=== PATIENT | female | born 1950 | race Caucasian/White ===

== ENCOUNTER → 2017-08-23 09:15 | Outpatient (CLI) | payer MEDICARE, SELFPAY ==
[2017-08-23 12:30] LABS: BUN 20 mg/dL (7-18); Creatinine, Serum 1.11 mg/dL (0.55-1.02); EST Glomerular Filtration Rate 52 mL/min (>60); Est Glom Filt Rate - Afr Amer 63 mL/min (>60)
--- OUTSIDE RECORDS SUMMARY | 2017-10-06 11:36 | XMS RPT_ITS ---
:1950 Author Organization OHIP Support Name Relationship Address Phone R Unavailable Unavailable Unavailable LOUIS, CHRISTIANNE Unavailable [address] + [place] [address] CEDENO, THAI Unavailable [address] + [place] [address] R Unavailable Unavailable Unavailable HERIBERTO CHRISTIANNE Unavailable [address] + [place] [address] CEDENO, THAI Unavailable [address] + [place] [address] R Unavailable Unavailable Unavailable LOUIS, CHRISTIANNE Unavailable [address] + [place] [address] CEDENO, THAI Unavailable [address] + [place] [address] R Unavailable Unavailable Unavailable HERIBERTO CHRISTIANNE Unavailable [address] + [place] [address] CEDENO, THAI Unavailable [address] + [place] [address] R Unavailable Unavailable Unavailable HERIBERTO CHRISTIANNE Unavailable [address] + [place] [address] CEDENO, THAI Unavailable [address] + [place] [address] R Unavailable Unavailable Unavailable HERIBERTO CHRISTIANNE Unavailable [address] + [place] [address] CEDENO, THAI Unavailable [address] + [place] [address] R Unavailable Unavailable Unavailable LOUIS, CHRISTIANNE Unavailable [address] + [place] [address] CEDENO, THAI Unavailable [address] + [place] [address] R Unavailable Unavailable Unavailable LOUIS CHRISTIANNE Unavailable [address] + [place] [address] CEDENO, THAI Unavailable [address] + [place] [address] R Unavailable Unavailable Unavailable CHRISTIANNE LOUIS Unavailable [address] + [place] [address] CEDENO, THAI Unavailable [address] + [place] [address] R Unavailable Unavailable Unavailable CHRISTIANNE LOUIS Unavailable [address] + [place] [address] CEDENO, THAI Unavailable [address] + [place] [address] R Unavailable Unavailable Unavailable CHRISTIANNE LOUIS Unavailable [address] + [place] [address] CEDENO, THAI Unavailable [address] + [place] [address] Care Team Providers Name Role Phone Herbert Simpson Attending Unavailable Tatiana, Herbert Primary Care Unavailable Herbert Simpson Attending Unavailable Tatiana, Herbert Primary Care Unavailable TatianaHerbert paul Attending Unavailable Tatiana, Herbert Primary Care Unavailable Jef Espinal Attending Unavailable Tatiana, Herbert Primary Care Unavailable Roman Keane Attending Unavailable Tatiana, Herbert Primary Care Unavailable Timothy Jo Attending Unavailable Tatiana, Herbert Primary Care Unavailable TatianaHerbert Attending Unavailable Tatiana, Herbert Primary Care Unavailable Tatiana, Herbert Attending Unavailable Tatiana, Herbert Primary Care Unavailable Roman Keane Admitting Unavailable Roman Keane Attending Unavailable Tatiana, Herbert Primary Care Unavailable Timothy Jo Attending Unavailable Tatiana, Herbert Primary Care Unavailable Timothy Jo Attending Unavailable Timothy Jo Referring Unavailable Tatiana, Herbert Primary Care Unavailable Timothy Jo Attending Unavailable Timothy Jo. Admitting Unavailable PROBLEMS PROBLEMS DATE TYPE CONDITION / CODE ATTENDING STATUS SOURCE 09/26/2017 Admitting Unknown / Timothy Jo Active [facility] Medical diagnosis UNK(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, Repository initial encounter / T84.038A(ICD-10) 05/19/2017 Unknown ENCNTR SCREEN Herbert Simpson Active [facility] MAMMOGRAM FOR [facility] MALIGNANT NEOPLASM [facility] OF BREAST / Repository Z12.31(ICD-10) 05/19/2017 Unknown HYPERLIPIDEMIA, Herbert Simpson Active [place] UNSPECIFIED / Community E78.5(ICD-10) Hospital Repository 05/19/2017 Unknown ABDOMINAL AORTIC Timothy Jo Active [place] [facility] ANEURYSM, WITHOUT A Community RUPTURE / Hospital I71.4(ICD-10) Repository 05/19/2017 Unknown OCCLUSION AND Timothy Jo Active [place] STENOSIS OF A [facility] BILATERAL CAROTID Hospital ARTERIES / Repository I65.23(ICD-10) 05/19/2017 Unknown TOBACCO USE / Timothy Jo Active [facility] Z72.0(ICD-10) A [facility] Hospital Repository 05/19/2017 Unknown 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 [facility] JOINT / Hospital Z96.612(ICD-10) Repository 05/19/2017 Unknown INTERVERTEBRAL DISC Teddy, 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, Hospital LUMBAR REGION / Repository M51.16(ICD-10) 05/19/2017 Unknown SPINAL STENOSIS, Teddy, Active [place] LUMBAR REGION / [facility] M48.06(ICD-10) Hospital Repository 05/19/2017 Unknown GASTRO-ESOPHAGEAL Teddy, Active [place] REFLUX DISEASE [facility] WITHOUT ESOPHAGITIS Hospital / K21.9(ICD-10) Repository 05/19/2017 Unknown PURE Teddy, Active [facility] HYPERCHOLESTEROLEMIA [facility] , UNSPECIFIED / Hospital E78.00(ICD-10) Repository 05/19/2017 Unknown GROUP HOME (CURRENT) Teddy, Active [place] USE OF ASPIRIN / [facility] Z79.82(ICD-10) Hospital Repository 05/19/2017 Unknown OTHER GROUP HOME Teddy, Active [facility] (CURRENT) DRUG [facility] THERAPY / Hospital Z79.899(ICD-10) Repository 05/19/2017 Unknown ESSENTIAL (PRIMARY) Teddy, Active [place] HYPERTENSION / [facility] I10(ICD-10) Hospital Repository 05/19/2017 Unknown NICOTINE DEPENDENCE, Teddy, Active [place] UNSPECIFIED, [facility] UNCOMPLICATED / Hospital F17.200(ICD-10) Repository 05/19/2017 Unknown PNEUMONIA, Herbert Simpson Active [place] UNSPECIFIED ORGANISM Community / J18.9(ICD-10) Hospital Repository 05/19/2017 Unknown COUGH / R05(ICD-10) Herbert Simpson Active [facility] Hospital Repository 05/19/2017 Unknown CHRONIC OBSTRUCTIVE Herbert Simpson Active [facility] PULMONARY DISEASE, Community UNSPECIFIED / Hospital J44.9(ICD-10) Repository PROCEDURES PROCEDURES No Procedure Records FoundRESULTS RESULTS HH Collected: 09/27/2017 Status: F Source: [facility] 5:35 AM [facility] REPOSITORY Order Comment: [place]: M: In PACU/ICU. Call MD with abnormal results. TYPE CODE TESTS RESULT OUT OF RANGE REFERENCE UNITS LAB L200.88491 Low 11.5-15.5 G/DL HGB 10.8 LAB L200.21788 Low 35.0-47.0 % HCT 33.7 Performed By: #### L200.64901 ####[facility] [id number] [place], [place] [address]Eq# [phone] BMP Collected: 09/27/2017 Status: F Source: [facility] 5:35 AM [facility] REPOSITORY Order Comment: [place]: M: In PACU/ICU. Call MD with abnormal results. TYPE CODE TESTS RESULT OUT OF RANGE REFERENCE UNITS LAB L500.40356 Normal 136-145 MMOL/L NA 142 LAB L500.64655 Normal 3.5-5.1 MMOL/L K 4.4 LAB L500.21368 High 98-107 MMOL/L CL 112 LAB L500.30202 Normal 21-32 MMOL/L CO2 22 LAB L500.82067 Normal 5-16 MMOL/L AGAP 9 LAB L500.15953 High 70-100 MG/DL GLU 113 Result Comment: 70-100- Normal Fasting; 100-125 Impaired Fasting; greaterthan 126 on more than one result- Diabetes. ADA guidelines.Results may be falsely elevated after the administration ofSulfapyridine.Results may be falsely depressed after the administration ofSulfasalazine. LAB L500.71288 Normal 7-26 MG/DL BUN 13 LAB L500.42580 High 0.510-0.950 MG/DL CREAT 1.040 Result Comment: Patients receiving either N-Acetylcysteine (NAC) orMetamizole prior to venipuncture, may have falsely depressedresults. LAB L500.87740 Low 15-24 BUN/CREA 12 LAB L500.85501 Normal 8.5-10.1 MG/DL CALCIUM TOTAL 8.9 Performed By: #### L500.64757, L500.15647 ####[facility] [id number] [place], [place] [address]Rk# [phone] GFR EST Collected: 09/27/2017 Status: F Source: [facility] 5:35 AM [facility] REPOSITORY Order Comment: [place]: M: In PACU/ICU. Call MD with abnormal results. TYPE CODE TESTS RESULT OUT OF RANGE REFERENCE UNITS LAB L500.72374 Normal ML/MIN IF 53 non-AFR AMER LAB L500.59639 Normal ML/MIN IF Greater AMER than 60 Performed By: #### L500.29777, L500.72366 ####[facility] [id number] [place], [place] [address]Pe# [phone] CBC Collected: 09/26/2017 Status: F Source: [facility] 9:40 AM [facility] REPOSITORY Order Comment: [place]: M: In PACU/ICU. Call MD with abnormal results. TYPE CODE TESTS RESULT OUT OF RANGE REFERENCE UNITS LAB L200.70403 High 4.5-11.0 K/CU MM WBC 12.6 LAB L200.57847 Low 3.90-5.30 M/CU MM RBC 3.62 LAB L200.05985 Low 11.5-15.5 G/DL HGB 11.1 LAB L200.84247 Normal 35.0-47.0 % HCT 35.1 LAB L200.07885 Normal 80.0-99.0 fl MCV 97.0 LAB L200.13268 Low 32.0-36.0 GM/DL MCHC 31.6 LAB L200.26829 Normal 11-14.5 RDW 12.6 LAB L200.46995 Normal 9.4-12.4 MPV 9.4 LAB L200.72241 Normal 150-450 K/CU MM PLT 269 LAB L200.90591 Normal Less than 1 % NRBC 0.0 Performed By: #### L200.77970 ####[facility] [id number] [place], [place] [address]Wl# [phone] PT Collected: 09/26/2017 Status: F Source: [facility] 9:40 AM [facility] REPOSITORY Order Comment: [place]: M: In PACU/ICU. Call MD with abnormal results. TYPE CODE TESTS RESULT OUT OF RANGE REFERENCE UNITS LAB L300.77371 Normal 0.9-1.1 INR 1.0 Result Comment: Recommended PT INR therapeutic range for senior living andprophylactic therapy is 2.0 - 3.0. For heart valve andshunt patients the range is 2.5 - 3.5. LAB L300.39300 Normal 9.4-12.0 SECONDS PTS 10.7 Performed By: #### L300.90598, L300.36890 ####[facility] [id number] [place], [place] [address]Ff# [phone] PTT Collected: 09/26/2017 Status: F Source: [facility] 9:40 AM [facility] REPOSITORY Order Comment: [place]: M: In PACU/ICU. Call MD with abnormal results. TYPE CODE TESTS RESULT OUT OF RANGE REFERENCE UNITS LAB L300.34582 Normal 22.5-31.4 SECONDS PTT 25.4 Result Comment: Therapeutic Heparin Reference Range: High Dose: 56 - 86 seconds (DVT/PE) Low Dose: 50 - 70 seconds (Acute Coronary Syndrome)For low molecular weight heparin or danaparoid, monitoringis often NOT necessary, but the heparin assay, Xa inhibitionassay (send-out) may be used in certain circumstances, asthe PTT is generally insensitive to the effect of theseagents. Direct thrombin inhibitors are becoming more widelyutilized and these drugs are often monitored using the PTT. Performed By: #### L300.49644, L300.68659 ####[facility] [id number] [place], [place] [address]Km# [phone] PATIENT RETYPE Collected: 09/26/2017 Status: F Source: [facility] 6:11 AM [facility] TYPE CODE TESTS RESULT OUT OF RANGE REFERENCE UNITS LAB B100.14849 Normal B RETYPE POSITIVE INTERP EKG Observed: 09/26/2017 Status: UNK Source: [facility] 6:00 AM [facility] Procedure Date and Time: 09/26/17 0714Test Reason : URGENTBlood Pressure : / mmHGVent. Rate : 077 BPM Atrial Rate : 077 BPMP-R Int : 172 ms QRS Dur : 076 msQT Int : 382 ms P-R-T Axes : 045 039 061 degreesQTc Int : 432 msNormal sinus rhythmNormal ECGNo previous ECGs availableConfirmed by SHANELL FRANCIS MD ([id number]) on 09/26/2017 7:24:29 PMReferred By: Ca Correa Confirmed By:SHANELL FRANCIS MD M.D.DDandT: 09/26/17 0714TDandT:[facility] PATIENT NAME: ANDREW LOUIS [facility] Dr[address] MEDICAL REC #: [id number], [place] [address] DATE: 09/26/17DISCHARGE DATE:ATTENDING PHY: Timothy Jo MDELECTROCARDIOGRAM REPORTCLBcc:[facility] PATIENT NAME: ANDREW LOUIS [facility] Dr. Mendez MEDICAL REC #: [id number], [place] [address] DATE: 09/26/17DISCHARGE DATE:ATTENDING PHY: Timothy Jo MDELECTROCARDIOGRAM REPORT CBC W/DIFF Collected: 09/26/2017 Status: F Source: [facility] 5:56 AM [facility] REPOSITORY Order Comment: [place]: TYPE CODE TESTS RESULT OUT OF RANGE REFERENCE UNITS LAB L200.04065 Normal 4.5-11.0 K/CU MM WBC 9.2 LAB L200.80254 Normal 3.90-5.30 M/CU MM RBC 4.15 LAB L200.74803 Normal 11.5-15.5 G/DL HGB 12.8 LAB L200.15176 Normal 35.0-47.0 % HCT 39.8 LAB L200.40525 Normal 80.0-99.0 fl MCV 95.9 LAB L200.58433 Normal 32.0-36.0 GM/DL MCHC 32.2 LAB L200.52988 Normal 11-14.5 RDW 12.8 LAB L200.74494 Low 9.4-12.4 MPV 9.3 LAB L200.44573 Normal 150-450 K/CU MM PLT 316 LAB L200.72836 Normal 45-75 % NEUTROPHILS % 61.6 LAB L200.23144 Normal Less than 2 % IMMATURE GRAN % 0.2 LAB L200.03479 Normal 20-40 % LYMPH % 25.7 LAB L200.24370 Normal 2-10 % MONOCYTE % 7.0 LAB L200.41860 Normal 0-5 % EOSINOPHIL % 4.7 LAB L200.19092 Normal 0-2 % BASOPHIL % 0.8 LAB L200.51882 Normal 2.0-8.3 K/CU MM NEUTROPHIL ABS 5.70 LAB L200.02029 Normal Less than 2 K/CU MM IMMATR GRAN ABS 0.00 LAB L200.49661 Normal 0.9-4.4 K/CU MM LYMPH ABS 2.40 LAB L200.93749 Normal 0.1-1.1 K/CU MM MONO ABS 0.60 LAB L200.17133 Normal 0-0.5 K/CU MM EOS ABS 0.40 LAB L200.17433 Normal 0-0.2 K/CU MM BASO ABS 0.10 LAB L200.73784 Normal Less than 1 % NRBC 0.0 Performed By: #### L200.54263 ####[facility] [id number] [place], [place] [address]Bg# [phone] BMP Collected: 09/26/2017 Status: F Source: [facility] 5:55 AM [facility] REPOSITORY Order Comment: [place]: M TYPE CODE TESTS RESULT OUT OF RANGE REFERENCE UNITS LAB L500.53601 Normal 136-145 MMOL/L NA 142 LAB L500.32770 Normal 3.5-5.1 MMOL/L K 4.6 LAB L500.68194 High 98-107 MMOL/L CL 109 LAB L500.35591 Normal 21-32 MMOL/L CO2 23 LAB L500.15443 Normal 5-16 MMOL/L AGAP 10 LAB L500.59227 Normal 70-100 MG/DL GLU 100 Result Comment: 70-100- Normal Fasting; 100-125 Impaired Fasting; greaterthan 126 on more than one result- Diabetes. ADA guidelines.Results may be falsely elevated after the administration ofSulfapyridine.Results may be falsely depressed after the administration ofSulfasalazine. LAB L500.91997 Normal 7-26 MG/DL BUN 13 LAB L500.08876 High 0.510-0.950 MG/DL CREAT 1.070 Result Comment: Patients receiving either N-Acetylcysteine (NAC) orMetamizole prior to venipuncture, may have falsely depressedresults. LAB L500.96169 Low 15-24 BUN/CREA 12 LAB L500.29608 Normal 8.5-10.1 MG/DL CALCIUM TOTAL 10.0 Performed By: #### L500.40480, L500.98948 ####[facility] [id number] [place], [place] [address]Ov# [phone] GFR EST Collected: 09/26/2017 Status: F Source: [facility] 5:55 AM [facility] REPOSITORY Order Comment: [place]: M TYPE CODE TESTS RESULT OUT OF RANGE REFERENCE UNITS LAB L500.24541 Normal ML/MIN IF 51 non-AFR AMER LAB L500.00005 Normal ML/MIN IF Greater AMER than 60 Performed By: #### L500.06755, L500.20438 ####[facility] [id number] [place], [place] [address]Cc# [phone] PBNP TEST Collected: 09/26/2017 Status: F Source: [facility] 5:55 AM [facility] REPOSITORY Order Comment: [place]: M TYPE CODE TESTS RESULT OUT OF RANGE REFERENCE UNITS LAB L500.91591 Normal 0-900 PG/ML PBNP 172 TEST Result Comment: NT-proBNP results of less than 300 pg/ml effectively rulesout acute congestive heart failure with 99% negativepredictive value. Performed By: #### L500.27856 ####[facility] [id number] [place], [place] [address]Rl# [phone] TS Collected: 09/26/2017 Status: F Source: [facility] 5:55 AM [facility] REPOSITORY Order Comment: [place]: MPatient transfused or in the past 3 months: NOIs This Patient Going To Surgery? YSurgery Date: 09/26/17 TYPE CODE TESTS RESULT OUT OF RANGE REFERENCE UNITS LAB B100.0400 Normal BLOOD B TYPE POSITIVE LAB B100.0680 Normal ANTIBODY NEGATIVE SCREEN OR Observed: 09/26/2017 Status: UNK [facility] OF [facility]: 09/26/2017PREOPERATIVE DIAGNOSIS: Aortic aneurysm.POSTOPERATIVE DIAGNOSIS: Aortic aneurysm.OPERATION:1. Bilateral ultrasound-guided access common femoral artery.2. Aortogram with bilateral iliofemoral imaging.3. Endovascular aneurysm repair with a Jerome 26 main body and 12-mm bilateral limbs.SURGEON: Timothy Jo MDINDICATIONS: Patient with an enlarging aneurysm that is now over 5 cm who asked thatwe repair it. Risks, benefits, and alternatives were discussed. She agreed toproceed.OPERATION: The patient was brought to the operating room. Underwent generalanesthesia. Given the appropriate antibiotics. Was prepped and draped in a sterilefashion. We then did ultrasound-guided access bilateral common femoral arteries, putin 2 ProGlides to both sides. Put in an 8-Botswanan sheath. Gave 8000 units ofheparin. Brought in a pigtail catheter. We marked out the length from the lowerleft renal to the right hypogastric and appeared to be 18 cm. We were going to do an18-cm main body with 26-mm proximal. We then replaced a Lunderquist through both,brought in a 12-Botswanan sheath on the left, 16-Botswanan sheath on the right. We broughtthese up. We then brought in the main body, did an aortogram then, showing the leftrenal artery; deployed the main body in good position right below this, and we openeddown to the gate. We then pulled the pigtail back. We had access into the gate,measured off the left one and replaced the Lunderquist wire here, brought the sheathback in to the main body, deployed the limb on that side in good position, which wasa 12 cm x 12 mm above the hypogastric. We then, after that, did a little retrogradelooking at the ipsilateral hypogastric, finished deploying the rest of the main bodythere in good position. We then brought in a balloon and ballooned the proximal, thejunctions, and down both limbs. Did a completion aortogram showing no type 1, type2, or appreciable type 3 endoleak with good flow through here into the hypogastrics.We then removed out both sheaths, deployed the ProGlides with good hemostasis. Thepatient was then brought to recovery in stable condition. She has good signals notedin both feet. Prior to this, entry to the groins were closed with interrupted 3- 0Vicryl, 4-0 Monocryl, and Dermabond was placed. Timothy Jo MD [facility] PAT[facility]: [facility] REC #: [id number], [place] [address] DATE:DISCHARGE DATE:OPERATIVE REPORT ATTENDING PHY: Timothy Jo MDBB/[id number]: 09/26/2017 09:15DT: 2017 10:24[place] File#: [id number] #: [id number]/Reviewed by09/26/17 1139 BUTBR [facility] PATIENT [facility]: [facility] MED[facility] REC #: [id number] [address] DATE:DISCHARGE DATE:OPERATIVE REPORT ATTENDING PHY: Timothy Jo MD CTA ABD W/JAROCHO W/LUANA Observed: 08/30/2017 Status: F Source: [place] [facility] 7:51 AM [facility] REPOSITORY [facility] [address] [place], [place] [address]SIR Abd w/Runoff W/WO ContrastMR#: [id number] Acct: [id number]: ANDREW LOUIS Rep #: [id number]: [birth year] F 67 From: [facility] DOTHANCP: Herbert Simpson DO Status: REG CLIStudy: CTA Abd w/Runoff W/WO Contrast Date of Exam: 08/30/17Exam# [id number] Ordering Dr: Timothy Jo MDSTUDY: CTA OF THE ABDOMINAL AORTA AND BILATERAL LOWER EXTREMITIESREASON FOR EXAM: Female, 67 years old. History of carotid stenosis andpopliteal stents.RADIATION DOSAGE (If Supplied By Facility): CTDIvol = ( 8.9 ) mGy, DLP = (1721.07 ) mGycmTECHNIQUE: Axial CT angiography multi-detector data acquisition wasobtained from the dome of the liver to the ankles following intravenousadministration of 100 ml of Isovue 370 contrast. Axial images and MIPimages were reconstructed from the axial data set. Post-processing of theangiographic images was performed, with multiplanar reformation and 3Dreconstruction.Individualized dose optimization techniques were used for this CT.TECHNICAL QUALITY: GoodCOMPARISON: Comparison is made with prior examination dated October.Descriptors of Narrowing:None (0%)Mild (< 50%)Moderate (50-70%)Severe (70-90%)Subtotal/Total Occlusion (90-100%)Non-Evaluable ( technically non-diagnostic FINDINGS:Abdominal aorta: There is a fusiform infrarenal abdominal aortic aneurysmwith a transverse dimension of 5.2 cm. There is evidence of muralthrombus.Celiac and superior mesenteric arteries: Atherosclerotic narrowing of theorigins of the celiac artery and superior mesenteric arteries.Inferior mesenteric artery: Not visualized.Right renal artery( arteries): Atherosclerotic stenotic plaque at theorigin of the right renal artery.Left renal artery(arteries): Atherosclerotic plaque at the origin of leftrenal artery causing mild stenosis.Right common iliac artery: Diffuse atherosclerotic calcifications. Mildnarrowing.Right external iliac artery: Atherosclerotic calcifications.Right internal iliac artery: No demonstrated narrowing.Left common iliac artery: Atherosclerotic plaques with mild narrowing.Left external iliac artery: Atherosclerotic plaques with mild narrowing.Left internal iliac artery: No demonstrated narrowing. Increased markings at the lung bases with areas of groundglass appearancesuggests over chronic scarring. Coronary artery calcification.Normal liver. I suspect tiny gallstones along the dependent portion of thegallbladder lumen. Normal spleen. Normal pancreas.Once again, there is evidence of a 4.3 cm x 3 cm complex cystic mass withcalcifications in the left adrenal gland. This is unchanged.Normal right kidney. Normal left kidney.Normal visualized stomach. Normal small intestine. There are scatteredcolonic diverticula consistent with diverticulosis. The appendix isvisualized and appears normal.RIGHT LOWER EXTREMITYRight common femoral artery: Atherosclerotic plaques with mild narrowing.Right profundus femoris: No demonstrated narrowing.Right superficial femoral: Multiple stenotic lesions seen throughout thesuperficial femoral artery. A stent is seen in the distal portion of thesuperficial femoral artery and proximal popliteal artery.Right popliteal artery: Stent is seen in the proximal portion of thepopliteal artery. There is occlusion of the popliteal artery at the levelof the stent. There is reconstruction of the distal portion of thepopliteal artery.Right tibioperoneal trunk: No demonstrated narrowing.Right anterior tibial artery: Patent with focal areas of narrowing.Right posterior tibial artery: Patent with focal areas of narrowing.Right peroneal artery: Patent with focal areas of narrowing.LEFT LOWER EXTREMITYLeft common femoral artery: Atherosclerotic plaque.Left profundus femoris: No demonstrated narrowing. Atheroscleroticplaques.Left superficial femoral: A stent is seen in the distal portion of thesuperficial femoral artery. There is occlusion in the proximal portion ofthe stent with reconstruction of the distal popliteal artery andtibioperoneal trunk.Left popliteal artery: Occlusion at the level of the proximal portion ofthe stent with reconstruction of the distal popliteal artery.Left tibioperoneal trunk: No demonstrated narrowing.Left anterior tibial artery: Atherosclerotic plaques.Left posterior tibial artery: Atherosclerotic plaques.Left peroneal artery: Atherosclerotic plaques. ORDER #: [id number] CT/CTA Abd w/Runoff W/WO ContrastIMPRESSION:Occlusion in both arterial stents at the level of the popliteal arteries asdescribed.Electronically Signed:Dario Barrientos MD at 10:42 ESTTel [phone], Service support , EB: Timothy Jo MD; Herbert Simpson DO [employer] Boards Inspector:Signed BUN Collected: 08/23/2017 Status: F Source: [place] 9:18 AM [facility] REPOSITORY TYPE CODE TESTS RESULT OUT OF RANGE REFERENCE UNITS LAB L501.1000 High 7-18 mg/dL BUN 20 Performed By: #### L501.1000, L501.1105 ####[facility] [address] [place], [place], [address] SERUM CREATININE AND Collected: 08/23/2017 Status: F Source: [facility] [facility] 9:18 AM [facility] REPOSITORY TYPE CODE TESTS RESULT OUT OF RANGE REFERENCE UNITS LAB L501.1100 High 0.55-1.02 mg/dL 1.11 CREAT,SERUM Result Comment: The validity of the calculated GFR AND GFRAA in patients over70 years has not been determined. Clinical correlation isessential. LAB L501.1110 Low >60 mL/min EST GFR 52 Result Comment: Non- GFR Calc LAB L501.1115 Normal >60 mL/min EST GFR - 63 AA Result Comment: GFR Calc Performed By: #### L501.1000, L501.1105 ####[facility] [address] [place], [place], [address] DISCHARGE INSTRUCTION Observed: 08/16/2017 Status: F Source: ISIS 7:03 AM [facility] RE[facility] [address] [place], [place] [address]Ripfqpjsoqlw for Home/Discharge Rozpvhsqbxpc49/17/18 07[facility] #: [id number] Acct: [id number]: ANDREW LOUIS Rep #: [id number]: 1950 67 From: Ramon FRANCOISP: Herbert Simpson DO Status: ADM INDischarge Diet: No RestrictionsDischarge Activity: May Not DriveMay shower in (days): 1 - Dressing must be intact the skin, turned dressing away from waterIce area for (Minutes): 20 - Ice area for 20 minutes each hour while awakeWeight Bearing Status: No weight bearing - Left upper extremityCall your doctor if your incision/area has: Continuous Slow Oozing, Sudden Increased Bleeding,Increased Pain/ Swelling, Increased Redness, Foul Smelling DischargeCall your doctor if you observe: Fever of 101 or Higher, Coldness, Increased Pain, Numbness orTingling, Change in ColorRemove Dressing in (days): : 4 - Okay to remove dressing on August 20, 2017Additional Instructions:Follow [facility] postop instructionsAllergies/Adverse Reactions:Allergiesnaproxen [ From Naprosyn] Allergy (Verified 08/02/17 11:06)Shortness of breathMedications to take at DischargeAtorvastatin Calcium [Lipitor] 40 mg PO QHS 07/10/15Lisinopril [ Zestril] 20 mg PO DAILY 07/10/15Omeprazole [Prilosec] 40 mg PO DAILY 07/10/15BuPROPion (XL) [Wellbutrin Xl] 300 mg PO DAILY 12/29/16Cilostazol 100 mg PO BID 08/02/luticasone/Salmeterol [Advair 100-50 Diskus] 1 each IH BID 08/02/17Acetaminophen [Tylenol] 1,000 mg PO Q8 #90 tab 08/16/17Aspirin 325 mg PO DAILY@0800 #14 tab 08/16/17Doxycycline 100 mg PO BID #14 cap 08/16/17Oxycodone [Oxyir] 5 - 10 mg PO Q4H PRN PRN #80 tablet 08/16/17enna/Docusate Sodium [ Senokot-S] 2 tab PO BID PRN PRN #20 tab 08/16/17The following prescriptions were given: Oxycodone [Oxyir] 5 - 10 mg PO Q4H PRN PRN #80 tabletPRN Reason: PainAcetaminophen [ Tylenol] 1,000 mg PO Q8 #90 tabAspirin 325 mg PO DAILY@0800 #14 tabSenna/Docusate Sodium [Senokot-S] 2 tab PO BID PRN PRN #20 tabPRN Reason: ConstipationDoxycycline 100 mg PO BID #14 capPrimary Care Physician:Herbert Simpson DO [Primary Care Provider] - Please Follow Up With: Ramon Godinez PA-CWhen: 08/28/17 @ 8:15 amPlease Follow Up With: [facility] physical therapyWhen: 08/29/17 @ 7:00 am08/16/17 0703 <Electronically signed by Ramon Godinez PA-C>Date Ramon GARGCCC: Herbert Simpson DO OPERATIVE REPORT Observed: 08/15/2017 Status: F Source: MARTIN 11:21 AM [facility] [address] [place], [place] [address]Jkwaejisc Quoxwc41/16/18 1108MR#: [id number] Acct: [id number]: ANDREW LOUIS Rep #: [id number]: 1950 67 From: Roman Keane MDPCP: Herbert Simpson DO Status: ADM IN YLocation: ACINP [id number] of OperationDate of Procedure: 08/15/17Pre-Operative Diagnosis: Left failed reverse total shoulder replacement, aseptic looseningPost-Operative Diagnosis: Left failed reverse total shoulder replacement, aseptic looseningSurgery/Procedure Performed:: Revision left total shoulder replacementDescription of Surgical Findings::Stable shoulder with good fixation, DBX used to fill bone voidOR Railroad Operating Engineer: Susannah Godinez Railroad Operating Engineer: Jerome SkeltonType of Anesthesia:: GeneralAnesthesiologist: MichaelEricSpecial Medications: 2 g Ancef, 1 g TXA at incision, 1 g TXA closure, 10 mg Decadron, jointcocktail (5 mg Duramorph, 30 mL of 0.5% Ropivicaine, 1000 units of epinephrine), 1 g vancomycinthroughout caseSpecimen's removed: 3 separate specimens were sent to microbiologyEstimated Blood Loss (mL): 75Fluids Replaced: 1500 ml crystalloidDescription of Procedure:Components used1. Equinox glenoid baseplate from [employer] for reverse TSA, 8 posterior augment2. Equinox 38 mm Glenosphere3. Equinox 38 mm, +0 mm humeral liner4. Equinox reverse TSA humeral adapter tray 0 mmBrief history/Operative indications:67 yo f with history of previous left reverse total shoulder replacement. Patient hadprogressive increase in pain and x-rays consistent with radiolucency around the glenoidbaseplate and glenoid baseplate screws. Patient failed conservative measures as mentioned inthe H AND P. After discussion of risk and benefits of revision reverse total shoulder replacementincluding but not limited to blood loss, DVTs, PEs, nerve vessel damage, infection, generalrisk of anesthesia including loss of life, instability and stiffness patient demonstratingunderstanding wish to proceed was able to sign informed consent. Medical clearance wasobtained.Procedure:On the date of the procedure, patient's L upper extremity was marked in the preoperative area.Patient was taken back to the operating room where they were placed on the table in the supineposition. Anesthesia assumed control of the C-spine and airway, then administered anesthetic.All bony prominences were identified well-padded, the head was secured and the patient wasplaced in the beachchair position at about 35 inclination. Anesthesia remained in control ofthe C-spine airway throughout the remainder of the procedure. Patient was then appropriatelyfastened to the table and the L upper extremity was prepped in a sterile fashion. The surgeonsthen scrubbed.Upon reentering the room, the L upper extremity was draped in a sterile fashion and theincision was marked out. Timeout was called, everyone agreed upon the side, the site, theprocedure to be performed, patient identity and antibiotics given. Incision was taken downthrough skin and subcutaneous tissue, fat down to fascia using the old incision and extendingit 1 cm proximally and distally. The stripe of fatty and scar tissue of the deltopectoralinterval and cephalic vein were identified and blunt dissection was used to retract thedeltoid. We are very careful to remain in the subdeltoid space for retraction the cephalicvein was retracted laterally. Clavipectoral fascia was then incised and a kobel retractor wasplaced in the wound. Proximally we followed the bicipital groove re-creating the rotatorinterval. The rotator interval was split and the arm was externally rotated. Thesubscapularis split was 1 cm medial to the bicipital groove. Subscapularis tendon wasreleased. We released down the anterior portion of the humerus and a paulson elevator was used torelease the inferior portion of the humeral head. The arm was externally rotated and theshoulder was dislocated.Our attention was then directed towards the humeral implant. Polyethylene was removed andcentral screw was removed from the adapter tray. Adapter tray was then from thehumeral implant. Humeral implant was examined and found to be well fixed. At this time weretracted the humerus out of the way and began a synovectomy of the joint. Anterior superiorsynovectomy was performed with the going to see her in situ and once we could appropriatelyexposed the gland is for her the central screw was removed and the banister was removed fromthe base plate. Once the canister was removed and the baseplate all 4 screws were removed andit is clear that the baseplate was grossly loose. Base plate was then removed using pliersfrom the wound. At this time we used the standard glenoid reamers with the previous centralhole to once again ream the glenoid down to good subchondral bone. Membrane from the humeralimplant, membrane from between the glenoid and glenoid baseplate and membrane from behind theglenoid baseplate were sent for culture. Once all the screw holes and central pedicle weredebrided of all membrane and appropriately reamed we then trialed an 8 posterior augmentimplant and it sat flush. At this time the wound was copiously irrigated out normal salinewhile the 8 posterior augment baseplate was opened. After 6 L of normal saline were copiouslyirrigated throughout the wound with low-pressure lavage the glenoid was again exposed. Were-drilled the central peg and graft from the drilling as well as DBX was placed into thecentral bone cage. Glenoid was then impacted into place and 4 screws were placed. Theremaining screw holes could not get good purchase. We did place DBX through the screw holes inorder to fill bone voids. Once the screws were appropriately tightened into place theglenoid baseplate was compressed against the exposed subchondral bone. Locking caps wereplaced and a 38mm glenosphere was impacted into place engaging the Nixon taper. The centralscrew was then tightened into place.Attention was then turned towards the humerus. The humerus was again externally rotatedexposing the proximal portion of the humerus. Central canal finder was then used to open upthe canal. We trialed the 0mm liner, with the 0mm humeral baseplate. We obtained an adequatereduction at this time with a nice stable shoulder. Good internal rotation to the gluteus,forward elevation to 140 , external rotation to 20 . Final components were then assembled onthe back table, trials were removed and the wound was copiously irrigated with normal salineafter dislocating the shoulder. Once the final components were assembled they were impactedinto place. Shoulder was then reduced and found to be stable with good range of motion.Subscapularis tendon could not be repaired. Wound was then copiously irrigated out with 1 L ofnormal saline lavage. The deltopectoral fascia was then closed using #1 Vicryl skin was closedusing 2-0 Vicryl interrupted sutures and final skin closure was done with 3-0 Monocryl.Steri-Strips are placed for final skin closure. Sterile dressing was placed patient was thenplaced in a sling and awakened by anesthesia. Patient was then transferred to the PACU forrecovery.Postoperative plan:Patient will be admitted to the hospital overnight. They will get physical therapy starting in2 weeks with normal postoperative regimen. Patient will be placed on 325 milligrams of aspirindaily for DVT prophylaxis. The first postoperative appointment will be in 2 weeks for woundcheck and initiation of phase 1 physical therapy.During the course of the procedure the physician mechanic assistant played a vital role. His intimateknowledge of my steps in the procedure aided in safe and expedient completion of the procedure.The PA played a vital rolls in positioning particularly in obtaining the appropriate beachchair position and securing the patient's body and head to the table. The PA was also vital inthe retraction of soft tissues during the exposure and especially the glenoid work as this is neida part of the procedure to prevent neurovascular damage. the PA was also vital andprotecting soft tissues during times of bony cuts and reaming. He also played a vital role inclosure with my direct supervision. The PA was also important during reduction and dislocationof the joint and trials intraoperatively.During the course the procedure Dr. Skelton was present and was a second mechanic assistant forevaluative and educational purposes. He is being evaluated for reentry into practice.- Complicationsnone- Admit VTE DocumentationVTE Present on Admission: NoVTE Mechan Device Prophylaxis: SCD's, Thigh High DEBBIE HoseVTE Pharm Prophylaxis ordered?: Yes08/15/17 1121 < Electronically signed by Roman Keane MD>Date Roman Keane MDCC: Herbert Simpson DO; Roman Keane MD Signed SHOULDER ONE VIEW Observed: 08/15/2017 Status: F Source: MARTIN 7:05 AM [facility] REPOSITORY [facility] [address] [place], [place] [address]Azmskrpr One ViewMR#: [id number] Acct: [id number]: ANDREW LOUIS Rep #: [id number]: 1950 F 67 From: Dario Barrientos MDPCP: Herbert Simpson DO Status: ADM INStudy: Shoulder One View Date of Exam: 08/15/17Exam# [id number] Ordering Dr: Roman Keane MDSTUDY: X-RAY - LEFT SHOULDERREASON FOR EXAM: Female, 67 years old. Total shoulder arthroplasty.TECHNIQUE: Single frontal view(s) of the shoulder.COMPARISON: None. FINDINGS:The patient is status post left reverse shoulder replacement. There isgood alignment.Postoperative soft tissue changes. ORDER #: [id number] RAD/Shoulder One ViewIMPRESSION:Status post left reverse shoulder replacement. There is good alignment.Postoperative soft tissue changes.Electronically Signed:Dario Barrientos MD2018/08/15 at 12:25 ESTTel [phone], Service support , FD: Herbert Simpson DO; Roman Keane MD Printed Circuit Boards Inspector:Signed Observed: 08/15/2017 Status: F Source: ISIS CULTURE, DEEP WOUND 12:00 [facility] REPOSITORY Order Date: 03/01/17 Comments: LEFT HUMERAL MEMBRANEGram StainGram Stain 1+ White Blood Cells No organisms seen Wound CultureNo growth aerobically. Cult, AnaerobicNo growth in 5 days. Performed By: #### M100.1500, M600.1900 ####[facility] [address] [place], [address] Observed: 08/15/2017 Status: F Source: ISIS LARSON, FUNGUS W/ 12:00 [facility] [id number] REPOSITORY Comments: LEFT HUMERAL MEMBRANE Is this test to exclude patient from TB Isolation? N Cu,[id number] TESTING PERFORMED AT [facility]. ORIGINAL REPORT ON FILE IN LAB CONTAINS ADDITIONAL TEST SITE INFORMATION. CUF No yeast or mold isolated after [address] TESTING PERFORMED AT [facility]. ORIGINAL REPORT ON FILE IN LAB CONTAINS ADDITIONAL TEST SITE INFORMATION. Fungus Stain No yeast or mold observed. Performed By: #### M100.1500, M600.1900 ####[facility] [address] [place], [address] Observed: 08/15/2017 Status: F Source: ISIS CULTURE, DEEP WOUND 12:00 AM [facility] REPOSIT[facility] Order Date: 03/01/17 Comments: LEFT GLENOID MEMBRANEGram StainGram Stain 2+ White Blood Cells No organisms seen Wound CultureNo growth aerobically. Cult, AnaerobicNo growth in 5 days. Performed By: #### M100.1500 ####[facility] [address] [place], [address] Observed: 08/15/2017 Status: F Source: ISIS CULTURE, DEEP WOUND 12:00 [facility] REPOSITORY Order Date: 03/01/17 Comments: LEFT GLENOID MEMBRANE # 2Gram StainGram Stain 2+ White Blood Cells No organisms seen Wound CultureNo growth aerobically. Cult, AnaerobicNo growth in 5 days. Performed By: #### M100.1500, M100.3880, M600.1900 ####[facility] [address] [place], [address] AFB Observed: 08/15/2017 Status: F Source: ISIS CULT/SMEAR [id number] 12:00 [facility] REPOSITORY Comments: LEFT GLENOID MEMBRANE #2 Is this test to exclude patient from TB Isolation? N AFB Smear/Fluor TESTING PERFORMED AT [facility]. ORIGINAL REPORT ON FILE IN LAB CONTAINS ADDITIONAL TEST SITE INFORMATION. Smear, Acid Fast Tissue Grinding Smear: Negative AF[employer] Cult TESTING PERFORMED AT [facility]. ORIGINAL REPORT ON FILE IN LAB CONTAINS ADDITIONAL TEST SITE INFORMATION. Culture, Acid Fast NO ACID-FAST BACILLI ISOLATED AFTER 6 WEEKS. Performed By: #### M100.1500, M100.3880, M600.1900 ####[facility] [address] [place], [id number] Observed: 08/15/2017 Status: F Source: JOSE BEARDEN W/ 12:00 [facility] [id number] REPOSITORY Comments: LEFT GLENOID MEMBRANE #2 Is this test to exclude patient from TB Isolation? Fozia Rice,Mkezws6539 TESTING PERFORMED AT [facility]. ORIGINAL REPORT ON FILE IN LAB CONTAINS ADDITIONAL TEST SITE INFORMATION. CUF No yeast or mold isolated after [address] TESTING PERFORMED AT [facility]. ORIGINAL REPORT ON FILE IN LAB CONTAINS ADDITIONAL TEST SITE INFORMATION. Fungus Stain No yeast or mold observed. Performed By: #### M100.1500, M100.3880, M600.1900 ####[facility] [facility] [address] [place], [address] [employer]B Observed: 08/15/2017 Status: F Source: ISIS CULT/SMEAR [id number] 12:00 [facility] REPOSITORY Comments: LEFT HUMERAL MEMBRANE AF[employer] Smear/Fluor [facility]. ORIGINAL REPORT ON FILE IN LAB CONTAINS ADDITIONAL TEST SITE INFORMATION. Smear, Acid Fast Tissue Grinding Smear: Negative AF[employer] Cult TESTING PERFORMED AT [facility]. ORIGINAL REPORT ON FILE IN LAB CONTAINS ADDITIONAL TEST SITE INFORMATION. Culture, Acid Fast NO ACID-FAST BACILLI ISOLATED AFTER 6 WEEKS. Performed By: #### M100.3880 ####[facility] [address] [place], [address] AFB Observed: 08/15/2017 Status: F Source: ISIS CULT/SMEAR [id number] 12:00 [facility] REPOSITORY Comments: LEFT GLENOID MEMBRANE Is this test to exclude patient from TB Isolation? N AFB Smear/Fluor TESTING PERFORMED AT [facility]. ORIGINAL REPORT ON FILE IN LAB CONTAINS ADDITIONAL TEST SITE INFORMATION. Smear, Acid Fast Tissue Grinding Smear: Negative AFB Cult TESTING PERFORMED AT [facility]. ORIGINAL REPORT ON FILE IN LAB CONTAINS ADDITIONAL TEST SITE INFORMATION. Culture, Acid Fast NO ACID-FAST BACILLI ISOLATED AFTER 6 WEEKS. Performed By: #### M100.3880, M600.1900 ####[facility] [address] [place], [address] Observed: 08/15/2017 Status: F Source: ISIS LARSON FUNGUS W/ 12:00 [facility] [id number] REPOSITORY Comments: LEFT GLENOID MEMBRANE Is this test to exclude patient from TB Isolation? N Cu,[id number] TEST[facility]. ORIGINAL REPORT ON FILE IN LAB CONTAINS ADDITIONAL TEST SITE INFORMATION. CUF No yeast or mold isolated after [address] [facility]. ORIGINAL REPORT ON FILE IN LAB CONTAINS ADDITIONAL TEST SITE INFORMATION. Fungus Stain No yeast or mold observed. Performed By: #### M100.3880, M600.1900 ####[facility] [address] [place], [address] HISTORY AND PHYSICAL Observed: 08/03/2017 Status: F Source: MARTIN EXAM 10:15 AM [facility] RE[facility]ITORY [facility] [address] [facility] [place], [place] [address]Caeqkue and Qzqmsnaf60/04/18 0952#: [id number] Acct: [id number]: ANDREW LOUIS Rep #: [id number]: 1950 67 From: Ramon JACKSON: Herbert Simpson DO Status: PRE IN YLocation: SDCHistory and PhysicalDATE OF SERVICE: 08/15/2017SCHEDULED PROCEDURE: Revision left total shoulder arthroplastyHISTORY OF PRESENT ILLNESS:This is a 67-year-old female who previously underwent a left reverse total shoulderarthroplasty on July 21, 2015. Patient continues to have pain and stiffness in the leftshoulder. This is not become any better with conservative measures. Patient has pain at rest.Pain can reach as high as a 7 out of 10. She denies any new trauma or injury. X-rays of theleft shoulder do show an increased lucency with sclerosis of the underlying bone. There isalso increased lucencies around the bone screws consistent with loosening. She has been usingoral medications consisting of meloxicam with no significant relief in symptoms. Patient hasbeen through formal physical therapy with no relief. After discussion with Dr. Keane, thepatient would like to proceed with a revision left total shoulder arthroplasty. Patient hasobtained surgical clearance from her primary care physician Dr. Simpson. Patient has amedical history pertinent for hypertension, chronic obstructive pulmonary disease, and stableaortic aneurysm. Aortic aneurysm has been present for over 10 years and patient sees . Patient states this has been stable. Patient has had a previous stress test in 2014with ejection fraction of 78%. Patient currently denies any chest pain, shortness of breath,fevers chills, or recent infections.REVIEW OF SYSTEMS:ROS:Const: Denies anorexia, change in appetite, fever, hard of hearing, vision problems and weightchange.CV: Denies chest pain, heart murmur, irregular heartbeat and peripheral vascular disease.Resp: Denies asthma , cough, pneumonia, sleep apnea, SOB, tuberculosis and wheezing.GI: Denies constipation, diarrhea, difficulty swallowing, heartburn, nausea, bloody stools andvomiting.: . (F Genital Sx) Urinary: denies incontinence.Musculo: Denies leg swelling, limp, trouble walking and weakness.Skin: Denies Raynaud's, history of shingles and tattoo.Neuro: Denies ambulatory dysfunction, dizziness, numbness/tingling and tremor.Psych: Denies anxiety, depression, insomnia, mental illness and stress.Tam/Lymph: Denies anemia, bleeding/bruising tendency and past transfusion.Reviewed, no changes.PAST MEDICAL HISTORY:Advance Care Plan:Other Directive, LIVING WILL Effective Date: 06/15/2017Other Directive, POA Effective Date: 06/15/2017PMH:Medical Problems:Arthritis, High Blood Pressure, Aortic Aneurysm, Vascular Disease/ Peripheral, ChornicObstructive Pulmonary Disease (COPD), HypercholesterolemiaAccidents:Fracture - Collar BoneAuto AccidentSurgical Hx: Tubal Ligation - 1973 [place]sworthBunion - LT [id number] [facility] Dr. DominiqueCarpal Tunnel - [address] [facility] [address] Kidd- BILATLaminectomy - [facility] Dr Nguyen THR - (01/2010) OLIVIER TKR - (06/08/2011) [email or web address] Great Toe Amputation - (08/08/2011) [facility] Shoulder Arthroscopy - (05/31/2013) [email or web address] Replacement LT - (07/21/2015 ) [email or web address] Complications:NoneAssistive Devices: Glasses, DenturesReviewed and updated.SOCIAL HISTORY:SH:Marital: .Occupation: Retired.Work Status: Retired.Hand Dominance: Right-handed.Personal Habits: Smoking: Patient is a current smoker, smokes every day.Cigarette Use:Currently smokes - 1 pack/day 38yrs.Alcohol: Occasionally.Drug Use: Denies Use.EnjoyExercising: Exercises 1-3 x/ month.Reviewed, no changes.VITALS:Ht: 64 Wt: 205lb Wt k.988 BMI: 35.2 BP: 110/86 Pulse: 80 Resp: 16 T: 96.2 T: 35.7CALLERGIES:Naprosyn - could not breathMEDICATIONS:Lisinopril 20 mg 1 po qd, Aspirin 81mg 1 tab PO daily, Bupropion HCL daily, Omeprazole 40 mg 1by mouth every day, Cilostazol 100 mg 1po bid, Atorvastatin Calcium 40 mg 1 by mouth every day,Advair Diskus 100-50 mcg/Dose 1 by mouth every dayPRE-OP EXAM:General appearance:NORMAL Other:Eyes: Conjunctivae and lids: NORMAL Pupils: ERREars, Nose, Mouth, and Throat: NORMAL Other:Inspection of lips, teeth and gums: NORMAL Other:Neck: Examination of neck: no masses noted.Respiratory: Assessment of respiratory effort: NORMAL Other:Ausculation of lungs: clear to ausculation no wheeses, ronchi or rales.Cardiovascular: Ausculation of heart: regular rate and rhythem, systolic murmur appreciated,no gallops or rubs.Exam of carotid arteries: NORMAL Other:Gastrointestinal: Exam of abdomen: soft, nontender, nondistended bowel sounds present.Lymphatic: Palpation of nodes in neck: NORMAL Other:Palpation of nodes in Axillae: NORMAL Other:Neurological: see belowPsychiatric: Orientation to time, place and person: NORMAL Other: Mood and affect: NORMAL Other:PHYSICAL EXAMINATION:Left shoulder is cool to touch without erythema. Incision is well-healed. Range of motion isforward elevation 110 , 20 of external rotation, and internal rotation to gluteus. Sensationsintact to light touch, neurovascularly intact.IMAGING STUDIES:X-rays were obtained at [facility] [place] on June 15, 2017which shows well aligned left total shoulder replacement. The medial aspect of the glenoidbaseplate shows increased lucency with sclerosis of the underlying bone. There is alsoincreased lucencies around the bone screws consistent with loosening.IMPRESSION:1. Painful left total shoulder arthroplasty with loosening of components2. Hypertension3. Chronic obstructive pulmonary disease4. Hypercholesterolemia5. History of stable aortic aneurysm over 10 years ago6. Peripheral vascular diseasePLAN:Dr. Keane did discuss and review with the patient all treatment options including surgicalversus nonsurgical. Patient wishes to proceed with above-stated procedure. Potential risks,benefits, and complications of this procedure were discussed in detail including but notlimited to , infection, nerve and blood vessel damage, persistent pain, numbness,tingling, paresthesias, blood clot, pulmonary embolism, and requirement for further surgery.The patient expressed full understanding has no further questions for the doctor. Patient doesagree to proceed with the above- stated procedure and has signed the surgery consent form.___ I have re-examined the patient. There are no clinical changes since date of exam.___ See progress notes for changes.___ Dictated on admissionDate: Time: Signature: 08/03/17 1015 <Electronically signed by Ramon Godinez PA-C>Date Ramon VILLAGRAN-CCosigner Signature: Date (if applicable)CC: Herbert Simpson DO; Ramon VILLAGRAN Signed CBC W/DIFF, AUTOMATED Collected: 08/02/2017 Status: F Source: ISIS 11:50 AM [facility] REPOSITORY TYPE CODE TESTS RESULT OUT OF RANGE REFERENCE UNITS LAB L100.1000 Normal 4.4-11.0 K/mm3 WBC 8.0 LAB L100.1200 Normal 4.2-5.4 M/mm3 RBC 4.38 LAB L100.1300 Normal 12.0-15.0 g/dl HGB 13.6 LAB L100.1400 Normal 37-47 % HCT 42.5 LAB L100.1500 Normal 81-99 fL MCV 97.0 LAB L100.1600 Normal 27.0-32.0 pg MCH 31.1 LAB L100.1700 Normal 32-36 g/gl MCHC 32.0 LAB L100.1810 Normal 11.6-14.6 % RDW 13.0 CV LAB L100.1820 High 35.1-43.9 fl RDW 46.1 SD LAB L100.1900 Normal 150-450 K/mm3 PLT 360 LAB L100.2000 Normal 6.2-12.0 fl MPV 9.2 LAB L100.2100 Normal 47-70 % NEUT% 56.8 LAB L100.2200 Normal 19-41 % LY% 34.5 LAB L100.2300 Normal 0-10 % MONO% 5.5 LAB L100.2400 Normal 0-5 % EO% 2.6 LAB L100.2500 Normal 0-1 % BASO% 0.5 LAB L100.2550 Normal 0.0-0.9 % IM 0.100 GRAN % Result Comment: IG% - Immature Granulocytes (promyelocytes, myelocytes andmetamyelocytes) > 1% indicates that a LEFT SHIFT is Present. LAB L100.2620 Normal 2.0-7.7 X10 3/uL Absolute Neut 4.5 LAB L100.2720 Normal 0.83-4.51 X10 3/ul Absolute Lymph 2.75 Performed By: #### L100.0100 ####[facility] [address] [place], [place], [address] BASIC METABOLIC Collected: 08/02/2017 Status: F Source: MARTIN PROFILE (BMP) 11:50 AM [facility] REPOSITORY TYPE CODE TESTS RESULT OUT OF RANGE REFERENCE UNITS LAB L501.0100 Normal 70-110 mg/dL GLU 84 LAB L501.1000 Normal 7-18 mg/dL BUN 13 LAB L501.1100 High 0.55-1.02 mg/dL 1.03 CREAT,SERUM Result Comment: The validity of the calculated GFR AND GFRAA in patients over70 years has not been determined. Clinical correlation isessential. LAB L501.1110 Low >60 mL/min EST GFR 56 Result Comment: Non- GFR Calc LAB L501.1115 Normal >60 mL/min EST GFR - 68 AA Result Comment: GFR Calc LAB L501.1255 Normal ml/min Estimated 44.51 CRCL LAB L501.1300 Normal 10-20 RATIO BUN/CRE 12.6 LAB L501.2200 Normal 8.5-10 mg/dL CA 9.5 .1 LAB L501.5300 Normal 136-14 mmol/L NA 140 5 LAB L501.5600 Normal 3.5-5. mmol/L K 4.5 1 LAB L501.5900 High 98-107 mmol/L CL 108 LAB L501.6100 Normal 21.0-3 mmol/L CO2 25.0 2.0 LAB L501.6200 Normal 5-15 GAP 7 Performed By: #### L500.2500 ####[facility] [address] [place], [place], [address] Observed: 08/02/2017 Status: F Source: MARTIN MRSA/SAID SCREEN 11:50 AM [facility] REPOSITORY Copy of report sent to Infection Control Printer [id number] 08/03/17 1347 BLUCAS. Copy of report sent to Printer [id number] Results called on 08/03/17-5826 by GULSHAN to [phone].MRSA/SAID SCRNS. AUREUS S. aureus PositiveMRSA MRSA Negative Performed By: #### M100.651 ####[facility] [address] [place], [address] SCREENING MAMM (CAD), Observed: 05/10/2017 Status: F Source: MARTIN BIL 7:50 AM [facility] REPOSITORY [facility] [address] [place], [place] [address]EZRKYXBVV MAMM (CAD), BILATMR#: [id number] Acct: [id number]: ANDREW LOUIS Rep #: [id number]: [birth year] F 67 From: Dario Barrientos MDPCP: Herbert Simpson DO Status: REG CLIStudy: SCREENING MAMM (CAD), BILAT Date of Exam: 05/10/17Exam# [id number] Ordering Dr: Herbert Simpson DOMAMMOGRAPHY - BILATERAL SCREENINGREASON FOR EXAM: Female, 67 years old. Routine annual screeningexamination.PERTINENT HISTORY: Non- contributory.TECHNIQUE: Digital bilateral breast per (3D mammographic acquisition) inthe CC and MLO projections. 2-D mediolateral oblique (MLO) and craniocaudad(CC) views of both breasts were obtained. CAD: Full Field DigitalMammography with Computer Added Detection was performed.COMPARISON: Comparison is made with prior study dated April 28, 2016and June 20, 2014. FINDINGS:Breast Composition: There are scattered areas of fibroglandular density.There are no dominant masses or suspicious calcifications.No other significant abnormalities are identified. There has been nosignificant change since the prior study. HPBI/SCREENING MAMM (CAD), BILATIMPRESSION:Stable bilateral screening mammogram. Yearly follow-up mammogramrecommended. (A) ASSESSMENT CATEGORY:BIRADS Category 1: Negative. A letter regarding these results will besent to the patient by the facility within 30 days.Approximately 10% of breast cancers are not detected by mammography. Anormal mammogram should not delay biopsy of a clinically suspiciousabnormality.[id number] Signed:Dario Barrientos MD at 9:25 EDTT [phone], Service support , QU: Herbert Simpson DO Printed [employer] Boards Inspector:Signed CBC W/DIFF, AUTOMATED Collected: 04/18/2017 Status: F Source: ISSI 9:18 AM [facility] REPOSITORY TYPE CODE TESTS RESULT OUT OF RANGE REFERENCE UNITS LAB L100.1000 Normal 4.4-11.0 K/mm3 WBC 8.4 LAB L100.1200 Low 4.2-5.4 M/mm3 RBC 4.07 LAB L100.1300 Normal 12.0-15.0 g/dl HGB 12.7 LAB L100.1400 Normal 37-47 % HCT 40.6 LAB L100.1500 High 81-99 fL MCV 99.8 LAB L100.1600 Normal 27.0-32.0 pg MCH 31.2 LAB L100.1700 Low 32-36 g/gl MCHC 31.3 LAB L100.1810 Normal 11.6-14.6 % RDW 13.2 CV LAB L100.1820 High 35.1-43.9 fl RDW 48.0 SD LAB L100.1900 Normal 150-450 K/mm3 PLT 361 LAB L100.2000 Normal 6.2-12.0 fl MPV 9.5 LAB L100.2100 Normal 47-70 % NEUT% 62.8 LAB L100.2200 Normal 19-41 % LY% 28.0 LAB L100.2300 Normal 0-10 % MONO% 5.4 LAB L100.2400 Normal 0-5 % EO% 3.1 LAB L100.2500 Normal 0-1 % BASO% 0.5 LAB L100.2550 Normal 0.0-0.9 % IM 0.200 GRAN % Result Comment: IG% - Immature Granulocytes (promyelocytes, myelocytes andmetamyelocytes) > 1% indicates that a LEFT SHIFT is Present. LAB L100.2620 Normal 2.0-7.7 X10 3/uL Absolute Neut 5.3 LAB L100.2720 Normal 0.83-4.51 X10 3/ul Absolute Lymph 2.34 Performed By: #### L100.0100 ####[facility] [address] [place], [address] COMPREHENSIVE METABOLIC Collected: 04/18/2017 Status: F Source: [facility] 9:18 AM [facility] REPOSITORY TYPE CODE TESTS RESULT OUT OF RANGE REFERENCE UNITS LAB L501.0100 Normal 70-110 mg/dL GLU 96 LAB L501.1000 Normal 7-18 mg/dL BUN 15 LAB L501.1100 High 0.55-1.02 mg/dL 1.13 CREAT,SERUM Result Comment: The validity of the calculated GFR AND GFRAA in patients over70 years has not been determined. Clinical correlation isessential. LAB L501.1110 Low >60 mL/min EST GFR 51 Result Comment: Non- GFR Calc LAB L501.1115 Normal >60 mL/min EST GFR - 61 AA Result Comment: GFR Calc LAB L501.1300 Normal 10-20 RATIO BUN/CRE 13.3 LAB L501.1500 Normal 6.4-8.2 g/dL T PROT 7.0 LAB L501.1800 Low 3.4-5.0 g/dL ALB 3.1 LAB L501.1950 High 2.3-3.5 g/dL GLOB 3.9 LAB L501.2000 Low 0.9-2.4 RATIO A/G 0.8 LAB L501.2200 Normal 8.5-10.1 mg/dL CA 9.5 LAB L501.4100 Low 15-37 U/L AST 11 LAB L501.4305 High 45-117 U/L ALK P 125 LAB L501.4405 Normal 12-78 U/L ALT 24 LAB L501.4600 Normal 0.20-1.00 mg/dL T BILI 0.30 LAB L501.5300 Normal 136-145 mmol/L NA 142 LAB L501.5600 Normal 3.5-5.1 mmol/L K 4.2 LAB L501.5900 High 98-107 mmol/L CL 110 LAB L501.6100 Normal 21.0-32.0 mmol/L CO2 24.0 LAB L501.6200 Normal 5-15 GAP 8 Performed By: #### L500.4050, L500.4100 ####[facility] [address] [place], [address] LIPID PROFILE Collected: 04/18/2017 Status: F Source: MARTIN 9:18 AM [facility] REPOSITORY TYPE CODE TESTS RESULT OUT OF RANGE REFERENCE UNITS LAB L501.4900 Normal 200 mg/dL CHOL 149 Result Comment: <200 mg/dL Desirable 200-240 mg/dL Borderline >240 mg/dL High Risk LAB L501.5000 Normal mg/dL TRIG 87 Result Comment: The drugs N-Acetylcysteine and Metamizole may falselydepress this assay.Serum Triglycerides Reference Interval Normal <150 mg/dL Borderline high 150 - 199 mg/ dL High 200 - 499 mg/dL Very High > or = 500 mg/dL LAB L501.6400 Normal mg/dL HDL 64 Result Comment: The drugs N-Acetylcysteine and Metamizole may falselydepress this assay. Reference Range HDL <40 mg/dL Low HDL Cholesterol HDL >or= 60 mg/dL High HDL Cholesterol LAB L501.6500 Normal 0-130 mg/dL LDL 68 LAB L501.6600 Normal 5-40 mg/dL VLDL 17 Performed By: #### L500.4050, L500.4100 ####[facility] [address] [place], [address] ABD AORTIC/IVC DUPLEX Observed: 02/15/2017 Status: F Source: MARTIN SCAN 8:10 AM [facility] REPOSITORY [facility] [address] [place], [place] [address]Zgo Aortic/IVC Duplex scan02/08/17 0841MR#: [id number] Acct: [id number]: ANDREW LOUIS Rep #: [id number]: 1950 67 From: Timothy Jo MDAttending Dr: Timothy Jo MD Status: REG CLIOrdering Dr: Timothy Jo MD Date: Location: CVS Sex: F CAdmitted:Reason For Study: AAAAorta Measurements Aorta Doppler MeasurementsProximal aorta measures2.11 x 2.10cm. in cross- Peak systolic flow velocities within theproximalsectional axis. aorta measure 73.9 cm/sec.Proximal aorta measures2.13cm. in longitudinal Peak systolic flow velocities within the midaxis. aorta measure 42.2 cm/sec.Mid aorta measures3.23 x 3.17cm. in cross- Peak systolic flow velocities within thedistalsectional axis. aorta measure 38.5 cm/sec.Mid aorta measures3.24cm. in longitudinal axis.Distal aorta measures4.73 x 4.73cm. in cross-sectional axis.Distal aorta measures4.53cm. in longitudinalaxis.Left Iliac ArteryLeft iliac artery measures 1.59 cm. in the longitudinal axis. Left iliac artery measures 1.60x1.59 cm. in the cross-sectional axis. Peak systolic velocity in the left iliac artery ezamhvtl709.0 cm/sec.Right Iliac ArteryRight iliac artery measures 1.61 cm. in the longitudinal axis. Right iliac artery measures1.68 x1.69 cm. in the cross-sectional axis. Peak systolic velocity in the right iliac mzsipqcazpdmnv848.0 cm/sec.ProcedureAorta IVC Iliac vasculature or bypass grafts 09719. The exam was diagnostic. Exam performed indepartment.Interpretation Summary1. Aortic aneurysm at 4.73cm. Ordering Physician: Timothy JoReferring Physician: VIVIENNE TRAOREPerformed By: Ness Spann, RDCS, RVT 02/15/17 0809Date Timothy Jo MDCC: Timothy Jo MD; Herbert Simpson DO Date Dictated: 02/08/17 0841Date Transcribed: 02/15/17 0809Transcriptionist:Signed CAROTID DUPLEX Observed: 02/15/2017 Status: F Source: MARTIN ULTRASOUND 8:08 AM [facility] REPOS[facility]ORY [facility] [address] [place] [place] [address]Nfvaeey Duplex Nmynwpjbyq07/12/17 0902MR#: [id number] Acct: [id number]: HERIBERTORAMANAJamari Ambriz Rep #: [id number]: 1950 67 From : Timothy Jo MDAttending Dr: Timothy Jo MD Status: REG CLIOrdering Dr: Timothy Jo MD Date: 02/08/17Location: CVS Sex: F CAdmitted:Reason For Study: carotid stenosisRt. Velocities/BP Lt. Velocities/ BPProx CCA 81.5/13.5 cm/sec. Prox CCA 102.0/21.7 cm/sec.Mid CCA 106.0/19.3 cm/sec. Mid CCA 94.4/24.6 cm/sec.Dist CCA 92.6/20.5 cm/ sec. Dist CCA 45.2/15.7 cm/sec.Prox ICA 70.4/18.8 cm/sec. Prox ICA 60.1/18.5 cm/sec.Mid ICA 65.7/20.5 cm/sec. Mid ICA 125.0/26.4 cm/sec.Dist ICA 89.1/28.7 cm/sec. Dist ICA 106.3/32.4 cm/sec.Rt. ICA/CCA = 89.1/106.0=0.84. Lt. ICA/ CCA = 125.0/94.4=1.3.Prox ECA 98.5/17.6 cm/sec. Prox ECA 44.8/12.6 cm/sec.Rt. Vert. 45.7/13.5 cm/sec. Lt. Vert. 49.9/13.0 cm/sec.Right ExtracranialThere is homogeneous, smooth atherosclerotic plaque noted in the right common carotid artery.Thereis homogeneous, smooth atherosclerotic plaque noted in the right internal carotid artery.There ishomogeneous, smooth atherosclerotic plaque noted in the right external carotid artery.Antegradeflow is noted in the right vertebral artery.Left ExtracranialThere is homogeneous, smooth atherosclerotic plaque noted in the left common carotid artery.Thereis heterogeneous, irregular atherosclerotic plaque noted in the left internal carotid artery.Thereis homogeneous, smooth atherosclerotic plaque noted in the left external carotid artery. Theleftexternal carotid artery is not well visualized. Antegrade flow is noted in the left vertebralartery.ProcedureCarotid Duplex 16217. The study was technically difficult. The exam was diagnostic. Examperformedin department.Interpretation SummaryMild (<50%) stenosis right extracranial internal carotid. Moderate (50-69%) stenosis leftextracranial internal carotid. Flow within the vertebral arteries is antegrade bilaterally. Ordering Physician: Timothy JoReferring Physician: MISAEL TRAOREEPPerformed By: Ness Spann, KRYS, RVTElectronically signed by: MD Timothy Jo on 08:07 AM02/15/17 0807Date Timothy Jo MDCC: Timothy Jo MD; Herbert Simpson DO Date Dictated: 02/08/17 0902Date Transcribed: 02/15/17 0807Transcriptionist:Signed OPERATIVE REPORT Observed: 01/30/2017 Status: F Source: MARTIN 7:53 AM [facility] REPOSITORY [facility] [address] [place] [address]Flynuynme ReportMR#: [id number] Acct: [id number]: ANDREW LOUIS Rep #: [id number]: 1950 66 From: IVETH BallardCP: Herbert Simpson DO Status: DEP SDCDATE OF SERVICE: 01/02/2017DATE OF PROCEDURE:January 02, 2017ATTENDING PHYSICIAN:Jef Espinal MD.PROCEDURE:Diagnostic/therapeutic caudal epidural steroid injection.PREOPERATIVE DIAGNOSES:Lumbar radiculopathy, lumbar degenerative disk disease, lumbar spinal stenosis.POSTOPERATIVE DIAGNOSES:Lumbar radiculopathy, lumbar degenerative disk disease, lumbar spinal stenosis.ANESTHESIA:MAC.COMPLICATIONS:None.BLOOD LOSS:Minimal.PROCEDURE IN DETAIL:History and physical today was reviewed. Risks and benefits of procedure explained. Thepatient understood, agreed to our procedure and informed consent was obtained. IVinserted per routine protocol. The patient was taken to the operating room, placed in theprone position with pillow positioned underneath the abdomen. The lower back and tailbonearea was prepped and draped in a sterile fashion using iodine x3. Under fluoroscopyguidance, on lateral view, caudal space was identified. The skin and subcutaneous tissueanesthetized with approximately 3 mL of 1% lidocaine using a 25-gauge regular needle.Under direct visualization with fluoroscopy, using a 22-gauge 3-1/2-inch spinal needle,the needle was advanced via the skin through the sacral hiatus. Tip of the needle passedthrough the sacrococcygeal ligament and advanced to approximately S4 area. After negativeaspiration for blood with CSF and confirmation on AP as well as oblique view, a total of 3mL of contrast were injected to confirm correct placement of the needle as well ascephalad spread. The spread was felt to approximately L5 area. After confirmation of APas well as lateral view and repeated negative aspiration, a total of 15 mL ofpreservative-free 0.125% Marcaine with 80 mg of Depo-Medrol was injected easily. Theneedle was then removed intact. The patient experienced no signs or symptoms ofintrathecal, intravascular injection. The patient experienced no paraesthesia. Procedurewas completed without any apparent difficulty, any complication. The patient appeared totolerate well.ASSESSMENT AND PLAN:This is a 66-year-old female with lumbosacral radiculopathy, lumbosacral degenerative diskdisease, lumbosacral spinal stenosis, status post diagnostic/therapeutic caudal epiduralsteroid injection. The patient will continue her current medications. The patient willfollow up in approximately 2 weeks for possible repeat of the procedure if indicated.Jef Espinal MDT: NTSJOB: [id number]/10/14 0753 <Electronically signed by Jef Espinal MD>Date [facility] Signature (If Indicated): Date CC: Jef Espinal; Herbert Simpson DO Date Dictated: 01/02/171529Date Transcribed: 01/02/171529Transcriptionist:Signed CRP Collected: 01/20/2017 Status: F Source: MARTIN 7:27 AM [facility] REPOSITORY TYPE CODE TESTS RESULT OUT OF RANGE REFERENCE UNITS LAB L501.6710 Normal 0.0-3.0 mg/L < C-REACTIVE 2.90 PROT Result Comment: C-Reactive Protein (CRP) provides useful information for thediagnosis, therapy and monitoring of inflammatory processesand associated diseases. For the evaluation of Relative Riskfor Cardiovascular Disease, a High Sensitivity CRP (HSCRP)should be ordered. Performed By: #### L501.6710 ####[facility] [address] [place], [address] CBC W/DIFF, AUTOMATED Collected: 01/20/2017 Status: F Source: MARTIN 7:27 AM [facility] REPOSITORY TYPE CODE TESTS RESULT OUT OF RANGE REFERENCE UNITS LAB L100.1000 Normal 4.4-11.0 K/mm3 WBC 8.6 LAB L100.1200 Low 4.2-5.4 M/mm3 RBC 4.06 LAB L100.1300 Normal 12.0-15.0 g/dl HGB 13.2 LAB L100.1400 Normal 37-47 % HCT 39.8 LAB L100.1500 Normal 81-99 fL MCV 98.0 LAB L100.1600 High 27.0-32.0 pg MCH 32.5 LAB L100.1700 Normal 32-36 g/gl MCHC 33.2 LAB L100.1810 Normal 11.6-14.6 % RDW 13.3 CV LAB L100.1820 High 35.1-43.9 fl RDW 46.9 SD LAB L100.1900 Normal 150-450 K/mm3 PLT 298 LAB L100.2000 Normal 6.2-12.0 fl MPV 9.4 LAB L100.2100 Normal 47-70 % NEUT% 61.7 LAB L100.2200 Normal 19-41 % LY% 27.9 LAB L100.2300 Normal 0-10 % MONO% 5.6 LAB L100.2400 Normal 0-5 % EO% 4.2 LAB L100.2500 Normal 0-1 % BASO% 0.5 LAB L100.2550 Normal 0.0-0.9 % IM 0.100 GRAN % Result Comment: IG% - Immature Granulocytes (promyelocytes, myelocytes andmetamyelocytes) > 1% indicates that a LEFT SHIFT is Present. LAB L100.2620 Normal 2.0-7.7 X10 3/uL Absolute Neut 5.3 LAB L100.2720 Normal 0.83-4.51 X10 3/ul Absolute Lymph 2.39 Performed By: #### L100.0100, L101.9900 ####[facility] [address] [place], [place], [id number] ERYTHROCYTE SED RATE Collected: 01/20/2017 Status: F Source: MARTIN 7:27 AM [facility] REPOSITORY TYPE CODE TESTS RESULT OUT OF RANGE REFERENCE UNITS LAB L102.0000 Normal 0-30 mm/hr SED 12 RATE Performed By: #### L100.0100, L101.9900 ####[facility] [address] [place], [address] FLUOR GUIDANCE FOR Observed: 01/02/2017 Status: F Source: ISIS SPINE INJ 6:45 AM [facility] REPOSITORY [facility]ITALIm[facility] [address]RAND[address] [place]NA[place] [address]Fkneicn 4dFluor Guidance for Spine InjMR#: [id number] Acct: [id number]: LOUISRAMANAJamari Ambriz Rep #: [id number]: 1950 F 66 From: Jojo Pérez MDPCP: Herbert Simpson DO Status: DEP SDCStudy: Fluor Guidance for Spine Inj Date of Exam: 01/02/17Exam# [id number] Ordering Dr: CHOCO BallardTUDY: X-RAY - SACRUM/COCCYXREASON FOR EXAM: Female, 66 years old. Back painTECHNIQUE: Limited view(s) of the sacrum and coccyx were obtained.COMPARISON: Lumbar spine images dated April 28, 2016 FINDINGS:Images were obtained during fluoroscopy guidance for sacral caudal block.Fluoroscopy time 5.9 seconds, dose 3.78 mGy. ORDER #: [id number] RAD/Fluor Guidance for Spine InjIMPRESSION:Limited views of the sacrum and coccyx were obtained during a fluoroscopyprocedure.Electronically Signed:Jojo Pérez MD at 0:48 EDTTel [phone], Service support , KI: Jef Espinal; Herbert Simpson DO [employer] Boards Inspector:Signed CHEST WITH CONTRAST Observed: 11/30/2016 Status: F Source: ISIS 8:39 AM [facility] REPOSITORY [facility] [address] [place] [address]Mdnhazn 4dChest WITH ContrastMR#: [id number] Acct: [id number]: ANDREW LOUIS Rep #: [id number]: 1950 F 66 From: Dario Barrientos MDPCP: Tatiana OKEEFEHerbert Status: REG CLIStudy: Chest WITH Contrast Date of Exam: 11/30/16Exam# [id number] Ordering Dr: Herbert Simpson DOSTUDY: CT CHEST WITH CONTRASTREASON FOR EXAM: Female, 66 years old. Cough. History of pneumonia.Anterior chest pain.RADIATION DOSAGE ( If Supplied By Facility): CTDIvol = ( 12.95 ) mGy, DLP =( 677.03 ) mGycmTECHNIQUE : Transaxial imaging was performed following intravenousadministration of 100mL ml of Isovue 300 contrast material. Multiplanarcoronal and sagittal images were reformatted.Individualized dose optimization techniques were used for this CT.COMPARISON: Comparison is made with prior chest radiograph dated 2016. FINDINGS:Focal area of atelectasis and/ or scarring in the posterior medial segmentof the right lower lobe. There are several small scattered bilateralnodules suggestive of a tiny granulomas. There is no demonstrated pleuralabnormality.There are calcifications of the coronary arteries.There are multiple small lymph nodes within the mediastinum, which arenormal in size and morphology most compatible with reactive lymphhyperplasia. Normal hilar regions. Normal enhanced pulmonary arteries.There is atherosclerotic calcification of the aortic arch and descendingthoracic aorta.There are degenerative changes of the thoracic spine. The patient isstatus post left shoulder replacement.There is a 4.9 cm x 3.8 cm complex cystic mass in the left upper quadrantmost likely arising from the adrenal gland. Calcifications are seen withinthe septations. ORDER #: [id number] CT/Chest WITH ContrastIMPRESSION:Mild degree of increased markings at the right lung base. This mayrepresent either atelectasis and/or scarring.Electronically Signed:Dario Barrientos MD at 12:53 Pretty [phone], Service support [phone], FW: Herbert Tatiana [employer] Boards Inspector:Signed CBC W/DIFF, AUTOMATED Collected: 11/29/2016 Status: F Source: MARTIN 11:41 AM [facility] REPOSITORY TYPE CODE TESTS RESULT OUT OF RANGE REFERENCE UNITS LAB L100.1000 Normal 4.4-11.0 K/mm3 WBC 8.5 LAB L100.1200 Normal 4.2-5.4 M/mm3 RBC 4.31 LAB L100.1300 Normal 12.0-15.0 g/dl HGB 13.7 LAB L100.1400 Normal 37-47 % HCT 42.2 LAB L100.1500 Normal 81-99 fL MCV 97.9 LAB L100.1600 Normal 27.0-32.0 pg MCH 31.8 LAB L100.1700 Normal 32-36 g/gl MCHC 32.5 LAB L100.1810 Normal 11.6-14.6 % RDW 13.1 CV LAB L100.1820 High 35.1-43.9 fl RDW 45.9 SD LAB L100.1900 Normal 150-450 K/mm3 PLT 390 LAB L100.2000 Normal 6.2-12.0 fl MPV 9.8 LAB L100.2100 Normal 47-70 % NEUT% 53.9 LAB L100.2200 Normal 19-41 % LY% 32.9 LAB L100.2300 Normal 0-10 % MONO% 6.7 LAB L100.2400 High 0-5 % EO% 5.8 LAB L100.2500 Normal 0-1 % BASO% 0.5 LAB L100.2550 Normal 0.0-0.9 % IM 0.200 GRAN % Result Comment: IG% - Immature Granulocytes (promyelocytes, myelocytes andmetamyelocytes) > 1% indicates that a LEFT SHIFT is Present. LAB L100.2620 Normal 2.0-7.7 X10 3/uL Absolute Neut 4.6 LAB L100.2720 Normal 0.83-4.51 X10 3/ul Absolute Lymph 2.80 Performed By: #### L100.0100 ####[facility] [address] [place], [place], [address] BASIC METABOLIC Collected: 11/29/2016 Status: F Source: ISIS PROFILE (BMP) 11:41 AM [facility] REPOSITORY TYPE CODE TESTS RESULT OUT OF RANGE REFERENCE UNITS LAB L501.0100 Normal 70-110 mg/dL GLU 77 LAB L501.1000 High 7-18 mg/dL BUN 23 LAB L501.1100 High 0.55-1.02 mg/dL 1.14 CREAT,SERUM Result Comment: The validity of the calculated GFR AND GFRAA in patients over70 years has not been determined. Clinical correlation isessential. LAB L501.1110 Low >60 mL/min EST GFR 50 Result Comment: Non- GFR Calc LAB L501.1115 Normal >60 mL/min EST GFR - 61 AA Result Comment: GFR Calc LAB L501.1300 High 10-20 RATIO BUN/CRE 20.2 LAB L501.2200 Normal 8.5-10.1 mg/dL CA 9.8 LAB L501.5300 Normal 136-145 mmol/L NA 139 LAB L501.5600 Normal 3.5-5.1 mmol/L K 4.0 LAB L501.5900 Normal 98-107 mmol/L CL 104 LAB L501.6100 Normal 21.0-32.0 mmol/L CO2 26.0 LAB L501.6200 Normal 5-15 GAP 9 Performed By: #### L500.2500 ####[facility] [address] [facility] [place], [place], [id number] Observed: 11/29/2016 Status: F Source: ISIS CULTURE, SPUTUM 11:41 AM [facility] REPOSITORY Gram StainAcceptable Specimen? Yes (<25 Epithelial cells per/lpf) Gram Stain 2+ White Blood Cells 2+ Epithelial cells 4+ Gram positive cocci 3+ Red Cell Stroma Resp. CultureMixed normal respiratory maninder. No Haemophilus, Streptococcus pneumoniae, beta-hemolytic Streptococcus or Staphylococcus aureus isolated. Performed By: #### [id number] ####[facility] [id number] [facility], [address] CHEST PA AND LATERAL Observed: 11/18/2016 Status: F Source: ISIS 9:50 AM [facility] [id number] [place] [address]Erwcryq 4dChest PA and LateralMR#: [id number] Acct: [id number]: ANDREW LOUIS Rep #: [id number]: 1950 F 66 From: Jhonathan Lerma MDPCP: Herbert Simpson DO Status: REG CLIStudy: Chest PA and Lateral Date of Exam: 11/18/16Exam# [id number] Ordering Dr: Herbert Simpson DOSTUDY: X-RAY CHESTREASON FOR EXAM: Female , 66 years old. Pain lower right chest.TECHNIQUE: PA and lateral views at 10:02 AM.COMPARISON: None. FINDINGS:The lungs are emphysematous, no pneumothorax. There are fine bilateralinterstitial densities , likely fibrosis, more pronounced in the lowerlungs. There is minimal linear atelectasis/airspace density in the rightmiddle lobe, and there is a minimal right pleural effusion (both bestoutlined on the lateral view).Normal size heart. Normal mediastinum and kati. Normal visualizedpulmonary arteries. Normal visualized aortic arch and descending thoracicaorta.Osteopenia. Mild degenerative changes in the thoracic spine and rightshoulder. Left shoulder arthroplasty. The visualized clavicles and ribsare intact.Unremarkable upper abdomen. ORDER #: [id number] RAD/Chest PA and LateralIMPRESSION:COPD. Apparent mild pneumonia/atelectasis in right middle lobe withminimal right pleural effusion. Clinical correlation.Electronically Signed :Jhonathan Lerma MD at 10:14 EDTTel , Service support [phone], NR: Herbert Simpson DO [employer]ards Inspector:Signed ALLERGIES ALLERGIES DATE TYPE / CODE NAME / CODE REACTION SEVERITY SOURCE 08/02/2017 Drug naproxen/F00 Shortness of Unknown [place] [facility] Allergy/4160 [id number]([facility] [address](SNOMED ) Repository CT) 12/29/2016 Drug naproxen/F00 Shortness of [place] Community Allergy/4160 [id number]([facility] [address]([facility]) Repository CT) ENCOUNTERS ENCOUNTERS ADMIT/DISCHARGE ACCOUNT ADMITTING ENCOUNTER LOCATION SOURCE NUMBER CLASS 09/26/2017/ [id number] Timothy Jo Inpatient [facility] 8 6 A. Encounter [facility] [place], [facility] g:[id number]: Repository [id number]: 08/30/2017 [id number] Ambulatory [place] 0 [facility] ing:CT Repository 08/23/2017 [id number] Ambulatory [place] 6 [facility] ing:BFHLAB Repository 08/15/2017/ [id number] Diya, Inpatient [place] 8 7 Roman Encounter [facility] ing:RZ6Zjys: Repository ST940Hzp: 1 05/10/2017 [id number] Ambulatory [place] 6 [facility] ing:BI Repository 04/18/2017 [id number] Ambulatory [place] 9 [facility] ing:BFHLAB Repository 02/08/2017 [id number] Ambulatory [place] 1 [facility] ing:CVS Repository 01/20/2017 [id number] Ambulatory [place] 4 [facility] ing:LAB Repository 01/02/2017/ [id number] Ambulatory [place] 7 8 [facility] ing:SDCRoom: Repository AC20 11/30/2016 [id number] Ambulatory [place] 3 [facility] ing:CT Repository 11/29/2016 [id number] Ambulatory [place] 8 [facility] ing:BFHLAB Repository 11/18/2016 [id number] Ambulatory [place] 3 [facility] ing:HPRAD Repository PAYERS PAYERS ENCOUNTER GUARANTOR PAYER SUBSCRIBER SOURCE 09/26/2017 [facility] [id number] Insurance:[facility] ADVANTAGE Repository [facility] Number: [id number]: [phone] [id number] [phone] (HP) Date:0638-30-32CR [address] [place] [address]GC: 09/26/2017 Secondary NOT GIVENUNK [facility] Insurance:[facility] [place] [facility] Repository Number: [id number] Date:[address]JU CODE [id number], [place] [address]QA: 08/30/2017 CHRISTIANNE O Primary Insurance:MMO FAY E [place] [id number] [place] MEDICAREPolicy SWEENEYDOB: [facility], [facility]: [id number] [address]Poy: [id number] Repository Date:7628-05-46VZ [address] () [address] [place] [address]EK: 08/30/2017 Secondary NOT GIVENUNK [place] Insurance:SELF PAY [facility] Number: Effective Repository Date:2017-08-21 08/23/2017 CHRISTIANNE O Primary Insurance:MMO FAY E [place] [id number] [place] MEDICAREPolicy SWEENEYDOB: [facility], Number: [id number] Hospital [address]Wyl: [id number] Repository Date:0109-40-94QF BOX (HP) [address] [place] [address]YZ: 08/23/2017 Secondary NOT GIVENUNK [place] Insurance:SELF PAY [facility] Number: Effective Repository Date:2017-08-23 08/15/2017 CHRISTIANNE O Primary Insurance:MMO FAY E [place] [id number] [place] MEDICAREPolicy SWEENEYDOB: [facility], Number: [id number] Hospital [address]Txs: [id number] Repository Date:3264-96-78KQ [address]OX (HP) [address], [place] [address]QR: 08/15/2017 Secondary NOT GIVENUNK [place] Insurance:SELF PAY [facility] Number: Effective Repository Date:2017-06-27 05/10/2017 CHRISTIANNE Jonas Primary FAY E [place] [id number] [place] Insurance[facility] SWEENEYDOB: [place], MEDICAREPolicy [id number] [address]Zba: Number: Repository [id number] (HP) Date:6094-01-81NI [address] [place] [address]NF: 04/18/2017 CHRISTIANNE Jonas Primary FAY E [place] [id number] [place] Insurance:[facility] CARE SWEENEYDOB: [facility] [place], MEDICAREPolicy [id number] [address]Mhg: Number: Repository [id number] (HP) Date:9855-19-51YF [address] [place] [address]UW: 02/08/2017 CHRISTIANNE Jonas Primary FAY E [place] [id number] [place] Insurance:[employer] CARE SWEENEYDOB: [facility] [place], MEDICAREPolicy [id number] [address]Tdc: Number: Repository [id number] (HP) Date:2023-63-94VW [address] [place] [address]PF: 01/20/2017 CHRISTIANNE Jonas Primary FAY E [place] [id number] [place] Insurance:[employer] CARE SWEENEYDOB: [facility] [place], MEDICAREPolicy [id number] [address]Tel: Number: Repository [id number] (HP) Date:5116-44-89GJ [address] [place] [address]XR: 01/02/2017 CHRISTIANNE Jonas Primary FAY E [place] [id number] [place] Insurance:[employer] CARE SWEENEYDOB: [facility] [place], MEDICAREPolicy [id number] [place] [address]Atc: Number: Repository [id number] (HP) Date:1487-98-69KG [address] [address]QZ: 11/30/2016 CHRISTIANNE O Primary RAMANAY E [place] [id number] [place] Insurance:[employer] CARE SWEENEYDOB: [place], MEDICAREPolicy [id number] [place] [address]Chg: Number: Repository [id number] (HP) Date:2569-29-57SV [address] [address]WR: 11/29/2016 CHRISTIANNE Jonas Primary FAY E [place] [id number] MARIA TERESA Insurance:[employer] CARE SWEENEYDOB: [place], MEDICAREPolicy [id number] [place] [address]Rdf: Number: Repository [id number] (HP) Date:4689-05-69MD [address] [address]JW: 11/18/2016 CHRISTIANNE Jonas Primary ANDREW Nguyenoster [id number] MARIA TERESA Insurance:[facility] CARE SWEENEYDOB: [facility] [place], MEDICAREPolicy [id number] [place] [address]Djm: Number: Repository [id number] (HP) Date:3706-92-50ZV [address] [address]EI:
== END ==
PROVIDERS: Family Provider Family Medicine; PCP Family Medicine; Visit Provider Surgery Vascular Surgery
DX: I65.23 Occlusion and stenosis of bilateral carotid arteries (principal); I71.4 Abdominal aortic aneurysm, without rupture; I70.213 Atherosclerosis of native arteries of extremities with intermittent claudication, bilateral legs; Z72.0 Tobacco use; E78.00 Pure hypercholesterolemia, unspecified; I10 Essential (primary) hypertension; K21.9 Gastro-esophageal reflux disease without esophagitis
CPT/HCPCS: 36415; 82565; 84520

== ENCOUNTER → 2017-08-30 07:46 | Outpatient (CLI) | payer MEDICARE, SELFPAY ==
--- NOTE | 2017-08-30 07:51 | CT_ITS ---
STUDY: CTA OF THE ABDOMINAL AORTA AND BILATERAL LOWER EXTREMITIES REASON FOR EXAM: Female, 67 years old. History of carotid stenosis and popliteal stents. RADIATION DOSAGE (If Supplied By Facility): CTDIvol = ( 8.9 ) mGy, DLP = ( 1721.07 ) mGycm TECHNIQUE: Axial CT angiography multi-detector data acquisition was obtained from the dome of the liver to the ankles following intravenous administration of 100 ml of Isovue 370 contrast. Axial images and MIP images were reconstructed from the axial data set. Post-processing of the angiographic images was performed, with multiplanar reformation and 3D reconstruction. Individualized dose optimization techniques were used for this CT. TECHNICAL QUALITY: Good COMPARISON: Comparison is made with prior examination dated November 04, 2014. Descriptors of Narrowing: None (0%) Mild (< 50%) Moderate (50-70%) Severe (70-90%) Subtotal/Total Occlusion (90-100%) Non-Evaluable (technically non-diagnostic FINDINGS: Abdominal aorta: There is a fusiform infrarenal abdominal aortic aneurysm with a transverse dimension of 5.2 cm. There is evidence of mural thrombus. Celiac and superior mesenteric arteries: Atherosclerotic narrowing of the origins of the celiac artery and superior mesenteric arteries. Inferior mesenteric artery: Not visualized. Right renal artery(arteries): Atherosclerotic stenotic plaque at the origin of the right renal artery. Left renal artery(arteries): Atherosclerotic plaque at the origin of left renal artery causing mild stenosis. Right common iliac artery: Diffuse atherosclerotic calcifications. Mild narrowing. Right external iliac artery: Atherosclerotic calcifications. Right internal iliac artery: No demonstrated narrowing. Left common iliac artery: Atherosclerotic plaques with mild narrowing. Left external iliac artery: Atherosclerotic plaques with mild narrowing. Left internal iliac artery: No demonstrated narrowing. Increased markings at the lung bases with areas of groundglass appearance suggests over chronic scarring. Coronary artery calcification. Normal liver. I suspect tiny gallstones along the dependent portion of the gallbladder lumen. Normal spleen. Normal pancreas. Once again, there is evidence of a 4.3 cm x 3 cm complex cystic mass with calcifications in the left adrenal gland. This is unchanged. Normal right kidney. Normal left kidney. Normal visualized stomach. Normal small intestine. There are scattered colonic diverticula consistent with diverticulosis. The appendix is visualized and appears normal. RIGHT LOWER EXTREMITY Right common femoral artery: Atherosclerotic plaques with mild narrowing. Right profundus femoris: No demonstrated narrowing. Right superficial femoral: Multiple stenotic lesions seen throughout the superficial femoral artery. A stent is seen in the distal portion of the superficial femoral artery and proximal popliteal artery. Right popliteal artery: Stent is seen in the proximal portion of the popliteal artery. There is occlusion of the popliteal artery at the level of the stent. There is reconstruction of the distal portion of the popliteal artery. Right tibioperoneal trunk: No demonstrated narrowing. Right anterior tibial artery: Patent with focal areas of narrowing. Right posterior tibial artery: Patent with focal areas of narrowing. Right peroneal artery: Patent with focal areas of narrowing. LEFT LOWER EXTREMITY Left common femoral artery: Atherosclerotic plaque. Left profundus femoris: No demonstrated narrowing. Atherosclerotic plaques. Left superficial femoral: A stent is seen in the distal portion of the superficial femoral artery. There is occlusion in the proximal portion of the stent with reconstruction of the distal popliteal artery and tibioperoneal trunk. Left popliteal artery: Occlusion at the level of the proximal portion of the stent with reconstruction of the distal popliteal artery. Left tibioperoneal trunk: No demonstrated narrowing. Left anterior tibial artery: Atherosclerotic plaques. Left posterior tibial artery: Atherosclerotic plaques. Left peroneal artery: Atherosclerotic plaques. CT/CTA Abd w/Runoff W/WO Contrast IMPRESSION: Occlusion in both arterial stents at the level of the popliteal arteries as described. Electronically Signed: Dario Barrientos MD at 10:42 EST Tel [phone], Service support ,
== END ==
PROVIDERS: Family Provider Family Medicine; PCP Family Medicine; Visit Provider Surgery Vascular Surgery
DX: I65.23 Occlusion and stenosis of bilateral carotid arteries (principal); I71.4 Abdominal aortic aneurysm, without rupture; I70.213 Atherosclerosis of native arteries of extremities with intermittent claudication, bilateral legs; Z72.0 Tobacco use; E78.00 Pure hypercholesterolemia, unspecified; I10 Essential (primary) hypertension; K21.9 Gastro-esophageal reflux disease without esophagitis
CPT/HCPCS: 75635; Q9967

== ENCOUNTER → 2018-03-29 07:49 | Outpatient (CLI) | payer MEDICARE, SELFPAY ==
[2018-03-29 12:15] LABS: BUN 23 mg/dL (7-18); Creatinine, Serum 1.14 mg/dL (0.55-1.02); EST Glomerular Filtration Rate 50 mL/min (>60); Est Glom Filt Rate - Afr Amer 61 mL/min (>60)
== END ==
PROVIDERS: Family Provider Family Medicine; PCP Family Medicine; Visit Provider Surgery Vascular Surgery
DX: I65.23 Occlusion and stenosis of bilateral carotid arteries (principal); I71.4 Abdominal aortic aneurysm, without rupture; I70.213 Atherosclerosis of native arteries of extremities with intermittent claudication, bilateral legs; F17.200 Nicotine dependence, unspecified, uncomplicated; I10 Essential (primary) hypertension; K21.9 Gastro-esophageal reflux disease without esophagitis
CPT/HCPCS: 36415; 82565; 84520

== ENCOUNTER → 2018-04-11 07:41 | Outpatient (CLI) | payer MEDICARE, SELFPAY ==
--- NOTE | 2018-04-11 07:43 | CT_ITS ---
STUDY: CTA OF THE ABDOMINAL AORTA AND BILATERAL LOWER EXTREMITIES REASON FOR EXAM: Female, 68 years old. Follow-up for known abdominal aortic aneurysm repair. RADIATION DOSAGE (If Supplied By Facility): CTDIvol = ( 26.04 ) mGy, DLP = ( 1127.92 ) mGycm TECHNIQUE: Axial CT angiography multi-detector data acquisition was obtained from the dome of the liver to the symphysis pubis following intravenous administration of 100 ml of Isovue 300 contrast. Axial images and MIP images were reconstructed from the axial data set. Post-processing of the angiographic images was performed, with multiplanar reformation and 3D reconstruction. Individualized dose optimization techniques were used for this CT. TECHNICAL QUALITY: Good COMPARISON: Comparison is made with prior examination dated August 30, 2017. Descriptors of Narrowing: None (0%) Mild (< 50%) Moderate (50-70%) Severe (70-90%) Subtotal/Total Occlusion (90-100%) Non-Evaluable (technically non-diagnostic FINDINGS: Stable mild degree of increased markings at the right lung base suggestive of scarring. I suspect tiny gallstones or sludge within the dependent portion of the gallbladder. Once again, there is evidence of a 4.3 cm x 3 cm complex cystic mass with calcifications in the left adrenal gland. This is unchanged. Abdominal aorta: Since prior study, the patient is status post covered stent placement of the distal abdominal aorta and bilateral iliac arteries. The limbs are patent. There is no evidence of a periprostatic bleed. The [place] aorta is unchanged. Fibroid uterus. CT/CT ANGIO ABD&PEL W/O&W/DYE IMPRESSION: Status post covered stent repair of the abdominal aorta. Electronically Signed: Dario Barrientos MD at 13:27 EDT Tel [phone], Service support ,
== END ==
PROVIDERS: Family Provider Family Medicine; PCP Family Medicine; Visit Provider Surgery Vascular Surgery
DX: I65.23 Occlusion and stenosis of bilateral carotid arteries (principal); I71.4 Abdominal aortic aneurysm, without rupture; I70.213 Atherosclerosis of native arteries of extremities with intermittent claudication, bilateral legs; F17.200 Nicotine dependence, unspecified, uncomplicated; E78.00 Pure hypercholesterolemia, unspecified; I10 Essential (primary) hypertension; K21.9 Gastro-esophageal reflux disease without esophagitis
CPT/HCPCS: 74174; Q9967

== ENCOUNTER → 2018-05-11 07:55 | Outpatient (CLI) | payer MEDICARE, SELFPAY ==
[2018-05-11 12:39] LABS: Absolute Lymphocyte Count 2.36 X10^3/ul (0.83-4.51); Absolute Neutrophil Count 6.4 X10^3/uL (2.0-7.7); Basophil# 0.04 X10^3/uL; Basophil% 0.4 % (0-1); Eosinophil# 0.22 X10^3/uL; Eosinophils% 2.3 % (0-5); Hematocrit 43.3 % (37-47); Hemoglobin 14.1 g/dl (12.0-15.0); Lymphocyte # 2.36 X10^3/ul (4.0); Lymphocyte % 24.7 % (19-41); Mean Corp Hgb Conc 32.6 g/gl (32-36); Mean Corpuscular Hgb 31.6 pg (27.0-32.0); Mean Corpuscular Volume 97.1 fL (81-99); Mean Platelet Vol. 9.8 fl (6.2-12.0); Monocyte# 0.55 X10^3/uL; Monocyte% 5.8 % (0-10); Neutrophil # 6.35 X10^3/uL (2.7-7.7); Neutrophil % 66.6 % (47-70); Platelet Count 331 K/mm3 (150-450); RBC Distribution Width CV 13.5 % (11.6-14.6); RBC Distribution Width SD 47.2 fl (35.1-43.9); Red Blood Count 4.46 M/mm3 (4.2-5.4); White Blood Count 9.5 K/mm3 (4.4-11.0)
[2018-05-11 12:40] LABS: POSITIVE COUNT NO; POSITIVE DIFFERENTIAL NO; POSITIVE MORPHOLOGY NO
[2018-05-11 12:53] LABS: Microalbumin,Random Urine 9.1 mg/L (NO RANGE EST.); Microalbumin:Creatinine Ratio 8.1 mg/g CRE (<30 mg/g CRE)
[2018-05-11 13:10] LABS: ALB/GLOB Ratio 0.8 RATIO (0.9-2.4); AST(SGOT) 12 U/L (15-37); Alanine Aminotransfer ALT/SGPT 22 U/L (13-56); Albumin, Serum 3.3 g/dL (3.2-5.0); Alkaline Phosphatase 145 U/L (45-117); Anion Gap 8 (5-15); BUN 16 mg/dL (7-18); BUN/Creat Ratio 13.9 RATIO (10-20); Calcium,Total 9.8 mg/dL (8.5-10.1); Chloride 108 mmol/L (98-107); Cholesterol 150 mg/dL (200); Creatinine, Serum 1.15 mg/dL (0.55-1.02); EST Glomerular Filtration Rate 50 mL/min (>60); Est Glom Filt Rate - Afr Amer 60 mL/min (>60); Globulin 4.2 g/dL (2.2-4.2); Glucose 90 mg/dL (74-106); High Density Lipoprotein 53 mg/dL; Protein, Total 7.5 g/dL (6.4-8.2); Sodium Level 141 mmol/L (136-145); Triglycerides 76 mg/dL; Very Low Density Lipoprotein 15 mg/dL (5-40)
== END ==
PROVIDERS: Family Provider Family Medicine; PCP Family Medicine; Visit Provider Family Medicine
DX: I10 Essential (primary) hypertension (principal); E78.5 Hyperlipidemia, unspecified
CPT/HCPCS: 36415; 80053; 80061; 82043; 82570; 85025

== ENCOUNTER → 2018-05-31 08:22 | Outpatient (CLI) | payer MEDICARE, SELFPAY ==
--- NOTE | 2018-05-31 08:24 | RAD_ITS ---
STUDY: AIR-CONTRAST UPPER GI SERIES. REASON FOR EXAM: Female, 68 years old. Epigastric pain for 6 weeks. FLUOROSCOPY TIME (if supplied): (0:52) minutes/seconds. 16 images were obtained. TECHNIQUE: The patient ingested barium. Imaging of the esophagus, stomach and duodenum were obtained. COMPARISON: None. FINDINGS: The esophagus is unremarkable. There is no evidence of obstruction. No mass lesion is seen. There is no evidence of gastric esophageal reflux. The stomach and duodenum are unremarkable. There is no evidence of ulceration. No mass lesion is seen. RAD/Upper GI Series Only IMPRESSION: Unremarkable examination. Electronically Signed: Dario Barrientos MD at 14:49 EDT Tel [phone], Service support ,
== END ==
PROVIDERS: Family Provider Family Medicine; PCP Family Medicine; Referring Provider Family Medicine; Visit Provider Family Medicine
DX: K21.9 Gastro-esophageal reflux disease without esophagitis (principal); R10.13 Epigastric pain
CPT/HCPCS: 74246

== ENCOUNTER → 2018-06-12 08:21 | Outpatient (CLI) | payer MEDICARE, SELFPAY ==
--- NOTE | 2018-06-12 08:24 | BI_ITS ---
MAMMOGRAPHY - BILATERAL SCREENING REASON FOR EXAM: Female, 68 years old. Routine annual screening examination. PERTINENT HISTORY: Non-contributory. TECHNIQUE: Digital bilateral breast per (3D mammographic acquisition) in the CC and MLO projections. 2-D mediolateral oblique (MLO) and craniocaudad (CC) views of both breasts were obtained. CAD: Full Field Digital Mammography with Computer Added Detection was performed. COMPARISON: Comparison is made with prior study dated May 10, 2017 and April 28, 2016. FINDINGS: Breast Composition: There are scattered areas of fibroglandular density. There are no dominant masses or suspicious calcifications. Stable benign appearing bilateral axillary lymph nodes. No other significant abnormalities are identified. There has been no significant change since the prior study. BI/SCREENING MAMM (CAD), BILAT IMPRESSION: Stable bilateral screening mammogram. Yearly follow-up mammogram recommended. (A) ASSESSMENT CATEGORY: BIRADS Category 2: Benign. A letter regarding these results will be sent to the patient by the facility within 30 days. Approximately 10% of breast cancers are not detected by mammography. A normal mammogram should not delay biopsy of a clinically suspicious abnormality. [id number] Electronically Signed: Dario Barrientos MD at 10:57 EST Tel [phone], Service support ,
== END ==
PROVIDERS: Family Provider Family Medicine; PCP Family Medicine; Referring Provider Family Medicine; Visit Provider Family Medicine
DX: Z12.31 Encounter for screening mammogram for malignant neoplasm of breast (principal)
CPT/HCPCS: 77063; 77067

== ENCOUNTER → 2018-07-09 09:09 | Outpatient (CLI) | payer MEDICARE, SELFPAY ==
--- NOTE | 2018-07-09 09:17 | US_ITS ---
STUDY: ABDOMINAL ULTRASOUND REASON FOR EXAM: Female, 68 years old. Abdominal pain TECHNIQUE: Transabdominal ultrasound was performed with real-time and static wilcox scale imaging. TECHNICAL QUALITY: Limited. COMPARISON: April 11, 2018 CT angiogram abdomen and pelvis FINDINGS: Liver: The liver measures 15.9 cm. There is increased echogenicity consistent with fatty infiltration. The bile ducts are within normal limits. There is hepatic color flow. The direction of portal flow is hepatopetal. There is no demonstrated mass lesion. Portal vein measurement: Gallbladder: Normal distended gallbladder. The gallbladder wall measures 2 mm. There is a negative sonographic Gonzalez's sign. There is no pericholecystic fluid. Is a subtle echogenic structure within the gallbladder suggesting probable small stone or potentially sludge. Common Bile Duct (C.B.D.): The common bile duct measures 5 mm. Pancreas: Normal size of the head, body and tail of the pancreas. There is normal echogenicity of the pancreas. There is no demonstrated pancreatic mass or cyst. Spleen: Normal size of the spleen. The spleen measures 9.1 x 4.6 cm. Right Kidney: Normal size of the right kidney. The right kidney measures 12.0 x 4.3 x 3.9 cm. Normal renal cortex. The right cortex measures 1.3 cm. There is no demonstrated renal mass or cyst. There is no right hydronephrosis. Left Kidney: Normal size of the left kidney. The left kidney measures 11.2 x 5.4 x 5.0 cm. Normal renal cortex. The left cortex measures 1.6 cm. There is no demonstrated renal mass or cyst. There is no left hydronephrosis. Aorta: Proximal aorta measures 2.6 x 3.1 cm, the mid aorta measures 1.8 x 1.8 cm. The distal aorta 2.8 x 2.7 cm. There is an abdominal aortic stent. I.V.C.: The IVC is patent. There is no ascites. US/Abdomen Complete IMPRESSION: There is a possible trace focus of cholelithiasis without evidence of cholecystitis. Should be noted that the area of adrenal level calcifications is not seen on this study. There is partial visualization of the aortic stent and repair. The distal [place] aorta that was measured as 4.9 x 5.2 cm on the recent CT is not well appreciated on this study. Mildly enlarged fatty infiltrated liver. Could consider follow-up CT scan of the abdomen and pelvis for further evaluation. Electronically Signed: Michelle Caro MD at 18:48 EST Tel , Service support ,
== END ==
PROVIDERS: Family Provider Family Medicine; PCP Family Medicine; Referring Provider Family Medicine; Visit Provider Family Medicine
DX: R10.13 Epigastric pain (principal); R74.8 Abnormal levels of other serum enzymes
CPT/HCPCS: 76700

== ENCOUNTER → 2018-07-30 07:37 | Outpatient (CLI) | payer MEDICARE, SELFPAY ==
--- NOTE | 2018-07-30 07:39 | CT_ITS ---
STUDY: CT ABDOMEN AND PELVIS WITH CONTRAST REASON FOR EXAM: Female, 68 years old. Abdominal bloating x 3 months. Abdominal pain. History of AAA repair. RADIATION DOSAGE (If Supplied By Facility): CTDIvol = ( 20.02 ) mGy, DLP = ( 1387.20 ) mGycm TECHNIQUE: Transaxial images were obtained from the dome of the diaphragm to the symphysis pubis with oral contrast. 100 ml of Isovue 250 contrast was administered. Sagittal and coronal images were reconstructed. Individualized dose optimization techniques were used for this CT. COMPARISON: Abdominal ultrasound April 09, 2018; upper GI series May 31, 2018. CTA abdomen and pelvis April 11, 2018. FINDINGS: Irregular stranding density in the posterolateral right lung base may be atelectasis, scarring, or inflammatory change. The visualized portions of the heart are within normal limits. There is irregular, possibly ulcerated atherosclerotic plaquing of the distal most thoracic aorta. Normal liver. Patent portal vein diameter is 11 mm. Normal gallbladder and extrahepatic biliary system. Normal spleen. Normal pancreas. Normal right adrenal gland. There is a multilobulated, moderately rimmed calcified 4.5 x 3.95 x 3.9 cm low-density left adrenal gland/mass. Normal right kidney. Subcentimeter cortical cysts noted at the posterior midpole and lower pole of the left kidney. No hydronephrosis. Normal visualized stomach. Normal small intestine. There are multiple colonic diverticula consistent with diverticulosis. The appendix is visualized and appears normal. Again seen is prior exclusion of an infrarenal abdominal aortic aneurysm with a bifurcated endograft. The aneurysm sac reaches 4.75 x 4.65 cm. No demonstrated endoleak. There is 50-69% stenosis of the right renal artery. There is at least 50% diameter narrowing by eccentric calcific plaque in the proximal left external iliac artery and 50-69% focal atherosclerotic stenosis at the ostium of the right external iliac artery. Normal inferior vena cava. Normal retroperitoneum. Normal urinary bladder. Normal-size anteverted uterus tilted to the right of midline and there is there is suggestion of 3.75 cm endometrial thickening, although blood clot in the endometrial cavity or endometrial/submucosal mass/fibroid might also have this appearance. There is a stable small umbilical hernia containing fat. There is a stable left-sided inguinal hernia containing adipose tissue. There are stable degenerative changes of the visualized spine. Chronic bilateral L5 pars defects and grade 1 L5-S1 spondylolisthesis unchanged. The patient has undergone prior laminectomies and posterior lumbosacral fusion with metal hardware. Bilateral transpedicular screws at L5 and S1 are connected either side longitudinal metal rods CT/Abdomen/Pelvis WITH Contrast IMPRESSION: 1. Prior exclusion of an infrarenal abdominal aortic aneurysm with a bifurcated endograft again noted. The aneurysm size is unchanged. No demonstrated endoleak. 2. Moderate atherosclerotic stenoses of the right renal artery ostium as well as proximal bilateral external iliac arteries. 3. Colonic diverticulosis without acute diverticulitis. No sign of bowel obstruction. The appendix is normal. 4. Subcentimeter cortical cysts in the left kidney. No hydronephrosis. 5. Stable 4.5 cm lobulated, rim calcified left adrenal gland/mass. 6. Stable small, fat-containing umbilical left inguinal hernias. 7. Prior L5 laminectomies and posterior lumbosacral fusion with metal hardware again noted. There are chronic bilateral L5 pars defects and grade 1 L5-S1 spondylolisthesis. 8. Subsegmental atelectasis or inflammatory change in the posterolateral right lung base is mildly worsened since March 2018. Electronically Signed: Ming Love MD at 17:36 EST , Service support ,
[2018-07-30 07:56] LABS: CREATININE FINGERSTICK 1.5 mg/dL (0.55-1.02)
== END ==
PROVIDERS: Family Provider Family Medicine; PCP Family Medicine; Referring Provider Family Medicine; Visit Provider Family Medicine
DX: R10.13 Epigastric pain (principal); R74.8 Abnormal levels of other serum enzymes
CPT/HCPCS: 74177; Q9965

== ENCOUNTER → 2018-08-06 10:06 | Outpatient (CLI) | payer MEDICARE, SELFPAY ==
--- NOTE | 2018-08-06 10:10 | US_ITS ---
STUDY: ULTRASOUND TRANSVAGINAL CLINICAL: Female, 68 years old. Thickened endometrium on CT TECHNIQUE: Transabdominal and Transvaginal COMPARISON: CT abdomen and pelvis dated 07/30/2018 FINDINGS: Normal uterine size measuring 7.1 x 5.3 x 4.4 cm in maximal craniocaudal dimension. Endometrium is not clearly evaluated. There is a mass versus fibroid measuring 4 x 4 0.3 x 3.5 cm. Normal uterine cervix. Normal right ovary, measuring 1.7 x 2.5 x 1.3 cm. There are multiple follicles without a dominant cyst. Normal left ovary, measuring 3.3 x 2.2 x 2.1 cm. There are multiple follicles without a dominant cyst. There is no free fluid in the pelvis. Polycystic ovary disease: No. US/Pelvic (Non ) IMPRESSION: Heterogeneous uterus with possible fibroid versus uterine/endometrial mass as detailed above. Endometrium is not clearly identified. Recommend female pelvic MRI to further evaluate Electronically Signed: Alexei Griggs DO at 12:45 EST Tel , Service support ,
--- NOTE | 2018-08-06 10:37 | US_ITS ---
STUDY: ULTRASOUND TRANSVAGINAL CLINICAL: Female, 68 years old. Thickened endometrium on CT TECHNIQUE: Transabdominal and Transvaginal COMPARISON: CT abdomen and pelvis dated 07/30/2018 FINDINGS: Normal uterine size measuring 7.1 x 5.3 x 4.4 cm in maximal craniocaudal dimension. Endometrium is not clearly evaluated. There is a mass versus fibroid measuring 4 x 4 0.3 x 3.5 cm. Normal uterine cervix. Normal right ovary, measuring 1.7 x 2.5 x 1.3 cm. There are multiple follicles without a dominant cyst. Normal left ovary, measuring 3.3 x 2.2 x 2.1 cm. There are multiple follicles without a dominant cyst. There is no free fluid in the pelvis. Polycystic ovary disease: No. US/Transvaginal Non- IMPRESSION: Heterogeneous uterus with possible fibroid versus uterine/endometrial mass as detailed above. Endometrium is not clearly identified. Recommend female pelvic MRI to further evaluate Electronically Signed: Alexei Griggs DO at 12:45 EST Tel , Service support ,
== END ==
PROVIDERS: Family Provider Family Medicine; PCP Family Medicine; Referring Provider Family Medicine; Visit Provider Family Medicine
DX: N85.00 Endometrial hyperplasia, unspecified (principal)
CPT/HCPCS: 76830; 76856

== ENCOUNTER → 2018-08-15 06:18 | Outpatient (CLI) | payer MEDICARE, SELFPAY ==
--- NOTE | 2018-08-15 06:31 | MRI_ITS ---
STUDY: MR PELVIS WITH T WITHOUT CONTRAST REASON FOR EXAM: Female, 68 years old. Uterine mass. TECHNIQUE: Standardized fat and water weighted pulse sequences were obtained in all 3 orthogonal planes, pre-and post contrast administration. 10 ml of Gadavist contrast material was administered intravenously for the contrast portion of the examination. COMPARISON: CT of the abdomen and pelvis dated July 20, 2018 and pelvic ultrasound dated August 06, 2018.. FINDINGS: Normal urinary bladder. There is no evidence for dilated bowel or ascites. There are multiple diverticula within the imaged sigmoid colon. There is no pelvic fluid. There is a large mass located within the uterus that appears to occupy most of the uterine body. There is well-circumscribed and has decreased T1 and T2 signal. The mass measures approximately 4.5 x 3.8 x 4 cm in size. The uterus measures approximately 7.5 x 4.5 x 5.3 cm in size. The cervix has a normal appearance. There does not appear to be any invasion beyond the uterine margins. The endometrium was not visualized because of the large mass. Neither ovary is well seen. Both adnexal areas are within normal limits. Normal visualized pelvic arteries. Normal osseous structures. Normal abdominal wall. MRI/Pelvis W/WO Contrast IMPRESSION: Large uterine mass as described. Electronically Signed: Lorin Diamond MD at 0:26 EST , Service support ,
[2018-08-15 07:56] LABS: CREATININE FINGERSTICK 1.5 mg/dL (0.55-1.02)
--- OUTSIDE RECORDS SUMMARY | 2018-10-19 22:02 | XMS RPT_ITS ---
:1950 Author Organization OHIP Support Name Relationship Address Phone R Unavailable Unavailable Unavailable LOUISCHRISTIANNE OSULLIVAN Unavailable [address] + [place] [address] CEDENO, THAI Unavailable [address] + [place] [address] R Unavailable Unavailable Unavailable CHRISTIANNE LOUIS Unavailable [address] + [place] [address] CEDENO, THAI Unavailable [address] + [place] [address] R Unavailable Unavailable Unavailable LOUISCHRISTIANNE Unavailable [address] + [place] [address] CEDENO, THAI Unavailable [address] + [place] [address] R Unavailable Unavailable Unavailable CHRISTIANNE LOUIS Unavailable [address] + [place] [address] CEDENO, THAI Unavailable [address] + [place] [address] R Unavailable Unavailable Unavailable CHRISTIANNE LOUIS Unavailable [address] + [place] [address] CEDENO, THAI Unavailable [address] + [place] [address] R Unavailable Unavailable Unavailable HERIBERTO CHRISTIANNE Unavailable [address] + [place] [address] CEDENO, THAI Unavailable [address] + [place] [address] R Unavailable Unavailable Unavailable LOUIS, CHRISTIANNE Unavailable [address] + [place] [address] CEDENO, THAI Unavailable [address] + [place] [address] R Unavailable Unavailable Unavailable HERIBERTO CHRISTIANNE Unavailable [address] + [place] [address] CEDENO, THAI Unavailable [address] + [place] [address] R Unavailable Unavailable Unavailable HERIBERTO CHRISTIANNE Unavailable [address] + [place] [address] CEDENO, THAI Unavailable [address] + [place] [address] R Unavailable Unavailable Unavailable LOUIS CHRISTIANNE Unavailable [address] + [place] [address] CEDENO, THAI Unavailable [address] + [place] [address] R Unavailable Unavailable Unavailable LOUIS, CHRISTIANNE Unavailable [address] + [place] [address] CEDENO, THAI Unavailable [address] + [place] [address] R Unavailable Unavailable Unavailable HERIBERTO CHRISTIANNE Unavailable [address] + [place] [address] CEDENO, THAI Unavailable [address] + [place] [address] Care Team Providers Name Role Phone Tatiana Herbert Attending Unavailable Tatiana, Herbert Referring Unavailable Tatiana, Herbert Primary Care Unavailable Tatiana, Herbert Attending Unavailable Tatiana, Herbert Referring Unavailable Tatiana, Herbert Primary Care Unavailable Timothy Jo Attending Unavailable Timothy Jo Referring Unavailable Tatiana, Herbert Primary Care Unavailable Tatiana, Herbert Attending Unavailable Tatiana, Herbert Primary Care Unavailable Tatiana, Herbert Primary Care Unavailable Timothy Jo Attending Unavailable Timothy Jo Attending Unavailable Timothy Jo Referring Unavailable Tatiana, Herbert Primary Care Unavailable Tatiana, Herbert Attending Unavailable Tatiana, Herbert Referring Unavailable Tatiana, Herbert Primary Care Unavailable Tatiana, Herbert Attending Unavailable Tatiana, Herbert Referring Unavailable Tatiana, Herbert Primary Care Unavailable Tatiana, Herbert Attending Unavailable Tatiana, Herbert Referring Unavailable Tatiana, Herbert Primary Care Unavailable Tatiana, Herbert Attending Unavailable Tatiana, Herbert Referring Unavailable Tatiana, Herbert Primary Care Unavailable Tatiana, Herbert Attending Unavailable Tatiana, Herbert Primary Care Unavailable Malorie William Attending Unavailable Timothy Jo Attending Unavailable Timothy Jo Admitting Unavailable PROBLEMS PROBLEMS DATE TYPE CONDITION / CODE ATTENDING STATUS SOURCE 08/17/2018 Unknown N18.3 - Chronic Herbert Simpson Active [place] kidney disease, Community stage 3 (moderate) / Hospital N18.3(ICD-10) Repository 08/13/2018 Unknown R10.13 - Epigastric Herbert Simpson Active [place] pain / Community R10.13(ICD-10) Hospital Repository 07/04/2018 Unknown K21.9 - Herbert Simpson Active [facility] reflux disease [facility] without esophagitis Repository / K21.9(ICD-10) 05/11/2018 Unknown I10 - Essential Herbert Simpson Active [facility] (primary) Community hypertension / Hospital I10(ICD-10) Repository 05/11/2018 Unknown E78.5 - Herbert Simpson Active [place] Hyperlipidemia, Community unspecified / Hospital E78.5(ICD-10) Repository 03/29/2018 Unknown I71.4 - Abdominal Timothy Jo Active [place] aortic aneurysm, A [facility] without rupture / Hospital I71.4(ICD-10) Repository 03/29/2018 Unknown I70.213 - Timothy Jo Active [place] Atherosclerosis of A [facility] cachil dehe arteries of Hospital extremities with Repository intermittent claudication, bilateral legs / I70.213(ICD-10) 03/29/2018 Unknown F17.200 - Nicotine JoTimothy yost Active [place] dependence, A [facility] unspecified, Hospital uncomplicated / Repository F17.200(ICD-10) 09/26/2017 Admitting Unknown / Timothy Jo [facility] Medical diagnosis UNK(Unknown) A. [place] Repository PROCEDURES PROCEDURES No Procedure Records FoundRESULTS RESULTS BASIC METABOLIC Collected: 08/17/2018 Status: F Source: [place] [facility]BMP) [facility] TYPE CODE TESTS RESULT OUT OF RANGE REFERENCE UNITS LAB L501.0100 74-106 mg/dL Normal GLU 86 Result Comment: Please note revised GLUCOSE reference range effective 2017. LAB L501.1000 7-18 mg/dL Normal BUN 15 LAB L501.1100 0.55-1.02 mg/dL High CREAT,SERUM 1.12 Result Comment: The validity of the calculated GFR AND GFRAA in patients over 70 years has not been determined. Clinical correlation is essential. LAB L501.1110 >60 mL/min Low EST GFR 51 Result Comment: Non- GFR Calc LAB L501.1115 >60 mL/min Normal EST GFR - AA 62 Result Comment: GFR Calc LAB L501.1300 10-20 RATIO Normal BUN/CRE 13.4 LAB L501.2200 8.5-10.1 mg/dL CA Normal 9.9 LAB L501.5300 136-145 mmol/L NA Normal 140 LAB L501.5600 3.5-5.1 mmol/L K Normal 4.2 LAB L501.5900 98-107 mmol/L High CL 109 LAB L501.6100 21.0-32.0 mmol/L Normal CO2 25.0 LAB L501.6200 5-15 Normal GAP 6 Performed By: #### L500.2500 #### [facility] [address] [place], [address] CREATININE FINGERSTICK Collected: 08/15/2018 Status: F Source: [place] 6:43 AM [facility] REPOSITORY TYPE CODE TESTS RESULT OUT OF REFERENCE UNITS RANGE LAB L9100.0210 0.55-1.02 mg/dL High CREATININE WB 1.5 LAB L9100.0220 >60 mL/min Low EGFR WB 36.0000 Performed By: #### L9100.0200 #### [facility] Laboratory Point of Care [address] [place] [address] PELVIS W/WO CONTRAST Observed: 08/15/2018 Status: F Source: [place] 6:31 AM [facility] REPOSITORY [facility] Imaging Services [address] [place] [address] Pelvis W/WO Contrast MR#: [id number] Acct: [id number] Name: ANDREW LOUIS Rep #: [id number] : 1950 F 68 From: Lorin Diamond MD PCP: Herbert Simpson DO Status: REG CLI Study: Pelvis W/WO Contrast Date of Exam: 08/15/18 Exam# [id number] Ordering Dr: Herbert Simpson DO STUDY: MR PELVIS WITH T WITHOUT CONTRAST REASON FOR EXAM: Female, 68 years old. Uterine mass. TECHNIQUE: Standardized fat and water weighted pulse sequences were obtained in all 3 orthogonal planes, pre-and post contrast administration. 10 ml of Gadavist contrast material was administered intravenously for the contrast portion of the examination. COMPARISON: CT of the abdomen and pelvis dated July 20, 2018 and pelvic ultrasound dated August 06, 2018.. FINDINGS: Normal urinary bladder. There is no evidence for dilated bowel or ascites. There are multiple diverticula within the imaged sigmoid colon. There is no pelvic fluid. There is a large mass located within the uterus that appears to occupy most of the uterine body. There is well-circumscribed and has decreased T1 and T2 signal. The mass measures approximately 4.5 x 3.8 x 4 cm in size. The uterus measures approximately 7.5 x 4.5 x 5.3 cm in size. The cervix has a normal appearance. There does not appear to be any invasion beyond the uterine margins. The endometrium was not visualized because of the large mass. Neither ovary is well seen. Both adnexal areas are within normal limits. Normal visualized pelvic arteries. Normal osseous structures. Normal abdominal wall. MRI/Pelvis W/WO Contrast IMPRESSION: Large uterine mass as described. Electronically Signed: Lorin Diamond MD at 0:26 EST , Service support , CC: Herbert Simpson DO [employer]: Signed TRANSVAGINAL Observed: 08/06/2018 Status: F Source: [place] NON- 10:38 AM [facility] REPOSITORY [facility] Imaging Services [address] [place] [address] Transvaginal Non- MR#: [id number] Acct: [id number] Name: ANDREW LOUIS Rep #: [id number] : 1950 F 68 From: Alexei Griggs DO PCP: Herbert Simpson DO Status: REG CLI Study: Transvaginal Non- Date of Exam: 08/06/18 Exam# [id number] Ordering Dr: Herbert Simpson DO STUDY: ULTRASOUND TRANSVAGINAL CLINICAL: Female, 68 years old. Thickened endometrium on CT TECHNIQUE: Transabdominal and Transvaginal COMPARISON: CT abdomen and pelvis dated 07/30/2018 FINDINGS: Normal uterine size measuring 7.1 x 5.3 x 4.4 cm in maximal craniocaudal dimension. Endometrium is not clearly evaluated. There is a mass versus fibroid measuring 4 x 4 0.3 x 3.5 cm. Normal uterine cervix. Normal right ovary, measuring 1.7 x 2.5 x 1.3 cm. There are multiple follicles without a dominant cyst. Normal left ovary, measuring 3.3 x 2.2 x 2.1 cm. There are multiple follicles without a dominant cyst. There is no free fluid in the pelvis. Polycystic ovary disease: No. US/Transvaginal Non- IMPRESSION: Heterogeneous uterus with possible fibroid versus uterine/endometrial mass as detailed above. Endometrium is not clearly identified. Recommend female pelvic MRI to further evaluate Electronically Signed: Alexei Griggs DO at 12:45 EST Tel , Service support , CC: Herbert Simpson DO [employer] [address] [employer] [address]: Signed PELVIC (NON ) Observed: 08/06/2018 Status: F Source: [place] 10:11 AM [facility] REPOSITORY [facility] Imaging Services [address] [place] [address] Pelvic (Non ) MR#: [id number] Acct: [id number] Name: ANDREW LOUIS Rep #: [id number] : 1950 F 68 From: Alexei Griggs DO PCP: Herbert Simpson DO Status: REG CLI Study: Pelvic (Non ) Date of Exam: 08/06/18 Exam# [id number] Ordering Dr: Herbert Simpson DO STUDY: ULTRASOUND TRANSVAGINAL CLINICAL: Female, 68 years old. Thickened endometrium on CT TECHNIQUE: Transabdominal and Transvaginal COMPARISON: CT abdomen and pelvis dated 07/30/2018 FINDINGS: Normal uterine size measuring 7.1 x 5.3 x 4.4 cm in maximal craniocaudal dimension. Endometrium is not clearly evaluated. There is a mass versus fibroid measuring 4 x 4 0.3 x 3.5 cm. Normal uterine cervix. Normal right ovary, measuring 1.7 x 2.5 x 1.3 cm. There are multiple follicles without a dominant cyst. Normal left ovary, measuring 3.3 x 2.2 x 2.1 cm. There are multiple follicles without a dominant cyst. There is no free fluid in the pelvis. Polycystic ovary disease: No. US/Pelvic (Non ) IMPRESSION: Heterogeneous uterus with possible fibroid versus uterine/endometrial mass as detailed above. Endometrium is not clearly identified. Recommend female pelvic MRI to further evaluate Electronically Signed: Alexei Griggs DO at 12:45 EST Tel , Service support , CC: Herbert Simpson DO [employer] [address] [employer] [address]: Signed CREATININE FINGERSTICK Collected: 07/30/2018 Status: F Source: [place] 7:51 AM [facility] REPOSITORY TYPE CODE TESTS RESULT OUT OF REFERENCE UNITS RANGE LAB L9100.0210 0.55-1.02 mg/dL High CREATININE WB 1.5 LAB L9100.0220 >60 mL/min Low EGFR WB 36.0000 Performed By: #### L9100.0200 #### [facility] Laboratory Point of Care [facility] [address] [place], [place] [id number] ABDOMEN/PELVIS WITH Observed: 07/30/2018 Status: F Source: [place] CONTRAST 7:40 AM [facility] REPOSITORY [facility] Imaging Services [address] [place] [address] Abdomen/Pelvis WITH Contrast MR#: [id number] Acct: [id number] Name: ANDREW LOUIS Rep #: [id number] : 1950 F 68 From: Alden Love MD PCP: Herbert Simpson DO Status: REG CLI Study: Abdomen/Pelvis WITH Contrast Date of Exam: 07/30/18 Exam# [id number] Ordering Dr: Herbert Simpson DO STUDY: CT ABDOMEN AND PELVIS WITH CONTRAST REASON FOR EXAM: Female, 68 years old. Abdominal bloating x 3 months. Abdominal pain. History of AAA repair. RADIATION DOSAGE (If Supplied By Facility): CTDIvol = ( 20.02 ) mGy, DLP = ( 1387.20 ) mGycm TECHNIQUE: Transaxial images were obtained from the dome of the diaphragm to the symphysis pubis with oral contrast. 100 ml of Isovue 250 contrast was administered. Sagittal and coronal images were reconstructed. Individualized dose optimization techniques were used for this CT. COMPARISON: Abdominal ultrasound April 09, 2018; upper GI series May 31, 2018. CTA abdomen and pelvis April 11, 2018. FINDINGS: Irregular stranding density in the posterolateral right lung base may be atelectasis, scarring, or inflammatory change. The visualized portions of the heart are within normal limits. There is irregular, possibly ulcerated atherosclerotic plaquing of the distal most thoracic aorta. Normal liver. Patent portal vein diameter is 11 mm. Normal gallbladder and extrahepatic biliary system. Normal spleen. Normal pancreas. Normal right adrenal gland. There is a multilobulated, moderately rimmed calcified 4.5 x 3.95 x 3.9 cm low-density left adrenal gland/mass. Normal right kidney. Subcentimeter cortical cysts noted at the posterior midpole and lower pole of the left kidney. No hydronephrosis. Normal visualized stomach. Normal small intestine. There are multiple colonic diverticula consistent with diverticulosis. The appendix is visualized and appears normal. Again seen is prior exclusion of an infrarenal abdominal aortic aneurysm with a bifurcated endograft. The aneurysm sac reaches 4.75 x 4.65 cm. No demonstrated endoleak. There is 50-69% stenosis of the right renal artery. There is at least 50% diameter narrowing by eccentric calcific plaque in the proximal left external iliac artery and 50-69% focal atherosclerotic stenosis at the ostium of the right external iliac artery. Normal inferior vena cava. Normal retroperitoneum. Normal urinary bladder. Normal-size anteverted uterus tilted to the right of midline and there is there is suggestion of 3.75 cm endometrial thickening, although blood clot in the endometrial cavity or endometrial/submucosal mass/fibroid might also have this appearance. There is a stable small umbilical hernia containing fat. There is a stable left-sided inguinal hernia containing adipose tissue. There are stable degenerative changes of the visualized spine. Chronic bilateral L5 pars defects and grade 1 L5-S1 spondylolisthesis unchanged. The patient has undergone prior laminectomies and posterior lumbosacral fusion with metal hardware. Bilateral transpedicular screws at L5 and S1 are connected either side longitudinal metal rods CT/Abdomen/Pelvis WITH Contrast IMPRESSION: 1. Prior exclusion of an infrarenal abdominal aortic aneurysm with a bifurcated endograft again noted. The aneurysm size is unchanged. No demonstrated endoleak. 2. Moderate atherosclerotic stenoses of the right renal artery ostium as well as proximal bilateral external iliac arteries. 3. Colonic diverticulosis without acute diverticulitis. No sign of bowel obstruction. The appendix is normal. 4. Subcentimeter cortical cysts in the left kidney. No hydronephrosis. 5. Stable 4.5 cm lobulated, rim calcified left adrenal gland/mass. 6. Stable small, fat-containing umbilical left inguinal hernias. 7. Prior L5 laminectomies and posterior lumbosacral fusion with metal hardware again noted. There are chronic bilateral L5 pars defects and grade 1 L5-S1 spondylolisthesis. 8. Subsegmental atelectasis or inflammatory change in the posterolateral right lung base is mildly worsened since March 2018. Electronically Signed: Ming Love MD at 17:36 EST , Service support , CC: Herbert Simpson DO [employer] [address]: Signed ABDOMEN COMPLETE Observed: 07/09/2018 Status: F Source: [place] 9:17 AM [facility] REPOSITORY [facility] Imaging Services [address] [place] [address] Abdomen Complete MR#: [id number] Acct: [id number] Name: ANDREW LOUIS Rep #: [id number] : 1950 F 68 From: Michelle Caro MD PCP: Herbert Simpson DO Status: REG CLI Study: Abdomen Complete Date of Exam: 07/09/18 Exam# [id number] Ordering Dr: Herbert Simpson DO STUDY: ABDOMINAL ULTRASOUND REASON FOR EXAM: Female, 68 years old. Abdominal pain TECHNIQUE: Transabdominal ultrasound was performed with real-time and static wilcox scale imaging. TECHNICAL QUALITY: Limited. COMPARISON: April 11, 2018 CT angiogram abdomen and pelvis FINDINGS: Liver: The liver measures 15.9 cm. There is increased echogenicity consistent with fatty infiltration. The bile ducts are within normal limits. There is hepatic color flow. The direction of portal flow is hepatopetal. There is no demonstrated mass lesion. Portal vein measurement: Gallbladder: Normal distended gallbladder. The gallbladder wall measures 2 mm. There is a negative sonographic Gonzalez's sign. There is no pericholecystic fluid. Is a subtle echogenic structure within the gallbladder suggesting probable small stone or potentially sludge. Common Bile Duct (C.B.D.): The common bile duct measures 5 mm. Pancreas: Normal size of the head, body and tail of the pancreas. There is normal echogenicity of the pancreas. There is no demonstrated pancreatic mass or cyst. Spleen: Normal size of the spleen. The spleen measures 9.1 x 4.6 cm. Right Kidney: Normal size of the right kidney. The right kidney measures 12.0 x 4.3 x 3.9 cm. Normal renal cortex. The right cortex measures 1.3 cm. There is no demonstrated renal mass or cyst. There is no right hydronephrosis. Left Kidney: Normal size of the left kidney. The left kidney measures 11.2 x 5.4 x 5.0 cm. Normal renal cortex. The left cortex measures 1.6 cm. There is no demonstrated renal mass or cyst. There is no left hydronephrosis. Aorta: Proximal aorta measures 2.6 x 3.1 cm, the mid aorta measures 1.8 x 1.8 cm. The distal aorta 2.8 x 2.7 cm. There is an abdominal aortic stent. I.V.C.: The IVC is patent. There is no ascites. US/Abdomen Complete IMPRESSION: There is a possible trace focus of cholelithiasis without evidence of cholecystitis. Should be noted that the area of adrenal level calcifications is not seen on this study. There is partial visualization of the aortic stent and repair. The distal cachil dehe aorta that was measured as 4.9 x 5.2 cm on the recent CT is not well appreciated on this study. Mildly enlarged fatty infiltrated liver. Could consider follow-up CT scan of the abdomen and pelvis for further evaluation. Electronically Signed: Michelle Caro MD at 18:48 EST Tel , Service support , CC: Herbert Simpson DO [employer] [address] [employer] [address]: Signed SCREENING MAMM (CAD), Observed: 06/12/2018 Status: F Source: [facility] 8:25 AM [facility] REPOSITORY [facility] Imaging Services [address] [place] [address] SCREENING MAMM (CAD), BILAT MR#: [id number] Acct: [id number] Name: ANDREW LOUIS Rep #: [id number] : 1950 F 68 From: Dario Barrientos MD PCP: Herbert Simpson DO Status: REG CLI Study: SCREENING MAMM (CAD), BILAT Date of Exam: 06/12/18 Exam# [id number] Ordering Dr: Herbert Simpson DO MAMMOGRAPHY - BILATERAL SCREENING REASON FOR EXAM: Female, 68 years old. Routine annual screening examination. PERTINENT HISTORY: Non-contributory. TECHNIQUE: Digital bilateral breast per (3D mammographic acquisition) in the CC and MLO projections. 2-D mediolateral oblique (MLO) and craniocaudad (CC) views of both breasts were obtained. CAD: Full Field Digital Mammography with Computer Added Detection was performed. COMPARISON: Comparison is made with prior study dated May 10, 2017 and April 28, 2016. FINDINGS: Breast Composition: There are scattered areas of fibroglandular density. There are no dominant masses or suspicious calcifications. Stable benign appearing bilateral axillary lymph nodes. No other significant abnormalities are identified. There has been no significant change since the prior study. BI/SCREENING MAMM (CAD), BILAT IMPRESSION: Stable bilateral screening mammogram. Yearly follow-up mammogram recommended. (A) ASSESSMENT CATEGORY: BIRADS Category 2: Benign. A letter regarding these results will be sent to the patient by the facility within 30 days. Approximately 10% of breast cancers are not detected by mammography. A normal mammogram should not delay biopsy of a clinically suspicious abnormality. [id number] Electronically Signed: Dario Barrientos MD at 10:57 EST Tel [phone], Service support , CC: Herbert Simpson DO [employer] [address] [employer] [address]: Signed UPPER GI SERIES Observed: 05/31/2018 Status: F Source: [place] ONLY 8:24 AM [facility] REPOSITORY [facility] Imaging [facility] [place] [address] Upper GI Series Only MR#: [id number] Acct: [id number] Name: ANDREW LOUIS Rep #: [id number] : 1950 F 68 From: Dario Barrientos MD PCP: Herbert Simpson DO Status: REG CLI Study: Upper GI Series Only Date of Exam: 05/31/18 Exam# [id number] Ordering Dr: Herbert Simpson DO STUDY: AIR-CONTRAST UPPER GI SERIES. REASON FOR EXAM: Female, 68 years old. Epigastric pain for 6 weeks. FLUOROSCOPY TIME (if supplied): (0:52) minutes/seconds. 16 images were obtained. TECHNIQUE: The patient ingested barium. Imaging of the esophagus, stomach and duodenum were obtained. COMPARISON: None. FINDINGS: The esophagus is unremarkable. There is no evidence of obstruction. No mass lesion is seen. There is no evidence of gastric esophageal reflux. The stomach and duodenum are unremarkable. There is no evidence of ulceration. No mass lesion is seen. RAD/Upper GI Series Only IMPRESSION: Unremarkable examination. Electronically Signed: Dario Barrientos MD at 14:49 EDT Tel [phone], Service support , CC: Herbert Simpson DO [employer] [address] [employer] [address]: Signed CBC W/DIFF, AUTOMATED Collected: 05/11/2018 Status: F Source: [place] 7:57 AM [facility] REPOSITORY TYPE CODE TESTS RESULT OUT OF RANGE REFERENCE UNITS LAB L100.1000 4.4-11.0 K/mm3 Normal WBC 9.5 LAB L100.1200 4.2-5.4 M/mm3 Normal RBC 4.46 LAB L100.1300 12.0-15.0 g/dl Normal HGB 14.1 LAB L100.1400 37-47 % Normal HCT 43.3 LAB L100.1500 81-99 fL Normal MCV 97.1 LAB L100.1600 27.0-32.0 pg Normal MCH 31.6 LAB L100.1700 32-36 g/gl Normal MCHC 32.6 LAB L100.1810 11.6-14.6 % Normal RDW CV 13.5 LAB L100.1820 35.1-43.9 fl High RDW SD 47.2 LAB L100.1900 150-450 K/mm3 Normal PLT 331 LAB L100.2000 6.2-12.0 fl Normal MPV 9.8 LAB L100.2100 47-70 % Normal NEUT% 66.6 LAB L100.2200 19-41 % Normal LY% 24.7 LAB L100.2300 0-10 % Normal MONO% 5.8 LAB L100.2400 0-5 % Normal EO% 2.3 LAB L100.2500 0-1 % Normal BASO% 0.4 LAB L100.2550 0.0-0.9 % Normal IM GRAN % 0.200 Result Comment: IG% - Immature Granulocytes (promyelocytes, myelocytes and metamyelocytes) > 1% indicates that a LEFT SHIFT is Present. LAB L100.2620 2.0-7.7 X10 3/uL Normal Absolute Neut 6.4 LAB L100.2720 0.83-4.51 X10 3/ul Normal Absolute Lymph 2.36 Performed By: #### L100.0100 #### [facility] [address] [facility] [place], [place], [address] MICROALB:CREAT Collected: 05/11/2018 Status: F Source: [facility] 7:57 AM [facility] REPOSITORY TYPE CODE TESTS RESULT OUT OF RANGE REFERENCE UNITS LAB L501.1200 NO RANGE EST. mg/dL Normal UR CREAT 113.00 LAB L502.0500 NO RANGE EST. mg/L Normal 9.1 MICROALBUMIN ,UR LAB L502.0600 <30 mg/g CRE mg/g CRE Normal 8.1 MALB:CREAT Performed By: #### L502.0250 #### [facility] [address] [place], [place], [address] COMPREHENSIVE METABOLIC Collected: 05/11/2018 Status: F Source: [facility] 7:57 AM [facility] REPOSITORY TYPE CODE TESTS RESULT OUT OF RANGE REFERENCE UNITS LAB L501.0100 74-106 mg/dL Normal GLU 90 Result Comment: Please note revised GLUCOSE reference range effective 2017. LAB L501.1000 7-18 mg/dL Normal BUN 16 LAB L501.1100 0.55-1.02 mg/dL High CREAT,SERUM 1.15 Result Comment: The validity of the calculated GFR AND GFRAA in patients over 70 years has not been determined. Clinical correlation is essential. LAB L501.1110 >60 mL/min Low EST GFR 50 Result Comment: Non- GFR Calc LAB L501.1115 >60 mL/min Normal EST GFR - AA 60 Result Comment: GFR Calc LAB L501.1300 10-20 RATIO Normal BUN/CRE 13.9 LAB L501.1500 6.4-8.2 g/dL T Normal PROT 7.5 LAB L501.1800 3.2-5.0 g/dL Normal ALB 3.3 LAB L501.1950 2.2-4.2 g/dL Normal GLOB 4.2 LAB L501.2000 0.9-2.4 RATIO Low A/G 0.8 LAB L501.2200 8.5-10.1 mg/dL CA Normal 9.8 LAB L501.4100 15-37 U/L Low AST 12 LAB L501.4305 45-117 U/L High ALK P 145 LAB L501.4405 13-56 U/L Normal ALT 22 LAB L501.4600 0.20-1.00 mg/dL T Normal BILI 0.20 LAB L501.5300 136-145 mmol/L NA Normal 141 LAB L501.5600 3.5-5.1 mmol/L K Normal 4.0 LAB L501.5900 98-107 mmol/L High CL 108 LAB L501.6100 21.0-32.0 mmol/L Normal CO2 25.0 LAB L501.6200 5-15 Normal GAP 8 Performed By: #### L500.4050, L500.4100 #### [facility] [address] [place], [address] LIPID PROFILE Collected: 05/11/2018 Status: F Source: [place] 7:57 AM [facility] REPOSITORY TYPE CODE TESTS RESULT OUT OF RANGE REFERENCE UNITS LAB L501.4900 200 mg/dL Normal CHOL 150 Result Comment: <200 mg/dL Desirable 200-240 mg/dL Borderline >240 mg/dL High Risk LAB L501.5000 mg/dL Normal TRIG 76 Result Comment: The drugs N-Acetylcysteine and Metamizole may falsely depress this assay. Serum Triglycerides Reference Interval Normal <150 mg/dL Borderline high 150 - 199 mg/dL High 200 - 499 mg/dL Very High > or = 500 mg/dL LAB L501.6400 mg/dL Normal HDL 53 Result Comment: The drugs N-Acetylcysteine and Metamizole may falsely depress this assay. Reference Range HDL <40 mg/dL Low HDL Cholesterol HDL >or= 60 mg/dL High HDL Cholesterol LAB L501.6500 0-130 mg/dL Normal LDL 82 LAB L501.6600 5-40 mg/dL Normal VLDL 15 Performed By: #### L500.4050, L500.4100 #### [facility] [address] [facility] [place], [address] CT ANGIO ABD AND Observed: 04/11/2018 Status: F Source: [place] PEL W/O AND W/DYE 7:43 AM [facility] REPOSITORY [facility] Imaging Services [address] [place] [address] CT ANGIO ABD AND PEL W/O AND W/DYE MR#: [id number] Acct: [id number] Name: ANDREW LOUIS Rep #: [id number] : 1950 F 68 From: Dario Barrientos MD PCP: Herbert Simpson DO Status: REG CLI Study: CT ANGIO ABD AND PEL W/O AND W/DYE Date of Exam: 04/11/18 Exam# [id number] Ordering Dr: Timothy Jo MD STUDY: CTA OF THE ABDOMINAL AORTA AND BILATERAL LOWER EXTREMITIES REASON FOR EXAM: Female, 68 years old. Follow-up for known abdominal aortic aneurysm repair. RADIATION DOSAGE (If Supplied By Facility): CTDIvol = ( 26.04 ) mGy, DLP = ( 1127.92 ) mGycm TECHNIQUE: Axial CT angiography multi-detector data acquisition was obtained from the dome of the liver to the symphysis pubis following intravenous administration of 100 ml of Isovue 300 contrast. Axial images and MIP images were reconstructed from the axial data set. Post-processing of the angiographic images was performed, with multiplanar reformation and 3D reconstruction. Individualized dose optimization techniques were used for this CT. TECHNICAL QUALITY: Good COMPARISON: Comparison is made with prior examination dated August 30, 2017. Descriptors of Narrowing: None (0%) Mild (< 50%) Moderate (50-70%) Severe (70-90%) Subtotal/Total Occlusion (90-100%) Non-Evaluable (technically non-diagnostic FINDINGS: Stable mild degree of increased markings at the right lung base suggestive of scarring. I suspect tiny gallstones or sludge within the dependent portion of the gallbladder. Once again, there is evidence of a 4.3 cm x 3 cm complex cystic mass with calcifications in the left adrenal gland. This is unchanged. Abdominal aorta: Since prior study, the patient is status post covered stent placement of the distal abdominal aorta and bilateral iliac arteries. The limbs are patent. There is no evidence of a periprostatic bleed. The cachil dehe aorta is unchanged. Fibroid uterus. CT/CT ANGIO ABD AND PEL W/O AND W/DYE IMPRESSION: Status post covered stent repair of the abdominal aorta. Electronically Signed: Dario Barrientos MD at 13:27 EDT Tel [phone], Service support , CC: Timothy Jo MD; Herbert Simpson DO [employer]: Signed BUN Collected: 03/29/2018 Status: F Source: [place] 7:52 AM [facility] REPOSITORY TYPE CODE TESTS RESULT OUT OF RANGE REFERENCE UNITS LAB L501.1000 7-18 mg/dL High BUN 23 Performed By: #### L501.1000, L501.1105 #### [facility] [address] [place], [place], [id number] SERUM CREATININE AND Collected: 03/29/2018 Status: F Source: [place] GFR 7:52 AM [facility] REPOSITORY TYPE CODE TESTS RESULT OUT OF RANGE REFERENCE UNITS LAB L501.1100 0.55-1.02 mg/dL High 1.14 CREAT,SERUM Result Comment: The validity of the calculated GFR AND GFRAA in patients over 70 years has not been determined. Clinical correlation is essential. LAB L501.1110 >60 mL/min Low EST GFR 50 Result Comment: Non- GFR Calc LAB L501.1115 >60 mL/min Normal EST GFR - AA 61 Result Comment: GFR Calc Performed By: #### L501.1000, L501.1105 #### [facility] [address] [place], [address] Collected: 09/27/2017 Status: F Source: [facility] 5:35 AM [facility] REPOSITORY Order Comment: [place]: M : In PACU/ICU. Call MD with abnormal results. TYPE CODE TESTS RESULT OUT OF RANGE REFERENCE UNITS LAB L200.86518 11.5-15.5 G/DL Low HGB 10.8 LAB L200.17466 35.0-47.0 % Low HCT 33.7 Performed By: #### L200.62308 #### [facility] [address]# [phone] [facility] Collected: 09/27/2017 Status: F Source: [facility] 5:35 AM [facility] REPOSITORY Order Comment: [place]: M : In PACU/ICU. Call MD with abnormal results. TYPE CODE TESTS RESULT OUT OF RANGE REFERENCE UNITS LAB L500.55259 136-145 MMOL/L Normal NA 142 LAB L500.27593 3.5-5.1 MMOL/L Normal K 4.4 LAB L500.47411 98-107 MMOL/L High CL 112 LAB L500.66491 21-32 MMOL/L Normal CO2 22 LAB L500.05567 5-16 MMOL/L Normal AGAP 9 LAB L500.26920 70-100 MG/DL High GLU 113 Result Comment: 70-100- Normal Fasting; 100-125 Impaired Fasting; greater than 126 on more than one result- Diabetes. ADA guidelines. Results may be falsely elevated after the administration of Sulfapyridine. Results may be falsely depressed after the administration of Sulfasalazine. LAB L500.93384 7-26 MG/DL Normal BUN 13 LAB L500.08428 0.510-0.950 MG/DL High CREAT 1.040 Result Comment: Patients receiving either N-Acetylcysteine (NAC) or Metamizole prior to venipuncture, may have falsely depressed results. LAB L500.65340 15-24 Low BUN/CREA 12 LAB L500.74879 8.5-10.1 MG/DL Normal CALCIUM TOTAL 8.9 Performed By: #### L500.42108, L500.30459 #### [facility] [place] [address] GFR EST Collected: 09/27/2017 Status: F Source: [facility] 5:35 AM [facility] REPOSITORY Order Comment: [place]: M : In PACU/ICU. Call MD with abnormal results. TYPE CODE TESTS RESULT OUT OF RANGE REFERENCE UNITS LAB L500.49037 ML/MIN Normal IF non-AFR 53 AMER LAB L500.94745 ML/MIN Normal IF Greater than AMER 60 Performed By: #### L500.81075, L500.36205 #### [facility] [address] [place] [address] CBC Collected: 09/26/2017 Status: F Source: [facility] 9:40 AM [facility] REPOSITORY Order Comment: [place]: M : In PACU/ICU. Call MD with abnormal results. TYPE CODE TESTS RESULT OUT OF RANGE REFERENCE UNITS LAB L200.01652 4.5-11.0 K/CU MM High WBC 12.6 LAB L200.19012 3.90-5.30 M/CU MM Low RBC 3.62 LAB L200.62263 11.5-15.5 G/DL Low HGB 11.1 LAB L200.00351 35.0-47.0 % Normal HCT 35.1 LAB L200.55392 80.0-99.0 fl Normal MCV 97.0 LAB L200.96476 32.0-36.0 GM/DL Low MCHC 31.6 LAB L200.57763 11-14.5 Normal RDW 12.6 LAB L200.12288 9.4-12.4 Normal MPV 9.4 LAB L200.92515 150-450 K/CU MM Normal PLT 269 LAB L200.80720 Less than 1 % Normal NRBC 0.0 Performed By: #### L200.64440 #### [facility] [address] [place] [address] PT Collected: 09/26/2017 Status: F Source: [facility] 9:40 AM [facility] REPOSITORY Order Comment: [place]: M : In PACU/ICU. Call MD with abnormal results. TYPE CODE TESTS RESULT OUT OF RANGE REFERENCE UNITS LAB L300.20301 0.9-1.1 Normal INR 1.0 Result Comment: Recommended PT INR therapeutic range for long term care pharmacist and prophylactic therapy is 2.0 - 3.0. For heart valve and shunt patients the range is 2.5 - 3.5. LAB L300.23413 9.4-12.0 SECONDS Normal PTS 10.7 Performed By: #### L300.73068, L300.08426 #### [facility] [address] [place] [address] PTT Collected: 09/26/2017 Status: F Source: [facility] 9:40 AM [facility] REPOSITORY Order Comment: [place]: M : In PACU/ICU. Call MD with abnormal results. TYPE CODE TESTS RESULT OUT OF RANGE REFERENCE UNITS LAB L300.31637 22.5-31.4 SECONDS Normal PTT 25.4 Result Comment: Therapeutic Heparin Reference Range: High Dose: 56 - 86 seconds (DVT/PE) Low Dose: 50 - 70 seconds (Acute Coronary Syndrome) For low molecular weight heparin or danaparoid, monitoring is often NOT necessary, but the heparin assay, Xa inhibition assay (send-out) may be used in certain circumstances, as the PTT is generally insensitive to the effect of these agents. Direct thrombin inhibitors are becoming more widely utilized and these drugs are often monitored using the PTT. Performed By: #### L300.52870, L300.30195 #### [facility] [address] [place] [address] PATIENT RETYPE Collected: 09/26/2017 Status: F [facility] REPOSITORY TYPE CODE TESTS RESULT OUT OF RANGE REFERENCE UNITS LAB B100.69650 B Normal RETYPE POSITIVE INTERP EKG Observed: 09/26/2017 Status: UNK Source: [facility] 6:00 AM [facility] REPOSITORY Procedure Date and Time: 09/26/17713 Test Reason : URGENT Blood Pressure : / mmHG Vent. Rate : 077 BPM Atrial Rate : 077 BPM P-R Int : 172 ms QRS Dur : 076 ms QT Int : 382 ms P-R-T Axes : 045 039 061 degrees QTc Int : 432 ms Normal sinus rhythm Normal ECG No previous ECGs available Confirmed by SHANELL FRANCIS MD ([id number]) on 09/26/2017 7:24:29 PM Referred By: Ca Correa Confirmed By:SHANELL FRANCIS MD M.D. DDandT: 09/26/17713 TDandT: [facility] PATIENT NAME: ANDREW LOUIS [facility] [address] MEDICAL REC #: [id number] [place] [address] ADMIT DATE: 09/26/17 DISCHARGE DATE: ATTENDING PHY: Timothy Jo MD ELECTROCARDIOGRAM REPORT CLB cc: [facility] PATIENT NAME: ANDREW LOUIS [facility] [address] Mendez MEDICAL REC #: [id number] [place] [address] ADMIT DATE: 09/26/17 DISCHARGE DATE: ATTENDING PHY: Timothy Jo MD ELECTROCARDIOGRAM REPORT CBC W/DIFF Collected: 09/26/2017 Status: F Source: [facility] 5:56 AM [facility] REPOSITORY Order Comment: [place]: TYPE CODE TESTS RESULT OUT OF RANGE REFERENCE UNITS LAB L200.43152 4.5-11.0 K/CU MM WBC Normal 9.2 LAB L200.65540 3.90-5.30 M/CU MM RBC Normal 4.15 LAB L200.31464 11.5-15.5 G/DL HGB Normal 12.8 LAB L200.66298 35.0-47.0 % HCT Normal 39.8 LAB L200.82913 80.0-99.0 fl MCV Normal 95.9 LAB L200.24066 32.0-36.0 GM/DL MCHC Normal 32.2 LAB L200.29553 11-14.5 RDW Normal 12.8 LAB L200.49330 9.4-12.4 Low MPV 9.3 LAB L200.89561 150-450 K/CU MM PLT Normal 316 LAB L200.34089 45-75 % NEUTROPHILS Normal % 61.6 LAB L200.94397 Less than 2 % IMMATURE Normal GRAN % 0.2 LAB L200.54956 20-40 % LYMPH % Normal 25.7 LAB L200.78306 2-10 % MONOCYTE % Normal 7.0 LAB L200.50383 0-5 % EOSINOPHIL Normal % 4.7 LAB L200.69982 0-2 % BASOPHIL % Normal 0.8 LAB L200.68537 2.0-8.3 K/CU MM NEUTROPHIL Normal ABS 5.70 LAB L200.68994 Less than 2 K/CU MM IMMATR GRAN Normal ABS 0.00 LAB L200.58886 0.9-4.4 K/CU MM LYMPH ABS Normal 2.40 LAB L200.08339 0.1-1.1 K/CU MM MONO ABS Normal 0.60 LAB L200.27006 0-0.5 K/CU MM EOS ABS Normal 0.40 LAB L200.91357 0-0.2 K/CU MM BASO ABS Normal 0.10 LAB L200.94270 Less than 1 % NRBC Normal 0.0 Performed By: #### L200.77690 #### [facility] [place] [address] BMP Collected: 09/26/2017 Status: F Source: [facility] 5:55 AM [facility] REPOSITORY Order Comment: [place]: M TYPE CODE TESTS RESULT OUT OF RANGE REFERENCE UNITS LAB L500.54258 136-145 MMOL/L Normal NA 142 LAB L500.43095 3.5-5.1 MMOL/L Normal K 4.6 LAB L500.07416 98-107 MMOL/L High CL 109 LAB L500.92768 21-32 MMOL/L Normal CO2 23 LAB L500.68465 5-16 MMOL/L Normal AGAP 10 LAB L500.57465 70-100 MG/DL Normal GLU 100 Result Comment: 70-100- Normal Fasting; 100-125 Impaired Fasting; greater than 126 on more than one result- Diabetes. ADA guidelines. Results may be falsely elevated after the administration of Sulfapyridine. Results may be falsely depressed after the administration of Sulfasalazine. LAB L500.18107 7-26 MG/DL Normal BUN 13 LAB L500.93676 0.510-0.950 MG/DL High CREAT 1.070 Result Comment: Patients receiving either N-Acetylcysteine (NAC) or Metamizole prior to venipuncture, may have falsely depressed results. LAB L500.48035 15-24 Low BUN/CREA 12 LAB L500.15152 8.5-10.1 MG/DL Normal CALCIUM TOTAL 10.0 Performed By: #### L500.19001, L500.18232 #### [facility] [address] [place] [address] GFR EST Collected: 09/26/2017 Status: F Source: [facility] 5:55 AM [facility] REPOSITORY Order Comment: [place]: M TYPE CODE TESTS RESULT OUT OF RANGE REFERENCE UNITS LAB L500.28054 ML/MIN Normal IF non-AFR 51 AMER LAB L500.23690 ML/MIN Normal IF Greater than AMER 60 Performed By: #### L500.65648, L500.56328 #### [facility] [address] [place] [address] PBNP TEST Collected: 09/26/2017 Status: F Source: [facility] 5:55 AM [facility] REPOSITORY Order Comment: [place]: M TYPE CODE TESTS RESULT OUT OF RANGE REFERENCE UNITS LAB L500.43480 0-900 PG/ML Normal PBNP TEST 172 Result Comment: NT-proBNP results of less than 300 pg/ml effectively rules out acute congestive heart failure with 99% negative predictive value. Performed By: #### L500.40483 #### [facility] [address] [place] [address] TS Collected: 09/26/2017 Status: F Source: [facility] 5:55 AM [facility] REPOSITORY Order Comment: [place]: M Patient transfused or in the past 3 months: NO Is This Patient Going To Surgery? Y Surgery Date: 09/26/17 TYPE CODE TESTS RESULT OUT OF RANGE REFERENCE UNITS LAB B100.0400 B Normal BLOOD TYPE POSITIVE LAB B100.0680 Normal ANTIBODY NEGATIVE SCREEN OR Observed: 09/26/2017 Status: UNK Source: [facility] 5:19 AM [facility] REPOSITORY DATE OF SERVICE: 09/26/2017 PREOPERATIVE DIAGNOSIS: Aortic aneurysm. POSTOPERATIVE DIAGNOSIS: Aortic aneurysm. OPERATION: 1. Bilateral ultrasound-guided access common femoral artery. 2. Aortogram with bilateral iliofemoral imaging. 3. Endovascular aneurysm repair with a [place] 26 main body and 12-mm bilateral limbs. SURGEON: Timothy Jo MD INDICATIONS: Patient with an enlarging aneurysm that is now over 5 cm who asked that we repair it. Risks, benefits, and alternatives were discussed. She agreed to proceed. OPERATION: The patient was brought to the operating room. Underwent general anesthesia. Given the appropriate antibiotics. Was prepped and draped in a sterile fashion. We then did ultrasound-guided access bilateral common femoral arteries, put in 2 ProGlides to both sides. Put in an 8-Beninese sheath. Gave 8000 units of heparin. Brought in a pigtail catheter. We marked out the length from the lower left renal to the right hypogastric and appeared to be 18 cm. We were going to do an 18-cm main body with 26-mm proximal. We then replaced a Lunderquist through both, brought in a 12-Beninese sheath on the left, 16-Beninese sheath on the right. We brought these up. We then brought in the main body, did an aortogram then, showing the left renal artery; deployed the main body in good position right below this, and we opened down to the gate. We then pulled the pigtail back. We had access into the gate, measured off the left one and replaced the Lunderquist wire here, brought the sheath back in to the main body, deployed the limb on that side in good position, which was a 12 cm x 12 mm above the hypogastric. We then, after that, did a little retrograde looking at the ipsilateral hypogastric, finished deploying the rest of the main body there in good position. We then brought in a balloon and ballooned the proximal, the junctions, and down both limbs. Did a completion aortogram showing no type 1, type 2, or appreciable type 3 endoleak with good flow through here into the hypogastrics. We then removed out both sheaths, deployed the ProGlides with good hemostasis. The patient was then brought to recovery in stable condition. She has good signals noted in both feet. Prior to this, entry to the groins were closed with interrupted 3-0 Vicryl, 4-0 Monocryl, and Dermabond was placed. Timothy Jo MD [facility] PAT[facility]: [facility] MED[facility] REC #: [id number] [place] [address] ADMIT DATE: DISCHARGE DATE: OPERATIVE REPORT ATTENDING PHY: Timothy Jo MD [id number] SSI File#: [id number] Verified/Reviewed by 09/26/17 Sandra RUSSELL [facility] PATIENT NAME: [facility]OU[facility] MEDICAL REC #: [id number] [place] [address] ADMIT DATE: DISCHARGE DATE: OPERATIVE REPORT ATTENDING PHY: Timothy Jo MD CTA ABD W/RUNOFF W/WO Observed: 08/30/2017 Status: F Source: [facility] 7:51 AM [facility] REPOSITORY [facility] Imaging Services [address] [place] [address] CTA Abd w/Runoff W/WO Contrast MR#: [id number] Acct: [id number] Name: ANDREW LOUIS Rep #: [id number] : 1950 F 67 From: Dario Barrientos MD PCP: Herbert Simpson DO Status: REG CLI Study: CTA Abd w/Runoff W/WO Contrast Date of Exam: 08/30/17 Exam# [id number] Ordering Dr: Timothy Jo MD STUDY: CTA OF THE ABDOMINAL AORTA AND BILATERAL LOWER EXTREMITIES REASON FOR EXAM: Female, 67 years old. History of carotid stenosis and popliteal stents. RADIATION DOSAGE (If Supplied By Facility): CTDIvol = ( 8.9 ) mGy, DLP = ( 1721.07 ) mGycm TECHNIQUE: Axial CT angiography multi-detector data acquisition was obtained from the dome of the liver to the ankles following intravenous administration of 100 ml of Isovue 370 contrast. Axial images and MIP images were reconstructed from the axial data set. Post-processing of the angiographic images was performed, with multiplanar reformation and 3D reconstruction. Individualized dose optimization techniques were used for this CT. TECHNICAL QUALITY: Good COMPARISON: Comparison is made with prior examination dated November 04, 2014. Descriptors of Narrowing: None (0%) Mild (< 50%) Moderate (50-70%) Severe (70-90%) Subtotal/Total Occlusion (90-100%) Non-Evaluable (technically non-diagnostic FINDINGS: Abdominal aorta: There is a fusiform infrarenal abdominal aortic aneurysm with a transverse dimension of 5.2 cm. There is evidence of mural thrombus. Celiac and superior mesenteric arteries: Atherosclerotic narrowing of the origins of the celiac artery and superior mesenteric arteries. Inferior mesenteric artery: Not visualized. Right renal artery(arteries): Atherosclerotic stenotic plaque at the origin of the right renal artery. Left renal artery(arteries): Atherosclerotic plaque at the origin of left renal artery causing mild stenosis. Right common iliac artery: Diffuse atherosclerotic calcifications. Mild narrowing. Right external iliac artery: Atherosclerotic calcifications. Right internal iliac artery: No demonstrated narrowing. Left common iliac artery: Atherosclerotic plaques with mild narrowing. Left external iliac artery: Atherosclerotic plaques with mild narrowing. Left internal iliac artery: No demonstrated narrowing. Increased markings at the lung bases with areas of groundglass appearance suggests over chronic scarring. Coronary artery calcification. Normal liver. I suspect tiny gallstones along the dependent portion of the gallbladder lumen. Normal spleen. Normal pancreas. Once again, there is evidence of a 4.3 cm x 3 cm complex cystic mass with calcifications in the left adrenal gland. This is unchanged. Normal right kidney. Normal left kidney. Normal visualized stomach. Normal small intestine. There are scattered colonic diverticula consistent with diverticulosis. The appendix is visualized and appears normal. RIGHT LOWER EXTREMITY Right common femoral artery: Atherosclerotic plaques with mild narrowing. Right profundus femoris: No demonstrated narrowing. Right superficial femoral: Multiple stenotic lesions seen throughout the superficial femoral artery. A stent is seen in the distal portion of the superficial femoral artery and proximal popliteal artery. Right popliteal artery: Stent is seen in the proximal portion of the popliteal artery. There is occlusion of the popliteal artery at the level of the stent. There is reconstruction of the distal portion of the popliteal artery. Right tibioperoneal trunk: No demonstrated narrowing. Right anterior tibial artery: Patent with focal areas of narrowing. Right posterior tibial artery: Patent with focal areas of narrowing. Right peroneal artery: Patent with focal areas of narrowing. LEFT LOWER EXTREMITY Left common femoral artery: Atherosclerotic plaque. Left profundus femoris: No demonstrated narrowing. Atherosclerotic plaques. Left superficial femoral: A stent is seen in the distal portion of the superficial femoral artery. There is occlusion in the proximal portion of the stent with reconstruction of the distal popliteal artery and tibioperoneal trunk. Left popliteal artery: Occlusion at the level of the proximal portion of the stent with reconstruction of the distal popliteal artery. Left tibioperoneal trunk: No demonstrated narrowing. Left anterior tibial artery: Atherosclerotic plaques. Left posterior tibial artery: Atherosclerotic plaques. Left peroneal artery: Atherosclerotic plaques. CT/CTA Abd w/Runoff W/WO Contrast IMPRESSION: Occlusion in both arterial stents at the level of the popliteal arteries as described. Electronically Signed: Dario Barrientos MD at 10:42 EST Tel [phone], Service support , CC: Timothy Jo MD; Herbert Simpson DO [employer]: Signed ALLERGIES ALLERGIES DATE TYPE / CODE NAME / CODE REACTION SEVERITY SOURCE 08/02/2017 Drug naproxen/F00 Shortness of Unknown [place] [facility] Allergy/4160 [id number]([facility] [address](SNOMED RM) Repository CT) ENCOUNTERS ENCOUNTERS ADMIT/DISCHARGE ACCOUNT ADMITTING ENCOUNTER LOCATION SOURCE NUMBER CLASS 08/24/2018 [id number] Ambulatory BMSBuilding:B [place] 1 [facility] Repository 08/17/2018 [id number] Ambulatory [facility] [place] [facility] ing:LAB.FUTUR Repository E 08/15/2018 [id number] Ambulatory [facility] [place] [facility] ing:MRI Repository 08/06/2018 [id number] Ambulatory [facility] Hospital ing:US Repository 07/30/2018 [id number] Ambulatory [place] [facility] ing:CT Repository 07/09/2018 [id number] Ambulatory [facility] Hospital ing:US Repository 06/12/2018 [id number] Amb[place] [facility] ing:OPBI Repository 05/31/2018 [id number] [facility] [place] [facility] ing:RAD Repository 05/11/2018 [id number] [facility] [place] [place] 6 [facility] ing:LAB.FUTUR Repository E 04/11/2018 [id number] Amb[facility] [place] 6 [facility] ing:CT Repository 03/29/2018 [id number] Amb[facility] [place] 9 [facility] ing:BFHLAB Repository 09/26/2017/02/28/ [id number] [facility] 8 6 A. Encounter [facility] g:H.2MRoom: Repository 6W116Xys: 08/30/2017 [id number] Ambulatory [place] 0 [facility] ing:CT Repository PAYERS PAYERS ENCOUNTER GUARANTOR PAYER SUBSCRIBER SOURCE 08/24/2018 ANRDEW E Primary Insurance:MMO FAY E [place] [id number] [place] MED[place] SWEENEYDOB: [facility], Number: [id number] City Regional [facility] [address]Ibx: [id number] Repository Date:5600-94-68[address] () [address] [phone]: 08/24/2018 Secondary NOT GIVENUNK [place] Insurance:SELF PAY [facility] Number: Effective Repository Date:2018-08-24 08/17/2018 FAJamari E Primary Insurance:MMO FAY E [place] [id number] [place] MED[place] SWEENEYDOB: [facility], Number: [id number] City Regional Health Care Corporation [id number]: [id number] Repository Date:1574-05-41[address] () [address] [phone]: 08/17/2018 Secondary NOT GIVENUNK [place] Insurance:SELF PAY [facility] Number: Effective Repository Date:2018-08-15 08/15/2018 FAJamari E Primary Insurance:MMO FAY E [place] [id number] [place] MED[place] SWEENEYDOB: [facility], Number: [id number] City Regional Health Care Corporation [id number]: [id number] Repository Date:4269-58-86CY [address] () [address] [address]VA: 08/15/2018 Secondary NOT GIVENUNK [place] Insurance:SELF PAY [facility] Number: Effective Repository Date:2018-08-10 08/06/2018 FAY E Primary Insurance:MMO FAY E [place] [id number] [place] MED[place] SWEENEYDOB: [facility], Number: [id number] City Regional Health Care Corporation [address]Qia: [id number] Repository Date:7172-27-32FV [address] (HP) [address] [address]HD: 08/06/2018 Secondary NOT GIVENUNK [place] Insurance:SELF PAY [facility] Number: Effective Repository Date:2018-08-01 07/30/2018 FAY E Primary Insurance:MMO FAY E [place] [id number] [place] MED[place] SWEENEYDOB: [facility], Number: [id number] City Regional Health Care Corporation [address]Edz: [id number] Repository Date:6715-67-20YA BOX (HP) [address] [place] [phone]: 07/30/2018 Secondary NOT GIVENUNK [place] Insurance:SELF PAY [facility] Number: Effective Repository Date:2018-07-20 07/09/2018 FAY E Primary Insurance:MMO FAY E [place] [id number] [place] SWEENEYDOB: [facility], Number: [id number] City Regional Health Care Corporation [id number]: [id number] Repository Date:2940-60-52RX BOX () [address] [place] [address]KJ: 07/09/2018 Secondary NOT GIVENUNK [place] Insurance:SELF PAY [facility] Number: Effective Repository Date:2018-06-29 06/12/2018 FAY E Primary Insurance:MMO FAY E [place] [id number] [place] SWEENEYDOB: [facility], Number: [id number] City Regional Health Care Corporation [id number]: [id number] Repository Date:5374-36-10PJ BOX () [address] [place] [address]ZV: 06/12/2018 Secondary NOT GIVENUNK [place] Insurance:SELF PAY [facility] Number: Effective Repository Date:2018-05-09 05/31/2018 FAY E Primary Insurance:MMO FAY E [place] [id number] [place] MEDICAREPolicy [place]DOB[place] [facility], Number: [id number] City Regional Health Care Corporation [address]Aoo: [id number] Repository Date:0367-16-44HY [address] (HP) [address] [address]EX: 05/31/2018 Secondary NOT GIVENUNK [place] Insurance:SELF PAY [facility] Number: Effective Repository Date:2018-05-24 05/11/2018 FAY E Primary Insurance:MMO FAY E [place] [id number] [place] MEDICAREPolicy SWEENEYDOB: [facility], Number: [id number] City Regional Health Care Corporation [address]Ngo: [id number] Repository Date:8012-75-77JB BOX (HP) [address] [place] [phone]: 05/11/2018 Secondary NOT GIVENUNK [place] Insurance:SELF PAY [facility] Number: Effective Repository Date:2017-11-28 04/11/2018 FAY E Primary Insurance:MMO FAY E [place] [id number] [place] SWEENEYDOB: [facility], Number: [id number] City Regional Health Care Corporation [address]Nui: [id number] Repository Date:6170-89-11YZ BOX (HP) [address] [place] [phone]: 04/11/2018 Secondary NOT GIVENUNK [place] Insurance:SELF PAY [facility] Number: Effective Repository Date:2018-04-04 03/29/2018 FAY E Primary Insurance:MMO FAY E [place] [id number] [place] SWEENEYDOB: [facility], Number: [id number] City Regional Health Care Corporation [address]Cgz: [id number] Repository Date:5944-01-29ZU BOX (HP) [address] [place] [address]PX: 03/29/2018 Secondary NOT GIVENUNK [place] Insurance:SELF PAY [facility] Number: Effective Repository Date:2018-03-29 09/26/2017 FAY E Primary FAY Katina SWEBLAZEYUNK [facility] Medical [id number] Insurance:[facility] Repository [facility] Number: [id number]: [phone] [id number] [phone] () Date:2322-32-90MD [address] [place] [phone]: 09/26/[address] [facility] Medical Insurance:[facility] [place] [facility] Repository Number: [id number] Date:[address]RJPT CODE [id number], [place] [address]PQ: 08/30/2017 CHRISTIANNE O Primary Insurance:MMO FAY E [place] [id number] [place] SWEENEYDOB[facility] Number: [id number] City Regional Health Care Corporation [id number]: [id number] Repository Date:8680-03-29MX BOX (ZR) [address] [place] [address]TJ: 08/30/2017 Secondary NOT GIVENUNK [place] Insurance:SELF PAY [facility] Number: Effective Repository Date:2017-08-21
== END ==
PROVIDERS: Family Provider Family Medicine; PCP Family Medicine; Referring Provider Family Medicine; Visit Provider Family Medicine
DX: N85.9 Noninflammatory disorder of uterus, unspecified (principal); N85.00 Endometrial hyperplasia, unspecified
CPT/HCPCS: 72197; A9585

== ENCOUNTER → 2018-08-17 09:51 | Outpatient (CLI) | payer MEDICARE, SELFPAY ==
[2018-08-17 12:26] LABS: BUN 15 mg/dL (7-18); Creatinine, Serum 1.12 mg/dL (0.55-1.02); Glucose 86 mg/dL (74-106)
[2018-08-17 12:27] LABS: Anion Gap 6 (5-15); BUN/Creat Ratio 13.4 RATIO (10-20); Calcium,Total 9.9 mg/dL (8.5-10.1); Chloride 109 mmol/L (98-107); EST Glomerular Filtration Rate 51 mL/min (>60); Est Glom Filt Rate - Afr Amer 62 mL/min (>60); Potassium 4.2 mmol/L (3.5-5.1); Sodium Level 140 mmol/L (136-145)
--- OUTSIDE RECORDS SUMMARY | 2018-10-21 17:31 | XMS RPT_ITS ---
:1950 Author Organization OHIP Support Name Relationship Address Phone R Unavailable Unavailable Unavailable LOUISCHRISTIANNE OSULLIVAN Unavailable [address] + [place] [address] CEDENO, THAI Unavailable [address] + [place] [address] R Unavailable Unavailable Unavailable CHRISTIANNE LOUIS Unavailable [address] + [place] [address] CEDENO, THAI Unavailable [address] + [place] [address] R Unavailable Unavailable Unavailable LOUISCHRISTIANNE Unavailable [address] + [place] [address] CEDENO, THAI Unavailable [address] + [place] [address] R Unavailable Unavailable Unavailable CHRISTIANNE LOUIS Unavailable [address] + [place] [address] CEDENO, THAI Unavailable [address] + [place] [address] R Unavailable Unavailable Unavailable CHRISTIANNE LOUIS Unavailable [address] + [place] [address] CEDENO, THAI Unavailable [address] + [place] [address] R Unavailable Unavailable Unavailable HERIBERTO CHRISTIANNE Unavailable [address] + [place] [address] CEDENO, THAI Unavailable [address] + [place] [address] R Unavailable Unavailable Unavailable LOUIS, CHRISTIANNE Unavailable [address] + [place] [address] CEDENO, THAI Unavailable [address] + [place] [address] R Unavailable Unavailable Unavailable HERIBERTO CHRISTIANNE Unavailable [address] + [place] [address] CEDENO, THAI Unavailable [address] + [place] [address] R Unavailable Unavailable Unavailable HERIBERTO CHRISTIANNE Unavailable [address] + [place] [address] CEDENO, THAI Unavailable [address] + [place] [address] R Unavailable Unavailable Unavailable LOUIS CHRISTIANNE Unavailable [address] + [place] [address] CEDENO, THAI Unavailable [address] + [place] [address] R Unavailable Unavailable Unavailable LOUIS, CHRISTIANNE Unavailable [address] + [place] [address] CEDENO, THAI Unavailable [address] + [place] [address] R Unavailable Unavailable Unavailable HERIBERTO CHRISTIANNE Unavailable [address] + [place] [address] CEDENO, THAI Unavailable [address] + [place] [address] Care Team Providers Name Role Phone Tatiana [...] Care Unavailable Tatiana, Herbert Primary Care Unavailable JoTimothy Attending Unavailable JoTimothy yost Attending Unavailable Jo, Timothy A Referring Unavailable Tatiana, Herbert Primary Care Unavailable Tatiana, Herbert Attending Unavailable Tatiana, Herbert Referring Unavailable Tatiana, Herbert Primary Care Unavailable Tatiana, Herbert Attending Unavailable Tatiana, Herbert Referring Unavailable Tatiana, Herbert Primary Care Unavailable Tatiana, Herbert Attending Unavailable Tatiana, Herbert Referring Unavailable Tatiana, Herbert Primary Care Unavailable Timothy Jo. Attending Unavailable Timothy Jo. Admitting Unavailable PROBLEMS PROBLEMS DATE TYPE CONDITION / CODE ATTENDING STATUS SOURCE 08/17/2018 Unknown N18.3 - Chronic Herbert Simpson Active [place] kidney disease, Community stage 3 (moderate) / Hospital N18.3(ICD-10) Repository 08/13/2018 Unknown R10.13 - Epigastric Herbert Simpson Active [place] pain / Community R10.13(ICD-10) Hospital Repository 07/04/2018 Unknown K21.9 - Herbert Simpson Active [facility] reflux disease Hospital without esophagitis Repository / K21.9(ICD-10) 05/11/2018 Unknown I10 - Essential Herbert Simpson Active [place] (primary) Community hypertension / Hospital I10(ICD-10) Repository 05/11/2018 Unknown E78.5 - Herbert Simpson Active [place] Hyperlipidemia, Community unspecified / Hospital E78.5(ICD-10) Repository 03/29/2018 Unknown I71.4 - Abdominal Timothy Jo Active [place] aortic aneurysm, A [facility] without rupture / Hospital I71.4(ICD-10) Repository 03/29/2018 Unknown I70.213 - Timothy Jo Active [place] Atherosclerosis of A [facility]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 [facility] [place] Repository PROCEDURES PROCEDURES No Procedure Records FoundRESULTS [...] GAP 6 Performed By: #### L500.2500 #### [facility] [address] [place], [address] CREATININE FINGERSTICK Collected: 08/15/2018 Status: F Source: [place] 6:43 AM [facility] REPOSITORY TYPE CODE TESTS RESULT OUT OF REFERENCE UNITS RANGE LAB L9100.0210 0.55-1.02 mg/dL High CREATININE WB 1.5 LAB L9100.0220 >60 mL/min Low EGFR WB 36.0000 Performed By: #### L9100.0200 #### [facility] Point of Care [address] [place] [address] PELVIS W/WO CONTRAST Observed: 08/15/2018 Status: F Source: [place] 6:31 AM [facility] REPOSITORY [facility] Imaging Services [address] [place] [address] Pelvis W/WO Contrast MR#: [id number] Acct: [id number] Name: ANDREW LOUIS Rep #: [id number] : 1950 F 68 From: Lorin Diamond MD PCP: Herbert Simpson DO Status: REG CLI Study: Pelvis W/WO Contrast Date of Exam: 08/15/18 Exam# [id number] Ordering Dr: Herbert Simpson DO STUDY: MR [...] Service support , CC: Herbert Simpson DO Electrical Experimental Mechanic: Signed TRANSVAGINAL Observed: 08/06/2018 Status: F Source: [place] NON- 10:38 AM [facility] REPOSITORY [facility] Imaging Services [address] [place] [address] Transvaginal Non- MR#: [id number] Acct: [id number] Name: ANDREW LOUIS Rep #: [id number] : 1950 F 68 From: Alexei Griggs DO PCP: Herbert Simpson DO Status: REG CLI Study: Transvaginal Non- Date of Exam: 08/06/18 Exam# [id number] Ordering Dr: Herbert Simpson DO STUDY: ULTRASOUND [...] Service support , CC: Herbert Simpson DO Electrical Experimental Mechanic: Signed PELVIC (NON ) Observed: 08/06/2018 Status: F Source: [place] 10:11 AM [facility] REPOSITORY [facility] Imaging Services [address] [place] [address] Pelvic (Non ) MR#: [id number] Acct: [id number] Name: ANDREW LOUIS Rep #: [id number] : 1950 F 68 From: Alexei Griggs DO PCP: Herbert Simpson DO Status: REG CLI Study: Pelvic (Non ) Date of Exam: 08/06/18 Exam# [id number] Ordering Dr: Herbert Simpson DO STUDY: ULTRASOUND [...] Service support , CC: Herbert Simpson DO Electrical Experimental Mechanic: Signed CREATININE FINGERSTICK Collected: 07/30/2018 Status: F Source: [place] 7:51 AM [facility] REPOSITORY TYPE CODE TESTS RESULT OUT OF REFERENCE UNITS RANGE LAB L9100.0210 0.55-1.02 mg/dL High CREATININE WB 1.5 LAB L9100.0220 >60 mL/min Low EGFR WB 36.0000 Performed By: #### L9100.0200 #### [facility] Point of Care [facility] [address] [place], [place] [address] ABDOMEN/PELVIS WITH Observed: 07/30/2018 Status: F Source: [place] CONTRAST 7:40 AM [facility] REPOSITORY [facility] Imaging Services [address] [place] [address] Abdomen/Pelvis WITH Contrast MR#: [id number] Acct: [id number] Name: ANDREW LOUIS Rep #: [id number] : 1950 F 68 From: Alden Love MD PCP: Herbert Simpson DO Status: REG CLI Study: Abdomen/Pelvis WITH Contrast Date of Exam: 07/30/18 Exam# [id number] Ordering Dr: Herbert Simpson DO STUDY: CT [...] Service support , CC: Herbert Simpson DO Electrical Experimental Mechanic: Signed ABDOMEN COMPLETE Observed: 07/09/2018 Status: F Source: [place] 9:17 AM [facility] REPOSITORY [facility] Imaging Services [address] [place] [address] Abdomen Complete MR#: [id number] Acct: [id number] Name: ANDREW LOUIS Rep #: [id number] : 1950 F 68 From: Michelle Caro MD PCP: Herbert Simpson DO Status: REG CLI Study: Abdomen Complete Date of Exam: 07/09/18 Exam# [id number] Ordering Dr: Herbert Simpson DO STUDY: ABDOMINAL [...] the aortic stent and repair. The distal [place] aorta that was measured as 4.9 x 5.2 cm on the recent CT is not well appreciated on this study. Mildly enlarged fatty infiltrated liver. Could consider follow-up CT scan of the abdomen and pelvis for further evaluation. Electronically Signed: Michelle Caro MD at 18:48 EST Tel , Service support , CC: Herbert Simpson DO Electrical Experimental Mechanic: Signed SCREENING MAMM (CAD), Observed: 06/12/2018 Status: F Source: [facility] 8:25 AM [facility] REPOSITORY [facility] Imaging Services [address] [place] [address] SCREENING MAMM (CAD), BILAT MR#: [id number] Acct: [id number] Name: ANDREW LOUIS Rep #: [id number] : 1950 F 68 From: Dario Barrientos MD PCP: Herbert Simpson DO Status: REG CLI Study: SCREENING MAMM (CAD), BILAT Date of Exam: 06/12/18 Exam# [id number] Ordering Dr: Herbert Simpson DO MAMMOGRAPHY - [...] delay biopsy of a clinically suspicious abnormality. [id number] Electronically Signed: Dario Barrientos MD at 10:57 EST Tel [phone], Service support , CC: Herbert Simpson DO Electrical Experimental Mechanic: Signed UPPER GI SERIES Observed: 05/31/2018 Status: F Source: [place] ONLY 8:24 AM [facility] REPOSITORY [facility] Imaging Services [facility] [place] [address] Upper GI Series Only MR#: [id number] Acct: [id number] Name: ANDREW LOUIS Rep #: [id number] : 1950 F 68 From: Dario Barrientos MD PCP: Herbert Simpson DO Status: REG CLI Study: Upper GI Series Only Date of Exam: 05/31/18 Exam# [id number] Ordering Dr: Herbert Simpson DO STUDY: AIR-CONTRAST [...] Dario Barrientos MD at 14:49 EDT Tel [phone], Service support , CC: Herbert Simpson DO Electrical Experimental Mechanic: Signed CBC W/DIFF, AUTOMATED Collected: 05/11/2018 Status: F Source: [place] 7:57 AM [facility] REPOSITORY TYPE CODE TESTS RESULT [...] Lymph 2.36 Performed By: #### L100.0100 #### [facility] [address] [facility] [place], [place], [address] MICROALB:CREAT Collected: 05/11/2018 Status: F Source: [facility] UR 7:57 AM [facility] REPOSITORY TYPE CODE TESTS RESULT OUT OF RANGE REFERENCE UNITS LAB L501.1200 NO RANGE EST. mg/dL Normal UR CREAT 113.00 LAB L502.0500 NO RANGE EST. mg/L Normal 9.1 MICROALBUMIN ,UR LAB L502.0600 <30 mg/g CRE mg/g CRE Normal 8.1 MALB:CREAT Performed By: #### L502.0250 #### [facility] [address] [place], [place], [address] COMPREHENSIVE METABOLIC Collected: 05/11/2018 Status: F Source: [facility] 7:57 AM [facility] REPOSITORY TYPE CODE TESTS RESULT [...] 8 Performed By: #### L500.4050, L500.4100 #### [facility] [address] [place], [address] LIPID PROFILE Collected: 05/11/2018 Status: F Source: [place] 7:57 AM [facility] REPOSITORY TYPE CODE TESTS RESULT [...] 15 Performed By: #### L500.4050, L500.4100 #### [facility] [address] [facility] [place], [address] CT ANGIO ABD AND Observed: 04/11/2018 Status: F Source: [place] PEL W/O AND W/DYE 7:43 AM [facility] REPOSITORY [facility] Imaging Services [address] [place] [address] CT ANGIO ABD AND PEL W/O AND W/DYE MR#: [id number] Acct: [id number] Name: ANDREW LOUIS Rep #: [id number] : 1950 F 68 From: Dario Barrientos MD PCP: Herbert Simpson DO Status: REG CLI Study: CT ANGIO ABD AND PEL W/O AND W/DYE Date of Exam: 04/11/18 Exam# [id number] Ordering Dr: Timothy Jo MD STUDY: CTA [...] no evidence of a periprostatic bleed. The [place] aorta is unchanged. Fibroid uterus. CT/CT ANGIO ABD AND PEL W/O AND W/DYE IMPRESSION: Status post covered stent repair of the abdominal aorta. Electronically Signed: Dario Barrientos MD at 13:27 EDT Tel [phone], Service support , CC: Timothy Jo MD; Herbert Simpson DO Electrical Experimental Mechanic: Signed BUN Collected: 03/29/2018 Status: F Source: [place] 7:52 AM [facility] REPOSITORY TYPE CODE TESTS RESULT OUT OF RANGE REFERENCE UNITS LAB L501.1000 7-18 mg/dL High BUN 23 Performed By: #### L501.1000, L501.1105 #### [facility] [address] [place], [place], [address] SERUM CREATININE AND Collected: 03/29/2018 Status: F Source: [place] GFR 7:52 AM [facility] REPOSITORY TYPE CODE TESTS RESULT [...] Calc Performed By: #### L501.1000, L501.1105 #### [facility] [address] [place], [address] Collected: 09/27/2017 Status: F Source: [facility] 5:35 AM [facility] REPOSITORY Order Comment: Etta: M : In PACU/ICU. Call MD with abnormal results. TYPE CODE TESTS RESULT OUT OF RANGE REFERENCE UNITS LAB L200.73445 11.5-15.5 G/DL Low HGB 10.8 LAB L200.17985 35.0-47.0 % Low HCT 33.7 Performed By: #### L200.43429 #### [facility] [address]# [phone] [facility] Collected: 09/27/2017 Status: F Source: [facility] 5:35 AM [facility] REPOSITORY Order Comment: Etta: M : In PACU/ICU. Call MD with abnormal results. TYPE CODE TESTS RESULT OUT OF RANGE REFERENCE UNITS LAB L500.62521 136-145 MMOL/L Normal NA 142 LAB L500.05789 3.5-5.1 MMOL/L Normal K 4.4 LAB L500.37390 98-107 MMOL/L High CL 112 LAB L500.07685 21-32 MMOL/L Normal CO2 22 LAB L500.20681 5-16 MMOL/L Normal AGAP 9 LAB L500.71486 70-100 MG/DL High GLU 113 Result Comment: 70-100- Normal Fasting; 100-125 Impaired Fasting; greater than 126 on more than one result- Diabetes. ADA guidelines. Results may be falsely elevated after the administration of Sulfapyridine. Results may be falsely depressed after the administration of Sulfasalazine. LAB L500.60356 7-26 MG/DL Normal BUN 13 LAB L500.33364 0.510-0.950 MG/DL High CREAT 1.040 Result Comment: Patients receiving either N-Acetylcysteine (NAC) or Metamizole prior to venipuncture, may have falsely depressed results. LAB L500.04398 15-24 Low BUN/CREA 12 LAB L500.39065 8.5-10.1 MG/DL Normal CALCIUM TOTAL 8.9 Performed By: #### L500.04390, L500.90334 #### [facility] [place] [address] GFR EST Collected: 09/27/2017 Status: F Source: [facility] 5:35 AM [facility] REPOSITORY Order Comment: Etta: M : In PACU/ICU. Call MD with abnormal results. TYPE CODE TESTS RESULT OUT OF RANGE REFERENCE UNITS LAB L500.54793 ML/MIN Normal IF non-AFR 53 AMER LAB L500.31697 ML/MIN Normal IF Greater than AMER 60 Performed By: #### L500.29936, L500.15710 #### [facility] [address] [place] [address] CBC Collected: 09/26/2017 Status: F Source: [facility] 9:40 AM [facility] REPOSITORY Order Comment: Etta: M : In PACU/ICU. Call MD with abnormal results. TYPE CODE TESTS RESULT OUT OF RANGE REFERENCE UNITS LAB L200.02888 4.5-11.0 K/CU MM High WBC 12.6 LAB L200.77193 3.90-5.30 M/CU MM Low RBC 3.62 LAB L200.89047 11.5-15.5 G/DL Low HGB 11.1 LAB L200.48198 35.0-47.0 % Normal HCT 35.1 LAB L200.29706 80.0-99.0 fl Normal MCV 97.0 LAB L200.41843 32.0-36.0 GM/DL Low MCHC 31.6 LAB L200.43641 11-14.5 Normal RDW 12.6 LAB L200.00774 9.4-12.4 Normal MPV 9.4 LAB L200.16510 150-450 K/CU MM Normal PLT 269 LAB L200.88126 Less than 1 % Normal NRBC 0.0 Performed By: #### L200.95593 #### [facility] [address] [place] [address] PT Collected: 09/26/2017 Status: F Source: [facility] 9:40 AM [facility] REPOSITORY Order Comment: Etta: M : In PACU/ICU. Call MD with abnormal results. TYPE CODE TESTS RESULT OUT OF RANGE REFERENCE UNITS LAB L300.36529 0.9-1.1 Normal INR 1.0 Result Comment: Recommended PT INR therapeutic range for rn long term care and prophylactic therapy is 2.0 - 3.0. For heart valve and shunt patients the range is 2.5 - 3.5. LAB L300.71565 9.4-12.0 SECONDS Normal PTS 10.7 Performed By: #### L300.31234, L300.91272 #### [facility] [address] [place] [address] PTT Collected: 09/26/2017 Status: F Source: [facility] 9:40 AM [facility] REPOSITORY Order Comment: Etta: M : In PACU/ICU. Call MD with abnormal results. TYPE CODE TESTS RESULT OUT OF RANGE REFERENCE UNITS LAB L300.94498 22.5-31.4 SECONDS Normal PTT 25.4 Result Comment: [...] monitored using the PTT. Performed By: #### L300.24974, L300.00329 #### [facility] [address] [place] [address] PATIENT RETYPE Collected: 09/26/2017 Status: F [facility] REPOSITORY TYPE CODE TESTS RESULT OUT OF RANGE REFERENCE UNITS LAB B100.55134 B Normal RETYPE POSITIVE INTERP EKG Observed: 09/26/2017 Status: UNK Source: [facility] 6:00 AM [facility] REPOSITORY Procedure Date and Time: 09/26/17713 [...] By:SHANELL FRANCIS MD M.D. DDandT: 09/26/17713 TDandT: [facility] PATIENT NAME: ANDREW LOUIS [facility] [address] MEDICAL REC #: [id number] [place] [address] ADMIT DATE: 09/26/17 DISCHARGE DATE: ATTENDING PHY: Timothy Jo MD ELECTROCARDIOGRAM REPORT CLB cc: [facility] PATIENT NAME: ANDREW LOUIS [facility] [address] MEDICAL REC #: [id number] [place] [address] ADMIT DATE: 09/26/17 DISCHARGE DATE: ATTENDING PHY: Timothy Jo MD ELECTROCARDIOGRAM REPORT CBC W/DIFF Collected: 09/26/2017 Status: F Source: [facility] 5:56 AM [facility] REPOSITORY Order Comment: Etta: TYPE CODE TESTS RESULT OUT OF RANGE REFERENCE UNITS LAB L200.20534 4.5-11.0 K/CU MM WBC Normal 9.2 LAB L200.62338 3.90-5.30 M/CU MM RBC Normal 4.15 LAB L200.40202 11.5-15.5 G/DL HGB Normal 12.8 LAB L200.93860 35.0-47.0 % HCT Normal 39.8 LAB L200.28347 80.0-99.0 fl MCV Normal 95.9 LAB L200.49274 32.0-36.0 GM/DL MCHC Normal 32.2 LAB L200.68178 11-14.5 RDW Normal 12.8 LAB L200.03198 9.4-12.4 Low MPV 9.3 LAB L200.61765 150-450 K/CU MM PLT Normal 316 LAB L200.98660 45-75 % NEUTROPHILS Normal % 61.6 LAB L200.05484 Less than 2 % IMMATURE Normal GRAN % 0.2 LAB L200.57301 20-40 % LYMPH % Normal 25.7 LAB L200.49265 2-10 % MONOCYTE % Normal 7.0 LAB L200.78241 0-5 % EOSINOPHIL Normal % 4.7 LAB L200.00768 0-2 % BASOPHIL % Normal 0.8 LAB L200.13428 2.0-8.3 K/CU MM NEUTROPHIL Normal ABS 5.70 LAB L200.67133 Less than 2 K/CU MM IMMATR GRAN Normal ABS 0.00 LAB L200.15302 0.9-4.4 K/CU MM LYMPH ABS Normal 2.40 LAB L200.38376 0.1-1.1 K/CU MM MONO ABS Normal 0.60 LAB L200.98761 0-0.5 K/CU MM EOS ABS Normal 0.40 LAB L200.26068 0-0.2 K/CU MM BASO ABS Normal 0.10 LAB L200.50162 Less than 1 % NRBC Normal 0.0 Performed By: #### L200.24032 #### [facility] [place] [address] BMP Collected: 09/26/2017 Status: F Source: [facility] 5:55 AM [facility] REPOSITORY Order Comment: Etta: M TYPE CODE TESTS RESULT OUT OF RANGE REFERENCE UNITS LAB L500.73478 136-145 MMOL/L Normal NA 142 LAB L500.79596 3.5-5.1 MMOL/L Normal K 4.6 LAB L500.68491 98-107 MMOL/L High CL 109 LAB L500.84255 21-32 MMOL/L Normal CO2 23 LAB L500.33377 5-16 MMOL/L Normal AGAP 10 LAB L500.12488 70-100 MG/DL Normal GLU 100 Result Comment: 70-100- Normal Fasting; 100-125 Impaired Fasting; greater than 126 on more than one result- Diabetes. ADA guidelines. Results may be falsely elevated after the administration of Sulfapyridine. Results may be falsely depressed after the administration of Sulfasalazine. LAB L500.08684 7-26 MG/DL Normal BUN 13 LAB L500.72115 0.510-0.950 MG/DL High CREAT 1.070 Result Comment: Patients receiving either N-Acetylcysteine (NAC) or Metamizole prior to venipuncture, may have falsely depressed results. LAB L500.33940 15-24 Low BUN/CREA 12 LAB L500.30849 8.5-10.1 MG/DL Normal CALCIUM TOTAL 10.0 Performed By: #### L500.30621, L500.42155 #### [facility] [address] [place] [address] GFR EST Collected: 09/26/2017 Status: F Source: [facility] 5:55 AM [facility] REPOSITORY Order Comment: Etta: M TYPE CODE TESTS RESULT OUT OF RANGE REFERENCE UNITS LAB L500.34575 ML/MIN Normal IF non-AFR 51 AMER LAB L500.56298 ML/MIN Normal IF Greater than AMER 60 Performed By: #### L500.08732, L500.44479 #### [facility] [address] [place] [address] PBNP TEST Collected: 09/26/2017 Status: F Source: [facility] 5:55 AM [facility] REPOSITORY Order Comment: Etta: M TYPE CODE TESTS RESULT OUT OF RANGE REFERENCE UNITS LAB L500.32436 0-900 PG/ML Normal PBNP TEST 172 Result Comment: NT-proBNP results of less than 300 pg/ml effectively rules out acute congestive heart failure with 99% negative predictive value. Performed By: #### L500.40088 #### [facility] [address] [place] [address] TS Collected: 09/26/2017 Status: F Source: [facility] 5:55 AM [facility] REPOSITORY Order Comment: Etta: M Patient transfused or in the past 3 months: NO Is This Patient Going To Surgery? Y Surgery Date: 09/26/17 TYPE CODE TESTS RESULT OUT OF RANGE REFERENCE UNITS LAB B100.0400 B Normal BLOOD TYPE POSITIVE LAB B100.0680 Normal ANTIBODY NEGATIVE SCREEN OR Observed: 09/26/2017 Status: UNK Source: [facility] 5:19 AM [facility] REPOSITORY DATE OF SERVICE: 09/26/2017 PREOPERATIVE DIAGNOSIS: Aortic aneurysm. POSTOPERATIVE DIAGNOSIS: Aortic aneurysm. OPERATION: 1. Bilateral ultrasound-guided access common femoral artery. 2. Aortogram with bilateral iliofemoral imaging. 3. Endovascular aneurysm repair with a [place] 26 main body and 12-mm bilateral limbs. [...] ProGlides to both sides. Put in an 8-[place] sheath. Gave 8000 units of heparin. Brought in a pigtail catheter. We marked out the length from the lower left renal to the right hypogastric and appeared to be 18 cm. We were going to do an 18-cm main body with 26-mm proximal. We then replaced a Lunderquist through both, brought in a 12-[place] sheath on the left, 16-[place] sheath on the right. We brought these [...] and Dermabond was placed. Timothy Jo MD [facility] PATIENT NAME: ANDREW LOUIS [facility] MEDICAL REC #: [id number] [place] [address] ADMIT DATE: DISCHARGE DATE: OPERATIVE REPORT ATTENDING PHY: Timothy Jo MD [id number] SSI File#: [id number] Verified/Reviewed by 09/26/17 Sandra RUSSELL [facility] PATIENT NAME: ANDREW LOUIS [facility] MEDICAL REC #: [id number] [place] [address] ADMIT DATE: DISCHARGE DATE: OPERATIVE REPORT ATTENDING PHY: Timothy Jo MD CTA ABD W/RUNOFF W/WO Observed: 08/30/2017 Status: F Source: [place] CONTRAST 7:51 AM [facility] REPOSITORY [facility] Imaging Services [address] [place] [address] CTA Abd w/Runoff W/WO Contrast MR#: [id number] Acct: [id number] Name: ANDREW LOUIS Rep #: [id number] : 1950 F 67 From: Dario Barrientos MD PCP: Herbert Simpson DO Status: REG CLI Study: CTA Abd w/Runoff W/WO Contrast Date of Exam: 08/30/17 Exam# [id number] Ordering Dr: Timothy Jo MD STUDY: CTA [...] Dario Barrientos MD at 10:42 EST Tel [phone], Service support , CC: Timothy Jo MD; Herbert Simpson DO Electrical Experimental Mechanic: Signed ALLERGIES ALLERGIES DATE TYPE / CODE NAME / CODE REACTION SEVERITY SOURCE 08/02/2017 Drug naproxen/F00 Shortness of Unknown [place] [facility] Allergy/4160 [id number]([facility] [address](SNOMED RM) Repository CT) ENCOUNTERS ENCOUNTERS ADMIT/DISCHARGE ACCOUNT ADMITTING ENCOUNTER LOCATION SOURCE NUMBER CLASS 08/24/2018 [id number] Ambulatory BMSBuilding:B [place] 1 [facility] Repository 08/17/2018 [id number] Ambulatory [place] 9 [facility] ing:LAB.FUTUR Repository E 08/15/2018 [id number] Ambulatory [place] 0 [facility] ing:MRI Repository 08/06/2018 [id number] Ambulatory [place] 0 [facility] Hospital ing:US Repository 07/30/2018 [id number] Ambulatory [place] 9 [facility] ing:CT Repository 07/09/2018 [id number] Ambulatory [place] 5 [facility] Hospital ing:US Repository 06/12/2018 [id number] Ambulatory [place] 7 [facility] ing:OPBI Repository 05/31/2018 [id number] Ambulatory [place] 5 [facility] ing:RAD Repository 05/11/2018 [id number] Ambulatory [place] 6 [facility] ing:LAB.FUTUR Repository E 04/11/2018 [id number] Ambulatory [place] 6 [facility] Hospital ing:CT Repository 03/29/2018 [id number] Ambulatory [place] 9 [facility] ing:BFHLAB Repository 09/26/2017/02/28/ [id number] Timothy Jo [facility] 8 6 A. Encounter [facility] g:H.2MRoom: Repository [id number]: 08/30/2017 [id number] Ambulatory [place] 0 [facility] ing:CT Repository PAYERS PAYERS ENCOUNTER GUARANTOR PAYER SUBSCRIBER SOURCE 08/24/2018 ANDREW E Primary Insurance:MMO FAY E [place] [id number] [place] MEDICARE[place] SWEENEYDOB: [facility], Number: [id number] [facility] [address]60[address]Fdu: [id number] Repository Date:5647-60-96[address] () [address] [place] [phone]: 08/24/2018 Secondary NOT GIVENUNK [place] Insurance:SELF PAY [facility] Number: Effective Repository Date:2018-08-24 08/17/2018 FAJamari E Primary Insurance:MMO FAY E [place] [id number] [place] MED[place]ARE[place] SWEENEYDOB: [facility], Number: [id number] Indian Dental Clinic [address]Wsc: [id number] Repository Date:9163-97-63IZ [address] () [address] [phone]: 08/17/2018 Secondary NOT GIVENUNK [place] Insurance:SELF PAY [facility] Number: Effective Repository Date:2018-08-15 08/15/2018 FAJamari E Primary Insurance:MMO FAY E [place] [id number] [place] MED[place] SWEENEYDOB: [facility], Number: [id number] Indian Dental Clinic [address]Ruj: [id number] Repository Date:6717-07-34XV [address] () [address] [address]AH: 08/15/2018 Secondary NOT GIVENUNK [place] Insurance:SELF PAY [facility] Number: Effective Repository Date:2018-08-10 08/06/2018 FAY E Primary Insurance:MMO FAY E [place] [id number] [place] MED[place] SWEENEYDOB: [facility], Number: [id number] Indian Dental Clinic [address]Qze: [id number] Repository Date:6771-23-97MU [address]OX (HP) [address], [place] [address]CP: 08/06/2018 Secondary NOT GIVENUNK [place] Insurance:SELF PAY [facility] Number: Effective Repository Date:2018-08-01 07/30/2018 FAY E Primary Insurance:MMO FAY E [place] [id number] [place] MED[place] SWEENEYDOB: [facility], Number: [id number] Indian Dental Clinic [address]Evv: [id number] Repository Date:4299-67-67NM BOX (HP) [address] [place] [phone]: 07/30/2018 Secondary NOT GIVENUNK [place] Insurance:SELF PAY [facility] Number: Effective Repository Date:2018-07-20 07/09/2018 FAY E Primary Insurance:MMO FAY E [place] [id number] [place] MED[place] SWEENEYDOB: [facility], Number: [id number] Indian Dental Clinic [address]Aam: [id number] Repository Date:4304-62-83VU BOX () [address] [place] [address]NA: 07/09/2018 Secondary NOT GIVENUNK [place] Insurance:SELF PAY [facility] Number: Effective Repository Date:2018-06-29 06/12/2018 FAY E Primary Insurance:MMO FAY E [place] [id number] [place] MED[place] SWEENEYDOB: [facility], Number: [id number] Indian Dental Clinic [address]Wbr: [id number] Repository Date:5514-42-62JS BOX () [address] [place] [phone]: 06/12/2018 Secondary NOT GIVENUNK [place] Insurance:SELF PAY [facility] Number: Effective Repository Date:2018-05-09 05/31/2018 FAY E Primary Insurance:MMO FAY E [place] [id number] [place] MEDICAREPolicy [facility] Number: [id number] Indian Dental Clinic [address]Rlm: [id number] Repository Date:4382-71-08QV BOX (HP) [address], [place] [address]JU: 05/31/2018 Secondary NOT GIVENUNK [place] Insurance:SELF PAY [facility] Number: Effective Repository Date:2018-05-24 05/11/2018 FAY E Primary Insurance:MMO FAY E [place] [id number] MARIA TERES[place] MEDICAREPolicy SWEENEYDOB: [facility], Number: [id number] Indian Dental Clinic [address]Nad: [id number] Repository Date:8773-46-40MF BOX (HP) [address] [place] [phone]: 05/11/2018 Secondary NOT GIVENUNK [place] Insurance:SELF PAY [facility] Number: Effective Repository Date:2017-11-28 04/11/2018 FAY E Primary Insurance:MMO FAY E [place] [id number] [place] SWEENEYDOB: [facility], Number: [id number] Indian Dental Clinic [address]Tdn: [id number] Repository Date:7517-21-39MM BOX (HP) [address] [place] [address]JH: 04/11/2018 Secondary NOT GIVENUNK [place] Insurance:SELF PAY [facility] Number: Effective Repository Date:2018-04-04 03/29/2018 FAY E Primary Insurance:MMO FAY E [place] [id number] [place] MED[place] SWEENEYDOB: [facility], Number: [id number] Indian Dental Clinic [address]Rdn: [id number] Repository Date:0228-93-52OB BOX (HP) [address] [place] [phone]: 03/29/2018 Secondary NOT GIVENUNK [place] Insurance:SELF PAY [facility] Number: Effective Repository Date:2018-03-29 09/26/2017 FAY E Primary FAY Katina SWEBLAZEYUNK [facility] [id number] Insurance:[facility] Repository [facility] Number: [id number]: [id number] [phone] () Date:4946-37-84VU [address] [place] [phone]: 09/26/2017 Secondary NOT GIVENUNK [facility] Medical Insurance:MEDICARE [place] INDIRECT [facility]Poldavis [facility] Repository Number: [id number] Date:[address]BR[address] CODE [id number][place] [address]AL: 08/30/2017 CHRISTIANNE O Primary Insurance:MMO FAY E [place] [id number] [place] MED[place] [facility], Number: [id number] Indian Dental Clinic [address]Kck: [id number] Repository Date:4153-44-42EA BOX (UG) [address] [place] [phone]: 08/30/2017 Secondary NOT GIVENUNK [place] Insurance:SELF PAY [facility] Number: Effective Repository Date:2017-08-21
== END ==
PROVIDERS: Family Provider Family Medicine; PCP Family Medicine; Visit Provider Family Medicine
DX: N18.3 Chronic kidney disease, stage 3 (moderate) (principal)
CPT/HCPCS: 36415; 80048

== ENCOUNTER → 2018-10-08 06:47 | Outpatient (CLI) | payer MEDICARE, SELFPAY ==
[2018-09-24 10:41] VITALS: BMI 33.7
--- NOTE | 2018-10-08 07:00 | ECHOD_ITS ---
Reason For Study: CHEST PAIN Procedure This was a 2D Doppler, Color Flow transthoracic echocardiogram. Technically difficult parasternal images. Exam performed in department. Left Ventricle Normal LV size. Left ventricular systolic function is normal. The estimated ejection fraction is 65 %. Stage 1 diastolic dysfunction. No regional wall motion abnormalities noted. Right Ventricle Normal RV size. Normal systolic function. Atria Normal left atrium. Normal right atrium. Mitral Valve Normal mitral valve. Tricuspid Valve Normal tricuspid valve. Mild tricuspid valve insufficiency. Pulmonary artery systolic pressure is 26 mmHg. Aortic Valve Normal aortic valve. Pulmonic Valve Normal pulmonic valve. Great Vessels Normal aortic root. Pericardium/Pleural No pericardial effusion. MMode/2D Measurements & Calculations LVIDd: 4.0 cm IVSd: 0.76 cm Ao root diam: 3.2 cm LVIDs: 2.9 cm LVPWd: 0.79 cm FS: 28.7 % LAV(MOD-bp): 31.6 ml EDV(MOD-sp4): 56.9 ml EDV(MOD-sp2): 59.7 ml LAV(MOD-bp) Indexed: 16.2 ml/m2 ESV(MOD-sp4): 24.2 ml EF(MOD-sp2): 66.9 % LAV(MOD-sp2): 21.7 ml EF(MOD-sp4): 57.4 % LAV(MOD-sp4): 39.7 ml SV(MOD-sp4): 32.7 ml SV(MOD-sp2): 40.0 ml LA A4 area: 16.3 cm2 LA dimension(2D): 3.4 cm RA A4 area: 10.0 cm2 Time Measurements MV dec time: 0.28 sec Doppler Measurements & Calculations MV E max carson: 74.1 cm/sec Lat Peak E' Carson: 5.1 cm/sec Med Peak E' Carson: 5.9 cm/sec MV A max carson: 99.0 cm/sec E/E' lat: 14.5 E/E' med: 12.5 MV E/A: 0.75 Ao V2 max: 127.2 cm/sec LV V1 max: 109.6 cm/sec PA V2 max: 94.2 cm/sec Ao max P.5 mmHg LV V1 max P.8 mmHg TR max carson: 237.1 cm/sec TR max P.5 mmHg Interpretation Summary Normal LV size. Left ventricular systolic function is normal. The estimated ejection fraction is 65 %. Stage 1 diastolic dysfunction. The GLS is borderline The global longitudinal strain = -16.5 % (normal). Ordering Physician: VIVIENNE TRAORE Referring Physician: SHILPI DELGADO Performed By: Jessica Zee, KRYS, RVT
--- NOTE | 2018-10-08 19:30 | STRESSREP ---
Stress Test Report Pharmacologic myocardial perfusion stress test. 68-year-old lady with a history of chest pain. Medications: Lisinopril, aspirin, atorvastatin, Advair. Stress protocol: Resting EKG demonstrates normal sinus rhythm with a rate of 69 beats minute normal intervals are noted resting blood pressure is 134/70 mmHg. 0.4 mg of regadenoson was infused per usual protocol followed by rapid intravenous saline flush injection continuous EKG monitoring was performed. The patient maintained sinus rhythm throughout the recording. The maximum heart rate was 93 bpm which was 62% of maximum predicted heart rate the maximum workload was 1 metabolic equivalent. The resting blood pressure is 134/70 with a final blood pressure 126/70. Myocardial perfusion protocol. 12.0 mCi of technetium 99m sestamibi was injected at rest. 0.4 mg of regadenoson was infused per usual protocol peak infusion 34.4 mCi of technetium 99m sestamibi was injected stress images were obtained stress and rest images were reconstructed and compared in the short axis vertical long horizontal long axis. Gated images were also obtained for next Perfusion SPECT analysis: Review of the stress images demonstrate normal uptake of tracer noted in all areas of the myocardium. The resting images similarly demonstrate normal uptake of tracer noted in all areas of myocardium. No areas of reversibility are noted suggest ischemia no previous infarct is noted. Gated SPECT analysis: The gated ejection fraction is hyperdynamic at 91%. Conclusion: Normal pharmacologic myocardial perfusion stress test. Preserved ejection fraction.
== END ==
PROVIDERS: Family Provider Family Medicine; PCP Family Medicine
DX: R07.9 Chest pain, unspecified (principal)
CPT/HCPCS: 78452; 93017; 93306; A9500; A4216; J2785

== ENCOUNTER → 2018-10-16 07:55 | Outpatient (CLI) | payer MEDICARE, SELFPAY ==
[2018-09-24 10:41] VITALS: BMI 33.7
[2018-10-16 12:30] LABS: Absolute Lymphocyte Count 2.32 X10^3/ul (0.83-4.51); Absolute Neutrophil Count 5.4 X10^3/uL (2.0-7.7); Basophil# 0.04 X10^3/uL; Basophil% 0.5 % (0-1); Eosinophil# 0.21 X10^3/uL; Eosinophils% 2.5 % (0-5); Hematocrit 42.4 % (37-47); Hemoglobin 13.6 g/dl (12.0-15.0); Lymphocyte # 2.32 X10^3/ul (4.0); Lymphocyte % 27.4 % (19-41); Mean Corp Hgb Conc 32.1 g/gl (32-36); Mean Corpuscular Hgb 32.2 pg (27.0-32.0); Mean Corpuscular Volume 100.2 fL (81-99); Mean Platelet Vol. 9.7 fl (6.2-12.0); Monocyte# 0.47 X10^3/uL; Monocyte% 5.6 % (0-10); Neutrophil # 5.41 X10^3/uL (2.7-7.7); Neutrophil % 63.9 % (47-70); Platelet Count 318 K/mm3 (150-450); RBC Distribution Width CV 13.2 % (11.6-14.6); RBC Distribution Width SD 47.4 fl (35.1-43.9); Red Blood Count 4.23 M/mm3 (4.2-5.4); White Blood Count 8.5 K/mm3 (4.4-11.0)
[2018-10-16 12:35] LABS: POSITIVE COUNT NO; POSITIVE DIFFERENTIAL NO; POSITIVE MORPHOLOGY NO
[2018-10-16 13:10] LABS: ALB/GLOB Ratio 0.8 RATIO (0.9-2.4); AST(SGOT) 14 U/L (15-37); Alanine Aminotransfer ALT/SGPT 24 U/L (13-56); Albumin, Serum 3.2 g/dL (3.2-5.0); Alkaline Phosphatase 134 U/L (45-117); Anion Gap 7 (5-15); BUN 14 mg/dL (7-18); BUN/Creat Ratio 12.8 RATIO (10-20); Calcium,Total 9.1 mg/dL (8.5-10.1); Chloride 110 mmol/L (98-107); Creatinine, Serum 1.09 mg/dL (0.55-1.02); EST Glomerular Filtration Rate 53 mL/min (>60); Est Glom Filt Rate - Afr Amer 64 mL/min (>60); Globulin 3.9 g/dL (2.2-4.2); Glucose 89 mg/dL (74-106); Potassium 3.9 mmol/L (3.5-5.1); Protein, Total 7.1 g/dL (6.4-8.2); Sodium Level 143 mmol/L (136-145)
== END ==
PROVIDERS: Family Provider Family Medicine; PCP Family Medicine; Visit Provider Obstetrics & Gynecology
DX: D25.9 Leiomyoma of uterus, unspecified (principal)
CPT/HCPCS: 36415; 80053; 85025

== ENCOUNTER 2018-11-01 10:52 | Day surgery (SDC) | payer MEDICARE, SELFPAY ==
[2018-09-24 10:41] VITALS: BMI 33.7
[2018-10-22 11:23] VITALS: BMI 33.7
--- NOTE | 2018-10-26 08:17 | EKG12_ITS ---
Test Reason : PREOP Blood Pressure : / mmHG Vent. Rate : 067 BPM Atrial Rate : 067 BPM P-R Int : 182 ms QRS Dur : 078 ms QT Int : 394 ms P-R-T Axes : 054 061 076 degrees QTc Int : 416 ms Normal sinus rhythm Normal ECG Confirmed by RK HILARIO, OZË ([id number]), industrial editor FARHAD BARAHONA ([id number]) on 11/02/2018 11:26:05 AM Referred By: Ca Chowdhury Confirmed By:ZOË BECKMAN MD
--- NOTE | 2018-11-01 | IMM_PTH ---
PATIENT: ANDREW LOUIS LOC: [facility] [place] U#:[id number] AGE/SX: 68/F ROOM: RE11/01/[address]: Dr. Ca Chowdhury MD : 1950 BED: DIS: 11/01/2018 SPEC #: [id number] RECD: 11/05/18 11:53 STATUS: TIFFANY REQ #: [id number] PREET: 11/01/18 00:[address]: Ca Chowdhury DEPT: IMMUNOHISTOCHEMISTRY RECD BY: Marie Posadas ENTERED: 11/05/18 11:55 SP TYPE: IMMUNO OTHR DR: Dr. Herbert Simpson, DO Tissues: Endometrium, NOS Procedures: p16 (initial) KI-67 (add) PHYSICIAN & INSTITUTION [place] [address] SPECIMEN INFORMATION: Tissue Source: Endometrial curettings Clinical Info: Intramural leiomyoma; endometrial thickening Specimen Number: [id number] CPT code: 58362, 06790 METHODOLOGY: Deparaffinized sections of prefer/formalin-fixed tissue or PAP/DQ stained slides are incubated with monoclonal/polyclonal antibodies/oligonucleotide probes. Localization is made via biotin free immunoperoxidase method. Appropriate controls are performed and reacted as expected. Results on target cell population are indicated in the following table: RESULTS: ANTIBODY / CLONE RESULT P16 (E6H4) negative Ki-67 (30-9) negative These tests were developed and their performance characteristics determined by [facility]. They may not have been cleared or approved by the U.S. Food and Drug Administration. The FDA has determined that such clearance or approval is not necessary. INTERPRETATION: Endometrial curettings: No evidence of squamous dysplasia. AM:jose 11/06/18 Case has been reviewed in consultation with Dr. Wilhelm who concurs with the above diagnosis. IDC:OSIEL
--- NOTE | 2018-11-01 08:06 | HP.PCM_ITS ---
- Problem List (1) Endometrial thickening on ultrasound Status: Acute Comment: plan d and c hysterosocpy symphion (2) Uterine fibroid Status: Acute Qualifiers: History and Physical Date of Admission: 11/01/18 Intake Vital Signs 10/22/18 Body Mass Index (BMI) 33.7 10/22/18 Height 5 ft 4 in 10/22/18 Weight: 201 lb 10/22/18 Body Mass Index (BMI) 34.4 10/22/18 Blood Pressure 144/68 H Intake Visit Reasons: pre op D&C Chief Complaint: pre op D&C Clinical Mental Health Counselor Required: No Is patient in pain?: No Allergies naproxen [From Naprosyn] Allergy (Verified 10/22/18 11:22) Shortness of breath Medications Atorvastatin Calcium [Lipitor] 40 mg PO QHS 07/10/15 [History Confirmed 10/22/18] Lisinopril [Zestril] 20 mg PO DAILY 07/10/15 [History Confirmed 10/22/18] Omeprazole [Prilosec] 40 mg PO DAILY 07/10/15 [History Confirmed 10/22/18] Aspirin 325 mg PO DAILY@0800 #14 tab 08/16/17 [Rx Confirmed 10/22/18] Is last menstrual period known: No Post menopausal: No Patient : No : No [facility] Medical History Fatty liver disease, nonalcoholic (Acute) GERD (gastroesophageal reflux disease) (Acute) Hyperlipidemia (Acute) Osteoarthritis (Acute) Chronic kidney disease (CKD) (Chronic) Hypertension (Chronic) Surgical History H/O arthroplasty (Acute) H/O shoulder replacement (Acute) Family History Brother Cancer lung Social History number of children: 5 Smoking Status: Heavy Smoker (>10/day) alcohol intake: current alcohol intake frequency: holidays/special occasions only details: social substance use type: does not use caffeine: Yes what type of physical activity do you participate in: none seatbelt use: always do you feel safe at home: Yes additional social history: Matt- Both are retired HPI pre op D&C: Details: ANDREW LOUIS is a 68 year old who presents for preop visit. she has endometrial fibroid that will be removed. she denies nay bleeding. Female Reproductive History Menopausal Symptoms: No night sweats Pregancy History 2 Elective abortions Hx Para 2 Spontaneous abortions Hx # Term Pregnancies Ectopic pregnancies Hx # Pregnancies Multiple births # of living children 2 Past Pregnancies Del. Date Name GA/Weeks Outcome Route Bth Weight Infant Gen Labor Lgth An esthesia Del Locatn Provider FOB Unknown 1967 [place] Unknown 1970 Angella [place] Const Constitutional: Denies fatigue, night sweats, weight gain or weight loss ENT ENT: Reports system reviewed and no additional complaints, except as docu Cardio Card: Denies chest pain Resp Resp: Denies cough or dyspnea GI GI: Reports as per HPI; denies abdominal pain, constipation, nausea or vomiting : Denies nipple discharge, urinary frequency, urinary incontinence, urinary hesitancy, urinary urgency, vaginal discharge, vaginal dryness, vaginal odor or vaginal itching Musc Musc: Denies joint pain, back pain or muscle weakness Skin Skin/Breast: Denies hair loss, change in hair, dry skin, breast lump, breast pain, breast skin changes or nipple discharge Neuro Neuro: Reports system reviewed and no additional complaints, except as docu Psych Psych: Reports system reviewed and no additional complaints, except as docu Endo Endo: Denies cold intolerance, excessive sweating, heat intolerance or increased thirst Tam/Lymph Hematologic/Lymphatic: Denies easy bleeding, Denies easy bruising, Denies enlarged lymph nodes Exam Const General: cooperative, healthy appearing, comfortable, no acute distress, well developed Orientation: alert [facility] Head: normal to inspection, normocephalic Ears: hearing grossly normal bilaterally, external ears normal Nose: external nose normal, nares normal Face and sinus: normal facial exam Neck Neck: normal visual inspection, no lymphadenopathy Thyroid: thyroid normal Chest Chest palpation & inspection: normal inspection of the chest Resp Effort & Inspection: normal respiratory effort Cardio Rate: regular rate GI Inspection: normal to inspection, non-distended Palpation: soft, no hepatosplenomegaly Musc Other: gross motor intact no deficits, full bilateral strength Skin General: no rashes or lesions noted Neuro General: alert, awake, moves all extremities, no focal motor deficits Motor: muscle tone normal throughout Extrem General: normal to inspection, no pedal edema Psych Appearance: grossly normal Mental Status: mental status grossly normal Affect: normal affect Speech and Movement: speech and movement normal Assessment & Plan Problems 1. Intramural leiomyoma of uterus D25.1 2. Endometrial thickening on ultrasound R93.89 plan d and c hysterosocpy symphion Plan plan d and c hysterosocpy symphion, discussed surgical risks including risks of anesthesia, infection, bleeding, injury to bowel, bladder or blood vessels, and patient wishes to proceed with surgery. Coding Level of Care Code No Charge Diagnoses Intramural leiomyoma of uterus D25.1 ??Uterine leiomyoma location: intramural Endometrial thickening on ultrasound R93.89 UPDATE- I have seen the patient and performed any clinically relevant updates to the history and physical exam. Ca Chowdhury MD
[2018-11-01 11:00] VITALS: BP 96/35; PULSE 84; RESP 16; TEMP 36.5; O2SAT 97; BMI 33.6
--- NOTE | 2018-11-01 12:35 | EMB_PTH ---
PATIENT: ANDREW LOUIS LOC: [facility] [place] U#:[id number] AGE/SX: 68/F ROOM: RE11/01/[address]: Dr. Ca Chowdhury MD : 1950 BED: DIS: 11/01/2018 SPEC #: [id number] RECD: 11/02/18 07:54 STATUS: TIFFANY DAVIAN #: [id number] PREET: 11/01/18 12:[address]: Ca Chowdhury DEPT: SURGICAL PATHOLOGY RECD BY: Chadd Chaudhari ENTERED: 11/02/18 09:54 SP TYPE: ENDOM BX/C OTHR DR: Dr. Herbert Simpson, DO Tissues: Endometrium, NOS Procedures: Surgery Specimen Level IV HEADER OPERATION: Hysteroscopy, D & C PRE-OP DIAGNOSIS: Intramural leiomyoma of uterus, endometrial thickening on ultrasound TISSUE SUBMITTED: Endometrial curettings MICROSCOPIC DIAGNOSIS Endometrium, curettings: Strips of benign squamous mucosa. Fragments of superficial endocervix with cystic change. Rare benign endometrial lining tissue. AM:jose 11/05/18 COMMENT Results from immunohistochemistry ([id number]) for surrogate HPV marker (p16) will be reported separately. Clinical correlation is suggested. Case has been reviewed in consultation with Dr. Wilhelm who concurs with the above diagnosis. MARIA M:OSIEL MICROSCOPIC DESCRIPTION Slides are reviewed. GROSS DESCRIPTION Received in fixative is one container labeled with the patient's name and designated endometrial curettings. The specimen consists of multiple fragments of jauregui hemorrhagic and mucoid tissue that in aggregate measure 2.5 x 1 x 0.1 cm. The specimen is totally submitted in one cassette. / OSIEL:jose 11/02/18 TC:5 CPT: 73649
[2018-11-01] MEDS: Lubricating Jelly 60 GM Tube 30 GM TOPICAL (13:01)
--- NOTE | 2018-11-01 13:06 | PCM.OPRPT ---
Problem List (1) Endometrial thickening on ultrasound Status: Acute Comment: plan d and c hysterosocpy symphion (2) Uterine fibroid Status: Acute Qualifiers: Report of Operation Date of Procedure: 11/01/18 Pre-Operative Diagnosis: thickened lining Post-Operative Diagnosis: atrophic lining Surgery/Procedure Performed:: d and c hysteroscopy Description of Surgical Findings:: thin atrophic lining cervical stenosis Type of Anesthesia:: Local MAC Special Medications: none Specimen's removed: Endometrial curettings Drains: none Estimated Blood Loss (mL): none Fluids Replaced: Styloid Description of Procedure: Patient was prepped and draped in a normal sterile fashion under MAC anesthesia. A weighted speculum was placed in the vagina and the anterior lip of the cervix was grasped with a single-tooth tenaculum. A paracervical block was placed with 1% lidocaine. Cervix was progressively dilated to allow passage of a 5 mm hysteroscope. The lining was fully visualized and noted to have thin atrophic lining without any gross abnormalities. Uterine sounded to 9 cm. Curettage was performed and scant amount of tissue was obtained due to significant atrophy, sent to pathology. All instruments were removed from the vagina and excellent hemostasis was noted. Patient was awoken and taken to recovery in stable condition. - Complications none - Admit VTE Documentation VTE Present on Admission: No VTE Mechan Device Prophylaxis: SCD's
--- NOTE | 2018-11-01 13:09 | DCINST_ITS ---
Discharge Diet: No Restrictions Discharge Activity: Return to Normal Activity, May Shower, May Take a Tub Bath Allergies/Adverse Reactions: Allergies naproxen [From Naprosyn] Allergy (Verified 10/25/18 08:41) Shortness of breath Medications to take at Discharge Atorvastatin Calcium [Lipitor] 40 mg PO QHS 07/10/15 Lisinopril [Zestril] 20 mg PO DAILY 07/10/15 Omeprazole [Prilosec] 40 mg PO DAILY 07/10/15 Aspirin [Aspir-Low] 81 mg PO DAILY 10/25/18 Bupropion HCl [Wellbutrin Xl] 300 mg PO DAILY 10/25/18 Cilostazol 100 mg PO BID 10/25/18 Fluticasone/Salmeterol [Advair 100-50 Diskus] 1 each IH BID 10/25/18 Orders to be completed after discharge: Type & Screen Time Frame: 10/25/18, Facility: [facility], Location: Laboratory 12 Lead EKG [[facility]] Time Frame: 10/25/18, Facility: [facility], Location: Cardiovascular Services Primary Care Physician: Herbert Simpson DO [Primary Care Provider] - Test Results: Test results from this visit will be discussed in further detail at your follow- up appointment, if applicable. Please Follow Up With: Ca Chowdhury MD - [phone]
[2018-11-01 13:16] VITALS: BP 148/84; BP 96/35; PULSE 76; RESP 16; TEMP 36.6; O2SAT 98
[2018-11-01 13:21] VITALS: BP 161/75; BP 96/35; PULSE 74; RESP 16; O2SAT 92
[2018-11-01 13:26] VITALS: BP 165/86; BP 96/35; PULSE 75; RESP 16; O2SAT 91
[2018-11-01 13:31] VITALS: BP 162/88; BP 96/35; PULSE 74; RESP 16; TEMP 36.4; O2SAT 92
[2018-11-01 14:20] VITALS: BP 96/35
== END 2018-11-01 14:45 | disposition home or self-care (01) ==
LOC: SDC 10:53 → AC 10:54
PROVIDERS: Family Provider Family Medicine; PCP Family Medicine; Referring Provider Obstetrics & Gynecology; Visit Provider Obstetrics & Gynecology
PROC: 0UB98ZZ Excision of Uterus, Via Natural or Artificial Opening Endoscopic (ICD-10-PCS; CPT 58558; principal; 2018-11-01 12:20)
DX: D25.1 Intramural leiomyoma of uterus (principal); R93.89 Abnormal findings on diagnostic imaging of other specified body structures; K21.9 Gastro-esophageal reflux disease without esophagitis; M19.90 Unspecified osteoarthritis, unspecified site; I12.9 Hypertensive chronic kidney disease with stage 1 through stage 4 chronic kidney disease, or unspecified chronic kidney disease; N18.9 Chronic kidney disease, unspecified; E78.5 Hyperlipidemia, unspecified; Z79.899 Other long term (current) drug therapy; Z79.82 Long term (current) use of aspirin; J44.9 Chronic obstructive pulmonary disease, unspecified; F17.200 Nicotine dependence, unspecified, uncomplicated
CPT/HCPCS: 58558; 86850; 86900; 88305; 88341; 88342; 93005; J7120

== ENCOUNTER → 2019-05-17 08:07 | Outpatient (CLI) | payer MEDICARE, SELFPAY ==
[2019-04-23 10:52] VITALS: BMI 33.3
[2019-05-17 13:00] LABS: ALB/GLOB Ratio 0.8 RATIO (0.9-2.4); AST(SGOT) 20 U/L (15-37); Alanine Aminotransfer ALT/SGPT 35 U/L (13-56); Albumin, Serum 3.3 g/dL (3.2-5.0); Alkaline Phosphatase 135 U/L (45-117); Anion Gap 6 (5-15); BUN 13 mg/dL (7-18); BUN/Creat Ratio 12.1 RATIO (10-20); Calcium,Total 9.3 mg/dL (8.5-10.1); Chloride 109 mmol/L (98-107); Cholesterol 147 mg/dL (200); Creatinine, Serum 1.07 mg/dL (0.55-1.02); EST Glomerular Filtration Rate 54 mL/min (>60); Est Glom Filt Rate - Afr Amer 65 mL/min (>60); Globulin 4.1 g/dL (2.2-4.2); Glucose 85 mg/dL (74-106); High Density Lipoprotein 57 mg/dL; Potassium 3.6 mmol/L (3.5-5.1); Protein, Total 7.4 g/dL (6.4-8.2); Sodium Level 141 mmol/L (136-145); Triglycerides 91 mg/dL; Very Low Density Lipoprotein 18 mg/dL (5-40)
[2019-05-17 13:04] LABS: Absolute Lymphocyte Count 2.43 X10^3/uL (0.83-4.51); Absolute Neutrophil Count 5.9 X10^3/uL (2.0-7.7); Basophil# 0.06 X10^3/uL; Basophil% 0.6 % (0-1); Eosinophil# 0.21 X10^3/uL; Eosinophils% 2.3 % (0-5); Hematocrit 42.8 % (37-47); Hemoglobin 13.6 g/dL (12.0-15.0); Lymphocyte # 2.43 X10^3/ul (4.0); Lymphocyte % 26.2 % (19-41); Mean Corp Hgb Conc 31.8 g/dL (32-36); Mean Corpuscular Hgb 31.9 pg (27.0-32.0); Mean Corpuscular Volume 100.2 fL (81-99); Mean Platelet Vol. 9.5 fl (6.2-12.0); Monocyte# 0.61 X10^3/uL; Monocyte% 6.6 % (0-10); NRBC Flagged by Analyzer 0 % (0-5); Neutrophil # 5.93 X10^3/uL (2.7-7.7); Neutrophil % 64.1 % (47-70); Platelet Count 335 K/mm3 (150-450); RBC Distribution Width CV 13.1 % (11.6-14.6); RBC Distribution Width SD 47.6 fl (35.1-43.9); Red Blood Count 4.27 M/mm3 (4.2-5.4); White Blood Count 9.3 K/mm3 (4.4-11.0)
== END ==
PROVIDERS: Family Provider Family Medicine; PCP Family Medicine; Visit Provider Family Medicine
DX: I12.9 Hypertensive chronic kidney disease with stage 1 through stage 4 chronic kidney disease, or unspecified chronic kidney disease (principal); N18.3 Chronic kidney disease, stage 3 (moderate); I73.9 Peripheral vascular disease, unspecified
CPT/HCPCS: 36415; 80053; 80061; 85025

== ENCOUNTER → 2019-06-05 09:46 | Outpatient (CLI) | payer MEDICARE, SELFPAY ==
[2019-04-23 10:52] VITALS: BMI 33.3
--- NOTE | 2019-06-05 09:51 | RAD_ITS ---
STUDY: X-RAY CHEST REASON FOR EXAM: Female, 69 years old. Right lower rib pain, no injury TECHNIQUE: PA and lateral views of the chest. COMPARISON: Prior study of 11/18/2016 FINDINGS: There are fibrotic changes of the lung bases. There is no demonstrated pleural abnormality. Normal size heart. Normal mediastinum and kati. Normal visualized pulmonary arteries. There are calcified plaques of the aortic arch. There is demineralization of the osseous structures. Status post total left shoulder replacement changes are noted. There is no demonstrated abnormality of the visualized soft tissue structures of the upper abdomen. RAD/Chest PA and Lateral IMPRESSION: 1. Fibrotic changes of the lung bases. 2. Calcified plaques of the aortic arch. 3. Status post total left shoulder replacement changes noted. 4. Generalized osteopenia. 5. No acute cardiopulmonary disease process is noted. Electronically Signed: Germain Elliott MD at 16:58 EST , Service support ,
== END ==
PROVIDERS: Family Provider Family Medicine; PCP Family Medicine; Referring Provider Family Medicine; Visit Provider Family Medicine
DX: R07.81 Pleurodynia (principal)
CPT/HCPCS: 71046

== ENCOUNTER → 2019-06-13 10:07 | Outpatient (CLI) | payer MEDICARE, SELFPAY ==
[2019-04-23 10:52] VITALS: BMI 33.3
--- NOTE | 2019-06-13 10:10 | BI_ITS ---
MAMMOGRAPHY - BILATERAL SCREENING REASON FOR EXAM: Female, 69 years old. Routine annual screening examination. PERTINENT HISTORY: Non-contributory. TECHNIQUE: Digital bilateral breast tha (3D mammographic acquisition) in the CC and MLO projections. 2-D mediolateral oblique (MLO) and craniocaudad (CC) views of both breasts were obtained. CAD: Full Field Digital Mammography with Computer Added Detection was performed. COMPARISON: Comparison is made with prior study dated June 12, 2018 and May 10, 2017. FINDINGS: Breast Composition: There are scattered areas of fibroglandular density. There are no dominant masses or suspicious calcifications. Stable benign-appearing bilateral axillary lymph nodes. No other significant abnormalities are identified. There has been no significant change since the prior study. BI/SCREEN MAMM (CAD) W/THA BILAT IMPRESSION: Stable bilateral screening mammogram. Yearly follow-up mammogram recommended. (A) ASSESSMENT CATEGORY: BIRADS Category 2: Benign. A letter regarding these results will be sent to the patient by the facility within 30 days. Approximately 10% of breast cancers are not detected by mammography. A normal mammogram should not delay biopsy of a clinically suspicious abnormality. [id number] Electronically Signed: Dario Barrientos, at 12:46 EST , Service support ,
== END ==
PROVIDERS: Family Provider Family Medicine; PCP Family Medicine; Referring Provider Family Medicine; Visit Provider Family Medicine
DX: Z12.31 Encounter for screening mammogram for malignant neoplasm of breast (principal)
CPT/HCPCS: 77063; 77067

== ENCOUNTER → 2019-06-21 07:31 | Outpatient (CLI) | payer MEDICARE, SELFPAY ==
[2019-04-23 10:52] VITALS: BMI 33.3
--- NOTE | 2019-06-21 07:33 | AAVD_ITS ---
Reason For Study: AAA Aorta Measurements Aorta Doppler Measurements Proximal aorta measures1.80 x 1.78cm. in cross- Peak systolic flow velocities within the proximal sectional axis. aorta measure 44 cm/sec. Proximal aorta measures1.83cm. in longitudinal Peak systolic flow velocities within the mid aorta axis. measure 46.9 cm/sec. Mid aorta measures2.39 x 2.35cm. in cross- Distal limbs 40.2 cm/sec and 46.9 cm/sec. sectional axis. Mid aorta measures2.33cm. in longitudinal axis. Distal residual sac measures 3.91 x 4.13 x 4.09 cm. Distal limbs measure 1.13 x 1.15 x 1.11 cm and 1.03 x 1.15 x 1.02 cm. Left Iliac Artery Left iliac artery measures 0.89 x 0.91 cm. in the cross-sectional axis. Left iliac artery measures 0.83 cm. in the longitudinal axis. Peak systolic velocity in the left iliac artery measures 90.6 cm/sec. Right Iliac Artery Right iliac artery measures 1.13 x 1.09 cm. in the cross-sectional axis. Right iliac artery measures 1.02 cm. in the longitudinal axis. Peak systolic velocity in the right iliac artery measures 118 cm/sec. Interpretation Summary 1. No obvious endoleak and residual sac 4cm. Ordering Physician: Timothy Jo Referring Physician: Herbert Simpson Performed By: Lashawn Rolon RVT
--- NOTE | 2019-06-21 07:33 | CDU_ITS ---
Reason For Study: Carotid artery stenosis Rt. Velocities/BP Lt. Velocities/BP Prox CCA 91.7/13.4 cm/sec. Prox CCA 104.7/24.9 cm/sec. Mid CCA 89.1/17.3 cm/sec. Mid CCA 67.9/20 cm/sec. Dist CCA 74.7/16 cm/sec. Dist CCA 53.2/13.9 cm/sec. Prox ICA 76/18.6 cm/sec. Prox ICA 58.9/21.1 cm/sec. Mid ICA 61.7/23.9 cm/sec. Mid ICA 88.2/23.4 cm/sec. Dist ICA 86.5/26.5 cm/sec. Dist ICA 100.3/28.9 cm/sec. Rt. ICA/CCA = 1.0. Lt. ICA/CCA = 1.5. Prox ECA 90.3/13.4 cm/sec. Prox ECA 32.4/9.7 cm/sec. Rt. Vert. 39/14.5 cm/sec. Lt. Vert. 44.312.4 cm/sec. Right Extracranial There is homogeneous, smooth atherosclerotic plaque noted in the right common carotid artery. There is intimal thickening but no significant atherosclerotic plaque noted in the right internal carotid artery. There is intimal thickening but no significant atherosclerotic plaque noted in the right external carotid artery. Flow could not be demonstrated in the right vertebral artery. Left Extracranial There is homogeneous, smooth atherosclerotic plaque noted in the left common carotid artery. There is heterogeneous, irregular atherosclerotic plaque noted in the left internal carotid artery. There is no significant atherosclerotic plaque noted in the left external carotid artery. Antegrade flow is noted in the left vertebral artery. Procedure Carotid Duplex 24005. Exam performed in department. Interpretation Summary Mild (<50%) stenosis right extracranial internal carotid. Mild (<50%) stenosis left extracranial internal carotid. Flow within the left verterbral artery is antegrade. Right vertebral occluded. Ordering Physician: Timothy Jo Referring Physician: Herbert Simpson Performed By: Lashawn Rolon RVT
--- NOTE | 2019-06-21 07:33 | ART_ITS ---
Reason For Study: Atherosclerosis Procedure A bilateral lower extremity continuous wave Doppler with analog waveform analysis and ankle brachial indexes. Left Segmental Pressures Left brachial= 124mmHg. Left posterior tibial artery = 103mmHg. Left dorsalis pedis artery = 96mmHg. The left dorsalis pedis waveforms are biphasic. The left posterior tibial artery waveforms are biphasic. Right Segmental Pressures Right brachial= 128mmHg. Right posterior tibial artery = 89mmHg. Right dorsalis pedis artery = 74mmHg. The right dorsalis pedis waveforms are biphasic. The right posterior tibial artery waveforms are biphasic. Indices The right ankle brachial index by the dorsalis pedis is 0.58. The right ankle brachial index by the posterior tibial artery is 0.70. The left ankle brachial index by the dorsalis pedis is 0.75. The left ankle brachial index by the posterior tibial artery is 0.80. Interpretation Summary 1. Bilateral occlussive disease at rest with akira 0.7/0.8. Ordering Physician: Timothy Jo Referring Physician: Herbert Simpson Performed By: Lashawn Rolon RVT
== END ==
PROVIDERS: Family Provider Family Medicine; PCP Family Medicine; Referring Provider Surgery Vascular Surgery; Visit Provider Surgery Vascular Surgery
DX: I65.23 Occlusion and stenosis of bilateral carotid arteries (principal); I71.4 Abdominal aortic aneurysm, without rupture; I70.213 Atherosclerosis of native arteries of extremities with intermittent claudication, bilateral legs; F17.200 Nicotine dependence, unspecified, uncomplicated; E78.00 Pure hypercholesterolemia, unspecified; I10 Essential (primary) hypertension; K21.9 Gastro-esophageal reflux disease without esophagitis
CPT/HCPCS: 93880; 93922; 93978

== ENCOUNTER → 2019-07-11 09:55 | Outpatient (CLI) | payer MEDICARE, SELFPAY ==
[2019-04-23 10:52] VITALS: BMI 33.3
--- NOTE | 2019-07-11 10:16 | RAD_ITS ---
STUDY: X-RAY - THORACIC SPINE REASON FOR EXAM: Female, 69 years old. Chronic pain. TECHNIQUE: 3 view(s) of the thoracic spine were obtained. COMPARISON: None. FINDINGS: Normal kyphosis of the thoracic spine. There is no substantial scoliosis. Normal thoracic vertebrae and endplates. Advanced disc narrowing and mild spondylitic endplate changes at mid thoracic levels particularly T6-7, T5-6 and T4-5. Moderate disc space narrowing at lower thoracic levels. Status post shoulder arthroplasty. RAD/Thoracic Spine 3 Views IMPRESSION: Normal alignment of the thoracic spine without fracture, osteolytic or blastic bone lesion. Severe midthoracic degenerative disc changes. Moderate degenerative disc changes and spondylitic endplate changes at lower thoracic levels. Electronically Signed: Desiree Cisneros MD at 18:52 EST , Service support ,
== END ==
PROVIDERS: Family Provider Family Medicine; PCP Family Medicine; Referring Provider Anesthesiology Pain Medicine; Visit Provider Anesthesiology Pain Medicine
DX: M54.6 Pain in thoracic spine (principal)
CPT/HCPCS: 72072

== ENCOUNTER → 2019-08-30 13:30 | Outpatient (CLI) | payer MEDICARE, SELFPAY ==
[2019-04-23 10:52] VITALS: BMI 33.3
--- NOTE | 2019-08-30 13:32 | RAD_ITS ---
STUDY: X-RAY - UNILATERAL RIBS ( RIGHT ) WITH CHEST REASON FOR EXAM: Female, 69 years old. RIGHT LATERAL TO ANTERIOR RIB PAIN X1 YR, NKI, SOB TECHNIQUE - RIBS: 4 view(s) of the ribs. TECHNIQUE - CHEST: 1 view COMPARISON: None. FINDINGS - RIBS/chest: No rib fractures, pneumothoraces or any significant lung contusion. The accompanying chest radiograph shows no pneumonia or failure and no pleural effusions. There is a reverse left shoulder arthroplasty RAD/Ribs Uni Min 3V w/PA Chest IMPRESSION: No rib fractures. The accompanying chest radiograph is within normal limits Electronically Signed: Lasha Gonzalez MD at 5:23 EST Tel , Service support ,
== END ==
PROVIDERS: PCP Family Medicine; Referring Provider Family Medicine; Visit Provider Family Medicine
DX: R07.81 Pleurodynia (principal)
CPT/HCPCS: 71101

== ENCOUNTER → 2019-10-05 06:59 | Outpatient (CLI) | payer MEDICARE, SELFPAY ==
[2019-04-23 10:52] VITALS: BMI 33.3
--- NOTE | 2019-10-05 07:45 | MRI_ITS ---
STUDY: MRI THORACIC SPINE WITHOUT CONTRAST REASON FOR EXAM: Female, 69 years old. Upper back pain that radiates to right rib area and anterior pt has cough TECHNIQUE: Standardized fat and water weighted pulse sequences were obtained in the sagittal and axial planes. COMPARISON: CT chest dated November 30, 2016 FINDINGS: Normal kyphosis of the thoracic spine. There is no substantial scoliosis. T1-2, T2-3, T3-4, T4-5, T5-6, T6-7, T7-8, T8-9, T9-10, T10-11, T11-12: There is multilevel mild/moderate disc space narrowing and endplate spondylosis with small disc herniations without significant central canal or foraminal stenosis. Normal visualized thoracic cord. MRI/Spine Thoracic (Routine) IMPRESSION: Moderate degenerative changes. Electronically Signed: Melissa Morfin MD at 8:26 EDT Tel , Service support ,
== END ==
PROVIDERS: PCP Family Medicine; Referring Provider Anesthesiology Pain Medicine; Visit Provider Anesthesiology Pain Medicine
DX: M51.34 Other intervertebral disc degeneration, thoracic region (principal); M47.814 Spondylosis without myelopathy or radiculopathy, thoracic region
CPT/HCPCS: 72146

== ENCOUNTER → 2019-10-09 09:32 | Outpatient (CLI) | payer MEDICARE, SELFPAY ==
[2019-04-23 10:52] VITALS: BMI 33.3
--- NOTE | 2019-10-09 09:40 | RAD_ITS ---
STUDY: X-RAY - LUMBAR SPINE REASON FOR EXAM: Female, 69 years old. FALL TECHNIQUE: 5 view(s) of the lumbar spine were obtained. COMPARISON: Previous study of 04/28/2016 FINDINGS: Normal lumbar lordosis. There is no substantial scoliosis. Her posture spinal fusion changes with rods and interpeduncular screws at the L5-S1 level. One of the fusion screws appears to be projecting outside of the confines of the superior endplate of L5 into the L4-5 disc space. There is a grade 1 anterolisthesis of L5 relative to S1. There appear to be status post laminectomy changes of L4 and L5. Normal disc space heights. An aortoiliac endograft is noted. There are several soft tissue eggshell calcifications of the left upper quadrant of the abdomen appearing unchanged from the previous study. RAD/L/S Spine Min 4 Views IMPRESSION: Postsurgical and degenerative changes as detailed above appearing similar to the previous study. Grade 1 anterolisthesis of L5 relative to S1, stable in the interval. There is no evidence of acute fracture. Electronically Signed: Germain Elliott MD at 17:11 EDT , Service support ,
--- NOTE | 2019-10-09 09:41 | RAD_ITS ---
STUDY: X-RAY - PELVIS AND RIGHT HIP REASON FOR EXAM: Female, 69 years old. FALL TECHNIQUE: 3 views of the pelvis and hip. COMPARISON: None. FINDINGS: There is a non-specific bowel gas pattern. There is an aortoiliac endograft. Orthopedic hardware is seen in the lumbosacral region. Normal bilateral superior and inferior pubic rami. Normal pubic symphysis. Normal bilateral ischial tuberosities. Status post total right hip replacement changes are noted. There is no evidence of implant loosening or new associated fracture or dislocation. RAD/HIP, UNI W/ Pelvis 2-3 Views IMPRESSION: Status post total right hip replacement changes noted. There is no evidence of implant loosening or new associated fracture or dislocation. There is no evidence of pelvic fracture. Orthopedic hardware is seen in the lumbosacral region. There is an aortoiliac endograft. Electronically Signed: Germain Elliott MD at 17:04 EDT , Service support ,
== END ==
PROVIDERS: PCP Family Medicine; Referring Provider Family Medicine; Visit Provider Family Medicine
DX: M54.17 Radiculopathy, lumbosacral region (principal); M25.551 Pain in right hip
CPT/HCPCS: 72110; 73502

== ENCOUNTER → 2020-03-02 09:31 | Outpatient (CLI) | payer MEDICARE, SELFPAY ==
[2019-04-23 10:52] VITALS: BMI 33.3
--- NOTE | 2020-03-02 09:45 | RAD_ITS ---
STUDY: X-RAY - PELVIS AND RIGHT HIP REASON FOR EXAM: Female, 70 years old. Right hip pain fell a week ago TECHNIQUE: 3 views of the pelvis and hip. COMPARISON: 10/09/2019 pelvis x-ray FINDINGS: There is a non-specific bowel gas pattern. There is a spinal fusion at L5-S1. The visualized vascular stents in the bifurcation. Normal bilateral iliac wings, sacroiliac joints and visualized sacrum. Normal bilateral superior and inferior pubic rami. Normal pubic symphysis. Normal bilateral ischial tuberosities. There is a right hip arthroplasty which appears to be in anatomic position and alignment without visualized fracture. RAD/HIP, UNI W/ Pelvis 2-3 Views IMPRESSION: Right hip arthroplasty in anatomic position and alignment. Electronically Signed: Michelle Caro MD at 5:23 EDT Tel , Service support ,
== END ==
PROVIDERS: PCP Family Medicine; Referring Provider Family Medicine; Visit Provider Family Medicine
DX: M79.604 Pain in right leg (principal); R10.31 Right lower quadrant pain
CPT/HCPCS: 73502

== ENCOUNTER → 2020-03-11 09:42 | Outpatient (CLI) | payer MEDICARE, SELFPAY ==
[2019-04-23 10:52] VITALS: BMI 33.3
--- NOTE | 2020-03-11 09:48 | RAD_ITS ---
STUDY: X-RAY CHEST REASON FOR EXAM: Female, 70 years old. FALL X 1 WEEK. PAIN RIGHT ANTERIOR LOWER RIB AREA TECHNIQUE: PA and lateral views of the chest. COMPARISON: Comparison is made with prior examination dated 06/05/2019. FINDINGS: Hyperinflation. Stable mild increased linear markings at the lung bases slightly more prominent on the left side suggestive of a scarring. There is no demonstrated pleural abnormality. Normal size heart. Normal mediastinum and kati. Normal visualized pulmonary arteries. Normal visualized aortic arch and descending thoracic aorta. There are degenerative changes of the visualized thoracic spine. Prior left reverse shoulder replacement. There is no demonstrated abnormality of the visualized soft tissue structures of the upper abdomen. RAD/Chest PA and Lateral IMPRESSION: Stable examination. Electronically Signed: Dario Barrientos, at 15:36 EDT , Service support ,
== END ==
PROVIDERS: PCP Family Medicine; Referring Provider Family Medicine; Visit Provider Family Medicine
DX: R07.81 Pleurodynia (principal)
CPT/HCPCS: 71046

== ENCOUNTER → 2020-04-16 09:47 | Outpatient (CLI) | payer MEDICARE, SELFPAY ==
[2019-04-23 10:52] VITALS: BMI 33.3
--- NOTE | 2020-04-16 09:53 | RAD_ITS ---
STUDY: X-RAY - RIGHT KNEE REASON FOR EXAM: Female, 70 years old. Right knee pain TECHNIQUE: 4 view(s) of the knee. COMPARISON: None. FINDINGS: Normal visualized distal femur. Normal visualized proximal tibia and fibula. Normal proximal tibiofibular articulation. There is severe degenerative arthrosis of the medial femorotibial compartment with severe joint space narrowing. There is mild degenerative arthrosis of the lateral femorotibial compartment. There is mild degenerative arthrosis of the patellofemoral articulation. Vascular stent in the distal right superficial femoral artery. RAD/Knee 4 or More Views IMPRESSION: Degenerative arthrosis. Electronically Signed: Dario Barrientos, at 15:39 EDT , Service support ,
== END ==
PROVIDERS: PCP Family Medicine; Referring Provider Nurse Practitioner Family; Visit Provider Nurse Practitioner Family
DX: M25.561 Pain in right knee (principal)
CPT/HCPCS: 73564

== ENCOUNTER → 2020-05-14 08:45 | Outpatient (CLI) | payer MEDICARE, SELFPAY ==
[2019-04-23 10:52] VITALS: BMI 33.3
[2020-05-14 12:26] LABS: Absolute Lymphocyte Count 2.08 X10^3/uL (0.83-4.51); Basophil# 0.06 X10^3/uL; Basophil% 0.7 % (0-1); Eosinophil# 0.16 X10^3/uL; Eosinophils% 1.8 % (0-5); Hematocrit 43.2 % (37-47); Hemoglobin 13.3 g/dL (12.0-15.0); Lymphocyte # 2.08 X10^3/ul (4.0); Lymphocyte % 23.3 % (19-41); Mean Corp Hgb Conc 30.8 g/dL (32-36); Mean Corpuscular Hgb 31.1 pg (27.0-32.0); Mean Corpuscular Volume 100.9 fL (81-99); Mean Platelet Vol. 9.4 fl (6.2-12.0); Monocyte# 0.63 X10^3/uL; Monocyte% 7.1 % (0-10); NRBC Flagged by Analyzer 0 % (0-5); Neutrophil # 5.97 X10^3/uL (2.7-7.7); Neutrophil % 66.8 % (47-70); Platelet Count 373 K/mm3 (150-450); RBC Distribution Width CV 12.6 % (11.6-14.6); Red Blood Count 4.28 M/mm3 (4.2-5.4); White Blood Count 8.9 K/mm3 (4.4-11.0)
[2020-05-14 12:38] LABS: Vitamin D,25 Hydroxy 26.3 ng/mL
[2020-05-14 12:48] LABS: ALB/GLOB Ratio 0.8 RATIO (0.9-2.4); AST(SGOT) 33 U/L (15-37); Alanine Aminotransfer ALT/SGPT 50 U/L (13-56); Albumin, Serum 3.2 g/dL (3.2-5.0); Alkaline Phosphatase 134 U/L (45-117); Anion Gap 5 (5-15); BUN 14 mg/dL (7-18); BUN/Creat Ratio 14.1 RATIO (10-20); Calcium,Total 9.9 mg/dL (8.5-10.1); Chloride 107 mmol/L (98-107); Cholesterol 148 mg/dL (200); EST Glomerular Filtration Rate 58 mL/min (>60); Est Glom Filt Rate - Afr Amer 70 mL/min (>60); Glucose 90 mg/dL (74-106); High Density Lipoprotein 64 mg/dL; Potassium 4.2 mmol/L (3.5-5.1); Protein, Total 7.2 g/dL (6.4-8.2); Sodium Level 138 mmol/L (136-145); Triglycerides 95 mg/dL; Very Low Density Lipoprotein 19 mg/dL (5-40)
== END ==
PROVIDERS: PCP Family Medicine; Visit Provider Family Medicine
CPT/HCPCS: 36415; 80053; 80061; 82306; 85025

== ENCOUNTER → 2020-06-05 08:10 | Outpatient (CLI) | payer MEDICARE, SELFPAY ==
[2019-04-23 10:52] VITALS: BMI 33.3
--- NOTE | 2020-06-05 08:15 | CT_ITS ---
STUDY: CT ABDOMEN AND PELVIS WITH CONTRAST REASON FOR EXAM: Female, 70 years old. ABD PAIN RADIATION DOSAGE (If Supplied By Facility): CTDIvol = ( 20.42 ) mGy, DLP = ( 1412.62 ) mGycm TECHNIQUE: Transaxial images were obtained from the dome of the diaphragm to the symphysis pubis with oral contrast. Oral and amp; IV Readi-CAT and amp; 100mL Isovue-300 was administered. Sagittal and coronal images were reconstructed. Individualized dose optimization techniques were used for this CT. COMPARISON: Comparison is made with prior study dated 07/30/2018. FINDINGS: Stable increased linear markings at the right lung base suggestive of scarring. The visualized portions of the heart are within normal limits. Normal liver. Normal gallbladder and extrahepatic biliary system. Normal spleen. Normal pancreas. Normal bilateral adrenal glands. Normal right kidney. Without significant, there is a multiloculated complex cystic nodule arising from the left adrenal gland with rim calcifications. This may represent sequela of prior left adrenal gland hemorrhage. There is a small hiatal hernia. Normal small intestine. Normal colon. The appendix is visualized and appears normal. There is diffuse atherosclerotic calcification of the abdominal aorta with mild aneurysmal dilatation. An endoluminal stent graft is seen with the mural thrombus. The endoluminal stent grafting is patent. The [place] aorta as a transverse dimension of 4.7 cm.Normal inferior vena cava. Normal retroperitoneum. Normal urinary bladder. Normal abdominal wall. There are diffuse degenerative changes of the visualized lumbar spine. The patient is status post laminectomy and fusion at the L5-S1 level. CT/Abdomen/Pelvis WITH Contrast IMPRESSION: Stable examination. Electronically Signed: Dario Barrientos, at 11:16 EST , Service support ,
== END ==
PROVIDERS: PCP Family Medicine; Referring Provider Family Medicine; Visit Provider Family Medicine
DX: R10.9 Unspecified abdominal pain (principal)
CPT/HCPCS: 74177; Q9967

== ENCOUNTER → 2020-06-16 11:08 | Outpatient (CLI) | payer MEDICARE, SELFPAY ==
[2019-04-23 10:52] VITALS: BMI 33.3
--- NOTE | 2020-06-16 11:09 | BI_ITS ---
MAMMOGRAPHY - BILATERAL SCREENING REASON FOR EXAM: Female, 70 years old. Routine annual screening examination. PERTINENT HISTORY: Non-contributory. TECHNIQUE: Digital bilateral breast tha (3D mammographic acquisition) in the CC and MLO projections. 2-D mediolateral oblique (MLO) and craniocaudad (CC) views of both breasts were obtained. CAD: Full Field Digital Mammography with Computer Added Detection was performed. COMPARISON: Comparison is made with prior study dated 06/13/2019 and 06/12/2018. FINDINGS: Breast Composition: There are scattered areas of fibroglandular density. There are no dominant masses or suspicious calcifications. Stable benign-appearing bilateral axillary lymph nodes. No other significant abnormalities are identified. There has been no significant change since the prior study. BI/SCREEN MAMM (CAD) W/THA BILAT IMPRESSION: Stable bilateral screening mammogram. Yearly follow-up mammogram recommended. (A) ASSESSMENT CATEGORY: BIRADS Category 2: Benign. A letter regarding these results will be sent to the patient by the facility within 30 days. Approximately 10% of breast cancers are not detected by mammography. A normal mammogram should not delay biopsy of a clinically suspicious abnormality. [id number] Electronically Signed: Dario Barrientos, at 13:00 EST , Service support ,
== END ==
PROVIDERS: PCP Family Medicine; Referring Provider Family Medicine; Visit Provider Family Medicine
DX: Z12.31 Encounter for screening mammogram for malignant neoplasm of breast (principal)
CPT/HCPCS: 77063; 77067

== ENCOUNTER → 2020-08-13 07:41 | Outpatient (CLI) | payer MEDICARE, SELFPAY ==
[2019-04-23 10:52] VITALS: BMI 33.3
--- NOTE | 2020-08-13 07:44 | AAVD_ITS ---
Reason For Study: AAA w/ repair Aorta Measurements Aorta Doppler Measurements Proximal aorta measures1.90 x 1.90cm. in cross- Peak systolic flow velocities within the proximal sectional axis. aorta measure 76.9 cm/sec. Proximal aorta measures1.90cm. in longitudinal Peak systolic flow velocities within the mid aorta axis. measure 60.9 cm/sec. Mid aorta measures3.03 x 3.03cm. in cross- Distal, Limb 1, 68.3 cm/sec. sectional axis. Distal, Limb 2, 54.8 cm/sec. Mid aorta measures2.93cm. in longitudinal axis. Distal residual sac measures 3.96 x 4.14 x 4.07 cm. Distal, Limb 1, 1.15 x 1.17 x 1.15 cm. Distal, Limb 2, 1.17 x 1.17 x 1.15 cm. Left Iliac Artery Left iliac artery measures 0.86 x 0.82 cm. in the cross-sectional axis. Left iliac artery measures 0.82 cm. in the longitudinal axis. Peak systolic velocity in the left iliac artery measures 105.4 cm/sec. Right Iliac Artery Right iliac artery measures 0.94 x 0.94 cm. in the cross-sectional axis. Right iliac artery measures 0.94 cm. in the longitudinal axis. Peak systolic velocity in the right iliac artery measures 150.7 cm/sec. Procedure Aorta IVC Iliac vasculature or bypass grafts [id number]. Exam performed in department. Interpretation Summary Patent endograft and no obvious endoleak. Residual sac 4.1cm. Ordering Physician: Timothy Jo Referring Physician: Herbert Simpson Performed By: Lashawn Rolon RVT
--- NOTE | 2020-08-13 07:45 | CDU_ITS ---
Reason For Study: Carotid stenosis Rt. Velocities/BP Lt. Velocities/BP Prox CCA 79.9/10.8 cm/sec. Prox CCA 72.9/15.7 cm/sec. Mid CCA 76/13.4 cm/sec. Mid CCA 70.7/19 cm/sec. Dist CCA 73.4/14.7 cm/sec. Dist CCA 42.1/10.2 cm/sec. Prox ICA 73.4/12.1 cm/sec. Prox ICA 41/13.5 cm/sec. Mid ICA 54.2/14.6 cm/sec. Mid ICA 95.9/16.8 cm/sec. Dist ICA 102.3/26.2 cm/sec. Dist ICA 91.5/20.1 cm/sec. Rt. ICA/CCA = 1.3. Lt. ICA/CCA = 1.4. Prox ECA 102.1/9.5 cm/sec. Prox ECA 41/13.5 cm/sec. Rt. Vert. 46.6/15.4 cm/sec. Lt. Vert. 55.3/12.4 cm/sec. Right Extracranial There is homogeneous, smooth atherosclerotic plaque noted in the right common carotid artery. There is intimal thickening but no significant atherosclerotic plaque noted in the right internal carotid artery. There is intimal thickening but no significant atherosclerotic plaque noted in the right external carotid artery. Antegrade flow is noted in the right vertebral artery. Left Extracranial There is homogeneous, smooth atherosclerotic plaque noted in the left common carotid artery. There is heterogeneous, irregular atherosclerotic plaque noted in the left internal carotid artery. The left external carotid artery is not well visualized. Antegrade flow is noted in the left vertebral artery. Procedure Carotid Duplex 42862. This is a Carotid Duplex examination using B-mode, color flow and specral Doppler. Exam performed in department. Interpretation Summary Mild (<50%) stenosis right extracranial internal carotid. Mild (<50%) stenosis left extracranial internal carotid. Flow within the vertebral arteries is antegrade bilaterally. Ordering Physician: Timothy Jo Referring Physician: Herbert Simpson Performed By: Lashawn Rolon RVT
--- NOTE | 2020-08-13 07:45 | ART_ITS ---
Reason For Study: Atherosclerosis Procedure A bilateral lower extremity continuous wave Doppler with analog waveform analysis and ankle brachial indexes. Left Segmental Pressures Left brachial= 139mmHg. Left posterior tibial artery = 108mmHg. Left dorsalis pedis artery = 95mmHg. The left dorsalis pedis waveforms are biphasic. The left posterior tibial artery waveforms are biphasic. Right Segmental Pressures Right brachial= 135mmHg. Right posterior tibial artery = 82mmHg. Right dorsalis pedis artery = 79mmHg. The right dorsalis pedis waveforms are monophasic. The right posterior tibial artery waveforms are biphasic. Indices The right ankle brachial index by the dorsalis pedis is 0.57. The right ankle brachial index by the posterior tibial artery is 0.59. The left ankle brachial index by the dorsalis pedis is 0.78. The left ankle brachial index by the posterior tibial artery is 0.68. Interpretation Summary Bilateral moderate occlussive disease at rest [facility] ROLANDA 0.59 and 0.78. Ordering Physician: Timothy Jo Referring Physician: Herbert Simpson Performed By: Lashawn Rolon RVT
== END ==
PROVIDERS: PCP Family Medicine; Referring Provider Surgery Vascular Surgery; Visit Provider Surgery Vascular Surgery
DX: I65.23 Occlusion and stenosis of bilateral carotid arteries (principal); I70.213 Atherosclerosis of native arteries of extremities with intermittent claudication, bilateral legs; Z48.812 Encounter for surgical aftercare following surgery on the circulatory system; I71.4 Abdominal aortic aneurysm, without rupture; F17.200 Nicotine dependence, unspecified, uncomplicated
CPT/HCPCS: 93880; 93922; 93978

== ENCOUNTER → 2020-09-16 09:59 | Outpatient (CLI) | payer MEDICARE, SELFPAY ==
[2019-04-23 10:52] VITALS: BMI 33.3
[2020-09-17 20:10] LABS: Endomysial Antibody IgA Negative (Negative)
[2020-09-18 11:37] LABS: Immunoglobulin A 253 mg/dL (64-422); t-Transglutaminase IgA <2 U/mL (0-3)
== END ==
PROVIDERS: PCP Family Medicine; Referring Provider Internal Medicine Gastroenterology; Visit Provider Internal Medicine Gastroenterology
DX: R19.7 Diarrhea, unspecified (principal)
CPT/HCPCS: 36415; 82784; 83516; 86140; 86255

== ENCOUNTER → 2020-09-29 09:44 | Outpatient (CLI) | payer MEDICARE, SELFPAY ==
[2019-04-23 10:52] VITALS: BMI 33.3
--- NOTE | 2020-09-29 09:45 | ADU_ITS ---
Reason For Study: atherosclerosis Right Velocities Left Velocities Ext. Iliac Artery, dist = 149.1 cm./sec. Ext Iliac Artery, dist = 144 cm./sec. Common Femoral Artery, mid = 128.4 cm./sec. Common Femoral Artery, mid = 111.1 cm./sec. Supf Femoral Artery, prox = 198.5 cm./sec. Supf. Femoral Artery, prox = 117.6 cm./sec. Supf Femoral Artery, mid = 86.8 cm./sec. Supf. Femoral Artery, mid = 64.9 cm./sec. Supf Femoral Artery, dist. = 224.3 cm./sec. Branch at mid/dist SFA 97.7 cm/s. Profunda Femoral Artery = 154.3 cm./sec. Supf. Femoral Artery, dist = 60.5 cm./sec. Popliteal Artery, prox. = 79.2 cm./sec. Profunda Femoral Artery = 67.2 cm./sec. Popliteal Artery, mid = 29.2 cm./sec. Popliteal Artery, proximal, = 54.1 cm./sec. Popliteal Artery, dist = 32.5 cm./sec. Popliteal Artery, mid = 37.6 cm./sec. Post. Tibial Artery, prox = 21.5 cm./sec. Popliteal Artery, distal = 24.8 cm./sec. Post. Tibial Artery, mid = 19.3 cm./sec. Ant.Tibial Artery, prox = 33.6 cm./sec. Post. Tibial Artery, dist = 13.8 cm./sec. Ant Tibial Artery, mid = 39.1 cm./sec. Peroneal Artery, prox = 27.0 cm./sec. Ant. Tibial Artery, distal = 44.6 cm./sec. Peroneal Artery, mid = 36.9 cm./sec. Post. Tibial Artery, prox = 34.0 cm./sec. Peroneal Artery,dist = 27.0 cm./sec. Post Tibial Artery, mid = 37.6 cm./sec. Ant. Tibial Artery, prox = 23.7 cm./sec. Post Tibial Artery, dist. = 41.2 cm./sec. Ant. Tibial Artery, mid = 29.2 cm./sec. Peroneal Artery, prox = 23.7 cm./sec. Ant. Tibial Artery, dist = 23.7 cm./sec. Peroneal Artery, mid = 28.1 cm./sec. Incidental finding of DVT in the CFV, FV, POP V, Peroneal Artery,dist. = 30.3 cm./sec. T/P Trunk, Gastroc V, Soleus V, PTV, and Peroneal V. DVT in the CFV appears to be loosley attached. Prelim to Dr. Jo. Pt to go to ED. Interpretation Summary Bilateral lower extremities with no stenosis and good flow. Incidental extensive left leg DVT. Ordering Physician: Timothy Jo Performed By: Clay Castro, RVT
== END ==
PROVIDERS: PCP Family Medicine; Referring Provider Surgery Vascular Surgery; Visit Provider Surgery Vascular Surgery
DX: I77.1 Stricture of artery (principal); I70.213 Atherosclerosis of native arteries of extremities with intermittent claudication, bilateral legs; I65.23 Occlusion and stenosis of bilateral carotid arteries; I71.4 Abdominal aortic aneurysm, without rupture; F17.200 Nicotine dependence, unspecified, uncomplicated; I10 Essential (primary) hypertension; K21.9 Gastro-esophageal reflux disease without esophagitis; E78.00 Pure hypercholesterolemia, unspecified
CPT/HCPCS: 93925

== ENCOUNTER 2020-09-29 10:50 | Inpatient (IN) | payer MEDICARE, SELFPAY ==
[2019-04-23 10:52] VITALS: BMI 33.3
[2020-09-29] VITALS (7 sets, daily range): BP systolic 102–136; BP diastolic 59–66; PULSE 85–104; RESP 16–22; TEMP 36.3–36.8; O2SAT 93–98; BMI 34.3; BMI 34.1
--- NOTE | 2020-09-29 11:26 | ED.DCSUM_ITS ---
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 Context: Gradual Onset Timing: Continuous Quality: Discomfort Location: Right lower extremity and symptoms of claudication Current Severity: Mild Maximum Severity: Moderate Worsened by: Nothing specific Relieved by: Nothing Associated Symptoms: Symptoms of claudication Narrative: Patient is a 70-year-old woman who had an outpatient arterial duplex ultrasound. This reveals peripheral arterial disease. Incidental finding was significant DVT involving the common femoral vein down past the trifurcation and involving the peroneal vein, gastrocnemius, soleus and posterior tibial vein. The clot in the common femoral is very loosely attached and concern for embolization. Patient denies shortness of breath, pleuritic chest pain or dyspnea on exertion. She is a smoker. She denies fever, chills night sweats. Denies headache, visual, ocular auditory symptoms. She denies upper respiratory infectious symptoms. She denies GI symptoms. She denies urologic symptoms. Prior similar symptoms: No Recent Illness/Hospitalization: Yes - Patient work-up for peripheral arterial disease - Past Medical History (1) Uterine fibroid Status: Acute (2) Atherosclerosis of [place] arteries of extremities with intermittent claudication, bilateral legs Status: Chronic (3) Carotid artery stenosis Status: Chronic Comment: sees Dr. Jo (4) Essential hypertension Status: Chronic (5) Hyperlipidemia Status: Chronic (6) Peripheral vascular disease Status: Chronic Past Medical History - Allergies and Home Meds Allergies/Adverse Reactions: Allergies naproxen [From Naprosyn] Allergy (Verified 09/29/20 10:53) Shortness of breath Primary Care Physician: Herbert Simpson DO [Primary Care Provider] - Prior records reviewed: Yes Surgical History: - - Prior records reviewed and noncontributory Lives: Spouse/ Significant Other Smoking Status: Light Smoker (<10/day) Alcohol: None Drugs: None Review of Systems General: Denies: Chills, Fever, Malaise, Subjective, Sweats Eyes: Denies: Visual changes - bilaterally ENT: Denies: Rhinorrhea, Sore throat Cardiovascular: Denies: Chest pain, Palpitations, Heart racing Respiratory: Denies: Dyspnea, Cough, Dyspnea on exertion Gastrointestinal: Denies: Abdominal pain, Nausea, Vomiting, Diarrhea, Melena, Hematochezia Genitourinary: Denies: Dysuria, Hematuria, Frequency Musculoskeletal: Reports: Swelling, Extremity Pain. Denies: Myalgias, Arthralgias, Neck pain, Back pain, -, - Skin: Denies: Rash, Wounds Neurological: Denies: Headache, Weakness, Numbness Hematologic: Denies: Easy bruising, Easy bleeding Allergy: Denies: Uticaria Physical Exam Vital Signs/Narrative: Vital Signs Temp Pulse Resp BP Pulse Ox 09/29/20 10:51 97.3 F L 104 H 16 136/65 H 98 Inital Vital Signs reviewed: Yes General: Well nourished, Well developed, No Acute Distress Head: Normocephalic, Atraumatic Eyes: Perrl, EOMI ENT: Moist mucous membranes, No rhinorrhea Neck: Supple, Nontender Cardiovascular: Regular rate, Regular rhythm, No murmurs Respiratory: No distress, CTA bilaterally, Chest nontender Abdomen: Soft, Nontender, Nondistended, Normal bowel sounds Back: Nontender, Normal Inspection Extremities: - - Refill is normal. There is flow. Pulses not palpable. There is significant swelling the right lower extremity from the proximal thigh to the ankle. Findings are consistent with significant DVT.. Negative for: Nontender, No edema Skin: Normal color, No rash Neurological: Alert, Oriented x3, Cranial nerves II-XII grossly intact, Normal Strength, Normal Sensation Psychological: Normal affect, Normal Mood Diagnostic/Tx/Re-eval Laboratory Results 09/29/20 09/29/20 09/29/20 11:25 11:25 11:25 WBC 12.0 H RBC 4.59 Hgb 14.7 Hct 45.5 MCV 99.1 H MCH 32.0 MCHC 32.3 RDW Std Deviation 50.1 H RDW Coeff of Sean 13.9 Plt Count 324 MPV 9.1 Immature Gran % (Auto) 0.200 Neut % (Auto) 73.3 H Lymph % (Auto) 18.9 L [place] % (Auto) 6.2 Eos % (Auto) 0.9 Baso % (Auto) 0.5 Absolute Neuts (auto) 8.8 H Absolute Lymphs (auto) 2.27 Nucleated RBC % 0 PT 12.3 INR 1.0 APTT 24.9 Sodium 139 Potassium 4.2 Chloride 108 H Carbon Dioxide 24.0 Anion Gap 7 BUN 16 Creatinine 1.09 H Estim Creat Clear Calc 40.29 Est GFR (MDRD) Af Amer 63 Est GFR (MDRD) Non-Af 52 L BUN/Creatinine Ratio 14.7 Glucose 85 Calcium 9.7 Blood work reveals a creatinine of 1.09 with an estimated GFR of 52. - Rhythm Strip Rhythm Strip: Sinus Rhythm Rate: 96 Ectopy: None - Medical Decision Making Case was discussed with Dr. Jo regarding possible filter placement. He recommended IV heparin to be converted to oral meds in 3 days. It was his medical opinion the patient does not need a filter at this time. Baseline blood work was obtained as well as PT/INR and PTT. Once laboratory results are available for review we will contact hospitalist for admission. ED Disposition - Plan for ED Patient: Disposition: Acute Care Hospital [facility] Diagnosis: Deep vein thrombosis (DVT) of proximal vein of right lower extremity, Acute deep vein thrombosis (DVT) of popliteal vein of right lower extremity, Acute deep vein thrombosis (DVT) of distal end of right lower extremity Referrals: Herbert Simpson DO [Primary Care Provider] -
[2020-09-29 11:33] LABS: Absolute Lymphocyte Count 2.27 X10^3/uL (0.83-4.51); Absolute Neutrophil Count 8.8 X10^3/uL (2.0-7.7); Basophil# 0.06 X10^3/uL; Basophil% 0.5 % (0-1); Eosinophil# 0.11 X10^3/uL; Eosinophils% 0.9 % (0-5); Hematocrit 45.5 % (37-47); Hemoglobin 14.7 g/dL (12.0-15.0); Lymphocyte # 2.27 X10^3/ul (4.0); Lymphocyte % 18.9 % (19-41); Mean Corp Hgb Conc 32.3 g/dL (32-36); Mean Corpuscular Volume 99.1 fL (81-99); Mean Platelet Vol. 9.1 fl (6.2-12.0); Monocyte# 0.74 X10^3/uL; Monocyte% 6.2 % (0-10); NRBC Flagged by Analyzer 0 % (0-5); Neutrophil # 8.79 X10^3/uL (2.7-7.7); Neutrophil % 73.3 % (47-70); Platelet Count 324 K/mm3 (150-450); RBC Distribution Width CV 13.9 % (11.6-14.6); RBC Distribution Width SD 50.1 fl (35.1-43.9); Red Blood Count 4.59 M/mm3 (4.2-5.4)
[2020-09-29 11:40] LABS: Partial Thromboplast Time 24.9 Seconds (24.1-36.2)
[2020-09-29] MEDS: HEPARIN/D5w 25,000 UNITS 25,000 UNITS/250 ML IV.SOLN. 12 UNITS IV (11:40)
[2020-09-29] MEDS: Heparin Injection (Vial) 5,000 UNIT/ML VIAL 6000 UNIT IV (11:41)
[2020-09-29 11:48] LABS: Anion Gap 7 (5-15); BUN 16 mg/dL (7-18); BUN/Creat Ratio 14.7 RATIO (10-20); Calcium,Total 9.7 mg/dL (8.5-10.1); Chloride 108 mmol/L (98-107); Creatinine, Serum 1.09 mg/dL (0.55-1.02); EST Glomerular Filtration Rate 52 mL/min (>60); Est Glom Filt Rate - Afr Amer 63 mL/min (>60); Estimated Creatinine Clearance 40.29 ml/min; Glucose 85 mg/dL (74-106); Potassium 4.2 mmol/L (3.5-5.1); Prothrombin Time (Protime)PT. 12.3 SECONDS (11.7-14.9); Sodium Level 139 mmol/L (136-145)
--- NOTE | 2020-09-29 12:29 | NURSING ---
DR SOTO FOR DR RIVERA
--- NOTE | 2020-09-29 12:38 | NURSING ---
PCU [place] UNSTABLE PROXIMAL DVT, LOWER EXTREMITY RIGHT
--- NOTE | 2020-09-29 14:20 | PCM.HP.STD ---
History of Present Illness Date of Admission: 09/29/20 Chief Complaint: Abnormal imaging The patient is a 70 year old F with a PMH as below who presented to the hospital because of abnormal imaging. She has a history of AAA repair and for completeness sake her vascular surgeon recommended having Doppler studies to make sure there is no further occlusions in her lower extremities. She was found to have extensive DVT in her right lower extremity which was incidental. The DVT extends from the common femoral vein down into the peroneal vein and gastrocnemius as well as soleus and posterior tibial vein. She states that she has noticed she had some increased swelling on the right with some calf pain on the right compared to the left. In the femoral vein it is felt that the clot is very loosely attached and there was concern for possible embolization. She was sent to the ER by the vascular surgeon who recommended a heparin drip for a few days with transitioning to Eliquis. In the ER she had no other complaints vital signs are unremarkable she does have a little bit of a leukocytosis, however this could be explained with her extensive DVT. Past Medical History Past Medical History (Chronic Problems): Chronic Problems (Last Reviewed 04/22/20 @ 11:[address] Ramón Engle MD) Carotid artery stenosis (Chronic) sees Dr. Jo Peripheral vascular disease (Chronic) Atherosclerosis of [place] arteries of extremities with intermittent claudication, bilateral legs (Chronic) Essential hypertension (Chronic) Hyperlipidemia (Chronic) Medical History: Medical History (Last Reviewed 04/22/20 @ 11:[address] Ramón Engle MD) Carotid artery stenosis (Chronic) I65.[address] Jo Peripheral vascular disease (Chronic) I73.9 Atherosclerosis of [place] arteries of extremities with intermittent claudication, bilateral legs (Chronic) I70.213 Essential hypertension (Chronic) I10 Hyperlipidemia (Chronic) E78.5 Adrenal mass E27.8 Fatty liver disease, nonalcoholic K76.0 GERD (gastroesophageal reflux disease) K21.9 Osteoarthritis M19.90 AAA (abdominal aortic aneurysm) I71.4 Peripheral vascular angioplasty status Z98.62 stent to left distal SFA 2010 Allergies naproxen [From Naprosyn] Allergy (Verified 09/29/20 13:25) Shortness of breath Home Medications: Ambulatory Orders Medication Instructions Recorded Lisinopril [Zestril] 20 mg PO QHS 07/10/15 Omeprazole [Prilosec] 40 mg PO DAILY 07/10/15 Aspirin [Aspir-Low] 81 mg PO QHS 10/25/18 Cilostazol 100 mg PO BID 10/25/18 atorvastatin 40 mg tablet 40 mg PO QHS 04/23/19 Surgical History: Surgical History (Last Reviewed 04/22/20 @ 11:[address] Ramón Engle MD) History of amputation of left great toe Z89.412 after stent H/O shoulder replacement Z96.619 History of AAA (abdominal aortic aneurysm) repair Onset Date: 09/26/17 Z98.890 History of bunionectomy of left great toe Z98.890 History of carpal tunnel release of both wrists Z98.890 History of left knee replacement Onset Date: ~06/08/11 Z96.652 History of right hip replacement Z96.641 History of rotator cuff surgery Z98.890 History of spinal surgery Onset Date: ~1999 Z98.890 Surgical History: - - Prior records reviewed and noncontributory Lives: Spouse/ Significant Other Smoking Status: Current every day smoker Tobacco Use: Cigarettes Alcohol: None Drugs: None - *Family History Maternal Family History: Family History (Last Reviewed 04/22/20 @ 11:[address] Ramón Engle MD) Brother Cancer Mother CAD (coronary artery disease) Hypertension Father CAD (coronary artery disease) Review of Systems Constitutional: Denies: Chills, Fever, Weight Change HEENT: Denies: Head Aches, Sinus Congestion, Sinus Drainage Cardiovascular: Reports: Edema - Right. Denies: Chest Pain, Palpitations Respiratory: Denies: Cough, Shortness of breath at rest, Sputum production Gastrointestinal: Denies: Abdominal Pain, Nausea, Vomiting Genitourinary: Denies: Dysuria Musculoskeletal: Reports: Leg Pain - Right. Denies: Joint Pain, Joint Tenderness Skin: Denies: Rash, Wounds Neurological: Denies: Numbness, Tingling, Focal weakness Psychiatric: Denies: Anxiety, Depression Hematologic/ Lymphatic: Denies: Easy Bruising, Easy Bleeding VTE Information - Inpt Only VTE Present on Admission: No Patient Problems: Active and Suspected Problems (Last Reviewed 04/22/20 @ 11:[address] Ramón Engle MD) Deep vein thrombosis (DVT) of proximal vein of right lower extremity (Acute) Acute deep vein thrombosis (DVT) of popliteal vein of right lower extremity (Acute) Acute deep vein thrombosis (DVT) of distal end of right lower extremity (Acute) Uterine fibroid (Acute) - Physical Exam Vitals/I&O's: Vital Signs Temp Pulse Resp BP Pulse Ox 98.2 F 93 18 127/64 H 98 09/29/20 13:11 09/29/20 13:11 09/29/20 13:11 09/29/20 13:11 09/29/20 13:11 Oxygen Delivery Method Room Air Weight: 198 lb 11.2 oz Body Mass Index (BMI) 34.1 General: Alert, Oriented x3, Cooperative, No apparent distress HEENT: Atraumatic, PERRLA, EOMI, Normocephalic Oral: Moist Mucosa Neck: Supple, No JVD Lungs: Clear to auscultation, Normal air movement, No rhonchi, No wheeze, No rales Cardiovascular: Regular rate, Regular Rhythm, Normal S1, Normal S2, No murmurs Abdomen: Soft, Non Tender, Non-Distended, No Hepato-splenomegaly Extremities: Capillary Refill Less than 3 Seconds, Diminished Peripheral Pulses, Edema - Trace edema on the right compared to the left Skin: No rashes, No breakdown Musculoskeletal: No Tenderness to Palpation of Joints or Extremities Neurological: Neuro grossly intact, Sensory exam intact to light touch and pain Psych/Mental Status: Normal Affect, Appropriate Laboratory Results 09/29/20 11:25: WBC 12.0 H, RBC 4.59, Hgb 14.7, Hct 45.5, MCV 99.1 H, MCH 32.0, MCHC 32.3, RDW Std Deviation 50.1 H, RDW Coeff of Sean 13.9, Plt Count 324, MPV 9.1, Immature Gran % (Auto) 0.200, Neut % (Auto) 73.3 H, Lymph % (Auto) 18.9 L, [place] % (Auto) 6.2, Eos % (Auto) 0.9, Baso % (Auto) 0.5, Absolute Neuts (auto) 8.8 H, Absolute Lymphs (auto) 2.27, Nucleated RBC % 0 09/29/20 11:25: Sodium 139, Potassium 4.2, Chloride 108 H, Carbon Dioxide 24.0, Anion Gap 7, BUN 16, Creatinine 1.09 H, Estim Creat Clear Calc 40.29, Est GFR (MDRD) Af Amer 63, Est GFR (MDRD) Non-Af 52 L, BUN/Creatinine Ratio 14.7, Glucose 85, Calcium 9.7 09/29/20 11:25: PT 12.3, INR 1.0, APTT 24.9 Current Medications Acetaminophen (Acetaminophen 325 Mg Tablet) 650 mg PO Q6H PRN PRN PRN Reason: Pain Score 1-10/Temp > 100.7 F Heparin Sodium (Porcine) (Heparin Injection (Vial) 5,000 Unit/Ml Vial) 0 unit IV UD PRN; Protocol PRN Reason: dose adjustment Sodium Chloride () 250 mls @ 15 mls/hr IV .[id number] PRN PRN Reason: Saline Flush Sodium Chloride () 250 mls @ 15 mls/hr IV .[id number] PRN PRN Reason: Additional IVPB Infusion Heparin Sodium/Dextrose () 25,000 units in 250 mls @ 10 mls/hr IV .Q25H [facility]; Protocol Last Admin: 09/29/20 13:30 Dose: Not Given Documented by: Melatonin (Melatonin 3 Mg Tablet) 3 mg PO QHS PRN PRN PRN Reason: INSOMNIA Nicotine (Nicotine 21 Mg Patch) 21 mg TD DAILY [facility] Ondansetron HCl (Ondansetron 4 Mg/2 Ml Vial) 4 mg IV Q8H PRN PRN PRN Reason: NAUSEA/VOMITING Sodium Chloride (0.9% Saline Lock 10 Ml Syringe) 10 - 40 ml IV UD PRN PRN Reason: SALINE FLUSH Assessment/Plan All Active Problems (Last Reviewed 04/22/20 @ 11:[address] Ramón Engle MD) Deep vein thrombosis (DVT) of proximal vein of right lower extremity (Acute) Acute deep vein thrombosis (DVT) of popliteal vein of right lower extremity (Acute) Acute deep vein thrombosis (DVT) of distal end of right lower extremity (Acute) Chest pain (Acute) Uterine fibroid (Acute) Endometrial thickening on ultrasound (Acute) 1. Incidental finding of extensive DVT in the right lower extremity/peripheral artery disease/tobacco abuse -She does have a history for AAA repair, and so the vascular study today was to evaluate for further occlusive disease -We will start her on a heparin drip and transition to Eliquis in a day or 2 -She will follow up with vascular surgery as an outpatient -Pulses are diminished which is consistent with a peripheral artery disease however she does have palpable pulses especially on the right -Expressed her that she needs to quit smoking, will start her on nicotine patch -We will hold her aspirin while on the heparin drip, continue with her Lipitor, cilostazol 2. HTN/HLD -Blood pressures are stable -Continue with lisinopril and Lipitor 3. GERD -Stable -Continue with PPI DVT: Heparin drip Inpatient E&M: 77828 Init Hosp L3
[2020-09-29 18:55] LABS: Partial Thromboplast Time 112.3 Seconds (24.1-36.2)
[2020-09-29] MEDS: HEPARIN/D5w 25,000 UNITS 25,000 UNITS/250 ML IV.SOLN. 9 UNITS IV (20:34)
[2020-09-29] MEDS: Atorvastatin Calcium 40 MG Tablet PO (22:42)
[2020-09-29] MEDS: Lisinopril 20 MG Tablet PO (22:42)
[2020-09-29] MEDS: rifAXIMin 550 MG Tablet PO (22:43)
[2020-09-30 02:30] LABS: Absolute Lymphocyte Count 2.41 X10^3/uL (0.83-4.51); Absolute Neutrophil Count 5.4 X10^3/uL (2.0-7.7); Basophil# 0.04 X10^3/uL; Basophil% 0.5 % (0-1); Eosinophil# 0.19 X10^3/uL; Eosinophils% 2.2 % (0-5); Hematocrit 38.5 % (37-47); Hemoglobin 12.5 g/dL (12.0-15.0); Lymphocyte # 2.41 X10^3/ul (4.0); Lymphocyte % 27.6 % (19-41); Mean Corp Hgb Conc 32.5 g/dL (32-36); Mean Corpuscular Hgb 32.1 pg (27.0-32.0); Mean Platelet Vol. 9.2 fl (6.2-12.0); Monocyte# 0.67 X10^3/uL; Monocyte% 7.7 % (0-10); NRBC Flagged by Analyzer 0 % (0-5); Neutrophil # 5.39 X10^3/uL (2.7-7.7); Neutrophil % 61.8 % (47-70); Platelet Count 294 K/mm3 (150-450); RBC Distribution Width CV 13.8 % (11.6-14.6); RBC Distribution Width SD 49.8 fl (35.1-43.9); Red Blood Count 3.89 M/mm3 (4.2-5.4); White Blood Count 8.7 K/mm3 (4.4-11.0)
[2020-09-30 02:41] LABS: Partial Thromboplast Time 53.2 Seconds (24.1-36.2)
[2020-09-30 02:44] LABS: Anion Gap 5 (5-15); BUN 23 mg/dL (7-18); BUN/Creat Ratio 19.5 RATIO (10-20); Calcium,Total 9.1 mg/dL (8.5-10.1); Chloride 111 mmol/L (98-107); Creatinine, Serum 1.18 mg/dL (0.55-1.02); EST Glomerular Filtration Rate 48 mL/min (>60); Est Glom Filt Rate - Afr Amer 58 mL/min (>60); Estimated Creatinine Clearance 37.21 ml/min; Glucose 93 mg/dL (74-106); Potassium 4.2 mmol/L (3.5-5.1); Sodium Level 142 mmol/L (136-145)
[2020-09-30 05:00] VITALS: BP 109/71; PULSE 82; RESP 16; TEMP 36.8; O2SAT 96
[2020-09-30] MEDS: rifAXIMin 550 MG Tablet PO ×3 (06:25→21:00)
[2020-09-30 09:27] VITALS: BP 122/59; PULSE 85; RESP 18; TEMP 36.3; O2SAT 98
[2020-09-30] MEDS: Cilostazol 50 MG Tablet 100 MG PO ×2 (09:33→16:22)
[2020-09-30] MEDS: Pantoprazole Sodium 40 MG Tablet PO (09:33)
[2020-09-30 09:57] LABS: Partial Thromboplast Time 55.2 Seconds (24.1-36.2)
[2020-09-30] MEDS: HEPARIN/D5w 25,000 UNITS 25,000 UNITS/250 ML IV.SOLN. 10 UNITS IV (11:06)
--- NOTE | 2020-09-30 11:10 | CASEMGMT ---
JASMIN ESPINAL assessment: Face to Face with patient for initial transition planning/care coordination assessment. RN KYLIE introduced self and role at [facility], pt voices understanding and consents to assessment. Pt is sitting up in chair with in room. Pt is A/O x 4 and answers all questions appropriately at this time. Care providers, pharmacy, and demographics verified/updated. Presentation: Pt had arterial scan and DVT found Admitting dx: Extensive DVT and PAD PCP: Tatiana Specialists: Deysi,vascular; Teddy, pain mgmt Preferred Pharmacy: [facility] Insurance: [facility] Presciption Benefit: yes Living Will/HPOA: Pt has LW and HPOA on file at [facility]. Pt HPOA is Tony. LNOK: Tony Reddy Living Arrangements: Pt states she lives with in a 2 story home and states no concerns at home. Pt is I with ADL's. Transportation: Pt states drives self and states no transportation concerns. DME/HHC: Pt states she has a cane, walker and shower chair. Pt denies need for any further DME. Pt has not had HHC previously. Pt states no concerns with going home at time of dc. Pt is retired. Pt states she smokes a pack of cigarettes per day and drinks 6 beers on Saturdays. Pt states no further concerns/needs. CM to follow for any further dc planning/needs. Advised pt to ask for CM if any further questions/concerns/needs arise, voices understanding. Pt goal: Home Plan: Home
--- NOTE | 2020-09-30 11:40 | PN_ITS ---
Patient Problems: Active and Suspected Problems (Last Reviewed 04/22/20 @ 11:[address] Ramón Engle MD) Deep vein thrombosis (DVT) of proximal vein of right lower extremity (Acute) Acute deep vein thrombosis (DVT) of popliteal vein of right lower extremity (Acute) Acute deep vein thrombosis (DVT) of distal end of right lower extremity (Acute) Uterine fibroid (Acute) Subjective: Doing well, no issues overnight. Leg is stable with peripheral pulses. Vitals/I&O's: Vital Signs Temp Pulse Resp BP Pulse Ox 97.4 F L 85 18 122/59 H 98 09/30/20 09:27 09/30/20 09:27 09/30/20 09:27 09/30/20 09:27 09/30/20 09:27 Oxygen Delivery Method Room Air Weight: 198 lb 11.2 oz Body Mass Index (BMI) 34.1 Intake and Output for Last 24 Hours 09/28/20 09/29/20 09/30/20 23:59 23:59 23:59 Intake Total 327.6 / 327.6 138.9 / 138.9 Balance 327.6 / 327.6 138.9 / 138.9 General: Alert, Oriented x3, Cooperative, No apparent distress HEENT: Atraumatic, PERRLA, EOMI, Normocephalic Oral: Moist Mucosa Neck: Supple, No JVD Lungs: Clear to auscultation, Normal air movement, No rhonchi, No wheeze, No rales Cardiovascular: Regular rate, Regular Rhythm, Normal S1, Normal S2, No murmurs Abdomen: Soft, Non Tender, Non-Distended, No Hepato-splenomegaly Extremities: Capillary Refill Less than 3 Seconds, Diminished Peripheral Pulses, Edema - Trace edema on the right compared to the left Skin: No rashes, No breakdown Musculoskeletal: No Tenderness to Palpation of Joints or Extremities Neurological: Neuro grossly intact, Sensory exam intact to light touch and pain Psych/Mental Status: Normal Affect, Appropriate Laboratory Results 09/29/20 11:25: Sodium 139, Potassium 4.2, Chloride 108 H, Carbon Dioxide 24.0, Anion Gap 7, BUN 16, Creatinine 1.09 H, Estim Creat Clear Calc 40.29, Est GFR (MDRD) Af Amer 63, Est GFR (MDRD) Non-Af 52 L, BUN/Creatinine Ratio 14.7, Glucose 85, Calcium 9.7 09/29/20 11:25: PT 12.3, INR 1.0, APTT 24.9 09/29/20 17:43: APTT 112.3 H* 09/30/20 02:20: WBC 8.7, RBC 3.89 L, Hgb 12.5, Hct 38.5, MCV 99.0, MCH 32.1 H, MCHC 32.5, RDW Std Deviation 49.8 H, RDW Coeff of Sean 13.8, Plt Count 294, MPV 9.2, Immature Gran % (Auto) 0.200, Neut % (Auto) 61.8, Lymph % (Auto) 27.6, [place] % (Auto) 7.7, Eos % (Auto) 2.2, Baso % (Auto) 0.5, Absolute Neuts (auto) 5.4, Absolute Lymphs (auto) 2.41, Nucleated RBC % 0 09/30/20 02:20: Sodium 142, Potassium 4.2, Chloride 111 H, Carbon Dioxide 26.0, Anion Gap 5, BUN 23 H, Creatinine 1.18 H, Estim Creat Clear Calc 37.21, Est GFR (MDRD) Af Amer 58 L, Est GFR (MDRD) Non-Af 48 L, BUN/Creatinine Ratio 19.5, Glucose 93, Calcium 9.1 09/30/20 02:20: APTT 53.2 H 09/30/20 08:46: APTT 55.2 H Current Medications Acetaminophen (Acetaminophen 325 Mg Tablet) 650 mg PO Q6H PRN PRN PRN Reason: Pain Score 1-10/Temp > 100.7 F Atorvastatin Calcium (Atorvastatin Calcium 40 Mg Tablet) 40 mg PO QHS [facility] Last Admin: 09/29/20 22:42 Dose: 40 mg Documented by: Cilostazol (Cilostazol 50 Mg Tablet) 100 mg PO BIDAC [facility] Last Admin: 09/30/20 09:33 Dose: 100 mg Documented by: Heparin Sodium (Porcine) (Heparin Injection (Vial) 5,000 Unit/Ml Vial) 0 unit IV UD PRN; Protocol PRN Reason: dose adjustment Sodium Chloride () 250 mls @ 15 mls/hr IV .[id number] PRN PRN Reason: Saline Flush Sodium Chloride () 250 mls @ 15 mls/hr IV .C27T37H PRN PRN Reason: Additional IVPB Infusion Heparin Sodium/Dextrose () 25,000 units in 250 mls @ 10 mls/hr IV .Q25H [facility]; Protocol Last Admin: 09/30/20 11:06 Dose: 1,000 units/hr, 10 mls/hr Documented by: Lisinopril (Lisinopril 20 Mg Tablet) 20 mg PO QHS [facility] Last Admin: 09/29/20 22:42 Dose: 20 mg Documented by: Melatonin (Melatonin 3 Mg Tablet) 3 mg PO QHS PRN PRN PRN Reason: INSOMNIA Nicotine (Nicotine 21 Mg Patch) 21 mg TD DAILY [facility] Last Admin: 09/30/20 09:33 Dose: 21 mg Documented by: Ondansetron HCl (Ondansetron 4 Mg/2 Ml Vial) 4 mg IV Q8H PRN PRN PRN Reason: NAUSEA/VOMITING Pantoprazole Sodium (Pantoprazole Sodium 40 Mg Tablet) 40 mg PO DAILY [facility] Last Admin: 09/30/20 09:33 Dose: 40 mg Documented by: Rifaximin (Rifaximin 550 Mg Tablet) 550 mg PO TID [facility] Last Admin: 09/30/20 06:25 Dose: 550 mg Documented by: Sodium Chloride (0.9% Saline Lock 10 Ml Syringe) 10 - 40 ml IV UD PRN PRN Reason: SALINE FLUSH STROKE Vital Signs/Narrative: Vital Signs Temp Pulse Resp BP Pulse Ox 09/30/20 09:27 97.4 F L 85 18 122/59 H 98 Medical Necessity - Tobacco Use Smoking Status: Current every day smoker Tobacco Use: Cigarettes Assessment/Plan All Active Problems (Last Reviewed 04/22/20 @ 11:[address] Ramón Engle MD) Deep vein thrombosis (DVT) of proximal vein of right lower extremity (Acute) Acute deep vein thrombosis (DVT) of popliteal vein of right lower extremity (Acute) Acute deep vein thrombosis (DVT) of distal end of right lower extremity (Acute) Chest pain (Acute) Uterine fibroid (Acute) Endometrial thickening on ultrasound (Acute) 1. Incidental finding of extensive DVT in the right lower extremity/peripheral artery disease/tobacco abuse -She does have a history for AAA repair, and so the vascular study today was to evaluate for further occlusive disease -We will start her on a heparin drip and transition to Eliquis in a day or 2 -She will follow up with vascular surgery as an outpatient -Pulses are diminished which is consistent with a peripheral artery disease however she does have palpable pulses especially on the right -Expressed her that she needs to quit smoking, will start her on nicotine patch -We will hold her aspirin while on the heparin drip, continue with her Lipitor, cilostazol 2. HTN/HLD -Blood pressures are stable -Continue with lisinopril and Lipitor 3. GERD -Stable -Continue with PPI DVT: Heparin drip Inpatient E&M: [id number] Subs Hosp L2
[2020-09-30 15:18] VITALS: BP 115/56; PULSE 85; RESP 18; TEMP 36.4; O2SAT 94
[2020-09-30 15:56] LABS: Partial Thromboplast Time 48.5 Seconds (24.1-36.2)
[2020-09-30 20:18] VITALS: BP 108/35; PULSE 108; RESP 17; TEMP 36.6; O2SAT 97
[2020-09-30] MEDS: Atorvastatin Calcium 40 MG Tablet PO (21:00)
[2020-09-30] MEDS: Lisinopril 20 MG Tablet PO (21:00)
[2020-10-01 02:20] VITALS: BP 112/52; PULSE 80; RESP 18; TEMP 36.7; O2SAT 97
[2020-10-01 05:06] LABS: Partial Thromboplast Time 71.1 Seconds (24.1-36.2)
[2020-10-01] MEDS: rifAXIMin 550 MG Tablet PO (06:28)
[2020-10-01] MEDS: Cilostazol 50 MG Tablet 100 MG PO (06:28)
[2020-10-01 08:20] VITALS: BP 107/38; PULSE 93; RESP 18; TEMP 36.6; O2SAT 98
[2020-10-01] MEDS: Pantoprazole Sodium 40 MG Tablet PO (09:18)
--- NOTE | 2020-10-01 10:08 | PCM.DC ---
- Discharge Diagnoses Current Active Problems: Current Active and Chronic Problems (Last Reviewed 04/22/20 @ 11:[address] Ramón Engle MD) Deep vein thrombosis (DVT) of proximal vein of right lower extremity (Acute) Acute deep vein thrombosis (DVT) of popliteal vein of right lower extremity (Acute) Acute deep vein thrombosis (DVT) of distal end of right lower extremity (Acute) Carotid artery stenosis (Chronic) sees Dr. Jo Peripheral vascular disease (Chronic) Atherosclerosis of [place] arteries of extremities with intermittent claudication, bilateral legs (Chronic) Essential hypertension (Chronic) Hyperlipidemia (Chronic) Uterine fibroid (Acute) You will use the following diet at home:: Cardiac Your food should be the consistency of: Regular Your liquids should be the consistency of: Regular/Thin Discharge Activity: Return to Normal Activity Call your doctor if you observe: Fever of 101 or Higher, Shortness of breath, Dizziness, Fainting spells, Swelling in the ankles, Chest pain, Increased palpitations (irregular heartbeat) Allergies/Adverse Reactions: Allergies naproxen [From Naprosyn] Allergy (Verified 09/29/20 13:25) Shortness of breath Medications to take at Discharge Lisinopril [Zestril] 20 mg PO QHS 07/10/15 Omeprazole [Prilosec] 40 mg PO DAILY 07/10/15 Cilostazol 100 mg PO BID 10/25/18 atorvastatin 40 mg tablet 40 mg PO QHS 04/23/19 Rifaximin [Xifaxan] 550 mg PO TID 09/29/20 Apixaban [Eliquis] 10 mg PO BID #70 tab 10/01/20 Nicotine [Nicoderm Cq] 21 mg TD DAILY #30 patch 10/01/20 The following prescriptions were given: Apixaban [Eliquis] 10 mg PO BID #70 tab Transmission Status: Pending to [facility] Nicotine [Nicoderm Cq] 21 mg TD DAILY #30 patch Transmission Status: Pending to [facility] Primary Care Physician: Herbert Simpson DO [Primary Care Provider] - Please follow up with your Primary Care Physician in: 3-5 days Test Results: Test results from this visit will be discussed in further detail at your follow-up appointment, if applicable. Please Follow Up With: Timothy Jo MD When: 1-2 weeks
--- NOTE | 2020-10-01 10:33 | DS.PCM_ITS ---
Discharge Date and Diagnosis - Problem List Patient Problems: Active and Suspected Problems (Last Reviewed 04/22/20 @ 11:[address] Ramón Engle MD) Deep vein thrombosis (DVT) of proximal vein of right lower extremity (Acute) Acute deep vein thrombosis (DVT) of popliteal vein of right lower extremity (Acute) Acute deep vein thrombosis (DVT) of distal end of right lower extremity (Acute) Uterine fibroid (Acute) Date of Admission: 09/29/20 Date of Discharge: 10/01/20 - Primary Discharge Diagnosis Acute Problems: Active Problems (Last Reviewed 04/22/20 @ 11:[address] Ramón Engle MD) Deep vein thrombosis (DVT) of proximal vein of right lower extremity (Acute) Acute deep vein thrombosis (DVT) of popliteal vein of right lower extremity (Acute) Acute deep vein thrombosis (DVT) of distal end of right lower extremity (Acute) Uterine fibroid (Acute) - Secondary Discharge Diagnosis Chronic Problems: Chronic Problems (Last Reviewed 04/22/20 @ 11:[address] Ramón Engle MD) Carotid artery stenosis (Chronic) sees Dr. 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 Iliac Artery, dist = 149.1 cm./sec. Ext Iliac Artery, dist = 144 cm./sec. Common Femoral Artery, mid = 128.4 cm./sec. Common Femoral Artery, mid = 111.1 cm./sec. Supf Femoral Artery, prox = 198.5 cm./sec. Supf. Femoral Artery, prox = 117.6 cm./sec. Supf Femoral Artery, mid = 86.8 cm./sec. Supf. Femoral Artery, mid = 64.9 cm./sec. Supf Femoral Artery, dist. = 224.3 cm./sec. Branch at mid/dist SFA 97.7 cm/s. Profunda Femoral Artery = 154.3 cm./sec. Supf. Femoral Artery, dist = 60.5 cm./sec. Popliteal Artery, prox. = 79.2 cm./sec. Profunda Femoral Artery = 67.2 cm./sec. Popliteal Artery, mid = 29.2 cm./sec. Popliteal Artery, proximal, = 54.1 cm./sec. Popliteal Artery, dist = 32.5 cm./sec. Popliteal Artery, mid = 37.6 cm./sec. Post. Tibial Artery, prox = 21.5 cm./sec. Popliteal Artery, distal = 24.8 cm./sec. Post. Tibial Artery, mid = 19.3 cm./sec. Ant.Tibial Artery, prox = 33.6 cm./sec. Post. Tibial Artery, dist = 13.8 cm./sec. Ant Tibial Artery, mid = 39.1 cm./sec. Peroneal Artery, prox = 27.0 cm./sec. Ant. Tibial Artery, distal = 44.6 cm./sec. Peroneal Artery, mid = 36.9 cm./sec. Post. Tibial Artery, prox = 34.0 cm./sec. Peroneal Artery,dist = 27.0 cm./sec. Post Tibial Artery, mid = 37.6 cm./sec. Ant. Tibial Artery, prox = 23.7 cm./sec. Post Tibial Artery, dist. = 41.2 cm./sec. Ant. Tibial Artery, mid = 29.2 cm./sec. Peroneal Artery, prox = 23.7 cm./sec. Ant. Tibial Artery, dist = 23.7 cm./sec. Peroneal Artery, mid = 28.1 cm./sec. Incidental finding of DVT in the CFV, FV, POP V, Peroneal Artery,dist. = 30.3 cm./sec. T/P Trunk, Gastroc V, Soleus V, PTV, and Peroneal V. DVT in the CFV appears to be loosley attached. Prelim to Dr. Jo. Pt to go to ED. Interpretation Summary Bilateral lower extremities with no stenosis and good flow. Incidental extensive left leg DVT. Operations: None Procedures: None Summary of Care Provided: Per HPI: The patient is a 70 year old F with a PMH as below who presented to the hospital because of abnormal imaging. She has a history of AAA repair and for completeness sake her vascular surgeon recommended having Doppler studies to make sure there is no further occlusions in her lower extremities. She was found to have extensive DVT in her right lower extremity which was incidental. The DVT extends from the common femoral vein down into the peroneal vein and gastrocnemius as well as soleus and posterior tibial vein. She states that she has noticed she had some increased swelling on the right with some calf pain on the right compared to the left. In the femoral vein it is felt that the clot is very loosely attached and there was concern for possible embolization. She was sent to the ER by the vascular surgeon who recommended a heparin drip for a few days with transitioning to Eliquis. In the ER she had no other complaints vital signs are unremarkable she does have a little bit of a leukocytosis, however this could be explained with her extensive DVT. Hospital Course: 1. Extensive DVT in the right lower extremity/peripheral artery disease/tobacco [id number] female with a history of peripheral artery disease who follows with vascular surgery was having a Doppler done because of some leg cramping and some swelling on the right. She had a history of a AAA which was repaired so she states that she was undergoing the vascular studies just to make sure that there was not any further narrowing and the rest of her vasculature. At that time they found an extensive clot in her right system. She does have palpable pulses though they are diminished on the right. She was placed on a heparin drip and today was transitioned to p.o. Eliquis. She is doing well and continues to have sensation in her lower extremities therefore she was okay for discharge. I did discuss with her the plan for discharge she expressed understanding and was amenable to going home and would like to go home today. She understand that she needs to quit smoking and to that effect will continue with nicotine patch on discharge. We will continue with all of her home medications except her aspirin since we are adding Eliquis to her cilostazol. She will need to follow-up with her PCP as well as her vascular surgeon within the next 1 to 2 weeks. 2. Hypertension, hyperlipidemia, GERD all chronic medical conditions which complicate her care. Her home medications were continued where appropriate Patient Problems: Active and Suspected Problems (Last Reviewed 04/22/20 @ 11:[address] Ramón Engle MD) Deep vein thrombosis (DVT) of proximal vein of right lower extremity (Acute) Acute deep vein thrombosis (DVT) of popliteal vein of right lower extremity (Acute) Acute deep vein thrombosis (DVT) of distal end of right lower extremity (Acute) Uterine fibroid (Acute) - Physical Exam Vitals/I&O's: Vital Signs Temp Pulse Resp BP Pulse Ox 97.8 F 93 18 107/38 L 98 10/01/20 08:20 10/01/20 08:20 10/01/20 08:20 10/01/20 08:20 10/01/20 08:20 Oxygen Delivery Method Room Air Weight: 198 lb 11.2 oz Body Mass Index (BMI) 34.1 Intake and Output for Last 24 Hours 09/29/20 09/30/20 10/01/20 23:59 23:59 23:59 Intake Total 327.6 / 327.6 191.57 / 991.57 1066.67 / 1066.67 Balance 327.6 / 327.6 191.57 / 991.57 1066.67 / 1066.67 General: Alert, Oriented x3, Cooperative, No apparent distress HEENT: Atraumatic, PERRLA, EOMI, Normocephalic Oral: Moist Mucosa Neck: Supple, No JVD Lungs: Clear to auscultation, Normal air movement, No rhonchi, No wheeze, No rales Cardiovascular: Regular rate, Regular Rhythm, Normal S1, Normal S2, No murmurs Abdomen: Soft, Non Tender, Non-Distended, No Hepato-splenomegaly Extremities: Capillary Refill Less than 3 Seconds, Diminished Peripheral Pulses, Edema - Trace edema on the right compared to the left Skin: No rashes, No breakdown Musculoskeletal: No Tenderness to Palpation of Joints or Extremities Neurological: Neuro grossly intact, Sensory exam intact to light touch and pain Psych/Mental Status: Normal Affect, Appropriate Laboratory Results 09/30/20 15:40: APTT 48.5 H 09/30/20 22:26: APTT 61.0 H 10/01/20 04:48: APTT 71.1 H Current Medications Acetaminophen (Acetaminophen 325 Mg Tablet) 650 mg PO Q6H PRN PRN PRN Reason: Pain Score 1-10/Temp > 100.7 F Apixaban (Apixaban 5 Mg Tablet) 10 mg PO BID [facility] Atorvastatin Calcium (Atorvastatin Calcium 40 Mg Tablet) 40 mg PO QHS [facility] Last Admin: 09/30/20 21:00 Dose: 40 mg Documented by: Cilostazol (Cilostazol 50 Mg Tablet) 100 mg PO BIDAC [facility] Last Admin: 10/01/20 06:28 Dose: 100 mg Documented by: Sodium Chloride () 250 mls @ 15 mls/hr IV .[id number] PRN PRN Reason: Saline Flush Sodium Chloride () 250 mls @ 15 mls/hr IV .[id number] PRN PRN Reason: Additional IVPB Infusion Heparin Sodium/Dextrose () 25,000 units in 250 mls @ 10 mls/hr IV .Q25H [facility]; Protocol Last Titration: 10/01/20 05:42 Dose: 1,000 units/hr, 10 mls/hr Documented by: Lisinopril (Lisinopril 20 Mg Tablet) 20 mg PO QHS [facility] Last Admin: 09/30/20 21:00 Dose: 20 mg Documented by: Melatonin (Melatonin 3 Mg Tablet) 3 mg PO QHS PRN PRN PRN Reason: INSOMNIA Nicotine (Nicotine 21 Mg Patch) 21 mg TD DAILY [facility] Last Admin: 10/01/20 09:19 Dose: Not Given Documented by: Ondansetron HCl (Ondansetron 4 Mg/2 Ml Vial) 4 mg IV Q8H PRN PRN PRN Reason: NAUSEA/VOMITING Pantoprazole Sodium (Pantoprazole Sodium 40 Mg Tablet) 40 mg PO DAILY [facility] Last Admin: 10/01/20 09:18 Dose: 40 mg Documented by: Rifaximin (Rifaximin 550 Mg Tablet) 550 mg PO TID [facility] Last Admin: 10/01/20 06:28 Dose: 550 mg Documented by: Sodium Chloride (0.9% Saline Lock 10 Ml Syringe) 10 - 40 ml IV UD PRN PRN Reason: SALINE FLUSH Discharge Activity: Return to Normal Activity Call your doctor if you observe: Fever of 101 or Higher, Shortness of breath, Dizziness, Fainting spells, Swelling in the ankles, Chest pain, Increased palpitations (irregular heartbeat) Home Medications: Medications to take at Discharge Lisinopril [Zestril] 20 mg PO QHS 07/10/15 Omeprazole [Prilosec] 40 mg PO DAILY 07/10/15 Cilostazol 100 mg PO BID 10/25/18 atorvastatin 40 mg tablet 40 mg PO QHS 04/23/19 Rifaximin [Xifaxan] 550 mg PO TID 09/29/20 Apixaban [Eliquis] 10 mg PO BID #70 tab 10/01/20 Nicotine [Nicoderm Cq] 21 mg TD DAILY #30 patch 10/01/20 Following Prescriptions Were Given to Patient: Apixaban [Eliquis] 10 mg PO BID #70 tab Transmission Status: Received by [facility] Nicotine [Nicoderm Cq] 21 mg TD DAILY #30 patch Transmission Status: Received by [facility] Primary Care Physician: Herbert Simpson DO [Primary Care Provider] - Please follow up with your Primary Care Physician in: 3-5 days Please Follow Up With: Timothy Jo MD When: 1-2 weeks Disposition: Home Minutes spent on discharge:: 35 Patient Condition:: Stable Medical Necessity - Tobacco Use Smoking Status: Current every day smoker Tobacco Use: Cigarettes Meaningful Use Info Meaningful Use Diagnoses (Choose all that apply): None applicable Inpatient E&M: [id number] [facility]
[2020-10-01] MEDS: APIXABAN 5 MG TABLET 10 MG PO (10:50)
--- NOTE | 2020-10-01 11:46 | PHA.DC.MC ---
Pharmacy Service has performed discharge medication reconciliation and counseling for this patient. The patient was counseled on the following discharge medications and changes in medications for homegoing were reviewed. 1. ELIQUIS The Reason for Use, instructions for use, and potential side effects were reviewed for all new medications. The patient's questions regarding all of their medications were answered. The patient was able to verbally demonstrate an understanding of their discharge medications. Home Medications Lisinopril [Zestril] 20 mg PO QHS 07/10/15 Omeprazole [Prilosec] 40 mg PO DAILY 07/10/15 Cilostazol 100 mg PO BID 10/25/18 atorvastatin 40 mg tablet 40 mg PO QHS 04/23/19 Rifaximin [Xifaxan] 550 mg PO TID 09/29/20 Apixaban [Eliquis] 10 mg PO BID #70 tab 10/01/20 Nicotine [Nicoderm Cq] 21 mg TD DAILY #30 patch 10/01/20 The patient's discharge medication list was reviewed for discrepancies and discrepancies were resolved.
--- NOTE | 2020-10-01 15:16 | CASEMGMT ---
Palliative screening tool done but pt does not qualify at this time. SStmarbella RN CM
--- NOTE | 2020-10-02 15:21 | CASEMGMT ---
RN CM Discharge Follow Up Phone Call: ABDIAZIZ: Omer STRATA: 3 Call Date: 10/02/2020 Discharge Date: 10/01/2020 Time of Call: 1521 Duration: < 1 min RN called pt for FU TC after recent hospitalization. No answer. Left vm for patient to return call with number if able.
== END 2020-10-01 11:49 | disposition home or self-care (01) | DRG 301 ==
LOC: ED 11:45 → PCU 14:27
PROVIDERS: Admitting Provider Family Medicine; Emergency Provider Emergency Medicine; PCP Family Medicine; Visit Provider Family Medicine
DX: I82.4Y1 Acute embolism and thrombosis of unspecified deep veins of right proximal lower extremity (principal); I82.431 Acute embolism and thrombosis of right popliteal vein; I82.4Z1 Acute embolism and thrombosis of unspecified deep veins of right distal lower extremity; I82.411 Acute embolism and thrombosis of right femoral vein; I82.461 Acute embolism and thrombosis of right calf muscular vein; I82.441 Acute embolism and thrombosis of right tibial vein; I82.451 Acute embolism and thrombosis of right peroneal vein; I70.213 Atherosclerosis of native arteries of extremities with intermittent claudication, bilateral legs; D25.9 Leiomyoma of uterus, unspecified; E78.5 Hyperlipidemia, unspecified; I71.4 Abdominal aortic aneurysm, without rupture; I10 Essential (primary) hypertension; F17.210 Nicotine dependence, cigarettes, uncomplicated; K21.9 Gastro-esophageal reflux disease without esophagitis; I65.29 Occlusion and stenosis of unspecified carotid artery; M19.90 Unspecified osteoarthritis, unspecified site; K76.0 Fatty (change of) liver, not elsewhere classified; Z98.62 Peripheral vascular angioplasty status; Z79.82 Long term (current) use of aspirin; Z79.899 Other long term (current) drug therapy; I77.1 Stricture of artery; I65.23 Occlusion and stenosis of bilateral carotid arteries; E78.00 Pure hypercholesterolemia, unspecified
CPT/HCPCS: 36415; 80048; 85025; 85610; 85730; 93925; 99282; 99406; A4216

== ENCOUNTER 2020-10-01 06:00 | Outpatient (RCR) | payer MEDICARE, SELFPAY ==
[2020-09-29 13:31] VITALS: BMI 34.1
[2020-10-01] MEDS: COVID-19 VACC, MRNA(PFIZER)/PF 30 MCG/0.3 ML SYRINGE IM (15:19)
[2020-10-22] MEDS: COVID-19 VACC, MRNA(PFIZER)/PF 30 MCG/0.3 ML SYRINGE IM (14:51)
[2020-12-24 10:26] VITALS: BMI 34.7
== END 2021-01-05 23:59 ==
LOC: IMMUN 06:00
PROVIDERS: PCP Family Medicine; Referring Provider Family Medicine; Visit Provider Family Medicine
DX: Z23 Encounter for immunization (principal)
CPT/HCPCS: 0001A; 0002A; 91300

== ENCOUNTER → 2020-10-22 10:47 | Outpatient (CLI) | payer MEDICARE, SELFPAY ==
[2020-09-29 13:31] VITALS: BMI 34.1
--- NOTE | 2020-10-22 10:51 | MRI_ITS ---
MR Abdomen WO/W Contrast 10/22/2020 11:26 AM COMPARISON: None CLINICAL HISTORY: CYSTIC COMPLEX LEFT ADRENAL MASS TECHNIQUE: Multiplanar T1 and T2 weighted and dynamic post-gadolinium images were obtained through the abdomen. FINDINGS: Liver: Unremarkable Gallbladder: Gallbladder sludge. Spleen: Unremarkable Pancreas: Unremarkable Adrenal Glands: Complex solid and cystic mass in the left adrenal gland measuring approximately 4.8 x 4.7 x 4.4 cm. The solid components are T1 isointense/T2 hypointense and demonstrate mild heterogeneous enhancement postcontrast. No signal drop on fat saturation or in/out of phase sequences. Kidneys: Few scattered subcentimeter simple cysts in the left kidney. GI Tract: Small hiatal hernia. Vasculature: Partially visualized abdominal aortic aneurysm with stent graft. Lymphadenopathy: Absent Ascites: Mild ascites. Bones: No suspicious lesions MRI/MRI Abd WITH and W/O Contrast IMPRESSION: Complex 5 cm solid and cystic mass in the left adrenal gland with mild enhancement of solid components. This is concerning for malignancy. Recommend tissue sampling. Partially visualized abdominal aortic aneurysm with stent graft. This is better evaluated on recent CT abdomen/pelvis dated 06/05/2020. Mild ascites. Electronically Signed: Nestor Ricardo MD at 17:07 EDT Tel , Service support ,
== END ==
PROVIDERS: PCP Family Medicine; Referring Provider Family Medicine; Visit Provider Family Medicine
DX: D44.12 Neoplasm of uncertain behavior of left adrenal gland (principal)
CPT/HCPCS: 74183; A9575

== ENCOUNTER → 2020-11-17 10:43 | Outpatient (CLI) | payer MEDICARE, SELFPAY ==
[2020-09-29 13:31] VITALS: BMI 34.1
--- NOTE | 2020-11-17 10:45 | RAD_ITS ---
STUDY: X-RAY CHEST REASON FOR EXAM: Female, 70 years old. CHEST PAIN TECHNIQUE: PA and lateral views of the chest. COMPARISON: 03/11/2020 FINDINGS: There is hyperinflation of the lungs consistent with chronic obstructive lung disease (COPD). There is a faint nodule overlying the left upper lobe measuring 2 cm. There is no demonstrated pleural abnormality. Normal size heart. Normal mediastinum and kati. Normal visualized pulmonary arteries. Normal visualized aortic arch and descending thoracic aorta. Normal visualized thoracic spine. Normal visualized ribs, clavicles, and shoulders. There is no demonstrated abnormality of the visualized soft tissue structures of the upper abdomen. RAD/Chest PA and Lateral IMPRESSION: COPD related changes with faint nodule overlying the left upper lobe measuring 2 cm, recommend cross-sectional CT imaging further assessment and evaluation. Electronically Signed: Stewart Wills DO at 1:16 EDT , Service support ,
== END ==
PROVIDERS: PCP Family Medicine; Referring Provider Family Medicine; Visit Provider Family Medicine
DX: R07.9 Chest pain, unspecified (principal)
CPT/HCPCS: 71046

== ENCOUNTER → 2020-11-24 07:36 | Outpatient (CLI) | payer MEDICARE, SELFPAY ==
[2020-11-17 14:03] VITALS: BMI 34.7
--- NOTE | 2020-11-24 07:38 | CT_ITS ---
STUDY: CT CHEST WITH CONTRAST REASON FOR EXAM: Female, 70 years old. 2CM PULMONARY NODULE SEEN ON CXR/LEFT UPPER LOBE/ALF SMOKER -- W/COPD/RECENT DVT RADIATION DOSAGE (If Supplied By Facility): CTDIvol = ( 25.39 ) mGy, DLP = ( 511.80 ) mGycm TECHNIQUE: Transaxial imaging was performed following intravenous administration of IV 100mL Isovue-300. Multiplanar coronal and sagittal images were reformatted. Individualized dose optimization techniques were used for this CT. COMPARISON: Comparison is made with prior chest radiograph dated 11/17/[address] scan of the chest dated 11/30/2016. FINDINGS: There is a 2.3 cm x 1.4 cm irregular nodular density in the anterior aspect of the left upper lobe. This corresponds to the chest radiographic findings. There is thickening of the right major fissure. Mild degree of increased markings at the right lung base with underlying pleural thickening suggestive of scarring. This is unchanged. Hyperinflation and mild emphysematous changes. There are calcifications of the coronary arteries. There are multiple small lymph nodes within the mediastinum, which are normal in size and morphology most compatible with reactive lymph hyperplasia. Normal hilar regions. Normal enhanced pulmonary arteries. Normal aorta arch and descending thoracic aorta. There are multi-level degenerative changes of the thoracic spine. The patient is status post left reverse shoulder replacement. There is no demonstrated abnormality of the visualized upper abdomen. CT/Chest WITH Contrast IMPRESSION: 2.3 cm x 1.4 cm slightly irregular nodule in the left upper lobe. A neoplastic process should be ruled out. Electronically Signed: Dario Barrientos MD at 9:02 EDT , Service support ,
[2020-11-24 07:50] LABS: CREATININE FINGERSTICK 1.6 mg/dL (0.55-1.02)
== END ==
PROVIDERS: PCP Family Medicine; Referring Provider Family Medicine; Visit Provider Family Medicine
DX: R91.1 Solitary pulmonary nodule (principal)
CPT/HCPCS: 71260; Q9967

== ENCOUNTER → 2020-11-27 07:52 | Outpatient (CLI) | payer MEDICARE, SELFPAY ==
[2020-11-26 11:05] VITALS: BMI 34.7
--- NOTE | 2020-11-27 14:14 | PFTCOMP ---
COMPLETE PULMONARY FUNCTION TEST INTERPRETATION Brief HPI: Patient is a 70 year old female, currently under the care of myself, who presents to [facility] for complete pulmonary function tests secondary to diagnosis of dyspnea and lung mass. Respiratory therapist reports good effort and reproducible results. Interpretation: Forced expiration spirometry shows no large airways obstructive ventilatory defect with an FEV1 of 77% predicted. There is no significant bronchodilator response by strict ATS criteria. Spirograms are of good quality and plateau normally. The respiratory flow volume loop shows a normal pattern. Lung volumes by body plethysmography show a slightly decreased total lung capacity at 3.96 L, % predicted. All other lung volumes are within normal limits. FRC and RV are elevated out of proportion. Lung volume measurements are consistent with hyperinflation and air-trapping.83 Diffusion capacity by carbon monoxide is decreased at 53% predicted. The airway resistance is elevated. No previous pulmonary function tests were available for review. Impression: Significant reduction in diffusion capacity with marginal reduction in total lung capacity, in a pattern suggestive of possible pulmonary vascular disease.
== END ==
PROVIDERS: PCP Family Medicine; Referring Provider Internal Medicine Critical Care Medicine; Visit Provider Internal Medicine Critical Care Medicine
DX: J44.9 Chronic obstructive pulmonary disease, unspecified (principal)
CPT/HCPCS: 94060; 94726; 94729

== ENCOUNTER → 2020-11-30 10:23 | Outpatient (CLI) | payer MEDICARE, SELFPAY ==
[2020-11-26 11:05] VITALS: BMI 34.7
[2020-11-30 10:49] VITALS: PULSE 100; PULSE 102; PULSE 103; PULSE 116; PULSE 123; PULSE 126; PULSE 127; O2SAT 94; O2SAT 95; O2SAT 96
--- NOTE | 2020-11-30 13:18 | PCM.PSN.6M ---
PSN 6 Minute Walk Test 6 Minute Walk Test 6 Minute Walk Test: 6 Minute Walk Test PSN:6-Minute Walk Test Start: 11/30/20 10:48 Freq: Status: Active Protocol: RESP.6MINW Document 11/30/20 10:49 MARIANA (Rec: 11/30/20 10:52 [place] Desktop) 6 Minute Walk Test Date Performed 11/30/20 Time Performed 10:30 Height 5 ft 4 in Weight: 200 lb Weight in Pounds 200.[address]: Pancho Barbour Assistive device used: Walker Pre-test Oxygen Delivery Method Room Air Pulse Ox (%) 96 Pulse Rate (60-100 beats/min) 100 Dyspnea Kirit Scale (0-10) 0.5 Exertion Kirit Scale (6-20) 6 1st minute Oxygen Delivery Method Room Air Pulse Ox (%) 95 Pulse Rate (60-100 beats/min) 103 H 2nd minute Oxygen Delivery Method Room Air Pulse Ox (%) 94 Pulse Rate (60-100 beats/min) 123 H 3rd minute Oxygen Delivery Method Room Air Pulse Ox (%) 94 Pulse Rate (60-100 beats/min) 116 H 4th minute Oxygen Delivery Method Room Air Pulse Ox (%) 94 Pulse Rate (60-100 beats/min) 126 H 5th minute Oxygen Delivery Method Room Air Pulse Ox (%) 95 Pulse Rate (60-100 beats/min) 127 H 6th minute Oxygen Delivery Method Room Air Pulse Ox (%) 94 Pulse Rate (60-100 beats/min) 127 H Dyspnea Kirit Scale (0-10) 3 Exertion Kirit Scale (6-20) 13 Post-test Oxygen Delivery Method Room Air Pulse Ox (%) 95 Pulse Rate (60-100 beats/min) 102 H Full Laps Walked 9 Partial Lap, Number of Tiles Walked 10 Total Distance Walked (ft) 541 Interpretation Interpretation: The patient ambulated 541 feet over the course of 6 minutes beginning on room air with the use of a walker. Pretesting oxygen saturation was noted to be 96% on room air. With ambulation, the papi oxygen saturation was 94%. Although there was evidence of impaired walk distance, there was no significant exertional oxygen desaturation. Recommendations Recommendations: There is no indication for the use of supplemental oxygen at this time.
== END ==
PROVIDERS: PCP Family Medicine; Referring Provider Internal Medicine Critical Care Medicine; Visit Provider Internal Medicine Critical Care Medicine
DX: J44.9 Chronic obstructive pulmonary disease, unspecified (principal)
CPT/HCPCS: 94618

== ENCOUNTER → 2020-12-11 07:53 | Outpatient (CLI) | payer MEDICARE, SELFPAY ==
[2020-11-26 11:05] VITALS: BMI 34.7
[2020-12-11] VITALS (12 sets, daily range): BP systolic 95–132; BP diastolic 56–100; PULSE 84–105; RESP 15–25; TEMP 37; O2SAT 92–100; BMI 34.3
--- NOTE | 2020-12-11 | IMM_PTH ---
PATIENT: ANDREW LOUIS LOC: CT U#:[id number] AGE/SX: 75/F ROOM: RE12/11/[address]: Dr. Pancho Barbour MD : 1950 BED: DIS: SPEC #: [id number] RECD: 12/11/20 14:26 STATUS: TIFFANY REQ #: [id number] PREET: 12/11/20 00:[address]: Pancho Barbour DEPT: IMMUNOHISTOCHEMISTRY RECD BY: Marie Posadas ENTERED: 12/11/20 14:28 SP TYPE: IMMUNO OTHR DR: Dr. Herbert Simpson, DO Magui Carvalho, ENDOSCOPY TECHNICAN-C Tissues: Left upper lobe of lung, NOS Procedures: Synapto (add) CD45 (add) CD56 (add) CHROMO (add) CK20 (add) CK7 (add) CK8 (add) TTF1 (add) Pankeratin (initial) PHYSICIAN & INSTITUTION [place] [id number] SPECIMEN INFORMATION: Tissue Source: BALWINDER mass, CT-guided core biopsy Clinical Info: BALWINDER mass Specimen Number: [id number] CPT code: 60611, 11794 x8 METHODOLOGY: Deparaffinized sections of prefer/formalin-fixed tissue or PAP/DQ stained slides are incubated with monoclonal/polyclonal antibodies/oligonucleotide probes. Localization is made via biotin free immunoperoxidase method. Appropriate controls are performed and reacted as expected. Results on target cell population are indicated in the following table: RESULTS: ANTIBODY / CLONE RESULT AE1-3 (AE1/AE3/PCK26) positive CK7 (OV-TL12/30) positive CK8 (51wireW19) positive CK20 (KS20.8) negative CD45 (RP2/18) negative CD56 (123C3.D5) positive Chromo (LK2H10) positive Synapto (polyclonal) positive TTF-1 (8G7G3/1) positive These tests were developed and their performance characteristics determined by [facility]. They may not have been cleared or approved by the U.S. Food and Drug Administration. The FDA has determined that such clearance or approval is not necessary. The above immunohistochemical/dualISH markers are ordered and reviewed by the Pathologist. INTERPRETATION: BALWINDER mass, CT-guided core biopsy: Small cell carcinoma. SJ:jose 12/14/2020 Case has been reviewed in consultation with Dr. Hutchins who concurs with the above diagnosis. IDC:AM
--- NOTE | 2020-12-11 | ASPIGT_PTH ---
PATIENT: ANDREW LOUIS LOC: PR U#:[id number] AGE/SX: 75/F ROOM: RE12/11/[address]: Dr. Pancho Barbour MD : 1950 BED: DIS: SPEC #: [id number] RECD: 12/11/20 09:30 STATUS: TIFFANY REBetty #: [id number] PREET: 12/11/20 00:[address]: Pancho Barbour DEPT: SURGICAL PATHOLOGY RECD BY: Salma Clifton ENTERED: 12/11/20 11:04 SP TYPE: ASP RAD RUDY DR: Dr. Herbert Simpson, DO Magui Carvalho, SOFTWARE SALES REPRESENTATIVE-C Tissues: Lung, NOS Procedures: FNA Specimen Adequacy Special Stain Group II Surgery Specimen Level IV Imprint (control) HEADER OPERATION: BALWINDER mass, CT-guided core biopsy PRE-OP DIAGNOSIS: BALWINDER mass TISSUE SUBMITTED: BALWINDER mass MICROSCOPIC DIAGNOSIS BALWINDER mass, CT-guided core biopsy: Small cell carcinoma. See comment. OSIEL:jose 12/14/2020 COMMENT The specimen is evaluated at the time of biopsy by Dr. Wilhelm. Immediate Evaluation = Malignant cells present derived from small cell carcinoma. Immunohistochemistry ([id number]) supports the above diagnosis. Molecular studies on the tumor can be performed, if clinically indicated. Please notify the laboratory, if they are needed. Case has been reviewed in consultation with Dr. Hutchins who concurs with the above diagnosis. IDC:AM MICROSCOPIC DESCRIPTION Slides are reviewed. GROSS DESCRIPTION Received in fixative is one container labeled with the patient's name and designated BALWINDER lung mass. The specimen consists of multiple irregular fragments of jauregui soft tissue that in aggregate measure 0.5 x 0.1 x <0.1 cm. The specimen is totally submitted in one cassette. Two touch imprints are prepared at the time of core biopsy. / OSIEL:jose 12/11/20 TC:0 CPT: 08768, 39569
--- NOTE | 2020-12-11 08:05 | CT_ITS ---
PROCEDURE: CT GUIDED CORE NEEDLE BIOPSY OF A left upper lobe LUNG LESION INDICATION: Female, 70 years old. BALWINDER mass PHYSICIAN: Dr. TING Castellanos CONSENT: Written informed consent was obtained having explained the risks, benefits and alternatives in detail with the patient who accepted the risks and agreed to proceed. Laboratory review and clinical assessment was performed. CONSCIOUS SEDATION PROTOCOL: The Drugs used were: 2 mg Versed, IV., and 75 mcg Fentanyl, IV. The sedation time was: 41 minutes. Conscious sedation was started at 9:05 AM and terminated at 9:46 AM. The conscious sedation protocol was independently monitored. RADIATION DOSAGE (If Supplied By Facility): CTDIvol = ( 29 ) mGy, DLP = ( 1100.9 ) mGycm Individualized dose optimization techniques were used for this CT. TECHNIQUE: The patient was placed in the supine position. A noncontrast CT was performed to localize the lesion in the left upper lobe . The skin surface was prepped and draped in a sterile fashion. 1% lidocaine was used for local anesthesia. Using CT guidance, a 20-gauge coaxial biopsy device was advanced to the periphery of the lesion. A total of 5 core specimens were obtained. The specimens were placed in a formalin solution. A post procedure CT demonstrated no adverse sequelae or pneumothorax. The patient tolerated the procedure well without adverse event. A negative biopsy does not exclude malignancy. Further imaging or clinical followup based on patient condition and degree of clinical suspicion for malignancy. Suggest rebiopsy, if biopsy results do not match with clinical scenario. CT/Biopsy/Inj or Needle Placement IMPRESSION: 1. CT directed core needle biopsy of the left upper lobe lung nodule using CT image guidance with image documentation as described. Pathology results are pending. 2. Conscious Sedation protocol utilized with independent monitoring. Electronically Signed: Dario Barrientos MD at 10:17 EDT , Service support ,
[2020-12-11 08:08] LABS: Platelet Count 412 K/mm3 (150-450)
[2020-12-11 08:27] LABS: International Normalized Ratio 1.1; Prothrombin Time (Protime)PT. 13.1 SECONDS (11.7-14.9)
[2020-12-11 08:28] LABS: Partial Thromboplast Time 28.5 Seconds (24.1-36.2)
[2020-12-11] MEDS: Midazolam 2 MG/2 ML Syringe IV (09:08)
[2020-12-11] MEDS: fentaNYL 100 MCG/2 ML Ampul IV ×2 (09:09→09:33)
--- NOTE | 2020-12-11 09:30 | RAD_ITS ---
STUDY: X-RAY CHEST REASON FOR EXAM: Female, 70 years old. Post biopsy -- immediately post lung biopsy TECHNIQUE: AP inspiration and expiration views. COMPARISON: Comparison is made with prior examination dated 11/17/2020. FINDINGS: The patient is status post left lung biopsy. No evidence of pneumothorax. RAD/Chest Insp/Exp 2 View IMPRESSION: No evidence of pneumothorax on the immediate post left lung biopsy radiographs. Electronically Signed: Dario Barrientos MD at 12:30 EDT , Service support ,
--- NOTE | 2020-12-11 11:30 | RAD_ITS ---
STUDY: X-RAY CHEST REASON FOR EXAM: Female, 70 years old. Post lung biopsy -- 2 hours post lung biopsy TECHNIQUE: AP inspiration and expiration views. COMPARISON: Comparison is made with prior study done earlier in the day. FINDINGS: There is no evidence pneumothorax on the 2 hour post left lung biopsy radiographs. RAD/Chest Insp/Exp 2 View IMPRESSION: No evidence of pneumothorax on the 2 hour delayed radiograph. Electronically Signed: Dario Barrientos MD at 12:21 EDT , Service support ,
== END ==
PROVIDERS: Nurse Practitioner Acute Care; PCP Family Medicine; Referring Provider Internal Medicine Critical Care Medicine; Visit Provider Internal Medicine Critical Care Medicine
DX: C34.12 Malignant neoplasm of upper lobe, left bronchus or lung (principal); J44.9 Chronic obstructive pulmonary disease, unspecified; I82.4Y1 Acute embolism and thrombosis of unspecified deep veins of right proximal lower extremity
CPT/HCPCS: 32408; 36415; 71046; 77012; 85049; 85610; 85730; 88172; 88305; 88313; 88341; 88342; 99156; 99157; J7040; A4216

== ENCOUNTER → 2020-12-22 15:32 | Outpatient (CLI) | payer MEDICARE, SELFPAY ==
[2020-12-16 06:00] VITALS: BMI 34.1
--- NOTE | 2020-12-22 17:14 | PET_ITS ---
EXAMINATION: FDG PET/CT INDICATIONS: A 70-year-old female with history of primary lung carcinoma presenting for initial staging examination. COMPARISON EXAMINATION: CT of the chest report dated 11/24/20 INDEX LESION SIZE SUV INTERPRETATION Left upper lung-left upper lobe 17.6 x 27.1-mm (frame 200) 15.8 Fulfills quantitative criteria for viable neoplasm Abdominal-pelvic peritoneal cavity, hepatic capsule soft tissue nodules, omental caking 13.0 (max) Fulfills quantitative criteria for viable metastatic disease TECHNIQUE: Following the intravenous administration of 14.85 mCi of F-18 deoxyglucose via the left wrist, multiplanar image acquisitions of the neck, chest, abdomen and pelvis to level of mid thigh, obtained at one hour post radiopharmaceutical administration contemporaneously interpreted with the current CT of the neck, chest, abdomen and pelvis to level of mid thigh, dated 12/22/[address] of the chest report dated 11/24/20 reveal: SERUM GLUCOSE LEVEL: 84 mg/dl. HEIGHT: 64 inches. WEIGHT: 201 lbs. FINDINGS: 1. Focal increased glucose metabolism is defined in the left upper lung-left upper lobe in a nodular presentation generating a calculated maximal standard uptake value of 15.8. The maximal axial diameter of the corresponding parenchymal density on review of CT of the chest dated 12/22/20 is 17.6-mm (transverse) x 27.1-mm (AP). 2. There is an increase in FDG distribution defined in the right upper abdomen to include the distribution of the hepatic capsule, as well as evidence of upper-mid abdomen, pelvis corresponding to soft tissue nodularity and peritoneal thickening-omental caking. The calculated maximal standard uptake value is 13.0. 3. Normal physiologic distribution of the radiopharmaceutical is apparent in the hepatic (2.7) and splenic parenchyma, both renal units, bladder and visualized intestinal tract. The visualized portion of the cerebral cortical-subcortical structures demonstrate symmetric and preserved glucose metabolism. Diffuse radiopharmaceutical concentration is noted in all four quadrants of the abdomen and pelvis. Pertinent CT findings are as follows: CHEST: There is atherosclerotic calcification defined in the thoracic aorta without evidence of dilatation-aneurysm formation. Coronary arterial calcification is observed. Bilateral subcentimeter axillary soft tissue densities with fatty hilus are ametabolic. Calcified and non-calcified mediastinal soft tissue is non-glucose avid. Accentuated interstitial changes defined in the right post-basilar lung field are non-glucose avid. ABDOMEN AND PELVIS: Abdominal-pelvic ascites formation is noted without evidence of increased tracer uptake. Peritoneal thickening-omental caking and soft tissue nodularity demonstrate varying degrees of quantitatively significant increased uptake previously described. Atherosclerotic calcification is noted in the abdominal aorta. There is evidence of an abdominal aortic bi-iliac graft placement. The maximal axial diameter of the distal abdominal aorta is 4.7-cm. Abdominal-pelvic arterial calcification is encountered. The left adrenal gland is markedly enlarged demonstrating dystrophic calcification. Beam hardening artifact attributed to a right hip arthroplasty compromises interpretation of the lower pelvic CT acquisition. SKELETAL: A right hip prosthesis is noted as previously described with vague hardware placement manifest in the lower lumbar spine and upper sacrum commensurate with spinal fusion operative intervention. Degenerative changes are noted in the cervical, thoracic and lumbar spine without evidence of increased radiopharmaceutical concentration. There is a left shoulder arthroplasty with facilitated uptake noted in the periprosthetic soft tissues most consistent with metallic reconstruction artifact. PET/PET/CT Tumor Base -Thigh Init IMPRESSION: 1. ABNORMAL EXAMINATION INDICATIVE OF MALIGNANT VIABLE NEOPLASM. 2. Increased glucose concentration observed in the left upper lung-left upper lobe fulfills quantitative criteria for viable neoplasm. (Choe et al, Annals of Internal Medicine, 138:724, 2003). 3. Enhanced tracer uptake noted in the hepatic capsule, as well as abdominal-pelvic peritoneal cavity corresponding to omental caking and soft tissue nodularity fulfills quantitative criteria for viable neoplastic infiltration. (Calvin et al, Journal of Nuclear Medicine 44:1407, 2003). Electronic Signature Jack Abraham D.O. Accurate Quantification of SUVs for this report are calculated using the exclusive [employer]? Technology.??Exclusive U.S. Patent [employer]quan? Technology (U.S. Patent No. [id number] [id number]). Standardization and correction of the FDG SUV metric allow for vendor non-specific objective quantitative comparison and otherwise unobtainable optimization of the sensitivity and specificity of the examination. Electronically Signed: Jack Abraham DO at 12:10 EDT Tel , Service support ,
== END ==
PROVIDERS: PCP Family Medicine; Referring Provider Internal Medicine Critical Care Medicine; Visit Provider Internal Medicine Critical Care Medicine
DX: C34.12 Malignant neoplasm of upper lobe, left bronchus or lung (principal)
CPT/HCPCS: 78815; A9552

== ENCOUNTER → 2020-12-30 07:24 | Outpatient (CLI) | payer MEDICARE, SELFPAY ==
[2020-12-16 06:00] VITALS: BMI 34.1
[2020-12-29 12:49] VITALS: BMI 34.7
--- NOTE | 2020-12-30 07:25 | MRI_ITS ---
STUDY: MRI BRAIN WITH AND WITHOUT CONTRAST REASON FOR EXAM: Female, 70 years old. New Dx Small Cell ca TECHNIQUE: Standardized multiplanar fat and water weighted pulse sequences were obtained. IV 18ML DOTAREM was administered for the contrast portion of the examination. COMPARISON: None. FINDINGS: There is moderate cerebral atrophy with widening of the extra-axial spaces and ventricular dilatation. There are multiple white matter hyperintensities, distributed throughout the deep white matter tracts of the cerebral hemispheres, consistent with moderate chronic white matter ischemic changes. There is no evidence for recent intracranial ischemia or other cause of cytotoxic edema on diffusion weighted imaging (DWI). Normal T2* images of the brain without demonstrated susceptibility artifact. There is no demonstrated hemosiderin stain. Chronic lacunar infarct of the left basal ganglia. Normal thalami. There is no extra-axial fluid accumulation. Normal flow voids within the major intracranial circulation suggesting patency by spin echo criteria. Normal venous enhancement. There is no enhancing intra-axial or extra-axial abnormality. Normal sella turcica, pituitary gland, infundibular stalk, optic chiasm and hypothalamus. Normal tectal plate and pineal gland. Normal midbrain, mihaela and medulla. Normal cerebellum. Normal basal cisterns. Normal bilateral temporal bones. Normal bilateral internal auditory canals. No demonstrated orbital abnormality, within the constraints of a routine brain study. Normal visualized paranasal sinuses. Normal calvarium and skull base. Normal visualized soft tissue structures. Normal visualized upper cervical spine. MRI/Brain W/WO Contrast IMPRESSION: Involutional changes of the brain, as described above. No MR evidence metastatic disease. Electronically Signed: Jack Banerjee MD at 12:55 EDT Tel , Service support ,
== END ==
PROVIDERS: PCP Family Medicine; Referring Provider Internal Medicine Critical Care Medicine; Visit Provider Internal Medicine Critical Care Medicine
DX: C34.12 Malignant neoplasm of upper lobe, left bronchus or lung (principal)
CPT/HCPCS: 70553; A9575

== ENCOUNTER 2021-01-06 08:15 | Day surgery (SDC) | payer MEDICARE, SELFPAY ==
[2020-12-29 12:49] VITALS: BMI 34.7
[2020-12-31 09:45] VITALS: BMI 34.4
[2021-01-06 08:48] VITALS: BP 123/57; PULSE 57; RESP 16; TEMP 36.6; O2SAT 98; BMI 33.4
[2021-01-06] MEDS: Lactated Ringers 1,000 ML 100 ML IV (08:48)
--- NOTE | 2021-01-06 10:36 | HP.PCM_ITS ---
History and Physical Date of Admission: 01/06/21 Intake Visit Reasons: port consult from [facility] Chief Complaint: port consult Electoral Officer Required: No Is patient in pain?: No Allergies naproxen [From Naprosyn] Allergy (Severe, Verified 12/29/20 12:48) Shortness of breath Is last menstrual period known: No Post menopausal: Yes Patient : No PFSH Medical History AAA (abdominal aortic aneurysm) Abdominal pain Acute deep vein thrombosis (DVT) of distal end of right lower extremity Adrenal mass Arthritis Atherosclerosis of [place] arteries of extremities with intermittent claudication, bilateral legs Carotid artery stenosis Chest pain COPD (chronic obstructive pulmonary disease) Deep vein thrombosis (DVT) of proximal vein of right lower extremity Endometrial thickening on ultrasound Essential hypertension Fatty liver disease, nonalcoholic GERD (gastroesophageal reflux disease) History of back problems Hyperlipidemia Hypertension Omental metastasis Osteoarthritis Peripheral vascular angioplasty status Peripheral vascular disease Peritoneal carcinomatosis Umbilical hernia Uterine fibroid Ventral incisional hernia without obstruction or gangrene Surgical History H/O shoulder replacement History of AAA (abdominal aortic aneurysm) repair (09/26/17) History of amputation of left great toe History of bunionectomy of left great toe History of carpal tunnel release of both wrists History of left knee replacement (~06/08/11) History of right hip replacement History of rotator cuff surgery History of spinal surgery (~1999) Family History Brother Cancer throat and lung Mother CAD (coronary artery disease) Hypertension Father CAD (coronary artery disease) Social History number of children: 5 Smoking Status: Former smoker quit date: 12/21/20 Tobacco: How many years used: 50 second hand exposure: No alcohol intake: current alcohol intake frequency: a few times a month Alcohol type: beer details: weekends substance use type: does not use caffeine: Yes Type: coffee Number of servings: 3 and other what type of physical activity do you participate in: none seatbelt use: always do you feel safe at home: Yes additional social history: Matt- Both are retired HPI HPI HPI: ANDREW LOUIS, is a 70 F who presents to the office today for surgical consultation for placement of a vascular port to assist with chemotherapy for metastatic small cell lung cancer. The patient is referred by Dr. Wilbert Fenton and a written copy my surgical consult and recommendations will return to him. The patient is to start chemotherapy on January 11. She is long-term COPD and hypertension and dyslipidemia and ask cardiac fracture disease with chronic low back pain and obesity. She is evidence of an abdominal aortic stent graft. November 24 CT of the chest showed a 2.3 x 1.4 similar regular irregular nodule left upper lobe. Core biopsy showed small cell carcinoma. She also had routine peripheral vascular follow-up with Dr. Timothy Jo and at that time a right lower extremity DVT was identified. Since that time she has been on Eliquis therapy. She is scheduled to have a brain MRI tomorrow. ROS General General: Yes fatigue; No weight change, appetite, colon cancer, breast cancer or weakness HEENT HEENT: No difficulty swallowing, eye injury, eye surgery, swollen glands or hoarseness Endo Endocrine: No thyroid disease, diabetes mellitus, thyroid cancer, Hair loss, heat intolerance or cold intolerance Musc Musculoskeletal: Yes back problems and arthritis; No rheumatoid arthritis, gout or joint pain Cardio Cardiovascular: Yes high blood pressure; No murmur, pacemaker, heart disease, atrial fibrillation, heart attack, heart stent, palpitations, shortness of breat with exertion or chest pain Psych Psychiatric: No depression, anxiety or hearing voices Resp Respiratory: Yes shortness of breath, No sleep apnea, Yes cough, Yes COPD, No asthma, No emphysema and No wheezing Gastro Gastrointestinal: Yes abdominal pain, No nausea or vomiting, Yes diarrhea, No constipation, No blood in stool, Yes acid reflux, No hemorrhoids, No ulcers, No gallbladder problem and No black,tarry stools Tam Hematologic: No blood thinners, No blood disorders, No bleeding, No anemia and Yes blood clots Neuro Neurologic: No weakness Exam Const General: cooperative, comfortable and no acute distress Nutritional Appearance: overweight Orientation: alert and awake [facility] Head: normal to inspection Eyes General: appearance normal, both eyes and all related structures Chest Other: Increased anterior posterior diameter, clear, slightly diminished respiratory excursion Resp Auscultation: clear to auscultation bilaterally Cardio Rate: regular rate Rhythm: regular rhythm GI Other: Soft, distended, suggestion of fluid wave, nontender Musc Cervical Spine: normal cervical lordosis Skin Other: Evidence of several areas of superficial self excoriation right dorsal forearm Neuro General: patient alert and patient awake Extrem Other: Bilateral lower extremity support hose in place. Right calf swelling slightly more than left. Nontender Psych Affect: normal affect COVID (Procedure Consent) Procedure Criteria Procedure Criteria: Yes Elective The surgeon/proceduralist and patient have discussed in detail the risk of exposure to and/or potential harm posed by the COVID-19 virus with having a surgery/procedure at this time versus the risk of delaying the surgery/procedure. It is not possible to know either the risk of delaying the surgery or procedure or chance of getting an infection with perfect accuracy, but a joint decision was made between the patient and the surgeon/proceduralist to proceed at this time with the scheduled surgery/procedure as indicated on the consent form. Assessment and Plan Plan Details Additional Comments: I recommended the patient a port placement to facilitate her chemotherapy management. I anticipate a right internal jugular approach possible left internal jugular approach if indicated. She is aware of the technique, benefit, risk, alternatives. She has had an opportunity to ask and have questions answered. I did demonstrate concern to her regarding the self excoriation particularly of the right dorsal forearm. I have strongly advised the patient to try to stop her self excoriation and picking. She is aware of the severity of the concern. I appreciate the opportunity of assisting with her surgical care. We will schedule and expedite placement of her port. Copy: Dr. Wilbert Fenton and Dr. Herbert Araya M.D., F.A.C.S I have re-examined the patient. There are no clinical changes since date of exam.
[2021-01-06] MEDS: Cefazolin 2 GM in 0.9% Normal Saline 100 ML IV (11:07)
--- NOTE | 2021-01-06 11:07 | DCINST_ITS ---
Discharge Instructions Procedure Port-A-Cath Diet Discharge Diet: No restrictions (Pain medication may cause nausea. You should typically eat light foods as you take your pain medication.) Activity Discharge Activity: Return to Normal Activity and May Shower (Leave the bandage on for 2-3 days. When you remove the bandage, leave the steri-strips intact until they fall off.) Additional Activity Instructions:: May not drive, work with heavy equipment, or sign legal documents for [address]. [address] if you are no longer taking narcotic pain medications. You may drive when you are no longer taking pain medications. Dressing / Incision Additional Dressing/Incision Instructions:: You may leave the plastic dressings on for 3 days and then remove. Remove the Steri-Strips in 1 week Follow Up Care Test Results: For any concerns please call [phone]. Further office follow- up can be on an as-needed basis. Discharge Plan Admission Attending Provider: Eugeino Araya Primary Care Provider: Herbert Simpson Discharge Orders/Prescriptions Prescriptions: No Action atorvastatin 40 mg tablet 40 mg PO QHS RF: 0 lidocaine-prilocaine 2.5-2.5 % cream 1 applic topical ONCE PRN (Reason: port access) 30 Days Qty: 30 RF: 2 ondansetron 8 mg tablet,disintegrating 8 mg PO Q8H PRN (Reason: nausea and vomiting) Qty: 30 RF: 2 prochlorperazine maleate 10 mg tablet 10 mg PO Q6H PRN (Reason: nausea and vomiting) Qty: 30 RF: 2 lisinopril 20 MG tablet 20 mg PO QHS RF: 0 omeprazole 40 MG capsule 40 mg PO DAILY RF: 0 cilostazol 100 MG tablet 100 mg PO BID RF: 0 hydrocodone-acetaminophen 5-325 mg tablet 1 tab PO Q8 PRN (Reason: Pain, Severe) RF: 0 Eliquis 5 mg tablet 5 mg PO BID RF: 0
[2021-01-06] MEDS: Bupivacaine Mpf 0.5% 30 ML VIAL (11:20)
[2021-01-06] MEDS: Lidocaine 1% (30 ml sdv) 30 ML Vial (11:20)
--- NOTE | 2021-01-06 11:47 | PCM.OPRPT ---
Problems Associated Problem List Diagnoses (1) Primary cancer of left upper lobe of lung: Report of Operation Date of Procedure: 01/06/21 Pre-Operative Diagnosis: Primary lung cancer with metastasis Post-Operative Diagnosis: Same Surgery/Procedure Performed:: Right internal jugular 6 [place] PowerPort placement Reference [id number] Lot [id number], expiry date 11/27/2021 Description of Surgical Findings:: Timeout informed consent was obtained. 70-year-old female was taken to the operating placement table underwent monitored anesthesia care. Ancef 2 g given intravenously. The right neck and chest were sterilely prepped draped. Ultrasound was used to identify the right internal jugular vein. 1% lidocaine mixed 50-50 with 0.5% Marcaine was used as a local anesthetic. A total of 18 cc was used. Under ultrasound guidance local was instilled. Then a micropuncture needle inserted into the right internal jugular vein followed by Seldinger wire advancement. Local was instilled down upon the chest wall. A transverse incision was made midclavicular line second intercostal space. Electrocautery used to make the pocket. The tubing was tunneled from the chest to the neck site. Sheath dilator was placed over the micropuncture wire the wire and dilator were removed and 035 J-wire was inserted to the sheath was removed. The 6 [place]ese delivery sheath was inserted with fluoroscopic control demonstrating good positioning. The wire dilator removed. The catheter advanced through the sheath. The sheath was split in the catheterization close to the SVC atrial junction. It was amputated in length connected to the port secured in the pocket with 2-0 silk. The port pocket was closed interrupted 3-0 Vicryl subdermal stitch. The Nexplanon up to 5-0 Vicryl subdermal stitch. Steri-Strips Telfa OpSite dressings applied, the port was accessed and aspirated easily was flushed with saline and 1/2 cc of heparinized saline. Sponge instrument and needle counts reported the surgeon were correct Specimens none. Drains none. Blood loss minimal. She was taken to the recovery area in satisfactory addition apparent complication. Stop portable chest x-ray is pending. Eugenio Araya M.D., F.A.C.S. Surgeon: Eugenio Araya Type of Anesthesia: Local MAC Anesthesiologist: Arturo Gregg
[2021-01-06 11:55] VITALS: BP 123/57; BP 98/61; PULSE 93; RESP 16; TEMP 35.8; O2SAT 93
--- NOTE | 2021-01-06 11:59 | RAD_ITS ---
STUDY: X-RAY CHEST REASON FOR EXAM: Female, 70 years old. Port placement TECHNIQUE: Single AP portable view of the chest. COMPARISON: 12/11/2020. FINDINGS: There is a right internal jugular Port-A-Cath with its tip overlying the expected region of the right brachiocephalic vein. There is no demonstration of pneumothorax. There is redemonstration of a nodular density overlying the left upper lung field, projecting over the fourth posterior rib interspace. This was also present on previous study.. There is no demonstrated pleural abnormality. Normal size heart. Normal mediastinum and kati. Normal visualized aortic arch and descending thoracic aorta. There are no demonstrated acute fractures or destructive bone lesions. There is a left shoulder prosthesis. Tthere is no demonstrated abnormality of the visualized soft tissue structures of the upper abdomen. RAD/Chest 1 View (Portable) IMPRESSION: Tip of Port-A-Cath is probably in right brachiocephalic vein. No evidence for pneumothorax. Persistent nodular density in the left upper lung field. Electronically Signed: Stevenson Malin MD at 6:51 EDT , Service support ,
[2021-01-06 12:00] VITALS: BP 104/49; BP 123/57; PULSE 93; RESP 16; O2SAT 93
[2021-01-06 12:05] VITALS: BP 109/75; BP 123/57; PULSE 84; RESP 16; O2SAT 99
[2021-01-06 12:10] VITALS: BP 107/75; BP 123/57; PULSE 86; RESP 16; TEMP 36.1; O2SAT 99
[2021-01-06 12:48] VITALS: BP 108/75; BP 123/57; PULSE 86; RESP 16; TEMP 36.1; O2SAT 99
== END 2021-01-06 12:58 ==
LOC: SDC 08:15 → AC 08:16
PROVIDERS: PCP Family Medicine; Referring Provider Surgery; Visit Provider Surgery
PROC: (CPT 36561; principal; 2021-01-06 10:20)
DX: Z45.2 Encounter for adjustment and management of vascular access device (principal); C34.12 Malignant neoplasm of upper lobe, left bronchus or lung; C78.6 Secondary malignant neoplasm of retroperitoneum and peritoneum; I82.4Z1 Acute embolism and thrombosis of unspecified deep veins of right distal lower extremity; J44.9 Chronic obstructive pulmonary disease, unspecified; I10 Essential (primary) hypertension; E78.5 Hyperlipidemia, unspecified; M19.90 Unspecified osteoarthritis, unspecified site; G89.29 Other chronic pain; I73.9 Peripheral vascular disease, unspecified; K21.9 Gastro-esophageal reflux disease without esophagitis; E66.9 Obesity, unspecified; Z68.33 Body mass index [BMI] 33.0-33.9, adult; Z79.01 Long term (current) use of anticoagulants; Z79.899 Other long term (current) drug therapy; Z78.0 Asymptomatic menopausal state; Z96.652 Presence of left artificial knee joint; Z96.641 Presence of right artificial hip joint; Z87.891 Personal history of nicotine dependence
CPT/HCPCS: 36561; 71045; 77001; J7120

== ENCOUNTER → 2021-01-13 16:42 | Outpatient (CLI) | payer MEDICARE, SELFPAY ==
[2021-01-13 10:50] VITALS: BMI 34.5
--- NOTE | 2021-01-13 16:50 | RAD_ITS ---
STUDY: X-RAY - LUMBAR SPINE REASON FOR EXAM: Female, 70 years old. BACK PAIN TECHNIQUE: 3 view(s) of the lumbar spine were obtained. COMPARISON: 10/09/2019 FINDINGS: Normal lumbar lordosis. There is no substantial scoliosis. 2 mm of anterolisthesis of the L4 on L5 which is unchanged. Status post discectomy and transpedicular fixation at L5/S1 with anatomic alignment. Normal vertebral bodies and endplates. Normal disc space heights. The soft tissue structures are unremarkable. RAD/Lumbar Spine 2 or 3 Views IMPRESSION: No change from 10/09/2019. MRI may be useful. Electronically Signed: Jack Banerjee MD at 17:49 EDT Tel , Service support ,
--- NOTE | 2021-01-13 16:50 | RAD_ITS ---
STUDY: X-RAY - THORACIC SPINE REASON FOR EXAM: Female, 70 years old. BACK PAIN TECHNIQUE: 3 view(s) of the thoracic spine were obtained. COMPARISON: None. FINDINGS: Normal kyphosis of the thoracic spine. Mild dextroscoliosis. There is multilevel endplate spondylosis of the thoracic vertebrae. There is multilevel disc space narrowing of the thoracic spine. The soft tissue structures are unremarkable. RAD/Thoracic Spine 3 Views IMPRESSION: Mild dextroscoliosis with diffuse degenerative disc disease per Electronically Signed: Jack Banerjee MD at 17:47 EDT Tel , Service support ,
== END ==
PROVIDERS: PCP Family Medicine; Referring Provider Anesthesiology Pain Medicine; Visit Provider Anesthesiology Pain Medicine
DX: M54.9 Dorsalgia, unspecified (principal); C34.12 Malignant neoplasm of upper lobe, left bronchus or lung; Z45.2 Encounter for adjustment and management of vascular access device; E78.5 Hyperlipidemia, unspecified
CPT/HCPCS: 72072; 72100; 96367; 96377; 96413; J7040; J7050; A4216; J2505; J3490; J9181

== ENCOUNTER → 2021-02-08 07:41 | Outpatient (CLI) | payer MEDICARE, SELFPAY ==
[2020-09-29 13:31] VITALS: BMI 34.1
[2021-02-03 10:44] VITALS: BMI 32.0
--- NOTE | 2021-02-08 07:50 | VDLE_ITS ---
Reason For Study: Leg pain RIGHT LEFT GSV is normal. CFV is compressible, spontaneous, phasic, CFV is compressible, spontaneous, phasic, competent, and demonstrates normal competent and demonstrates normal augmentation. augmentation. FV is noncompressible with minimal venous flow noted. Thrombus appears to be acute on chronic DVT from prox-mid. Chronic DVT noted in distal FV. PopV, T/P Trunk and GastrocV are partially compressible with normal venous flow noted. SoleusV is compressible. PTV is compressible. RT PerV is compressible. Procedure This is a venous duplex using B-mode, color flow and spectral Doppler. Exam performed in department. Compared to incidental finding on study done on 09/29/2020. A preliminary report was called and/or faxed to [facility]. VL/Venous Duplex US, Unilateral Interpretation Summary Appears to have some acute on chronic DVT of the right lower extremity. Ordering Physician: Timothy Jo Referring Physician: Herbert Simpson Performed By: Lashawn Rolon RVT
== END ==
PROVIDERS: PCP Family Medicine; Referring Provider Surgery Vascular Surgery; Visit Provider Surgery Vascular Surgery
DX: I70.213 Atherosclerosis of native arteries of extremities with intermittent claudication, bilateral legs (principal); M79.606 Pain in leg, unspecified; M79.89 Other specified soft tissue disorders; I65.23 Occlusion and stenosis of bilateral carotid arteries; I71.4 Abdominal aortic aneurysm, without rupture; F17.200 Nicotine dependence, unspecified, uncomplicated; E78.00 Pure hypercholesterolemia, unspecified; I10 Essential (primary) hypertension; K21.9 Gastro-esophageal reflux disease without esophagitis
CPT/HCPCS: 93971

== ENCOUNTER → 2021-03-04 06:55 | Outpatient (CLI) | payer MEDICARE, SELFPAY ==
[2021-02-23 09:25] VITALS: BMI 29.8
[2021-02-25 07:47] VITALS: BMI 30.4
--- NOTE | 2021-03-04 06:57 | CT_ITS ---
EXAM: CT CHEST, ABDOMEN AND PELVIS WITH INTRAVENOUS CONTRAST : 1950 CLINICAL INDICATION: Assess responsen to treatment-small cell lung ca TECHNIQUE: Helically acquired images were obtained of the chest, abdomen and pelvis with intravenous contrast. This CT exam was performed using one or more of the following dose reduction techniques: automated exposure control, adjustment of the mA and/or kV according to patient size, and/or use of iterative reconstruction technique. This report was created using [employer] report Sandbox technology. CONTRAST: IV 100mL Isovue-300 COMPARISON: PET CT scan dated 12/22/2020. FINDINGS: CHEST: LUNGS AND PLEURAL SPACES: Mass in the left upper lobe measures 1.3 x 1.1 cm on today's exam compared to 2.5 x 1.6 cm on the previous exam. There is scar and atelectasis at the right lung base which is stable. No pleural effusion or thickening. No pneumothorax. HEART: Unremarkable. Heart size is normal. No pericardial effusion. MEDIASTINUM: Unremarkable. No mediastinal or hilar adenopathy. Esophagus is unremarkable. No hiatal hernia. THYROID: Unremarkable. No thyroid lesions. ABDOMEN: LIVER: Unremarkable. Homogeneous. No focal mass. GALLBLADDER AND BILE DUCTS: Unremarkable. No calcified gallstones. No gallbladder distention or wall edema. No intra- or extrahepatic biliary ductal dilation. PANCREAS: Unremarkable. No focal cystic or solid mass. SPLEEN: Unremarkable. Normal size without focal cystic or solid mass. ADRENALS: There is a lobular low-density mass with peripheral calcifications in the left upper abdomen which is stable. This appears to be arising of the left adrenal gland. KIDNEYS AND URETERS: Unremarkable. Normal renal size and position. No hydronephrosis. STOMACH AND BOWEL: Unremarkable. No stomach or bowel distention. No focal inflammatory change. PELVIS: APPENDIX: No evidence of acute appendicitis. BLADDER: Unremarkable. REPRODUCTIVE: Unremarkable as visualized. No mass. CHEST, ABDOMEN and PELVIS: INTRAPERITONEAL SPACE: There is a small amount of free fluid seen within the lower abdomen. This is markedly decreased from the reference exam. BONES/JOINTS: There is beam hardening artifact from right hip prosthesis. There is orthopedic hardware in the lower lumbar spine from a posterior fusion. No suspicious lytic or blastic abnormality. SOFT TISSUES: The area along the anterior abdominal wall that showed increased activity indicating omental caking does not appear to be appreciably changed. No discrete abdominal or pelvic wall hernia. VASCULATURE: There is an aorto biiliac stent graft in stable position. There are varices in the left hemipelvis possibly representing pelvic congestion syndrome. Aorta is non-dilated. No aortic dissection. No obvious central pulmonary embolism although this study was not performed with the pulmonary embolism protocol. LYMPH NODES: Unremarkable. No enlarged lymph nodes. CT/CT Chest, Abd, Pel w/Contrast IMPRESSION: 1. Interval decrease in size of a mass in the left upper lobe compatible with regression of disease. 2. Lobular low-density mass in the left upper abdomen with peripheral calcifications arising from the left adrenal gland which is stable. 3. No appreciable change in the soft tissue along the anterior abdomen wall which may represent omental caking. Individualized dose optimization techniques were used for this CT. at 1833 Reported and signed by: Jayme Polanco MD Electronically Signed: Jayme Polanco MD at 18:32 EDT Tel , Service support ,
[2021-03-04] MEDS: 0.9% Saline Lock 10 ML Syringe IV (07:10)
== END ==
PROVIDERS: PCP Family Medicine; Referring Provider Nurse Practitioner Family; Visit Provider Nurse Practitioner Family
DX: C34.12 Malignant neoplasm of upper lobe, left bronchus or lung (principal)
CPT/HCPCS: 71260; 74177; Q9967

== ENCOUNTER → 2021-05-11 07:43 | Outpatient (CLI) | payer MEDICARE, SELFPAY ==
--- NOTE | 2021-05-11 07:47 | CT_ITS ---
STUDY: CT CHEST T ABDOMEN WITH CONTRAST REASON FOR EXAM: Female, 71 years old. SCLC RESPONSE TO RX RADIATION DOSAGE (If Supplied By Facility): CTDIvol = ( 14.62 ) mGy, DLP = ( 857.01 ) mGycm TECHNIQUE: Transaxial imaging was performed following intravenous administration of Oral and amp; IV Readi-CAT and amp; 100mL Isovue-300. Individualized dose optimization techniques were used for this CT. COMPARISON: Comparison is made with a prior examination dated 03/04/2021. FINDINGS: CHEST A right-sided portacatheter is seen with the tip in the superior vena cava. Persistent spiculated nodule in the anterior aspect of the left upper lobe as seen on axial image #31. This measures 1 cm x 1.1 cm. This is essentially unchanged in size. There is persistent increased markings anteriorly suggestive of scarring. Stable increased markings at the lung bases slightly more prominent on the right side suggestive of scarring. There is no demonstrated pleural abnormality. Normal heart and pericardium. Normal mediastinum. Normal hilar regions. Normal unenhanced pulmonary arteries. Atherosclerotic plaque formation of the aortic arch. Small amount of mural thrombus is once again seen along the posterior aspect of the descending thoracic aorta. There are multi-level degenerative changes of the thoracic spine. ABDOMEN Normal liver. Normal gallbladder and extrahepatic biliary system. Normal spleen. Normal pancreas. Stable lobular hypodense lesion in the left adrenal gland with the calcified septations measuring 4.8 signed by 4.6 cm. This is unchanged. Normal right kidney. Normal left kidney. Normal visualized stomach. Normal small intestine. Normal colon. The appendix is visualized and appears normal. Stable appearance of the infrarenal abdominal aneurysm with evidence of an intraluminal stent grafting. There is no evidence of the riley stent leakage. Normal inferior vena cava. Normal retroperitoneum. Normal abdominal wall. There are diffuse degenerative changes of the visualized lumbar spine. Once again, the patient is status post interpedicular screw and jomar fixation of the lower lumbar spine. CT/CT Chest AND Abd W/ Contrast IMPRESSION: Essentially stable examination. Electronically Signed: Dario Barrientos MD at 11:07 EDT , Service support ,
[2021-05-11] MEDS: 0.9% Saline Lock 10 ML Syringe IV (08:20)
== END ==
PROVIDERS: PCP Family Medicine; Referring Provider Internal Medicine Hematology & Oncology; Visit Provider Internal Medicine Hematology & Oncology
DX: C34.12 Malignant neoplasm of upper lobe, left bronchus or lung (principal)
CPT/HCPCS: 71260; 74160; Q9967; A4216

== ENCOUNTER 2021-07-16 06:32 | Emergency (ER) | payer MEDICARE, SELFPAY ==
[2021-07-16 06:34] VITALS: BP 101/63; PULSE 57; RESP 18; TEMP 36.3; O2SAT 98; BMI 28.9
--- NOTE | 2021-07-16 06:57 | EX.ED.DYSGE1 ---
HPI History of Present Illness Chief Complaint: General Illness Informant: patient and spouse/S.O. Narrative Narrative: 71-year-old female with a history of stage IV small cell lung carcinoma presenting to the emergency department with about 1 week of headache cough fatigue lightheadedness sore throat runny nose. Patient finished chemotherapy and is currently on immunotherapy with Dr. Fenton she had a known exposure to Covid with her daughter recently and tested negative on 06 July. She denies any fevers. She notes that the sputum she is bringing up is clear. She denies any wheezing but does states that she does feel pressure in her chest when she breathes. states she seems rather unstable when she walks. Decreased p.o. intake stating that food does not sound good but no vomiting or diarrhea PFSH PFSH Medical History AAA (abdominal aortic aneurysm) Abdominal pain Acute bronchitis, unspecified Acute deep vein thrombosis (DVT) of distal end of right lower extremity Adrenal mass Alcohol use Anemia Arthritis Atherosclerosis of [place] arteries of extremities with intermittent claudication, bilateral legs Back pain Cancer Cardiology follow-up encounter Carotid artery stenosis Chest pain Constipation COPD (chronic obstructive pulmonary disease) Deep vein thrombosis (DVT) of proximal vein of right lower extremity DVT (deep venous thrombosis) Encounter for screening for COVID-19 Endometrial thickening on ultrasound Essential hypertension Fatty liver disease, nonalcoholic Former smoker Gastric reflux GERD (gastroesophageal reflux disease) History of back problems History of edema History of pain when walking History of stress test Hx of echocardiogram Hyperlipidemia Hypertension Neuropathy Omental metastasis Oral candidiasis Osteoarthritis 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 Peripheral arterial disease Peripheral vascular angioplasty status Peripheral vascular disease Peritoneal carcinomatosis Shortness of breath on exertion Shoulder pain Umbilical hernia Uterine fibroid Ventral incisional hernia without obstruction or gangrene 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 Wears dentures Wears glasses Weight loss Home Medications lisinopril 20 mg PO QHS 07/10/15 [History Last Taken 12/10/20 20:30] omeprazole 40 mg PO DAILY 07/10/15 [History Last Taken 12/10/20 08:30] cilostazol 100 mg PO BID 10/25/18 [History Last Taken 12/10/20 20:30] atorvastatin 40 mg tablet 40 mg PO QHS 04/23/19 [History Last Taken 12/10/20 20:30] apixaban [Eliquis] 5 mg PO BID 12/11/20 [History Last Taken 01/04/21] hydrocodone-acetaminophen 1 tab PO Q8 PRN 12/11/20 [History Last Taken 12/10/20 13:00] lidocaine-prilocaine 2.5 %-2.5 % topical cream 1 applic TOPICAL ONCE PRN 30 Days #30 g 12/31/20 [Rx Last Taken Unknown] ondansetron 8 mg disintegrating tablet 8 mg PO Q8H PRN #30 tab 12/31/20 [Rx Last Taken Unknown] prochlorperazine maleate 10 mg tablet 10 mg PO Q6H PRN #30 tab 12/31/20 [Rx Last Taken Unknown] fentanyl 50 mcg/hr transdermal patch 1 patch TRANSDERMAL Q72H 04/20/21 [History Last Taken Unknown] nystatin 100,000 unit/mL oral suspension 5 ml PO DAILY #473 ml 04/20/21 [Rx Last Taken Unknown] Allergy/AdvReac Type Severity Reaction Status Date / Time naproxen [From Naprosyn] Allergy Severe Shortness Verified 07/16/21 06:37 of breath Family History Brother Cancer throat and lung Mother CAD (coronary artery disease) Hypertension Father CAD (coronary artery disease) Surgical History H/O shoulder replacement History of AAA (abdominal aortic aneurysm) repair (09/26/17) History of amputation of left great toe History of bunionectomy of left great toe History of cardiac catheterization History of carpal tunnel release of both wrists History of left knee replacement (~06/08/11) History of right hip replacement History of rotator cuff surgery History of spinal surgery (~1999) Hx of spinal fusion Social History number of children: 5 Smoking Status: Former smoker quit date: 12/21/20 Tobacco: How many years used: 50 second hand exposure: No alcohol intake: current alcohol intake frequency: a few times a month Alcohol type: beer details: weekends substance use type: does not use caffeine: Yes Type: coffee Number of servings: 3 and other what type of physical activity do you participate in: none seatbelt use: always do you feel safe at home: Yes additional social history: Matt- [employer] are retired ROS ROS ED ROS Narrative fatigue Constitutional Constitutional ED: Denies chills, fever(s) or weight loss Eyes Eyes: Denies change in vision or diplopia ENT ENT ED: Denies ear pain, rhinorrhea or sore throat Cardiovascular Cardiovascular: Denies chest pain, orthopnea, palpitations or racing heartbeat Respiratory/Chest Respiratory/Chest: Reports cough and dyspnea; Denies orthopnea Gastrointestinal Gastrointestinal: Denies abdominal pain, diarrhea, nausea or vomiting Genitourinary Genitourinary ED: Denies dysuria, hematuria or urinary frequency Musculoskeletal Musculoskeletal: Denies arthralgias or myalgias Integumentary Denies abscess or rash Neurologic Neurologic: Denies headache(s) or weakness Psychiatric Psychiatric: Denies anxiety, depression, suicidal ideation or suicidal thoughts Endocrine Endocrinology: Denies polydipsia, polyphagia or polyuria Allergic/Immunologic Allergic/Immunologic ED: Denies mouth swelling, tongue swelling or urticaria EXAM Physical Exam Const Vital Signs: 07/16/21 10:16 Pulse Rate 59 L Blood Pressure 112/63 Pulse Ox 99 Positive well nourished and well developed General Appearance ED: well developed HEENT Reports normocephalic, head/scalp atraumatic, TM's clear and moist mucous membranes Negative for trauma Tympanic Membrane ED: Yes TM's clear Eyes PERRL and EOMs intact bilaterally Neck no lymphadenopathy, supple and no JVD Resp normal respiratory effort and clear to auscultation bilaterally Cardio regular rate, regular rhythm and no murmurs GI normal to inspection, nondistended, normoactive bowel sounds and non-tender Palpation: soft Back/Spine no CVA tenderness and normal ROM Extremity normal to inspection General Extremety ED: Negative for edema General Extremity: Negative for edema Neuro oriented x3 and CN's II-XII intact bilaterally Sensorium / Orientation: alert Motor Exam: strength 5/5 throughout Psych mental status grossly normal Mood & Affect: Negative for depressed or tearful Skin no rashes or lesions noted and no wounds MDM MDM Lab Data Attestation: I reviewed the patient's lab results. Labs: Laboratory Results - last 24 hr 07/16/21 08:14 COVID-19 ([facility]) Not Detected Radiography Diagnostic Testing: Clinical Impression(s) from Imaging Studies Chest X-Ray 07/16/21 07:22 IMPRESSION: The previously seen nodular densities in the left upper lobe has decreased in size. It presently measures 8.7 mm. No acute infiltrate is seen. Electronically Signed: Dario Barrientos MD at 8:04 EST , Service support , ADDENDUM: 07/16/21 0834 IMPRESSION: The previously seen nodular densities in the left upper lobe has decreased in size. It presently measures 8.7 mm. No acute infiltrate is seen. Electronically Signed: Dario Barrientos MD at 8:04 EST , Service support , Discharge Plan Triage Chief Complaint: General Illness ED Provider: Lyle Montgomery Dx/Rx/DC Orders Clinical Impression: Sinusitis, Viral URI Instructions: ED Sinusitis (Antibiotic Treatment), ED URI, Viral, No Abx (Adult) Prescriptions: No Action atorvastatin 40 mg tablet 40 mg PO QHS RF: 0 lidocaine-prilocaine 2.5-2.5 % cream 1 applic topical ONCE PRN (Reason: port access) 30 Days Qty: 30 RF: 2 ondansetron 8 mg tablet,disintegrating 8 mg PO Q8H PRN (Reason: nausea and vomiting) Qty: 30 RF: 2 prochlorperazine maleate 10 mg tablet 10 mg PO Q6H PRN (Reason: nausea and vomiting) Qty: 30 RF: 2 nystatin 100,000 unit/mL suspension 5 ml PO DAILY Qty: 473 RF: 1 fentanyl 50 mcg/hr patch 72 hour 1 patch transdermal Q72H RF: 0 lisinopril 20 MG tablet 20 mg PO QHS RF: 0 omeprazole 40 MG capsule 40 mg PO DAILY RF: 0 cilostazol 100 MG tablet 100 mg PO BID RF: 0 hydrocodone-acetaminophen 5-325 mg tablet 1 tab PO Q8 PRN (Reason: Pain, Severe) RF: 0 Eliquis 5 mg tablet 5 mg PO BID RF: 0 Primary Care Provider: Herbert Simpson Referrals: Tatiana,Herbert, DO [Primary Care Provider] - Disposition Disposition: Home, Self Care Discharge Date/Time: 07/16/21 10:32
--- NOTE | 2021-07-16 07:22 | RAD_ITS ---
STUDY: X-RAY CHEST REASON FOR EXAM: Female, 71 years old. Cough TECHNIQUE: Single AP portable view of the chest. COMPARISON: Comparison is made with prior study dated 09/08/2020. FINDINGS: A right-sided Port-A-Cath is seen with the tip in the proximal portion of the superior vena cava at the junction with the internal jugular vein. Hyperinflation. The previously seen nodular density in the left upper lobe has decreased in size. It presently measures 8.7 mm. Stable minimal increased markings at the lung bases suggests of scar. There is no demonstrated pleural abnormality. Normal size heart. Normal mediastinum and kati. Normal visualized pulmonary arteries. There is atherosclerotic tortuosity of the aortic arch and descending thoracic aorta. Normal visualized thoracic spine. The patient is status post left shoulder replacement. There is no demonstrated abnormality of the visualized soft tissue structures of the upper abdomen. RAD/Chest 1 View (Portable) IMPRESSION: The previously seen nodular densities in the left upper lobe has decreased in size. It presently measures 8.7 mm. No acute infiltrate is seen. Electronically Signed: Dario Barrientos MD at 8:04 EST , Service support ,
[2021-07-16 07:23] LABS: Absolute Lymphocyte Count 1.74 X10^3/uL (0.83-4.51); Absolute Neutrophil Count 4.6 X10^3/uL (2.0-7.7); Basophil# 0.05 X10^3/uL; Basophil% 0.7 % (0-1); Eosinophil# 0.05 X10^3/uL; Eosinophils% 0.7 % (0-5); Hematocrit 34.2 % (37-47); Hemoglobin 11.4 g/dL (12.0-15.0); Lymphocyte # 1.74 X10^3/ul (0.83-4.51); Mean Corp Hgb Conc 33.3 g/dL (32-36); Mean Corpuscular Hgb 34.4 pg (27.0-32.0); Mean Corpuscular Volume 103.3 fL (81-99); Mean Platelet Vol. 9.2 fl (6.2-12.0); Monocyte# 0.78 X10^3/uL; Monocyte% 10.8 % (0-10); NRBC Flagged by Analyzer 0 % (0-5); Neutrophil # 4.58 X10^3/uL (2.7-7.7); Neutrophil % 63.1 % (47-70); Platelet Count 236 K/mm3 (150-450); RBC Distribution Width CV 13.4 % (11.6-14.6); RBC Distribution Width SD 50.6 fl (35.1-43.9); Red Blood Count 3.31 M/mm3 (4.2-5.4); White Blood Count 7.3 K/mm3 (4.4-11.0)
[2021-07-16 07:39] LABS: ALB/GLOB Ratio 0.7 RATIO (0.9-2.4); AST(SGOT) 16 U/L (15-37); Alanine Aminotransfer ALT/SGPT 18 U/L (13-56); Albumin, Serum 2.8 g/dL (3.2-5.0); Alkaline Phosphatase 99 U/L (45-117); Anion Gap 5 (5-15); BUN 18 mg/dL (7-18); BUN/Creat Ratio 18.1 RATIO (10-20); Calcium,Total 9.8 mg/dL (8.5-10.1); Chloride 103 mmol/L (98-107); EST Glomerular Filtration Rate 58 mL/min (>60); Est Glom Filt Rate - Afr Amer 70 mL/min (>60); Estimated Creatinine Clearance 43.27 ml/min; Globulin 4.1 g/dL (2.2-4.2); Glucose 100 mg/dL (74-106); Potassium 3.6 mmol/L (3.5-5.1); Protein, Total 6.9 g/dL (6.4-8.2); Sodium Level 135 mmol/L (136-145)
[2021-07-16 07:50] LABS: Lactic Acid 1.1 mmol/L (0.4-1.9)
[2021-07-16 08:01] VITALS: BP 117/74; BP 119/50; BP 121/62; PULSE 50; PULSE 54; PULSE 72
[2021-07-16 09:50] LABS: Bacteria 0 SEEN /hpf (None Seen); Mucous, Urine 0 SEEN /hpf (<or=2+); Red Blood Cells-Urine 0 SEEN /hpf (0-5)
[2021-07-16 09:51] LABS: Color, Urine Yellow (Yellow); Glucose, Dipstick Normal (Normal); Ketone-Dipstick Negative (Negative); Leukocyte Esterase-Dipstick 25 /ul (Negative); Nitrite-Dipstick Negative (Negative); Occult Blood-Urine 10 /ul (Negative); Protein-Dipstick 30 mg/dl (Negative); Urine Bilirubin Dipstick Negative (Negative); Urine Clarity Sl. Cloudy (Clear); Urine Urobilinogen Normal (Normal)
[2021-07-16 09:56] LABS: Squamous Epithelial Cells - UA 5-10 SEEN /hpf (5-10); White Blood Cells 0-5 SEEN /hpf (0-5)
--- NOTE | 2021-07-16 10:01 | EDS_ITS ---
HPI History of Present Illness Chief Complaint: General Illness Detail of Chief Complaint: Not feeling well for about a week Informant: patient and mental health staff Narrative Narrative: Care of patient turned over to me this morning awaiting lab results. Care of patient turned over to me by evening physician. Patient's had cough and headache and body aches as well as some sinus congestion for about a week. She was seen by her primary care physician and started on amoxicillin. Patient had a negative Covid test 4 days ago. Patient has been immunized against Covid. [facility] Medical History AAA (abdominal aortic aneurysm) Abdominal pain Acute bronchitis, unspecified Acute deep vein thrombosis (DVT) of distal end of right lower extremity Adrenal mass Alcohol use Anemia Arthritis Atherosclerosis of [place] arteries of extremities with intermittent claudication, bilateral legs Back pain Cancer Cardiology follow-up encounter Carotid artery stenosis Chest pain Constipation COPD (chronic obstructive pulmonary disease) Deep vein thrombosis (DVT) of proximal vein of right lower extremity DVT (deep venous thrombosis) Encounter for screening for COVID-19 Endometrial thickening on ultrasound Essential hypertension Fatty liver disease, nonalcoholic Former smoker Gastric reflux GERD (gastroesophageal reflux disease) History of back problems History of edema History of pain when walking History of stress test Hx of echocardiogram Hyperlipidemia Hypertension Neuropathy Omental metastasis Oral candidiasis Osteoarthritis 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 Peripheral arterial disease Peripheral vascular angioplasty status Peripheral vascular disease Peritoneal carcinomatosis Shortness of breath on exertion Shoulder pain Umbilical hernia Uterine fibroid Ventral incisional hernia without obstruction or gangrene 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 Wears dentures Wears glasses Weight loss Home Medications lisinopril 20 mg PO QHS 07/10/15 [History Last Taken 12/10/20 20:30] omeprazole 40 mg PO DAILY 07/10/15 [History Last Taken 12/10/20 08:30] cilostazol 100 mg PO BID 10/25/18 [History Last Taken 12/10/20 20:30] atorvastatin 40 mg tablet 40 mg PO QHS 04/23/19 [History Last Taken 12/10/20 20:30] apixaban [Eliquis] 5 mg PO BID 12/11/20 [History Last Taken 01/04/21] hydrocodone-acetaminophen 1 tab PO Q8 PRN 12/11/20 [History Last Taken 12/10/20 13:00] lidocaine-prilocaine 2.5 %-2.5 % topical cream 1 applic TOPICAL ONCE PRN 30 Days #30 g 12/31/20 [Rx Last Taken Unknown] ondansetron 8 mg disintegrating tablet 8 mg PO Q8H PRN #30 tab 12/31/20 [Rx Last Taken Unknown] prochlorperazine maleate 10 mg tablet 10 mg PO Q6H PRN #30 tab 12/31/20 [Rx Last Taken Unknown] fentanyl 50 mcg/hr transdermal patch 1 patch TRANSDERMAL Q72H 04/20/21 [History Last Taken Unknown] nystatin 100,000 unit/mL oral suspension 5 ml PO DAILY #473 ml 04/20/21 [Rx Last Taken Unknown] Allergy/AdvReac Type Severity Reaction Status Date / Time naproxen [From Naprosyn] Allergy Severe Shortness Verified 07/16/21 06:37 of breath Family History Brother Cancer throat and lung Mother CAD (coronary artery disease) Hypertension Father CAD (coronary artery disease) Surgical History H/O shoulder replacement History of AAA (abdominal aortic aneurysm) repair (09/26/17) History of amputation of left great toe History of bunionectomy of left great toe History of cardiac catheterization History of carpal tunnel release of both wrists History of left knee replacement (~06/08/11) History of right hip replacement History of rotator cuff surgery History of spinal surgery (~1999) Hx of spinal fusion Social History number of children: 5 Smoking Status: Former smoker quit date: 12/21/20 Tobacco: How many years used: 50 second hand exposure: No alcohol intake: current alcohol intake frequency: a few times a month Alcohol type: beer details: weekends substance use type: does not use caffeine: Yes Type: coffee Number of servings: 3 and other what type of physical activity do you participate in: none seatbelt use: always do you feel safe at home: Yes additional social history: Matt- Both are retired EXAM Physical Exam Const Vital Signs: 07/16/21 06:34 07/16/21 06:38 07/16/21 08:01 Temperature 97.3 F L Temperature Source Temporal Pulse Rate 57 L Pulse Rate [Lying] 50 L Pulse Rate [Sitting] 54 L Pulse Rate [Standing] 72 Respiratory Rate 18 Respiratory Effort Short of Breath Respiratory Pattern Normal Blood Pressure 101/63 Blood Pressure [Lying] 121/62 H Blood Pressure [Sitting] 119/50 L Blood Pressure [Standing] 117/74 Blood Pressure Mean 75 Blood Pressure Mean [Lying] 81 Blood Pressure Mean [Sitting] 73 Blood Pressure Mean [Standing] 88 Pulse Ox 98 Oxygen Delivery Method Room Air MDM MDM MDM Narrative Medical decision making narrative: Patient's lab work-up was unremarkable. Her urinalysis unremarkable. Rapid Covid was negative and I did send off a PCR test which results are currently pending. Patient also had an influenza screen that was negative. Her chest x-ray showed a right upper lobe nodule that is diminished in size from prior. Lab Data Attestation: I reviewed the patient's lab results. Labs: Laboratory Results - last 24 hr 07/16/21 07/16/21 07/16/21 07:11 07:11 07:11 WBC 7.3 RBC 3.31 L Hgb 11.4 L Hct 34.2 L MCV 103.3 H MCH 34.4 H MCHC 33.3 RDW Std Deviation 50.6 H RDW Coeff of Sean 13.4 Plt Count 236 MPV 9.2 Immature Gran % (Auto) 0.700 Neut % (Auto) 63.1 Lymph % (Auto) 24.0 [place] % (Auto) 10.8 H Eos % (Auto) 0.7 Baso % (Auto) 0.7 Absolute Neuts (auto) 4.6 Absolute Lymphs (auto) 1.74 Nucleated RBC % 0 Sodium 135 L Potassium 3.6 Chloride 103 Carbon Dioxide 27.0 Anion Gap 5 BUN 18 Creatinine 1.00 Estim Creat Clear Calc 43.27 Est GFR (MDRD) Af Amer 70 Est GFR (MDRD) Non-Af 58 L BUN/Creatinine Ratio 18.1 Glucose 100 Lactic Acid 1.1 Calcium 9.8 Total Bilirubin 0.40 AST 16 ALT 18 Alkaline Phosphatase 99 Total Protein 6.9 Albumin 2.8 L Globulin 4.1 Albumin/Globulin Ratio 0.7 L Urine Color Urine Clarity Urine pH Ur Specific [place] Urine Protein Urine Glucose (UA) Urine Ketones Urine Occult Blood Urine Nitrite Urine Bilirubin Urine Urobilinogen Ur Leukocyte Esterase Urine RBC Urine WBC Ur Squamous Epith Cells Urine Bacteria Urine Mucus 07/16/21 09:45 WBC RBC Hgb Hct MCV MCH MCHC RDW Std Deviation RDW Coeff of Sean Plt Count MPV Immature Gran % (Auto) Neut % (Auto) Lymph % (Auto) [place] % (Auto) Eos % (Auto) Baso % (Auto) Absolute Neuts (auto) Absolute Lymphs (auto) Nucleated RBC % Sodium Potassium Chloride Carbon Dioxide Anion Gap BUN Creatinine Estim Creat Clear Calc Est GFR (MDRD) Af Amer Est GFR (MDRD) Non-Af BUN/Creatinine Ratio Glucose Lactic Acid Calcium Total Bilirubin AST ALT Alkaline Phosphatase Total Protein Albumin Globulin Albumin/Globulin Ratio Urine Color Yellow Urine Clarity Sl. Cloudy Urine pH 5.0 Ur Specific [place] 1.030 Urine Protein 30 H Urine Glucose (UA) Normal Urine Ketones Negative Urine Occult Blood 10 H Urine Nitrite Negative Urine Bilirubin Negative Urine Urobilinogen Normal Ur Leukocyte Esterase 25 H Urine RBC 0 SEEN Urine WBC 0-5 SEEN Ur Squamous Epith Cells 5-10 SEEN Urine Bacteria 0 SEEN Urine Mucus 0 SEEN Radiography Diagnostic Testing: Clinical Impression(s) from Imaging Studies Chest X-Ray 07/16/21 07:22 IMPRESSION: The previously seen nodular densities in the left upper lobe has decreased in size. It presently measures 8.7 mm. No acute infiltrate is seen. Electronically Signed: Dario Barrientos MD at 8:04 EST , Service support , ADDENDUM: 07/16/21 0834 IMPRESSION: The previously seen nodular densities in the left upper lobe has decreased in size. It presently measures 8.7 mm. No acute infiltrate is seen. Electronically Signed: Dario Barrientos MD at 8:04 EST , Service support , 1 view chest x-ray obtained interpreted by myself as right upper lobe nodule. Radiology agreed and did not see any evidence of infiltrate. Radiology felt the nodule was smaller in size than prior x-ray. Discharge Plan Triage Chief Complaint: General Illness ED Provider: Ungur,Remus Dx/Rx/DC Orders Clinical Impression: Sinusitis, Viral URI Instructions: ED Sinusitis (Antibiotic Treatment), ED URI, Viral, No Abx (Adult) Prescriptions: No Action atorvastatin 40 mg tablet 40 mg PO QHS RF: 0 lidocaine-prilocaine 2.5-2.5 % cream 1 applic topical ONCE PRN (Reason: port access) 30 Days Qty: 30 RF: 2 ondansetron 8 mg tablet,disintegrating 8 mg PO Q8H PRN (Reason: nausea and vomiting) Qty: 30 RF: 2 prochlorperazine maleate 10 mg tablet 10 mg PO Q6H PRN (Reason: nausea and vomiting) Qty: 30 RF: 2 nystatin 100,000 unit/mL suspension 5 ml PO DAILY Qty: 473 RF: 1 fentanyl 50 mcg/hr patch 72 hour 1 patch transdermal Q72H RF: 0 lisinopril 20 MG tablet 20 mg PO QHS RF: 0 omeprazole 40 MG capsule 40 mg PO DAILY RF: 0 cilostazol 100 MG tablet 100 mg PO BID RF: 0 hydrocodone-acetaminophen 5-325 mg tablet 1 tab PO Q8 PRN (Reason: Pain, Severe) RF: 0 Eliquis 5 mg tablet 5 mg PO BID RF: 0 Primary Care Provider: Herbert Simpson Referrals: Herbert Simpson DO [Primary Care Provider] - Disposition Disposition: Home, Self Care
[2021-07-16 10:16] VITALS: BP 112/63; PULSE 59; O2SAT 99
== END 2021-07-16 10:32 | disposition home or self-care (01) ==
PROVIDERS: Emergency Medicine; Emergency Provider Emergency Medicine; PCP Family Medicine
DX: J06.9 Acute upper respiratory infection, unspecified (principal); J32.9 Chronic sinusitis, unspecified; C34.12 Malignant neoplasm of upper lobe, left bronchus or lung; G62.9 Polyneuropathy, unspecified; I10 Essential (primary) hypertension; I70.213 Atherosclerosis of native arteries of extremities with intermittent claudication, bilateral legs; I71.4 Abdominal aortic aneurysm, without rupture; K21.9 Gastro-esophageal reflux disease without esophagitis; M19.90 Unspecified osteoarthritis, unspecified site; J44.9 Chronic obstructive pulmonary disease, unspecified; K76.0 Fatty (change of) liver, not elsewhere classified; Z86.718 Personal history of other venous thrombosis and embolism; Z79.01 Long term (current) use of anticoagulants; Z79.899 Other long term (current) drug therapy; Z87.891 Personal history of nicotine dependence; Z20.822 Contact with and (suspected) exposure to COVID-19
CPT/HCPCS: 36591; 71045; 80053; 81001; 83605; 85025; 87426; 87635; 87804; 99285; U0005; A4216; U0003

== ENCOUNTER → 2021-07-29 07:00 | Outpatient (CLI) | payer MEDICARE, SELFPAY ==
--- NOTE | 2021-07-29 07:01 | MRI_ITS ---
STUDY: MRI BRAIN WITH AND WITHOUT CONTRAST REASON FOR EXAM: Female, 71 years old. headaches, imbalance, SCLC TECHNIQUE: Standardized multiplanar fat and water weighted pulse sequences were obtained. 15ML IV DOTAREM was administered for the contrast portion of the examination. COMPARISON: 12/30/2020.. FINDINGS: There is mild cerebral atrophy with widening of the extra-axial spaces and ventricular dilatation. There are multiple white matter hyperintensities, distributed throughout the deep white matter tracts of the cerebral hemispheres, consistent with moderate chronic white matter ischemic changes. Focal encephalomalacia visualized in the left centrum semiovale was extracted dilatation of the left lateral ventricle. No evidence of restricted diffusion is visualized, ADC map is unremarkable. A 0.3 cm focus of signal dropout is visualized on the gradient echo sequence in the posterior left centrum semiovale. There are prominent perivascular spaces (PVS) involving the basal ganglia. Normal thalami. There is no extra-axial fluid accumulation. Normal flow voids within the major intracranial circulation suggesting patency by spin echo criteria. Normal venous enhancement. There is no enhancing intra-axial or extra-axial abnormality. Normal sella turcica, pituitary gland, infundibular stalk, optic chiasm and hypothalamus. Normal tectal plate and pineal gland. Normal midbrain, mihaela and medulla. Normal cerebellum. Normal basal cisterns. Normal bilateral temporal bones. Normal bilateral internal auditory canals. No demonstrated orbital abnormality, within the constraints of a routine brain study. Normal visualized paranasal sinuses. Normal calvarium and skull base. Normal visualized soft tissue structures. Normal visualized upper cervical spine. No areas of abnormal enhancement visualized after contrast administration. No evidence of enhancing parenchymal masses is seen. MRI/Brain W/WO Contrast IMPRESSION: No evidence of intracranial mass. Chronic microvascular disease and chronic atrophic brain changes. Focal chronic encephalomalacia in the left centrum semiovale. Electronically Signed: Alec Izaguirre MD at 15:46 EST Tel , Service support ,
[2021-07-29] MEDS: 0.9% Saline Lock 10 ML Syringe IV (07:55)
== END ==
PROVIDERS: PCP Family Medicine; Referring Provider Nurse Practitioner Family; Visit Provider Nurse Practitioner Family
DX: C34.12 Malignant neoplasm of upper lobe, left bronchus or lung (principal); R26.89 Other abnormalities of gait and mobility; R51.9 Headache, unspecified
CPT/HCPCS: 70553; A9575; A4216

== ENCOUNTER 2021-08-05 07:40 | Outpatient (CLI) | payer MEDICARE, SELFPAY ==
--- NOTE | 2021-08-05 07:46 | CT_ITS ---
STUDY: CT CHEST, ABDOMEN T PELVIS WITH CONTRAST REASON FOR EXAM: Female, 71 years old. 3 month follow-up. History of non-small cell lung cancer. History of prior chemotherapy and immunotherapy. COPD. RADIATION DOSAGE (If Supplied By Facility): CTDIvol = ( 14.98 ) mGy, DLP = ( 1218.75 ) mGycm TECHNIQUE: Transaxial imaging was performed following intravenous administration of IV 100mL Isovue-370. Individualized dose optimization techniques were used for this CT. COMPARISON: Comparison is made with prior study 05/11/2021. FINDINGS: CHEST A right-sided portacatheter is visualized with the tip in the superior vena cava. Persistent ill-defined nodule in the left upper lobe as seen on axial image #28 and coronal image #98. Since prior study, this is essentially unchanged. Stable increased linear markings at the lung bases more prominent at the right lung base suggestive of prior scarring. There is no demonstrated pleural abnormality. There are calcifications of the coronary arteries. There are multiple small lymph nodes within the mediastinum, which are normal in size and morphology most compatible with reactive lymph hyperplasia. Normal hilar regions. Normal unenhanced pulmonary arteries. There is atherosclerotic calcification of the aortic arch with tortuosity and elongation of the aortic arch and descending thoracic aorta. Once again, a small amount of mural thrombus is seen in the posterior aspect of the descending thoracic aorta. There are multi-level degenerative changes of the thoracic spine. ABDOMEN Normal liver. Normal gallbladder and extrahepatic biliary system. Normal spleen. Normal pancreas. Stable 4.8 cm x 4.6 cm lobulated hypodense lesion in the left adrenal gland thickening calcifications and septations. Normal right kidney. Normal left kidney. Normal visualized stomach. Normal small intestine. Normal colon. The appendix is visualized and appears normal. Endoluminal stent grafting of the distal abdominal aorta. The [place] abdominal aorta has a transverse dimension of 4.4 cm. Normal inferior vena cava. Normal retroperitoneum. Normal abdominal wall. There are diffuse degenerative changes of the visualized lumbar spine. Prior laminectomy and fusion in the lower lumbar spine as well as prior right total hip replacement. PELVIS Normal urinary bladder. I suspect a 4.1 cm x 4.7 cm fibroid of the fundal portion of the uterus. Normal visualized small intestine. Normal visualized colon. There is no pelvic fluid. There is no pelvic lymphadenopathy or mass lesion. Normal visualized pelvic arteries. CT/CT Chest, Abd, Pel w/Contrast IMPRESSION: Stable examination. Electronically Signed: Dario Barrientos MD at 9:31 EST , Service support ,
[2021-08-05] MEDS: 0.9% Saline Lock 10 ML Syringe IV (08:08)
== END 2021-08-05 23:59 | disposition short-term general hospital (02) ==
LOC: CT 07:41
PROVIDERS: PCP Family Medicine; Referring Provider Nurse Practitioner Family; Visit Provider Nurse Practitioner Family
DX: C34.12 Malignant neoplasm of upper lobe, left bronchus or lung (principal); C78.6 Secondary malignant neoplasm of retroperitoneum and peritoneum
CPT/HCPCS: 71260; 74177; Q9967; A4216

== ENCOUNTER 2021-08-11 08:07 | Outpatient (CLI) | payer MEDICARE, SELFPAY ==
--- NOTE | 2021-08-11 08:15 | NM_ITS ---
CLINICAL: 71-year-old female with history of primary lung carcinoma. WHOLE BODY 99m Tc MDP RADIONUCLIDE BONE SCINTIGRAPHY COMPARISON: CT of the chest, abdomen and pelvis reports 08/05/2021, FDG PET CT study report 12/22/2020 FINDINGS: Following the intravenous administration of 25.4 mCi of 99m Tc MDP, whole body bone images reveal: 1. Increased radiopharmaceutical concentration is defined in the acromioclavicular compartments of both shoulders, medial tibial and lateral femoral compartments of the right knee, posterior-lateral compartments of the right and left ankles, the patellofemoral compartment of the left knee. 2. The remaining skeletal structures are scintigraphically unremarkable with normal-appearing renal images and urinary bladder activity identified. A presumably asymptomatic left knee arthroplasty is encountered without evidence of significant increased tracer uptake. Facilitated activity is observed glenoid, proximal humeral components of the visualized left shoulder prosthesis. NM/Bone Scan Whole Body IMPRESSION: 1. The increase in radiopharmaceutical concentration identified in the right knee, right and left ankles, bilateral shoulders, patellofemoral compartment of the apparent asymptomatic left knee arthroplasty and glenoid and humeral components of the left shoulder prosthesis in the absence of corresponding orthopedic hardware placement. 2. There is no definitive typical scintigraphic evidence of diffuse axial skeletal metastatic disease on the current examination. Electronically Signed: Jack Abraham DO at 22:49 EST Tel , Service support ,
== END 2021-08-11 23:59 | disposition short-term general hospital (02) ==
LOC: NM 08:08
PROVIDERS: PCP Family Medicine; Referring Provider Nurse Practitioner Family; Visit Provider Nurse Practitioner Family
DX: C34.12 Malignant neoplasm of upper lobe, left bronchus or lung (principal)
CPT/HCPCS: 78306; A9503

== ENCOUNTER 2021-09-23 12:43 | Outpatient (CLI) | payer MEDICARE, SELFPAY ==
--- NOTE | 2021-09-23 12:45 | BI_ITS ---
MAMMOGRAPHY - BILATERAL SCREENING REASON FOR EXAM: Female, 71 years old. Routine annual screening examination. PERTINENT HISTORY: Non-contributory. TECHNIQUE: Digital bilateral breast tha (3D mammographic acquisition) in the CC and MLO projections. 2-D mediolateral oblique (MLO) and craniocaudad (CC) views of both breasts were obtained. CAD: Full Field Digital Mammography with Computer Added Detection was performed. COMPARISON: Comparison is made with prior study dated 06/16/2020 and 06/13/2019. FINDINGS: Breast Composition: There are scattered areas of fibroglandular density. There are no dominant masses or suspicious calcifications. Stable small benign-appearing bilateral axillary lymph nodes. No other significant abnormalities are identified. There has been no significant change since the prior study. BI/SCRN MAMM (CAD)W/THA BILAT IMPRESSION: Stable bilateral screening mammogram. Yearly follow-up mammogram recommended. (A) ASSESSMENT CATEGORY: BIRADS Category 2: Benign. A letter regarding these results will be sent to the patient by the facility within 30 days. Approximately 10% of breast cancers are not detected by mammography. A normal mammogram should not delay biopsy of a clinically suspicious abnormality. [id number] Electronically Signed: Dario Barrientos MD at 13:38 EST ,
== END 2021-09-23 23:59 | disposition home or self-care (01) ==
LOC: OPBI 12:43
PROVIDERS: PCP Family Medicine; Referring Provider Family Medicine; Visit Provider Family Medicine
DX: Z12.31 Encounter for screening mammogram for malignant neoplasm of breast (principal)
CPT/HCPCS: 77063; 77067

== ENCOUNTER 2021-09-29 13:43 | Outpatient (CLI) | payer MEDICARE, SELFPAY ==
[2021-09-29 16:51] LABS: Amphetamine Urine VISTA NEGATIVE (<1000 ng/mL); Barbiturate Urine VISTA NEGATIVE (< 200 ng/mL); Benzodiazepine Urine VISTA NEGATIVE (< 200 ng/mL); Cocaine Urine VISTA NEGATIVE (< 300 ng/mL); Ecstacy Urine VISTA NEGATIVE (< 500 ng/mL); Methadone Urine VISTA NEGATIVE (< 300 ng/mL); PCP Urine VISTA NEGATIVE (< 25 ng/mL); THC Urine VISTA NEGATIVE (< 50 ng/mL); Vista UDS pH Range 5
== END 2021-09-29 23:59 | disposition home or self-care (01) ==
PROVIDERS: PCP Family Medicine; Referring Provider Anesthesiology Pain Medicine; Visit Provider Anesthesiology Pain Medicine
DX: F11.20 Opioid dependence, uncomplicated (principal)
CPT/HCPCS: 80307

== ENCOUNTER 2021-10-26 07:40 | Outpatient (CLI) | payer MEDICARE, SELFPAY ==
--- NOTE | 2021-10-26 07:53 | CT_ITS ---
STUDY: CT CHEST T ABDOMEN WITH CONTRAST REASON FOR EXAM: Female, 71 years old. SCLC RESPONSE TO TREATMENT. Left adrenal mass. RADIATION DOSAGE (If Supplied By Facility): CTDIvol = ( 13.25 ) mGy, DLP = ( 897.03 ) mGycm TECHNIQUE: Transaxial imaging was performed following intravenous administration of IV 100mL Isovue-300. Individualized dose optimization techniques were used for this CT. COMPARISON: Comparison is made with prior examination dated 08/05/2021. FINDINGS: CHEST A right-sided portacatheter is seen with the tip in the superior vena cava. Stable small benign-appearing bilateral axillary lymph nodes. Mild degree of emphysematous changes with bullous formation in the right upper lobe. Since prior study, there has been a progressive increase in size of the lobular nodule in the left upper lobe. It presently measures 2.2 size by 1.4 cm. Persistent increased linear markings at the right lung base suggestive of a right basilar scarring. There is no demonstrated pleural abnormality. There are calcifications of the coronary arteries. There are multiple small lymph nodes within the mediastinum, which are normal in size and morphology most compatible with reactive lymph hyperplasia. Normal hilar regions. Normal unenhanced pulmonary arteries. There is atherosclerotic calcification of the aortic arch with tortuosity and elongation of the aortic arch and descending thoracic aorta. There are degenerative changes of the thoracic spine. The patient is status post left shoulder replacement. ABDOMEN Normal liver. Normal gallbladder and extrahepatic biliary system. Normal spleen. Normal pancreas. Stable 4.8 cm x 4.6 cm lobulated hypodense nodular mass in the left adrenal gland with thickening septation and calcification. Normal right kidney. Normal left kidney. Normal visualized stomach. Normal small intestine. Normal colon. The appendix is visualized and appears normal. There is diffuse atherosclerotic calcification of the abdominal aorta. The patient status post endoluminal stent grafting. No endoluminal leak is seen. Persistent infrarenal abdominal aortic aneurysm with a transverse dimension of 4.5 cm. Normal inferior vena cava. Normal retroperitoneum. Normal abdominal wall. There are diffuse degenerative changes of the visualized lumbar spine. CT/CT Chest AND Abd W/ Contrast IMPRESSION: Interval increase in size of the lobulated nodule in the left upper lobe. The remainder of the examination is unchanged. Electronically Signed: Dario Barrientos MD at 13:50 EDT ,
[2021-10-26] MEDS: 0.9% Saline Lock 10 ML Syringe IV (08:15)
== END 2021-10-26 23:59 | disposition home or self-care (01) ==
LOC: CT 07:40
PROVIDERS: PCP Family Medicine; Referring Provider Internal Medicine Hematology & Oncology; Visit Provider Internal Medicine Hematology & Oncology
DX: C34.12 Malignant neoplasm of upper lobe, left bronchus or lung (principal)
CPT/HCPCS: 71260; 74160; Q9967; A4216

== ENCOUNTER 2021-11-17 08:25 | Outpatient (CLI) | payer MEDICARE, SELFPAY ==
--- NOTE | 2021-11-17 08:30 | AAVD_ITS ---
Reason For Study: AAA w/repair Aorta Measurements Aorta Doppler Measurements Proximal aorta measures1.93 x 1.91cm. in cross- Peak systolic flow velocities within the proximal sectional axis. aorta measure 67.7 cm/sec. Proximal aorta measures1.85cm. in longitudinal Peak systolic flow velocities within the mid aorta axis. measure 45.9 cm/sec. Mid aorta measures2.80 x 2.83cm. in cross- Distal, Limb 1, 77.6 cm/sec. sectional axis. Distal, Limb 2, 45.7 cm/sec. Mid aorta measures2.83cm. in longitudinal axis. Distal residual sac measures 4.42 x 4.43 x 4.43 cm. Distal, Limb 1, 1.13 x 1.16 x 1.13 cm. Distal, Limb 2, 1.07 x 1.09 x 1.07 cm. Left Iliac Artery Left iliac artery measures 1.18 x 1.18 cm. in the cross-sectional axis. Left iliac artery measures 1.12 cm. in the longitudinal axis. Peak systolic velocity in the left iliac artery measures 157.2 cm/sec. Right Iliac Artery Right iliac artery measures 0.90 x 0.89 cm. in the cross-sectional axis. Right iliac artery measures 0.85 cm. in the longitudinal axis. Peak systolic velocity in the right iliac artery measures 155 cm/sec. Procedure Aorta IVC Iliac vasculature or bypass grafts [id number]. Exam performed in department. VL/Abd Aortic/IVC Duplex scan Interpretation Summary Patent aortic endograft. Residual sac measuring 4.4 cm. No obvious endoleak. Ordering Physician: Timothy oJ Referring Physician: Herbert Simpson Performed By: Lashawn Rolon RVT
--- NOTE | 2021-11-17 08:30 | ART_ITS ---
Reason For Study: Atherosclerosis Procedure A bilateral lower extremity continuous wave Doppler with analog waveform analysis and ankle brachial indexes. Left Segmental Pressures Left brachial= 161mmHg. Left posterior tibial artery = 117mmHg. Left dorsalis pedis artery = 109mmHg. The left dorsalis pedis waveforms are biphasic. The left posterior tibial artery waveforms are biphasic. Right Segmental Pressures Right brachial= 164mmHg. Right posterior tibial artery = 94mmHg. Right dorsalis pedis artery = 97mmHg. The right dorsalis pedis waveforms are monophasic. The right posterior tibial artery waveforms are biphasic. Indices The right ankle brachial index by the dorsalis pedis is 0.59. The right ankle brachial index by the posterior tibial artery is 0.57. The left ankle brachial index by the dorsalis pedis is 0.66. The left ankle brachial index by the posterior tibial artery is 0.71. VL/Ankle Brachial Index Interpretation Summary Bilateral lower extremities with biphasic flow noted in ROLANDA 0.59 and 0.71. Ordering Physician: Timothy Jo Referring Physician: Herbert Simpson Performed By: Lashawn Rolon RVT
--- NOTE | 2021-11-17 08:31 | VDLE_ITS ---
Reason For Study: History of DVT RIGHT LEFT GSV is normal. CFV is compressible, spontaneous, phasic, CFV is compressible, spontaneous, phasic, competent, and demonstrates normal competent and demonstrates normal augmentation. augmentation. FV is partially compressible throughout with bright intraluminal echoes consistent with Chronic DVT. Normal venous flow noted. Gastroc vein is partially compressible with bright intraluminal echoes. POP V is compressible, spontaneous, phasic, competent and demonstrates normal augmentation. T/P Trunk is compressible. PTV is compressible. RT PerV is compressible. Procedure This is a venous duplex using B-mode, color flow and spectral Doppler. Exam performed in department. VL/Venous Duplex US, Unilateral Interpretation Summary Right femoral vein and gastroc consistent with chronic DVT. Ordering Physician: Timothy Jo Referring Physician: Herbert Simpson Performed By: Lashawn Rolon RVT
== END 2021-11-17 23:59 | disposition home or self-care (01) ==
LOC: CVS 08:25
PROVIDERS: PCP Family Medicine; Referring Provider Surgery Vascular Surgery; Visit Provider Surgery Vascular Surgery
DX: I70.213 Atherosclerosis of native arteries of extremities with intermittent claudication, bilateral legs (principal); I71.4 Abdominal aortic aneurysm, without rupture; Z86.718 Personal history of other venous thrombosis and embolism; F17.200 Nicotine dependence, unspecified, uncomplicated
CPT/HCPCS: 93922; 93971; 93978

== ENCOUNTER → 2021-12-28 | Outpatient (CLI) | payer MEDICARE, SELFPAY ==
--- NOTE | 2021-12-28 07:44 | CT_ITS ---
STUDY: CT CHEST, ABDOMEN T PELVIS WITH CONTRAST REASON FOR EXAM: Female, 71 years old. SCLC assess treatment response RADIATION DOSAGE (If Supplied By Facility): CTDIvol = ( 14.07 ) mGy, DLP = ( 1488.51 ) mGycm TECHNIQUE: Transaxial imaging was performed following intravenous administration of Oral and amp; IV Readi-CAT and amp; 100mL Isovue-300. Individualized dose optimization techniques were used for this CT. COMPARISON: Comparison is made with prior study dated 10/26/2021. FINDINGS: CHEST A right-sided portacatheter is seen with the tip in the superior cava. Stable 1.8 cm x 1.8 cm lobulated nodule in the left upper lobe. Stable emphysematous changes. Stable scarring at the right lung base. There is no demonstrated pleural abnormality. There are calcifications of the coronary arteries. Normal mediastinum. Mildly enlarged left hilar and left infrahilar lymph nodes slightly larger than prior examination. Normal unenhanced pulmonary arteries. There is atherosclerotic calcification of the aortic arch with tortuosity and elongation of the aortic arch and descending thoracic aorta. Stable mural thrombus within the descending thoracic aorta. There are multi-level degenerative changes of the thoracic spine. Stable multilocular mass in the left adrenal gland with evidence of calcifications. ABDOMEN Normal liver. Normal gallbladder and extrahepatic biliary system. Normal spleen. Normal pancreas. Stable 4.8 cm x 4.6 cm multiseptated mass in the left adrenal gland with dense calcifications. Normal right kidney. Normal left kidney. Normal visualized stomach. Normal small intestine. Normal colon. The appendix is visualized and appears normal. Stable aneurysmal dilatation of the infrarenal abdominal aorta with an endoluminal stent graft. There is no evidence of a riley stent leakage. Normal inferior vena cava. Normal retroperitoneum. Normal abdominal wall. There are diffuse degenerative changes of the visualized lumbar spine. PELVIS Normal urinary bladder. Status post right total hip replacement. CT/CT Chest, Abd, Pel w/Contrast IMPRESSION: Stable examination. Electronically Signed: Dario Barrientos MD at 12:44 EDT ,
[2021-12-28] MEDS: 0.9% Saline Lock 10 ML Syringe IV (08:07)
== END | disposition home or self-care (01) ==
LOC: CT 07:41
PROVIDERS: PCP Family Medicine; Referring Provider Nurse Practitioner Family; Visit Provider Nurse Practitioner Family
DX: C34.12 Malignant neoplasm of upper lobe, left bronchus or lung (principal)
CPT/HCPCS: 71260; 74177; Q9967; A4216

== ENCOUNTER 2022-01-14 23:29 | Emergency (ER) | payer MEDICARE, SELFPAY ==
[2022-01-14 23:30] VITALS: BP 174/63; PULSE 87; RESP 17; TEMP 36.7; O2SAT 94; BMI 30.3
--- NOTE | 2022-01-14 23:46 | ED.VIS.LOWEX ---
HPI History of Present Illness Chief Complaint: Lower Extremity Injury Informant: patient Occured/Mechanism Mechanism/Context: Yes burn Burn: thermal (sun) Onset/Context/Timing Onset: Days (3) Context: Gradual Onset (after lying out in sun in [place]) Timing: Continuous Quality of Pain: Aching Location: both lower anterior legs Current Severity: Moderate Maximum Severity: Severe Worsened by: walking, palpation Relieved by: topical aloe w/ benzocaine Associated Symptoms Associated Symptoms: Negative for Parasthesia, Weakness or Loss of Funtion Narrative Narrative: Patient presents after she was laying out in the sun with some family in [place], burned her legs in the sun, anteriorly. She is having pain there, has been increasing over the past 2 to 3 days since it started, having trouble walking due to the pain, and her legs feel restless when she is resting especially at night although she does not have a history of restless leg syndrome. She has had some chills but not anymore. She denies any fevers, drainage, collections, or injuries. No other systemic symptoms that are new. She has a history of metastatic cancer. She has hydrocodone pills and fentanyl patches she is using for other painful conditions and that is helping some with the pain as well. She is able to walk. [facility] Medical History AAA (abdominal aortic aneurysm) Abdominal pain Acute bronchitis, unspecified Acute deep vein thrombosis (DVT) of distal end of right lower extremity Adrenal mass Alcohol use Anemia Arthritis Atherosclerosis of [place] arteries of extremities with intermittent claudication, bilateral legs Back pain Cancer Cardiology follow-up encounter Carotid artery stenosis Chest pain Cognitive dysfunction, acquired Constipation COPD (chronic obstructive pulmonary disease) Deep vein thrombosis (DVT) of proximal vein of right lower extremity DVT (deep venous thrombosis) Encounter for immunotherapy Encounter for screening for COVID-19 Encounter for tobacco use cessation counseling Endometrial thickening on ultrasound Essential hypertension Fatty liver disease, nonalcoholic Forgetfulness Former smoker Gastric reflux GERD (gastroesophageal reflux disease) Headache History of back problems History of edema History of pain when walking History of stress test Hx of echocardiogram Hyperlipidemia Hypertension Imbalance Neck pain Neuropathy Omental metastasis Oral candidiasis Osteoarthritis 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 Peripheral arterial disease Peripheral vascular angioplasty status Peripheral vascular disease Peritoneal carcinomatosis Shortness of breath on exertion Shoulder pain Tobacco use disorder, continuous Umbilical hernia Uterine fibroid Ventral incisional hernia without obstruction or gangrene 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 Wears dentures Wears glasses Weight loss Home Medications omeprazole 40 mg capsule,delayed release 40 mg PO DAILY REFLUX 07/10/15 [History Last Taken 12/10/20 08:30] cilostazol 100 mg tablet 100 mg PO BID pad 10/25/18 [History Last Taken 12/10/20 20:30] atorvastatin 40 mg tablet 40 mg PO QHS cholesterol 04/23/19 [History Last Taken 12/10/20 20:30] apixaban 5 mg tablet (Eliquis) 5 mg PO BID 12/11/20 [History Last Taken 01/04/21] hydrocodone-acetaminophen 5-325mg 5mg-325mg 1 tab PO Q8 PRN Pain, Severe 12/11/20 [History Last Taken 12/10/20 13:00] lidocaine-prilocaine 2.5 %-2.5 % topical cream 1 applic topical ONCE PRN port access 30 days #30 grams 12/31/20 [Rx Last Taken Unknown] fentanyl 50 mcg/hr transdermal patch 1 patch transdermal Q72H 04/20/21 [History Last Taken Unknown] bupropion HCl 150 mg tablet,12 hr sustained-release (Wellbutrin SR) 150 mg PO .COMPLEX #60 ea 11/02/21 [Rx Last Taken Unknown] Allergy/AdvReac Type Severity Reaction Status Date / Time naproxen [From Naprosyn] Allergy Severe Shortness Verified 01/04/22 09:12 of breath Family History Brother Cancer throat and lung Mother CAD (coronary artery disease) Hypertension Father CAD (coronary artery disease) Surgical History H/O shoulder replacement History of AAA (abdominal aortic aneurysm) repair (09/26/17) History of amputation of left great toe History of bunionectomy of left great toe History of cardiac catheterization History of carpal tunnel release of both wrists History of left knee replacement (~06/08/11) History of right hip replacement History of rotator cuff surgery History of spinal surgery (~1999) Hx of spinal fusion Social History number of children: 5 Smoking Status: Former smoker quit date: 12/21/20 Tobacco: How many years used: 50 second hand exposure: No alcohol intake: current alcohol intake frequency: a few times a month Alcohol type: beer details: weekends substance use type: does not use caffeine: Yes Type: coffee Number of servings: 3 and other what type of physical activity do you participate in: none seatbelt use: always do you feel safe at home: Yes additional social history: Matt- Both are retired ROS ROS ED Constitutional Constitutional ED: Denies chills or fever(s) Musculoskeletal Musculoskeletal: Reports extremity pain; Denies neck pain Integumentary Reports rash; Denies Abrasions or wounds Neurologic Neurologic: Denies paresthesias or weakness EXAM Physical Exam Const Vital Signs: 01/14/22 23:30 Temperature 98.1 F Temperature Source Temporal Pulse Rate 87 Respiratory Rate 17 Blood Pressure 174/63 H Blood Pressure Mean 100 Pulse Ox 94 Oxygen Delivery Method Room Air Positive well nourished and well developed General Appearance ED: well developed and NAD Neck full ROM and supple Back/Spine normal ROM and normal to inspection Extremity Extremity Narrative: First-degree now blistering sheikh both anterior lower legs, symmetric to the knees and down to the ankles. Full range of motion of the ankles and knees bilaterally without any significant difficulty, all compartments soft and nondistended, no calf tenderness. Symmetric 1+ edema both lower legs and ankles, to about the proximal shins. No palpable cords. No blisters/bullae, no petechia, no abscesses, no nidus for infection. No lymphangitis. Neuro oriented x3, no focal motor deficits and no sensory deficits noted Sensorium / Orientation: alert Psych mental status grossly normal and thought process normal Skin no wounds Skin Narrative: Sunburn both lower legs anteriorly, the calves are spared. See above. MDM MDM MDM Narrative Medical decision making narrative: Reassured this is consistent with first-degree sunburn, I am giving her a dose of Ativan for her restlessness so that she can sleep tonight and they are comfortable with that plan. No evidence of compartment syndrome, she has excellent sensation distally to the toes, difficulty palpate pulses through the edema bilaterally, but she has brisk cap refill all toes. The sunburn areas are mildly tender, in the calves where there is no sunburn are nontender. Family was concerned about blood clots I reassured them everything looks symmetric here and I think the pain with walking is due to the sunburn, the patient feels like that is the case. Advised continuing topicals as they are doing, she states those are helping temporarily when she does them. Discharge Plan Triage Chief Complaint: Lower Extremity Injury ED Provider: Biju Suazo Dx/Rx/DC Orders Clinical Impression: First degree sunburn, Restlessness Instructions: ED Sunburn Prescriptions: No Action atorvastatin 40 mg tablet 40 mg PO QHS lidocaine-prilocaine 2.5-2.5 % cream 1 applic topical ONCE PRN (Reason: port access) 30 Days Qty: 30 2RF fentanyl 50 mcg/hr patch 72 hour 1 patch transdermal Q72H bupropion HCl [Wellbutrin SR] 150 mg tablet sustained-release 12 hr 150 mg PO .COMPLEX Qty: 60 2RF Rx Instructions: 150 mg PO Take one tablet daily x 3 days, then one tablet twice daily; omeprazole 40 MG capsule 40 mg PO DAILY Label Comments: stomach cilostazol 100 MG tablet 100 mg PO BID hydrocodone-acetaminophen 5-325 mg tablet 1 tab PO Q8 PRN (Reason: Pain, Severe) Label Comments: take 1/2 to 1 tablet by mouth ONE TO TWO TIMES DAILY if needed pain Eliquis 5 mg tablet 5 mg PO BID Label Comments: take 1 tablet by mouth twice a day Primary Care Provider: Herbert Simpson Referrals: Herbert Simpson, [Primary Care Provider] - 1 Week if not improving Disposition Disposition: Home, Self Care
[2022-01-15] MEDS: LORazepam 1 MG Tablet PO (00:09)
== END 2022-01-15 00:10 | disposition home or self-care (01) ==
LOC: ED 23:56
PROVIDERS: Emergency Provider Emergency Medicine; PCP Family Medicine; Visit Provider Emergency Medicine
DX: L55.0 Sunburn of first degree (principal); J44.9 Chronic obstructive pulmonary disease, unspecified; I10 Essential (primary) hypertension; R60.9 Edema, unspecified; Z87.891 Personal history of nicotine dependence; R68.83 Chills (without fever); E78.5 Hyperlipidemia, unspecified; Z86.718 Personal history of other venous thrombosis and embolism
CPT/HCPCS: 99283

== ENCOUNTER 2022-02-07 12:31 | Emergency (ER) | payer MEDICARE, SELFPAY ==
[2022-02-07 12:31] VITALS: BP 152/81; PULSE 86; RESP 14; TEMP 36.3; O2SAT 100
--- NOTE | 2022-02-07 13:16 | EKG12_ITS ---
Test Reason : Blood Pressure : / mmHG Vent. Rate : 067 BPM Atrial Rate : 067 BPM P-R Int : 176 ms QRS Dur : 074 ms QT Int : 394 ms P-R-T Axes : 057 055 067 degrees QTc Int : 416 ms Normal sinus rhythm Normal ECG Confirmed by ASHLEY HILARIO, SAMUEL ([id number]), map editor FARHAD BARAHONA ([id number]) on 02/08/2022 8:37:00 AM Referred By: Confirmed By:SAMUEL RAMIREZ MD
--- NOTE | 2022-02-07 13:18 | CT_ITS ---
STUDY: CT ABDOMEN AND PELVIS WITHOUT CONTRAST REASON FOR EXAM: Female, 72 years old. Epigastric pain. History of small cell lung cancer. RADIATION DOSAGE (If Supplied By Facility): CTDIvol = ( 15.6 ) mGy, DLP = ( 677.99 ) mGycm TECHNIQUE: Transaxial images were obtained from the dome of the diaphragm to the symphysis pubis without oral contrast, and without intravenous contrast. Sagittal and coronal images were reconstructed. Individualized dose optimization techniques were used for this CT. COMPARISON: Comparison is made with prior study dated 06/05/2020. FINDINGS: Stable persistent increased markings at the right lung base suggestive of scarring. The visualized portions of the heart are within normal limits. Normal liver. Small amount of perihepatic fluid. Normal gallbladder and extrahepatic biliary system. Normal spleen. Normal pancreas. Stable complex multiloculated cystic and rim calcifications of the left adrenal gland. This measures 3.87 x 4.8 cm. Normal right kidney. Normal left kidney. Normal visualized stomach. Normal small intestine. There are multiple colonic diverticula consistent with diverticulosis. Moderate amount of fecal material is seen in the colon. The appendix is visualized and appears normal. There is diffuse atherosclerotic calcification of the abdominal aorta and its major visceral branches. There is evidence of transluminal stent grafting. The [place] abdominal aorta as a transverse dimension of 4.5 cm.Normal inferior vena cava. Normal retroperitoneum. Normal urinary bladder. Normal abdominal wall. There are diffuse degenerative changes of the visualized lumbar spine. The patient is status post laminectomy and fusion at the L5-S1 level as well as prior right hip replacement. Stable grade 1 anterior listhesis of L4 on L5. CT/Abdomen/Pelvis without Cont IMPRESSION: Stable examination. Electronically Signed: Dario Barrientos MD at 14:43 EDT ,
[2022-02-07 13:25] LABS: Absolute Neutrophil Count 6.9 X10^3/uL (2.0-7.7); Basophil# 0.03 X10^3/uL; Basophil% 0.3 % (0-1); Eosinophil# 0.18 X10^3/uL; Eosinophils% 1.9 % (0-5); Hematocrit 36.8 % (37-47); Hemoglobin 11.5 g/dL (12.0-15.0); Lymphocyte % 16.6 % (19-41); Mean Corp Hgb Conc 31.3 g/dL (32-36); Mean Corpuscular Hgb 31.9 pg (27.0-32.0); Mean Corpuscular Volume 102.2 fL (81-99); Mean Platelet Vol. 9.1 fl (6.2-12.0); Monocyte# 0.83 X10^3/uL; Monocyte% 8.6 % (0-10); NRBC Flagged by Analyzer 0 % (0-5); Neutrophil # 6.93 X10^3/uL (2.7-7.7); Neutrophil % 72.2 % (47-70); Platelet Count 358 K/mm3 (150-450); RBC Distribution Width CV 13.6 % (11.6-14.6); RBC Distribution Width SD 51.3 fl (35.1-43.9); White Blood Count 9.6 K/mm3 (4.4-11.0)
[2022-02-07] MEDS: Ondansetron 4 MG/2 ML Vial IV (13:27)
[2022-02-07] MEDS: Morphine 4 MG/ML Syringe IV (13:27)
--- NOTE | 2022-02-07 13:34 | RAD_ITS ---
STUDY: X-RAY CHEST REASON FOR EXAM: Female, 72 years old. Chest pain TECHNIQUE: AP and lateral views of the chest. COMPARISON: Comparison is made with prior study dated 07/16/2021. FINDINGS: A right-sided portacatheter is seen with the tip in the junction of the superior vena cava and right brachiocephalic vein. EKG electrodes are seen. Hyperinflation. There is a 2.2 cm x 2 cm nodular density in the left upper lobe. This has increased in size as compared to prior study. Mild increased markings at the lung bases suggestive of a atelectasis and/or scarring slightly worse on the right side. There is no demonstrated pleural abnormality. Normal size heart. Normal mediastinum and kati. Normal visualized pulmonary arteries. Normal visualized aortic arch and descending thoracic aorta. There is demineralization of the osseous structures. The patient is status post left shoulder replacement. There is evidence of degenerative change of the right shoulder joint. There is no demonstrated abnormality of the visualized soft tissue structures of the upper abdomen. RAD/Chest PA and Lateral IMPRESSION: Interval increase in size of the nodule in the left upper lobe presently measuring 2.2 cm x 2 cm. Electronically Signed: Dario Barrientos MD at 13:53 EDT ,
[2022-02-07 13:41] LABS: Anion Gap 8 (5-15); BUN 18 mg/dL (7-18); BUN/Creat Ratio 20.7 RATIO (10-20); Calcium,Total 9.6 mg/dL (8.5-10.1); Chloride 107 mmol/L (98-107); Creatinine, Serum 0.87 mg/dL (0.55-1.02); EST Glomerular Filtration Rate 68 mL/min (>60); Est Glom Filt Rate - Afr Amer 82 mL/min (>60); Estimated Creatinine Clearance 48.99 ml/min; Glucose 82 mg/dL (74-106); Potassium 3.9 mmol/L (3.5-5.1); Sodium Level 142 mmol/L (136-145); Troponin-I HS (w/2H Reflex) 5 pg/mL (3.0-54.0)
[2022-02-07 14:00] VITALS: BP 121/75; PULSE 68; RESP 17; O2SAT 98
[2022-02-07 14:11] LABS: ALB/GLOB Ratio 0.7 RATIO (0.9-2.4); AST(SGOT) 9 U/L (15-37); Alanine Aminotransfer ALT/SGPT 12 U/L (13-56); Albumin, Serum 2.8 g/dL (3.2-5.0); Alkaline Phosphatase 127 U/L (45-117); Globulin 3.8 g/dL (2.2-4.2); Lipase 75 U/L (73-393); Protein, Total 6.6 g/dL (6.4-8.2)
[2022-02-07 14:21] LABS: Mucous, Urine 0 SEEN /hpf (<or=2+)
[2022-02-07 14:26] LABS: Color, Urine Yellow (Yellow); Glucose, Dipstick Normal (Normal); Ketone-Dipstick Negative (Negative); Leukocyte Esterase-Dipstick 25 /ul (Negative); Nitrite-Dipstick Negative (Negative); Occult Blood-Urine 25 /ul (Negative); Protein-Dipstick 15 mg/dl (Negative); Specific Gravity, Urine 1.025 (1.002-1.030); Urine Bilirubin Dipstick Negative (Negative); Urine Clarity Sl. Cloudy (Clear); Urine Urobilinogen Normal (Normal)
[2022-02-07 14:32] LABS: Bacteria 1+ /hpf (None Seen); Red Blood Cells-Urine 0-5 SEEN /hpf (0-5); Squamous Epithelial Cells - UA 0-5 SEEN /hpf (5-10); White Blood Cells 0-5 SEEN /hpf (0-5)
[2022-02-07 14:51] VITALS: BP 117/91; PULSE 68; RESP 21; O2SAT 97
[2022-02-07 15:20] LABS: Reflex Troponin-HS? (from REC) Y
--- NOTE | 2022-02-07 15:32 | EDS_ITS ---
HPI History of Present Illness Chief Complaint: Chest Pain Informant: patient and spouse/S.O. Onset/Context/Timing Onset: Days (5) Activity at onset: gradual and onset Timing: Continuous and Waxes and wanes Quality: Positive for Aching Location: - (Bilateral upper abdomen/lower chest, diffuse) Current Severity: Moderate Maximum Severity: Moderate Worsened By: Nothing Relieved By: Nothing Associated Symptoms: Negative for Nausea, Vomiting, Dyspnea, Cough, Li ghtheadedness or Palpitations Narrative Narrative: Patient has a history of metastatic lung cancer that was treated with chemotherapy remotely and now she is maintaining on immunotherapy. She states she has been having pain across her upper abdomen and her lower chest for the past 5 days or so, she called her oncologist office had a concern for this so they referred her here to the emergency department for further evaluation. On further questioning, the patient states that she is in pain management for this pain, she has fentanyl patch as well as hydrocodone, she has had this same pain in the same location, lower chest/upper abdomen bilaterally, for a long time and it simply is worse and a little more persistent in the past 5 days than usual. She states her pain medication does help with a little but it does not go away. She denies any other new symptoms such as jaundice, fevers, chills, nausea, vomiting, shortness of breath, cough. [facility] Medical History AAA (abdominal aortic aneurysm) Abdominal pain Acute bronchitis, unspecified Acute deep vein thrombosis (DVT) of distal end of right lower extremity Adrenal mass Alcohol use Anemia Arthritis Atherosclerosis of [place] arteries of extremities with intermittent claudication, bilateral legs Back pain Cancer Cardiology follow-up encounter Carotid artery stenosis Chest pain Cognitive dysfunction, acquired Constipation COPD (chronic obstructive pulmonary disease) Deep vein thrombosis (DVT) of proximal vein of right lower extremity DVT (deep venous thrombosis) Encounter for immunotherapy Encounter for screening for COVID-19 Encounter for tobacco use cessation counseling Endometrial thickening on ultrasound Essential hypertension Fatty liver disease, nonalcoholic Forgetfulness Former smoker Gastric reflux GERD (gastroesophageal reflux disease) Headache History of back problems History of edema History of pain when walking History of stress test Hx of echocardiogram Hyperlipidemia Hypertension Imbalance Neck pain Neuropathy Omental metastasis Oral candidiasis Osteoarthritis 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 Peripheral arterial disease Peripheral vascular angioplasty status Peripheral vascular disease Peritoneal carcinomatosis Shortness of breath on exertion Shoulder pain Tobacco use disorder, continuous Umbilical hernia Uterine fibroid Ventral incisional hernia without obstruction or gangrene 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 Wears dentures Wears glasses Weight loss Home Medications omeprazole 40 mg capsule,delayed release 40 mg PO DAILY REFLUX 07/10/15 [History Last Taken 12/10/20 08:30] cilostazol 100 mg tablet 100 mg PO BID pad 10/25/18 [History Last Taken 12/10/20 20:30] atorvastatin 40 mg tablet 40 mg PO QHS cholesterol 04/23/19 [History Last Taken 12/10/20 20:30] apixaban 5 mg tablet (Eliquis) 5 mg PO BID 12/11/20 [History Last Taken 01/04/21] hydrocodone-acetaminophen 5-325mg 5mg-325mg 1 tab PO Q8 PRN Pain, Severe 12/11/20 [History Last Taken 12/10/20 13:00] lidocaine-prilocaine 2.5 %-2.5 % topical cream 1 applic topical ONCE PRN port access 30 days #30 grams 12/31/20 [Rx Last Taken Unknown] fentanyl 50 mcg/hr transdermal patch 1 patch transdermal Q72H 04/20/21 [History Last Taken Unknown] bupropion HCl 150 mg tablet,12 hr sustained-release 150 mg .Route BID #60 TABLETS 01/25/22 [Rx Last Taken Unknown] Allergy/AdvReac Type Severity Reaction Status Date / Time naproxen [From Naprosyn] Allergy Severe Shortness Verified 02/07/22 12:33 of breath Family History Brother Cancer throat and lung Mother CAD (coronary artery disease) Hypertension Father CAD (coronary artery disease) Surgical History H/O shoulder replacement History of AAA (abdominal aortic aneurysm) repair (09/26/17) History of amputation of left great toe History of bunionectomy of left great toe History of cardiac catheterization History of carpal tunnel release of both wrists History of left knee replacement (~06/08/11) History of right hip replacement History of rotator cuff surgery History of spinal surgery (~1999) Hx of spinal fusion Social History number of children: 5 Smoking Status: Current every day smoker tobacco type: cigarettes Tobacco: How many years used: 50 second hand exposure: No alcohol intake: current alcohol intake frequency: a few times a month Alcohol type: beer details: weekends substance use type: does not use caffeine: Yes Type: coffee Number of servings: 3 and other what type of physical activity do you participate in: none seatbelt use: always do you feel safe at home: Yes additional social history: [employer] are retired ROS ROS ED Constitutional Constitutional ED: Denies chills or fever(s) Eyes Eyes: Denies change in vision or diplopia ENT ENT ED: Denies rhinorrhea or sore throat Cardiovascular Cardiovascular: Reports chest pain; Denies orthopnea or palpitations Respiratory/Chest Respiratory/Chest: Denies cough, dyspnea, dyspnea on exertion or orthopnea Gastrointestinal Gastrointestinal: Reports abdominal pain; Denies diarrhea, nausea or vomiting Genitourinary Genitourinary ED: Denies dysuria or hematuria Musculoskeletal Musculoskeletal: Denies back pain or neck pain Integumentary Denies abscess or rash Neurologic Neurologic: Denies headache(s), paresthesias or weakness Psychiatric Psychiatric: Denies anxiety or suicidal thoughts Hematologic/Lymphatic Hematologic/Lymphatic: Reports easy bleeding and easy bruising EXAM Physical Exam Const Vital Signs: 02/07/22 12:31 02/07/22 13:16 02/07/22 13:19 Temperature 97.4 F L Temperature Source Temporal Pulse Rate 86 Respiratory Rate 14 Respiratory Effort Normal Blood Pressure 152/81 H Blood Pressure Mean 104 Pulse Ox 100 Oxygen Delivery Method Room Air Room Air 02/07/22 14:00 02/07/22 14:51 Temperature Temperature Source Pulse Rate 68 68 Respiratory Rate 17 21 H Respiratory Effort Blood Pressure 121/75 H 117/91 H Blood Pressure Mean 90 99 Pulse Ox 98 97 Oxygen Delivery Method Room Air Room Air Positive well nourished and well developed General Appearance ED: well developed and NAD HEENT Reports moist mucous membranes normocephalic and atraumatic Eyes PERRL and EOMs intact bilaterally Neck full ROM and supple Resp normal respiratory effort and clear to auscultation bilaterally Cardio regular rate, regular rhythm and no murmurs Rate: Negative for tachycardic GI non-distended GI Narrative: Mild diffuse upper abdominal tenderness without guarding or rebound, no pulsatile mass, otherwise benign abdomen. Auscultation: normoactive bowel sounds Palpation: soft Back/Spine no CVA tenderness General Back: other FROM Extremity normal to inspection General Extremety ED: Negative for edema, pulses abnormal or tenderness General Extremity: Negative for edema or pulses abnormal Neuro oriented x3, CN's II-XII intact bilaterally and no sensory deficits noted Sensorium / Orientation: awake and alert Motor Exam: strength 5/5 throughout Psych mental status grossly normal Skin no rashes or lesions noted and no wounds MDM MDM MDM Narrative Medical decision making narrative: Patient's work-up shows no evidence for any type of recurrence or metastasis, it does however show that the pre-existing nodule in her left upper lobe is larger than it was before. When I told her this, she mentioned being told something similar at 1 point in the past. This particular x-rays to be compared with 1 from June 2021. Is possible she has had imaging since then at an outside facility. I gave her morphine for the pain here and she was feeling a lot better. CT of the abdomen/pelvis is negative for any acute. Given the lack of leukocytosis or liver enzyme elevation, I do not think she is having acute cholecystitis or any other emergent condition, I suspect this is stable for outpatient follow-up and she is comfortable with that overall plan. Lab Data Attestation: I reviewed the patient's lab results. Labs: Laboratory Results - last 24 hr 02/07/22 02/07/22 02/07/22 12:54 12:54 14:10 WBC 9.6 RBC 3.60 L Hgb 11.5 L Hct 36.8 L MCV 102.2 H MCH 31.9 MCHC 31.3 L RDW Std Deviation 51.3 H RDW Coeff of Sean 13.6 Plt Count 358 MPV 9.1 Immature Gran % (Auto) 0.400 Neut % (Auto) 72.2 H Lymph % (Auto) 16.6 L Coleman % (Auto) 8.6 Eos % (Auto) 1.9 Baso % (Auto) 0.3 Absolute Neuts (auto) 6.9 Absolute Lymphs (auto) 1.60 Nucleated RBC % 0 Sodium 142 Potassium 3.9 Chloride 107 Carbon Dioxide 27.0 Anion Gap 8 BUN 18 Creatinine 0.87 Estim Creat Clear Calc 48.99 Est GFR (MDRD) Af Amer 82 Est GFR (MDRD) Non-Af 68 BUN/Creatinine Ratio 20.7 H Glucose 82 Calcium 9.6 Total Bilirubin 0.20 AST 9 L ALT 12 L Alkaline Phosphatase 127 H Troponin I High Sens 5 Total Protein 6.6 Albumin 2.8 L Globulin 3.8 Albumin/Globulin Ratio 0.7 L Lipase 75 Urine Color Yellow Urine Clarity Sl. Cloudy Urine pH 5.0 Ur Specific [place] 1.025 Urine Protein 15 H Urine Glucose (UA) Normal Urine Ketones Negative Urine Occult Blood 25 H Urine Nitrite Negative Urine Bilirubin Negative Urine Urobilinogen Normal Ur Leukocyte Esterase 25 H Urine RBC 0-5 SEEN Urine WBC 0-5 SEEN Ur Squamous Epith Cells 0-5 SEEN Urine Bacteria 1+ Urine Mucus 0 SEEN Radiography Chest X-Ray - ED: 1 View, Read by ED Physician, No Acute Disease and - (Nodule noted left upper lobe) Diagnostic Testing: Clinical Impression(s) from Imaging Studies Abdomen/Pelvis CT 02/07/22 13:18 IMPRESSION: Stable examination. Electronically Signed: Dario Barrientos MD at 14:43 EDT , Chest X-Ray 02/07/22 13:34 IMPRESSION: Interval increase in size of the nodule in the left upper lobe presently measuring 2.2 cm x 2 cm. Electronically Signed: Dario Barrientos MD at 13:53 EDT , Discharge Plan Triage Chief Complaint: Chest Pain ED Provider: Biju Suazo Dx/Rx/DC Orders Clinical Impression: Chest pain, unspecified, Upper abdominal pain, History of lung cancer Instructions: ED Epigastric Pain Uncertain Cause Prescriptions: Continued atorvastatin 40 mg tablet 40 mg PO QHS lidocaine-prilocaine 2.5-2.5 % cream 1 applic topical ONCE PRN (Reason: port access) 30 Days Qty: 30 2RF fentanyl 50 mcg/hr patch 72 hour 1 patch transdermal Q72H omeprazole 40 MG capsule 40 mg PO DAILY Label Comments: stomach cilostazol 100 MG tablet 100 mg PO BID hydrocodone-acetaminophen 5-325 mg tablet 1 tab PO Q8 PRN (Reason: Pain, Severe) Label Comments: take 1/2 to 1 tablet by mouth ONE TO TWO TIMES DAILY if needed pain Eliquis 5 mg tablet 5 mg PO BID Label Comments: take 1 tablet by mouth twice a day bupropion HCl 150 mg tablet sustained-release 12 hr 150 mg .ROUTE BID Qty: 60 1RF Rx Instructions: 150 mg twice a day; Primary Care Provider: Herbert Simpson Referrals: Wilbert Fenton MD [STAFF PHYSICIAN] - (Follow-up regarding increased size left upper lobe lung nodule 2.2 cm x 2 cm) Herbert Simpson DO [Primary Care Provider] - Disposition Disposition: Home, Self Care
== END 2022-02-07 15:53 | disposition home or self-care (01) ==
PROVIDERS: Emergency Provider Emergency Medicine; PCP Family Medicine; Visit Provider Emergency Medicine
DX: R10.13 Epigastric pain (principal); C34.90 Malignant neoplasm of unspecified part of unspecified bronchus or lung; J44.9 Chronic obstructive pulmonary disease, unspecified; I71.4 Abdominal aortic aneurysm, without rupture; I73.9 Peripheral vascular disease, unspecified; R07.9 Chest pain, unspecified; Z79.899 Other long term (current) drug therapy; Z86.718 Personal history of other venous thrombosis and embolism; I25.10 Atherosclerotic heart disease of native coronary artery without angina pectoris; I10 Essential (primary) hypertension; K76.0 Fatty (change of) liver, not elsewhere classified; K21.9 Gastro-esophageal reflux disease without esophagitis; E78.5 Hyperlipidemia, unspecified; G62.9 Polyneuropathy, unspecified; M19.90 Unspecified osteoarthritis, unspecified site; Z79.01 Long term (current) use of anticoagulants; F17.210 Nicotine dependence, cigarettes, uncomplicated
CPT/HCPCS: 36591; 71046; 74176; 80053; 81001; 83690; 84484; 85025; 93005; 96374; 96375; 99285; A4216; J2405

== ENCOUNTER 2022-02-25 07:25 | Outpatient (CLI) | payer MEDICARE, SELFPAY ==
--- NOTE | 2022-02-25 07:48 | MRI_ITS ---
STUDY: MRI LUMBAR SPINE WITHOUT CONTRAST REASON FOR EXAM: Female, 72 years old. LUMBAR RADICULOPATHY TECHNIQUE: Standardized fat and water weighted pulse sequences were obtained in the sagittal and axial planes. Pain. COMPARISON: None FINDINGS: T12-L1: Normal endplates. Normal disc height, hydration and morphology. Normal bilateral facet joints. Normal central canal and bilateral lateral recesses. Normal bilateral intervertebral neural foramina. Normal lumbar lordosis. There is no substantial scoliosis. Normal conus medullaris that terminates at the L1 Plate-screw fixation is identified at L4-S1. Evaluation at this level is noted secondary to metallic susceptibility artifact. L1-2: There is mild broad-based disc herniation without significant foraminal stenosis. There is no significant spinal canal stenosis. L2-3: There is mild broad-based disc herniation with no significant foraminal or spinal canal stenosis. L3-4: There is mild broad-based disc herniation with mild bilateral foraminal stenosis. There is ligamentous hypertrophy and facet arthrosis. There is moderate spinal canal stenosis. L4-5: There is broad-based disc herniation with severe right and moderate left foraminal stenosis. There is moderate spinal canal stenosis. L5-S1: A disc spacer insert is identified. There is mild bilateral foraminal stenosis. Normal visualized sacral ala. There is aneurysmal dilatation of the distal abdominal aorta measuring up to 4.5 cm, appearing stable in size and compared to 10/26/2021 CT. Small bilateral renal cysts are identified. MRI/Spine Lumbar (Routine) IMPRESSION: Post surgical changes. Multilevel disc herniations, foraminal and spinal canal stenosis as described above. Distal abdominal aortic aneurysm as described. Electronically Signed: Aubrey Gonsales MD at 9:34 EDT ,
== END 2022-02-25 23:59 | disposition home or self-care (01) ==
PROVIDERS: PCP Family Medicine; Referring Provider Anesthesiology Pain Medicine; Visit Provider Anesthesiology Pain Medicine
DX: M54.16 Radiculopathy, lumbar region (principal)
CPT/HCPCS: 72148

== ENCOUNTER → 2022-03-01 | Outpatient (CLI) | payer MEDICARE, SELFPAY ==
--- NOTE | 2022-03-01 07:22 | CT_ITS ---
EXAM: CT CHEST WITH INTRAVENOUS CONTRAST CLINICAL INDICATION: NSCLC, assess tx response. PATIENT ON IMMUNOTHERAPY TECHNIQUE: Helically acquired images were obtained of the chest with intravenous contrast. This CT exam was performed using one or more of the following dose reduction techniques: automated exposure control, adjustment of the mA and/or kV according to patient size, and/or use of iterative reconstruction technique. This report was created using isango! report generation technology. CONTRAST: 100 cc of Isovue-300 nonionic contrast IV. RADIATION DOSE: CTDIvol = 11.08 mGy, DLP = 444.62 mGy-cm. COMPARISON: 10/26/2021. FINDINGS: LUNGS AND PLEURAL SPACES: Lobulated left upper lobe nodule measures 2.8 x 2.2 x 2 cm. On the previous examination it measured 1.7 x 1.7 x 1.3 cm. No pleural effusion or thickening. No pneumothorax. HEART: Coronary artery calcifications. Heart size is normal. No pericardial effusion. MEDIASTINUM: Left hilar adenopathy. The largest lymph node measures 1.9 cm. Previously it measured 1.4 cm. Esophagus is unremarkable. No hiatal hernia. THYROID: Unremarkable. No thyroid lesions. BONES/JOINTS: Left reverse shoulder arthroplasty. No suspicious lytic or blastic abnormality. VASCULATURE: Unremarkable. Thoracic aorta is non-dilated. No thoracic aortic dissection. No obvious central pulmonary embolism although this study was not performed with the pulmonary embolism protocol. ADRENALS: No change in the lobulated cystic rim calcified mass adjacent to and involving the left adrenal gland. INTRAPERITONEAL SPACE: Moderate ascites new since the previous exam. CT/Chest WITH Contrast IMPRESSION: 1. Lobulated left upper lobe nodule measures 2.8 x 2.2 x 2 cm. On the previous examination it measured 1.7 x 1.7 x 1.3 cm. 2. Left hilar adenopathy. The largest lymph node measures 1.9 cm. Previously it measured 1.4 cm. 3. Left reverse shoulder arthroplasty. 4. Coronary artery disease. 5. No change in the lobulated cystic rim calcified mass adjacent to and involving the left adrenal gland. 6. Moderate ascites new since the previous exam. Electronically Signed: Jerome Tony MD at 0:28 EDT ,
[2022-03-01] MEDS: 0.9% Saline Lock 10 ML Syringe IV (07:36)
== END | disposition home or self-care (01) ==
LOC: CT 07:21
PROVIDERS: PCP Family Medicine; Referring Provider Nurse Practitioner Family; Visit Provider Nurse Practitioner Family
DX: C34.12 Malignant neoplasm of upper lobe, left bronchus or lung (principal)
CPT/HCPCS: 71260; Q9967; A4216

== ENCOUNTER 2022-03-07 17:01 | Inpatient (IN) | payer MEDICARE, SELFPAY ==
[2022-03-07 17:04] VITALS: BP 172/84; PULSE 88; RESP 22; TEMP 36.3; O2SAT 96
--- NOTE | 2022-03-07 18:29 | CT_ITS ---
STUDY: CT ABDOMEN AND PELVIS WITH CONTRAST REASON FOR EXAM: Female, 72 years old. abdominal pain RADIATION DOSAGE (If Supplied By Facility): CTDIvol = ( 19.02 ) mGy, DLP = ( 1143.83 ) mGycm TECHNIQUE: Transaxial images were obtained from the dome of the diaphragm to the symphysis pubis without oral contrast. IV 100mL Isovue-370 was administered. Sagittal and coronal images were reconstructed. Individualized dose optimization techniques were used for this CT. COMPARISON: 02/07/2022 CT abdomen and pelvis FINDINGS: The visualized lung bases are unremarkable. The visualized portions of the heart are within normal limits. Normal liver. Normal gallbladder and extrahepatic biliary system. Normal spleen. Normal pancreas. Multiloculated complex cystic mass with peripheral calcifications left adrenal measures 4.5 x 3.4 cm in transverse dimensions. Normal right kidney. 9 mm simple left renal cortical cyst. Normal visualized stomach. Air-fluid levels throughout the small bowel. Colonic diverticulosis. Moderate ascites. The appendix is visualized and appears normal. Infrarenal abdominal aortic aneurysm measuring up to 4.4 cm in AP dimensions. There is a patent aortobiiliac stent. Normal inferior vena cava. Normal retroperitoneum. Normal urinary bladder. Uterus normal. Normal abdominal wall. Right total hip arthroplasty. Grade 1 spondylolisthesis L4-5 and L5-S1. Posterior interbody fusion rods and pedicular screws at L5-S1. The L5 pedicular screw on the right appears to be within the disc space. This appears unchanged. CT/Abdomen/Pelvis W IV Cont ONLY IMPRESSION: Small bowel obstruction mid segment. Moderate ascites. Surgical consultation recommended. Stable infrarenal abdominal aortic aneurysm and aortobiiliac stent. Complex cystic mass left adrenal appears stable. Electronically Signed: Terrance Moore MD at 20:50 EDT Reading Location ID and State: [facility] / [place] , Service support ,
--- NOTE | 2022-03-07 18:38 | EDS_ITS ---
HPI HPI - GI History of Present Illness Chief Complaint: Abd Pain Narrative Narrative: 72-year-old female with history of lung cancer currently seeing Dr. ferrell on chemotherapy presenting with abdominal pain. She states that she had a recent CAT scan which showed ascites. She supposed to follow-up with her oncologist tomorrow but states the pain was too bad today. She has 100 mcg fentanyl patch and she takes [place] at home. She states this was not helping earlier. The pain is seems to be better now. She reports that her abdomen is distended. She states he is able to eat and drink normally. She is making normal urine and stool. No fever or chills. PFSH [facility] Medical History AAA (abdominal aortic aneurysm) Abdominal pain Acute bronchitis, unspecified Acute deep vein thrombosis (DVT) of distal end of right lower extremity Adrenal mass Alcohol use Anemia Arthritis Atherosclerosis of [place] arteries of extremities with intermittent claudication, bilateral legs Back pain Cancer Cardiology follow-up encounter Carotid artery stenosis Chest pain Cognitive dysfunction, acquired Constipation COPD (chronic obstructive pulmonary disease) Deep vein thrombosis (DVT) of proximal vein of right lower extremity DVT (deep venous thrombosis) Encounter for immunotherapy Encounter for screening for COVID-19 Encounter for tobacco use cessation counseling Endometrial thickening on ultrasound Essential hypertension Fatty liver disease, nonalcoholic Forgetfulness Former smoker Gastric reflux GERD (gastroesophageal reflux disease) Headache History of back problems History of edema History of pain when walking History of stress test Hx of echocardiogram Hyperlipidemia Hypertension Imbalance Neck pain Neuropathy Omental metastasis Oral candidiasis Osteoarthritis 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 Peripheral arterial disease Peripheral vascular angioplasty status Peripheral vascular disease Peritoneal carcinomatosis Shortness of breath on exertion Shoulder pain Tobacco use disorder, continuous Umbilical hernia Uterine fibroid Ventral incisional hernia without obstruction or gangrene 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 Wears dentures Wears glasses Weight loss Home Medications omeprazole 40 mg capsule,delayed release 40 mg PO DAILY REFLUX 07/10/15 [History Last Taken 12/10/20 08:30] cilostazol 100 mg tablet 100 mg PO BID pad 10/25/18 [History Last Taken 12/10/20 20:30] atorvastatin 40 mg tablet 40 mg PO QHS cholesterol 04/23/19 [History Last Taken 12/10/20 20:30] apixaban 5 mg tablet (Eliquis) 5 mg PO BID 12/11/20 [History Last Taken 01/04/21] hydrocodone-acetaminophen 5-325mg 5mg-325mg 1 tab PO Q8 PRN Pain, Severe 12/11/20 [History Last Taken 12/10/20 13:00] lidocaine-prilocaine 2.5 %-2.5 % topical cream 1 applic topical ONCE PRN port access 30 days #30 grams 12/31/20 [Rx Last Taken Unknown] fentanyl 50 mcg/hr transdermal patch 1 patch transdermal Q72H 04/20/21 [History Last Taken Unknown] bupropion HCl 150 mg tablet,12 hr sustained-release 150 mg .Route BID #60 TABLETS 01/25/22 [Rx Last Taken Unknown] Allergy/AdvReac Type Severity Reaction Status Date / Time naproxen [From Naprosyn] Allergy Severe Shortness Verified 03/07/22 17:04 of breath Family History Brother Cancer throat and lung Mother CAD (coronary artery disease) Hypertension Father CAD (coronary artery disease) Surgical History H/O shoulder replacement History of AAA (abdominal aortic aneurysm) repair (09/26/17) History of amputation of left great toe History of bunionectomy of left great toe History of cardiac catheterization History of carpal tunnel release of both wrists History of left knee replacement (~06/08/11) History of right hip replacement History of rotator cuff surgery History of spinal surgery (~1999) Hx of spinal fusion Social History number of children: 5 Smoking Status: Current every day smoker tobacco type: cigarettes Tobacco: How many years used: 50 second hand exposure: No alcohol intake: current alcohol intake frequency: a few times a month Alcohol type: beer details: weekends substance use type: does not use caffeine: Yes Type: coffee Number of servings: 3 and other what type of physical activity do you participate in: none seatbelt use: always do you feel safe at home: Yes additional social history: Matt- Both are retired ROS ROS ED Constitutional Constitutional ED: Denies chills or fever(s) ENT ENT ED: Denies rhinorrhea or sore throat Cardiovascular Cardiovascular: Denies chest pain or palpitations Respiratory/Chest Respiratory/Chest: Denies cough or dyspnea Gastrointestinal Gastrointestinal: Reports abdominal pain; Denies constipation, diarrhea, nausea or vomiting Genitourinary Genitourinary ED: Denies dysuria Musculoskeletal Musculoskeletal: Denies arthralgias Integumentary Denies abscess or Abrasions Neurologic Neurologic: Denies headache(s) Psychiatric Psychiatric: Denies anxiety or depression Endocrine Endocrinology: Denies polydipsia or polyphagia EXAM Physical Exam Const Vital Signs: 03/07/22 17:04 03/07/22 20:00 Temperature 97.4 F L Temperature Source Temporal Pulse Rate 88 Respiratory Rate 22 H 18 Blood Pressure 172/84 H Blood Pressure Mean 113 Pulse Ox 96 Oxygen Delivery Method Room Air Positive well nourished and obese General Appearance ED: NAD; Negative for pallor Nutritional Appearance: obese HEENT Reports moist mucous membranes normocephalic and atraumatic Eyes PERRL and EOMs intact bilaterally General Eye ED: Negative for pale conjunctiva or scleral icterus Resp normal respiratory effort and clear to auscultation bilaterally Auscultation: Negative for rales, rhonchi or wheezes Cardio regular rate and regular rhythm GI Inspection: abdominal distention Palpation: Negative for rigid, hernia or pulsatile mass Neuro CN's II-XII intact bilaterally, moves all extremities and no sensory deficits noted Sensorium / Orientation: alert, oriented to person, oriented to place and oriented to time Motor Exam: strength 5/5 throughout Psych mental status grossly normal Skin General Skin Exam: Negative for jaundice or pallor MDM MDM MDM Narrative Medical decision making narrative: Patient seen and evaluated for abdominal pain. He does have some mild distention of the abdomen but has not severely tender to palpation. She does appear to be somewhat distended. She does not have a fluid wave. Patient was given morphine and Zofran. Blood work is obtained and her CBC shows a slight leukocytosis 12.1. Hemoglobin hematocrit are stable. Platelets are normal. Renal function electrolytes within normal limits. LFTs are unremarkable. Urinalysis negative for infection. I did review her previous CAT scan which was on the chest and there does appear to be some ascites here. She also had worsening of her previous lung cancer. She is on atezolizumab with Dr. Banks. She was post to get another dose tomorrow. Obtained a CT of the abdomen pelvis with IV contrast and this does show a small bowel obstruction. I reviewed the CT imaging with Dr. Maria. He felt that patient likely had metastatic lesions causing the obstruction. He recommend admission to medicine. He did not believe the patient would be a good surgical candidate. She is not in severe pain and is not vomiting currently so we withheld the NG tube. I spoke with the hospitalist that if she has any worsening symptoms were tried NG tube first. Patient counseled on all findings and understands that she will likely n ot get any surgical intervention if this does not improve. Impression: 1. History of lung cancer 2. Ascites 3. Small bowel obstruction 4. Abdominal pain Lab Data Attestation: I reviewed the patient's lab results. Labs: Laboratory Results - last 24 hr 03/07/22 03/07/22 03/07/22 18:45 18:45 20:35 WBC 12.1 H RBC 3.95 L Hgb 12.3 Hct 37.9 MCV 95.9 MCH 31.1 MCHC 32.5 RDW Std Deviation 46.3 H RDW Coeff of Sean 13.1 Plt Count 353 MPV 8.7 Immature Gran % (Auto) 0.400 Neut % (Auto) 74.1 H Lymph % (Auto) 18.3 L [place] % (Auto) 6.4 Eos % (Auto) 0.6 Baso % (Auto) 0.2 Absolute Neuts (auto) 8.9 H Absolute Lymphs (auto) 2.20 Nucleated RBC % 0 Sodium 141 Potassium 3.9 Chloride 110 H Carbon Dioxide 26.0 Anion Gap 5 BUN 16 Creatinine 0.95 Estim Creat Clear Calc 44.86 Est GFR (MDRD) Af Amer 74 Est GFR (MDRD) Non-Af 61 BUN/Creatinine Ratio 16.8 Glucose 117 H Calcium 9.9 Total Bilirubin 0.30 Direct Bilirubin 0.11 AST 11 L ALT 15 Alkaline Phosphatase 108 Total Protein 7.0 Albumin 2.8 L Globulin 4.2 Lipase 67 L Urine Color Yellow Urine Clarity Clear Urine pH 5.0 Ur Specific [place] 1.015 Urine Protein 15 H Urine Glucose (UA) Normal Urine Ketones Negative Urine Occult Blood 10 H Urine Nitrite Negative Urine Bilirubin Negative Urine Urobilinogen Normal Ur Leukocyte Esterase 25 H Urine RBC 0 SEEN Urine WBC 0-5 SEEN Ur Squamous Epith Cells 0-5 SEEN Urine Bacteria 0 SEEN Urine Mucus 0 SEEN Radiography Diagnostic Testing: Clinical Impression(s) from Imaging Studies Abdomen/Pelvis CT 03/07/22 18:29 IMPRESSION: Small bowel obstruction mid segment. Moderate ascites. Surgical consultation recommended. Stable infrarenal abdominal aortic aneurysm and aortobiiliac stent. Complex cystic mass left adrenal appears stable. Electronically Signed: Terrance Moore MD at 20:50 EDT Reading Location ID and State: [address] [place] [address] , Service support , Discharge Plan Triage Chief Complaint: Abd Pain ED Provider: Antonio Stuart Dx/Rx/DC Orders Prescriptions: No Action atorvastatin 40 mg tablet 40 mg PO QHS lidocaine-prilocaine 2.5-2.5 % cream 1 applic topical ONCE PRN (Reason: port access) 30 Days Qty: 30 2RF fentanyl 50 mcg/hr patch 72 hour 1 patch transdermal Q72H omeprazole 40 MG capsule 40 mg PO DAILY Label Comments: stomach cilostazol 100 MG tablet 100 mg PO BID hydrocodone-acetaminophen 5-325 mg tablet 1 tab PO Q8 PRN (Reason: Pain, Severe) Label Comments: take 1/2 to 1 tablet by mouth ONE TO TWO TIMES DAILY if needed pain Eliquis 5 mg tablet 5 mg PO BID Label Comments: take 1 tablet by mouth twice a day bupropion HCl 150 mg tablet sustained-release 12 hr 150 mg .ROUTE BID Qty: 60 1RF Rx Instructions: 150 mg twice a day; Primary Care Provider: Herbert Simpson Referrals: Herbert Simpson DO [Primary Care Provider] -
[2022-03-07] MEDS: Ondansetron 4 MG/2 ML Vial IV (18:49)
[2022-03-07] MEDS: Morphine 4 MG/ML Syringe IV (18:49)
[2022-03-07 18:52] LABS: Absolute Neutrophil Count 8.9 X10^3/uL (2.0-7.7); Basophil# 0.03 X10^3/uL; Basophil% 0.2 % (0-1); Eosinophil# 0.07 X10^3/uL; Eosinophils% 0.6 % (0-5); Hematocrit 37.9 % (37-47); Hemoglobin 12.3 g/dL (12.0-15.0); Lymphocyte % 18.3 % (19-41); Mean Corp Hgb Conc 32.5 g/dL (32-36); Mean Corpuscular Hgb 31.1 pg (27.0-32.0); Mean Corpuscular Volume 95.9 fL (81-99); Mean Platelet Vol. 8.7 fl (6.2-12.0); Monocyte# 0.77 X10^3/uL; Monocyte% 6.4 % (0-10); NRBC Flagged by Analyzer 0 % (0-5); Neutrophil # 8.93 X10^3/uL (2.7-7.7); Neutrophil % 74.1 % (47-70); Platelet Count 353 K/mm3 (150-450); RBC Distribution Width CV 13.1 % (11.6-14.6); RBC Distribution Width SD 46.3 fl (35.1-43.9); Red Blood Count 3.95 M/mm3 (4.2-5.4); White Blood Count 12.1 K/mm3 (4.4-11.0)
[2022-03-07 19:13] LABS: AST(SGOT) 11 U/L (15-37); Alanine Aminotransfer ALT/SGPT 15 U/L (13-56); Albumin, Serum 2.8 g/dL (3.2-5.0); Alkaline Phosphatase 108 U/L (45-117); Anion Gap 5 (5-15); BUN 16 mg/dL (7-18); BUN/Creat Ratio 16.8 RATIO (10-20); Bilirubin, Direct 0.11 mg/dL (0.00-0.30); Calcium,Total 9.9 mg/dL (8.5-10.1); Chloride 110 mmol/L (98-107); Creatinine, Serum 0.95 mg/dL (0.55-1.02); EST Glomerular Filtration Rate 61 mL/min (>60); Est Glom Filt Rate - Afr Amer 74 mL/min (>60); Estimated Creatinine Clearance 44.86 ml/min; Globulin 4.2 g/dL (2.2-4.2); Glucose 117 mg/dL (74-106); Lipase 67 U/L (73-393); Potassium 3.9 mmol/L (3.5-5.1); Sodium Level 141 mmol/L (136-145)
[2022-03-07 20:00] VITALS: RESP 18
[2022-03-07 20:37] LABS: Bacteria 0 SEEN /hpf (None Seen); Mucous, Urine 0 SEEN /hpf (<or=2+); Red Blood Cells-Urine 0 SEEN /hpf (0-5)
[2022-03-07 20:42] LABS: Color, Urine Yellow (Yellow); Glucose, Dipstick Normal (Normal); Ketone-Dipstick Negative (Negative); Leukocyte Esterase-Dipstick 25 /ul (Negative); Nitrite-Dipstick Negative (Negative); Occult Blood-Urine 10 /ul (Negative); Protein-Dipstick 15 mg/dl (Negative); Specific Gravity, Urine 1.015 (1.002-1.030); Urine Bilirubin Dipstick Negative (Negative); Urine Clarity Clear (Clear); Urine Urobilinogen Normal (Normal)
[2022-03-07 21:10] LABS: Squamous Epithelial Cells - UA 0-5 SEEN /hpf (5-10); White Blood Cells 0-5 SEEN /hpf (0-5)
--- NOTE | 2022-03-07 22:06 | HP.PCM_ITS ---
[facility] - General General Date of Admission: 03/07/22 Date of Service: 03/07/22 HPI Narrative ANDREW LOUIS, is a 72 F who presents to the emergency room with abdominal pain. Patient has a significant past medical history of lung cancer with metastatic disease to the abdomen. CT scan reveals a small bowel obstruction. Patient denies any nausea however, despite pain control her pain remains 7/10. She has decrease in appetite but denies nausea and/or vomiting. Patient denies any fever or chills.. She does express wishes to be DO NOT RESUSCITATE Comfort Care arrest with her present for the conversation. She will be admitted to general medical floor and treated for small bowel obstruction with surgical consult. [facility] Medical History AAA (abdominal aortic aneurysm) Abdominal pain Acute bronchitis, unspecified Acute deep vein thrombosis (DVT) of distal end of right lower extremity Adrenal mass Alcohol use Anemia Arthritis Atherosclerosis of [place] arteries of extremities with intermittent claudication, bilateral legs Back pain Cancer Cardiology follow-up encounter Carotid artery stenosis Chest pain Cognitive dysfunction, acquired Constipation COPD (chronic obstructive pulmonary disease) Deep vein thrombosis (DVT) of proximal vein of right lower extremity DVT (deep venous thrombosis) Encounter for immunotherapy Encounter for screening for COVID-19 Encounter for tobacco use cessation counseling Endometrial thickening on ultrasound Essential hypertension Fatty liver disease, nonalcoholic Forgetfulness Former smoker Gastric reflux GERD (gastroesophageal reflux disease) Headache History of back problems History of edema History of pain when walking History of stress test Hx of echocardiogram Hyperlipidemia Hypertension Imbalance Neck pain Neuropathy Omental metastasis Oral candidiasis Osteoarthritis 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 Peripheral arterial disease Peripheral vascular angioplasty status Peripheral vascular disease Peritoneal carcinomatosis Shortness of breath on exertion Shoulder pain Tobacco use disorder, continuous Umbilical hernia Uterine fibroid Ventral incisional hernia without obstruction or gangrene 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 Wears dentures Wears glasses Weight loss Home Medications omeprazole 40 mg capsule,delayed release 40 mg PO DAILY REFLUX 07/10/15 [History Last Taken 12/10/20 08:30] cilostazol 100 mg tablet 100 mg PO BID pad 10/25/18 [History Last Taken 12/10/20 20:30] atorvastatin 40 mg tablet 40 mg PO QHS cholesterol 04/23/19 [History Last Taken 12/10/20 20:30] apixaban 5 mg tablet (Eliquis) 5 mg PO BID 12/11/20 [History Last Taken 01/04/21] hydrocodone-acetaminophen 5-325mg 5mg-325mg 1 tab PO Q8 PRN Pain, Severe 1 [History Last Taken 12/10/20 13:00] lidocaine-prilocaine 2.5 %-2.5 % topical cream 1 applic topical ONCE PRN port access 30 days #30 grams 12/31/20 [Rx Last Taken Unknown] fentanyl 50 mcg/hr transdermal patch 1 patch transdermal Q72H 04/20/21 [History Last Taken Unknown] bupropion HCl 150 mg tablet,12 hr sustained-release 150 mg .Route BID #60 TABLETS 01/25/22 [Rx Last Taken Unknown] Allergy/AdvReac Type Severity Reaction Status Date / Time naproxen [From Naprosyn] Allergy Severe Shortness Verified 03/07/22 17:04 of breath Family History Brother Cancer throat and lung Mother CAD (coronary artery disease) Hypertension Father CAD (coronary artery disease) Surgical History H/O shoulder replacement History of AAA (abdominal aortic aneurysm) repair (09/26/17) History of amputation of left great toe History of bunionectomy of left great toe History of cardiac catheterization History of carpal tunnel release of both wrists History of left knee replacement (~06/08/11) History of right hip replacement History of rotator cuff surgery History of spinal surgery (~1999) Hx of spinal fusion Social History number of children: 5 Smoking Status: Current every day smoker tobacco type: cigarettes Tobacco: How many years used: 50 second hand exposure: No alcohol intake: current alcohol intake frequency: a few times a month Alcohol type: beer details: weekends substance use type: does not use caffeine: Yes Type: coffee Number of servings: 3 and other what type of physical activity do you participate in: none seatbelt use: always do you feel safe at home: Yes additional social history: Matt- Both are retired ROS Constitutional Constitutional: Reports anorexia and fatigue; Denies chills Eyes Eyes: Denies change in vision ENT HEENT: Denies abnormal hearing Cardiovascular Cardiovascular: Denies chest pain Respiratory/Chest Respiratory/Chest: Reports shortness of breath with exertion Gastrointestinal Gastrointestinal: Reports abdominal pain; Denies hematochezia, melena, nausea or vomiting Genitourinary Genitourinary: Denies dysuria Musculoskeletal Musculoskeletal: Denies back pain Integumentary Integumentary: Denies dry skin Neurologic Neurologic: Denies abnormal speech Psychiatric Psychiatric: Denies anxiety Vital Signs Vital Signs Vital Signs: 03/07/22 17:04 03/07/22 20:00 Temperature 97.4 F L Temperature Source Temporal Pulse Rate 88 Respiratory Rate 22 H 18 Blood Pressure 172/84 H Blood Pressure Mean 113 Pulse Ox 96 Oxygen Delivery Method Room Air Weight Weight: 175 lb 4.28 oz Body Mass Index (BMI) 30.0 Physical Exam Const oriented x3 General Appearance: cooperative and well developed HEENT normocephalic and head/scalp atraumatic Eyes PERRL Lymph Lymphatic: no lymphadenopathy noted Resp normal respiratory effort Auscultation: wheezes expiratory wheezes GI Inspection: abdominal distention Auscultation: hypoactive bowel sounds Palpation: tender Extremity normal capillary refill Skin General Skin Exam: no breakdown Neuro no focal motor deficits Speech: speech normal Psych thought process normal, cooperative and affect normal Results Lab / Micro Data Result Diagrams: 03/07/22 18:45 03/07/22 18:45 Labs: Laboratory Results - last 24 hr 03/07/22 18:45: WBC 12.1 H, RBC 3.95 L, Hgb 12.3, Hct 37.9, MCV 95.9, MCH 31.1, MCHC 32.5, RDW Std Deviation 46.3 H, RDW Coeff of Sean 13.1, Plt Count 353, MPV 8.7, Immature Gran % (Auto) 0.400, Neut % (Auto) 74.1 H, Lymph % (Auto) 18.3 L, [place] % (Auto) 6.4, Eos % (Auto) 0.6, Baso % (Auto) 0.2, Absolute Neuts (auto) 8.9 H, Absolute Lymphs (auto) 2.20, Nucleated RBC % 0 03/07/22 18:45: Sodium 141, Potassium 3.9, Chloride 110 H, Carbon Dioxide 26.0, Anion Gap 5, BUN 16, Creatinine 0.95, Estim Creat Clear Calc 44.86, Est GFR (MDRD) Af Amer 74, Est GFR (MDRD) Non-Af 61, BUN/Creatinine Ratio 16.8, Glucose 117 H, Calcium 9.9, Total Bilirubin 0.30, Direct Bilirubin 0.11, AST 11 L, ALT 15, Alkaline Phosphatase 108, Total Protein 7.0, Albumin 2.8 L, Globulin 4.2, Lipase 67 L 03/07/22 20:35: Urine Color Yellow, Urine Clarity Clear, Urine pH 5.0, Ur Spec ific [place] 1.015, Urine Protein 15 H, Urine Glucose (UA) Normal, Urine Ketones Negative, Urine Occult Blood 10 H, Urine Nitrite Negative, Urine Bilirubin Negative, Urine Urobilinogen Normal, Ur Leukocyte Esterase 25 H, Urine RBC 0 SEEN, Urine WBC 0-5 SEEN, Ur Squamous Epith Cells 0-5 SEEN, Urine Bacteria 0 SEEN, Urine Mucus 0 SEEN Radiology Impression Abdomen/Pelvis CT 03/07/22 18:29 IMPRESSION: Small bowel obstruction mid segment. Moderate ascites. Surgical consultation recommended. Stable infrarenal abdominal aortic aneurysm and aortobiiliac stent. Complex cystic mass left adrenal appears stable. Electronically Signed: Terrance Moore MD at 20:50 EDT Reading Location ID and State: [address] [place] [address] , Service support , Assessment & Plan Assessment/Plan (1) Lung cancer, primary, with metastasis from lung to other site: (2) SBO (small bowel obstruction): PLAN: Plan 1. Small bowel obstruction?admit patient to general medical floor, make n.p.o., repeat CBC CMP in the morning, KUB in the morning, consult surgery. Start IV fluids. Dilaudid IV every 3 hours 1 mg, Zofran 4 mg IV every 6 hours as needed nausea, consider NG tube at this point it is felt not necessary. If fails to resolve the small bowel obstruction may be due to metastatic disease and patient may be appropriate for hospice care. 2. Lung cancer with metastatic disease?admit patient, notify infusion lab that she will not be available for her outpatient infusion that was scheduled for tomorrow 3. DVT prophylaxis?low molecular weight heparin 4. CODE STATUS?DNR Comfort Care arrest Charges/Coding Visit Charges Inpatient E&M: 08017 Init Hosp L3
[2022-03-07 23:14] VITALS: BMI 28.9
[2022-03-07 23:18] VITALS: BP 116/80; PULSE 68; RESP 18; TEMP 36.9; O2SAT 95
[2022-03-07] MEDS: 0.9% Saline Lock 10 ML Syringe IV (23:43)
[2022-03-07] MEDS: Dext 5%-0.45% NS 1,000 ML 75 ML IV (23:43)
--- NOTE | 2022-03-08 05:55 | RAD_ITS ---
STUDY: X-RAY - ABDOMEN/PELVIS REASON FOR EXAM: Female, 72 years old. SBO TECHNIQUE: Single AP view of the abdomen / pelvis. COMPARISON: None. FINDINGS: Normal visualized lung bases. There is a moderate amount of colonic fecal material. Dense calcification seen in the left upper quadrant which was demonstrated to be calcification of the left adrenal gland. Prior aortic stenting of an infrarenal abdominal aorta aneurysm. Normal soft tissue structures. There are diffuse degenerative changes of the visualized lumbar spine. Prior fusion at the L5-S1 level. Prior right total hip replacement. RAD/Abdomen Single View (Portable) IMPRESSION: Moderate amount of fecal material is seen in the colon. Electronically Signed: Dario Barrientos MD at 9:46 EDT ,
[2022-03-08 05:56] VITALS: BP 125/67; PULSE 62; RESP 16; TEMP 37.1; O2SAT 93
[2022-03-08] MEDS: HYDROmorphone 1 MG/ML Syringe IV ×4 (06:04→14:46)
[2022-03-08] MEDS: 0.9% Saline Lock 10 ML Syringe IV ×4 (06:05→14:46)
--- NOTE | 2022-03-08 06:30 | EX.PCM.CON.S ---
Assessment & Plan Assessment/Plan (1) SBO (small bowel obstruction): PLAN: Patient likely does not have a small bowel obstruction she more likely has an ileus due to her ascites. She is not a surgical candidate due to her carcinomatosis if this is a bowel obstruction. Patient has a large amount of stool in her colon on CT scan and she says she is passing flatus. She also reports no abdominal pain feeling no nausea this morning. I will try clear liquid diet and I told her to take it easy and go slow and I will also order a fleets enema. If this does not improve her situation she may need to discuss hospice care. Delmar Olguin MD Pager: [facility] [address] [place] [address], [address] [place] [address] Office: HPI Consult Data Date of Consult: 03/08/22 HPI Narrative HPI Narrative: ANDREW LOUIS, is a 72 F who presents with abdominal pain. The patient reports that she started having abdominal pain with nausea but no vomiting. Today she is saying that she is not having much abdominal pain and she is passing flatus. She her last bowel movement was yesterday and was very hard and small. Patient has a history of metastatic lung cancer with carcinomatosis. 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, bilateral legs Back pain Cancer Cardiology follow-up encounter Carotid artery stenosis Chest pain Cognitive dysfunction, acquired Constipation COPD (chronic obstructive pulmonary disease) Deep vein thrombosis (DVT) of proximal vein of right lower extremity DVT (deep venous thrombosis) Encounter for immunotherapy Encounter for screening for COVID-19 Encounter for tobacco use cessation counseling Endometrial thickening on ultrasound Essential hypertension Fatty liver disease, nonalcoholic Forgetfulness Former smoker Gastric reflux GERD (gastroesophageal reflux disease) Headache History of back problems History of edema History of pain when walking History of stress test Hx of echocardiogram Hyperlipidemia Hypertension Imbalance Neck pain Neuropathy Omental metastasis Oral candidiasis Osteoarthritis 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 Peripheral arterial disease Peripheral vascular angioplasty status Peripheral vascular disease Peritoneal carcinomatosis Shortness of breath on exertion Shoulder pain Tobacco use disorder, continuous Umbilical hernia Uterine fibroid Ventral incisional hernia without obstruction or gangrene 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 Wears dentures Wears glasses Weight loss Home Medications omeprazole 40 mg capsule,delayed release 40 mg PO DAILY REFLUX 07/10/15 [History Last Taken 03/07/22] cilostazol 100 mg tablet 100 mg PO BID pad 10/25/18 [History Last Taken 03/07/22] atorvastatin 40 mg tablet 40 mg PO QHS cholesterol 04/23/19 [History Last Taken 03/06/22] apixaban 5 mg tablet (Eliquis) 5 mg PO BID blood thinner 12/11/20 [History Last Taken 03/07/22] hydrocodone-acetaminophen 5-325mg 5mg-325mg 1 tab PO Q8 PRN Pain, Severe 12/11/20 [History Last Taken 12/10/20 13:00] lidocaine-prilocaine 2.5 %-2.5 % topical cream 1 applic topical ONCE PRN port access 30 days #30 grams 12/31/20 [Rx Last Taken Unknown] fentanyl 50 mcg/hr transdermal patch 100 mcg transdermal Q72H pain 04/20/21 [History Last Taken 03/05/22] Allergy/AdvReac Type Severity Reaction Status Date / Time naproxen [From Naprosyn] Allergy Severe Shortness Verified 03/07/22 17:04 of breath Family History Brother Cancer throat and lung Mother CAD (coronary artery disease) Hypertension Father CAD (coronary artery disease) Surgical History H/O shoulder replacement History of AAA (abdominal aortic aneurysm) repair (09/26/17) History of amputation of left great toe History of bunionectomy of left great toe History of cardiac catheterization History of carpal tunnel release of both wrists History of left knee replacement (~06/08/11) History of right hip replacement History of rotator cuff surgery History of spinal surgery (~1999) Hx of spinal fusion Social History number of children: 5 Smoking Status: Current every day smoker tobacco type: cigarettes Tobacco: How many years used: 50 second hand exposure: No alcohol intake: current alcohol intake frequency: a few times a month Alcohol type: beer details: weekends substance use type: does not use caffeine: Yes Type: coffee Number of servings: 3 and other what type of physical activity do you participate in: none seatbelt use: always do you feel safe at home: Yes additional social history: Matt- Both are retired ROS Constitutional Constitutional: Reports anorexia and fatigue; Denies chills Eyes Eyes: Denies change in vision ENT HEENT: Denies abnormal hearing Cardiovascular Cardiovascular: Denies chest pain Respiratory/Chest Respiratory/Chest: Reports shortness of breath with exertion Gastrointestinal Gastrointestinal: Reports abdominal pain, constipation and nausea; Denies hematochezia, melena or vomiting Genitourinary Genitourinary: Denies dysuria Musculoskeletal Musculoskeletal: Denies back pain Integumentary Integumentary: Denies dry skin Neurologic Neurologic: Denies abnormal speech Psychiatric Psychiatric: Denies anxiety Physical Exam Const alert, oriented x3 and no apparent distress General Appearance: cooperative HEENT normocephalic Eyes PERRL Neck full ROM Resp normal respiratory effort Cardio Rate: regular rate Rhythm: regular rhythm GI soft to palpation Inspection: abdominal distention Extremity normal to inspection Lab / Micro Data Result Diagrams: 03/07/22 18:45 03/07/22 18:45 Labs: Laboratory Results - last 24 hr 03/07/22 18:45: WBC 12.1 H, RBC 3.95 L, Hgb 12.3, Hct 37.9, MCV 95.9, MCH 31.1, MCHC 32.5, RDW Std Deviation 46.3 H, RDW Coeff of Sean 13.1, Plt Count 353, MPV 8.7, Immature Gran % (Auto) 0.400, Neut % (Auto) 74.1 H, Lymph % (Auto) 18.3 L, [place] % (Auto) 6.4, Eos % (Auto) 0.6, Baso % (Auto) 0.2, Absolute Neuts (auto) 8.9 H, Absolute Lymphs (auto) 2.20, Nucleated RBC % 0 03/07/22 18:45: Sodium 141, Potassium 3.9, Chloride 110 H, Carbon Dioxide 26.0, Anion Gap 5, BUN 16, Creatinine 0.95, Estim Creat Clear Calc 44.86, Est GFR (MDRD) Af Amer 74, Est GFR (MDRD) Non-Af 61, BUN/Creatinine Ratio 16.8, Glucose 117 H, Calcium 9.9, Total Bilirubin 0.30, Direct Bilirubin 0.11, AST 11 L, ALT 15, Alkaline Phosphatase 108, Total Protein 7.0, Albumin 2.8 L, Globulin 4.2, Lipase 67 L 03/07/22 20:35: Urine Color Yellow, Urine Clarity Clear, Urine pH 5.0, Ur Specific [place] 1.015, Urine Protein 15 H, Urine Glucose (UA) Normal, Urine Ketones Negative, Urine Occult Blood 10 H, Urine Nitrite Negative, Urine Bilirubin Negative, Urine Urobilinogen Normal, Ur Leukocyte Esterase 25 H, Urine RBC 0 SEEN, Urine WBC 0-5 SEEN, Ur Squamous Epith Cells 0-5 SEEN, Urine Bacteria 0 SEEN, Urine Mucus 0 SEEN Radiology Impression Abdomen/Pelvis CT 03/07/22 18:29 IMPRESSION: Small bowel obstruction mid segment. Moderate ascites. Surgical consultation recommended. Stable infrarenal abdominal aortic aneurysm and aortobiiliac stent. Complex cystic mass left adrenal appears stable. Electronically Signed: Terrance Moore MD at 20:50 EDT ,
[2022-03-08 06:31] LABS: Absolute Neutrophil Count 5.8 X10^3/uL (2.0-7.7); Basophil# 0.05 X10^3/uL; Basophil% 0.6 % (0-1); Eosinophil# 0.16 X10^3/uL; Eosinophils% 1.8 % (0-5); Hematocrit 35.4 % (37-47); Hemoglobin 11.6 g/dL (12.0-15.0); Lymphocyte % 21.8 % (19-41); Mean Corp Hgb Conc 32.8 g/dL (32-36); Mean Corpuscular Volume 97.5 fL (81-99); Mean Platelet Vol. 8.7 fl (6.2-12.0); Monocyte# 0.76 X10^3/uL; Monocyte% 8.7 % (0-10); NRBC Flagged by Analyzer 0 % (0-5); Neutrophil # 5.82 X10^3/uL (2.7-7.7); Neutrophil % 66.8 % (47-70); Platelet Count 340 K/mm3 (150-450); RBC Distribution Width CV 13.3 % (11.6-14.6); RBC Distribution Width SD 47.4 fl (35.1-43.9); Red Blood Count 3.63 M/mm3 (4.2-5.4); White Blood Count 8.7 K/mm3 (4.4-11.0)
[2022-03-08 07:02] LABS: ALB/GLOB Ratio 0.7 RATIO (0.9-2.4); AST(SGOT) 9 U/L (15-37); Alanine Aminotransfer ALT/SGPT 15 U/L (13-56); Albumin, Serum 2.6 g/dL (3.2-5.0); Alkaline Phosphatase 96 U/L (45-117); Anion Gap 5 (5-15); BUN 14 mg/dL (7-18); BUN/Creat Ratio 15.9 RATIO (10-20); Calcium,Total 9.5 mg/dL (8.5-10.1); Chloride 106 mmol/L (98-107); Creatinine, Serum 0.88 mg/dL (0.55-1.02); EST Glomerular Filtration Rate 67 mL/min (>60); Est Glom Filt Rate - Afr Amer 81 mL/min (>60); Estimated Creatinine Clearance 48.43 ml/min; Globulin 3.6 g/dL (2.2-4.2); Glucose 105 mg/dL (74-106); Potassium 4.3 mmol/L (3.5-5.1); Protein, Total 6.2 g/dL (6.4-8.2); Sodium Level 138 mmol/L (136-145)
[2022-03-08 08:13] VITALS: O2SAT 96
[2022-03-08] MEDS: Fleet Enema 1 ML RC (08:47)
[2022-03-08] MEDS: Enoxaparin 40 MG/0.4 ML Syringe SC ×2 (08:48→21:12)
--- NOTE | 2022-03-08 10:25 | CASEMGMT ---
RN CM Face to Face with patient for initial transition planning/care coordination assessment. RN CM introduced self and role at [facility]. Patient lying in bed, alert and oriented. Patient willing to participate in assessment and is able to answer all questions appropriately. Care providers, pharmacy, and demographics verified. Patient wishes to discharge home, denies need for home health at this time. Patient states she has no further needs or concerns at this time. CM to follow for discharge planning needs that may arise. PCP: Tatiana Specialists: Jossy, oncologist; harlan Jo Preferred Pharmacy: [facility] Insurance: [facility] Prescription Benefit: yes Living Will/HPOA: yes, Tony Reddy, HPOA LNOK: Living Arrangements: Patient lives with in a 2 story home. Patient is independent at home and uses stair lift to go to second floor. Transportation: self, DME/HHC: Patient states she has shower chair, raised toilet, cane, walker at home. Patient denies previous HHC or SNF. Disposition Plan: Patient to discharge home with family support and follow-up plans in place. Lashawn MOREIRA, RN, CM
--- NOTE | 2022-03-08 10:51 | PN.HOSP_ITS ---
Subjective Subjective Patient seen and examined. She still complained of some abdominal pain, though it was improving. She had an enema today and had a good bowel movement. She denied any fever, chills, nausea or vomiting. She is passing gas. Review of systems is otherwise negative. She has been started on a clear liquid diet. Objective Data Objective Data Vital Signs: Vital Signs Temp Pulse Resp BP Pulse Ox O2 Del Method 98.7 F 62 16 125/67 H 96 Room Air 03/08/22 05:56 03/08/22 05:56 03/08/22 05:56 03/08/22 05:56 03/08/22 08:13 03/08/22 08:13 Oxygen Delivery Method Room Air Weight: 168 lb 6.931 oz Body Mass Index (BMI) 28.9 Lab / Micro Data Result Diagrams: 03/08/22 05:13 03/08/22 05:13 Labs: Laboratory Results - last 24 hr 03/07/22 18:45: WBC 12.1 H, RBC 3.95 L, Hgb 12.3, Hct 37.9, MCV 95.9, MCH 31.1, MCHC 32.5, RDW Std Deviation 46.3 H, RDW Coeff of Sean 13.1, Plt Count 353, MPV 8.7, Immature Gran % (Auto) 0.400, Neut % (Auto) 74.1 H, Lymph % (Auto) 18.3 L, [place] % (Auto) 6.4, Eos % (Auto) 0.6, Baso % (Auto) 0.2, Absolute Neuts (auto) 8.9 H, Absolute Lymphs (auto) 2.20, Nucleated RBC % 0 03/07/22 18:45: Sodium 141, Potassium 3.9, Chloride 110 H, Carbon Dioxide 26.0, Anion Gap 5, BUN 16, Creatinine 0.95, Estim Creat Clear Calc 44.86, Est GFR (MDRD) Af Amer 74, Est GFR (MDRD) Non-Af 61, BUN/Creatinine Ratio 16.8, Glucose 117 H, Calcium 9.9, Total Bilirubin 0.30, Direct Bilirubin 0.11, AST 11 L, ALT 15, Alkaline Phosphatase 108, Total Protein 7.0, Albumin 2.8 L, Globulin 4.2, Lipase 67 L 03/07/22 20:35: Urine Color Yellow, Urine Clarity Clear, Urine pH 5.0, Ur Specific [place] 1.015, Urine Protein 15 H, Urine Glucose (UA) Normal, Urine Ketones Negative, Urine Occult Blood 10 H, Urine Nitrite Negative, Urine Bilirubin Negative, Urine Urobilinogen Normal, Ur Leukocyte Esterase 25 H, Urine RBC 0 SEEN, Urine WBC 0-5 SEEN, Ur Squamous Epith Cells 0-5 SEEN, Urine Bacteria 0 SEEN, Urine Mucus 0 SEEN 03/08/22 05:13: WBC 8.7, RBC 3.63 L, Hgb 11.6 L, Hct 35.4 L, MCV 97.5, MCH 32.0, MCHC 32.8, RDW Std Deviation 47.4 H, RDW Coeff of Sean 13.3, Plt Count 340, MPV 8.7, Immature Gran % (Auto) 0.300, Neut % (Auto) 66.8, Lymph % (Auto) 21.8, [place] % (Auto) 8.7, Eos % (Auto) 1.8, Baso % (Auto) 0.6, Absolute Neuts (auto) 5.8, Absolute Lymphs (auto) 1.90, Nucleated RBC % 0 03/08/22 05:13: Sodium 138, Potassium 4.3, Chloride 106, Carbon Dioxide 27.0, Anion Gap 5, BUN 14, Creatinine 0.88, Estim Creat Clear Calc 48.43, Est GFR (MDRD) Af Amer 81, Est GFR (MDRD) Non-Af 67, BUN/Creatinine Ratio 15.9, Glucose 105, Calcium 9.5, Total Bilirubin 0.30, AST 9 L, ALT 15, Alkaline Phosphatase 96, Total Protein 6.2 L, Albumin 2.6 L, Globulin 3.6, Albumin/Globulin Ratio 0.7 L Radiography Diagnostic Testing: Radiology Impression Abdomen/Pelvis CT 03/07/22 18:29 IMPRESSION: Small bowel obstruction mid segment. Moderate ascites. Surgical consultation recommended. Stable infrarenal abdominal aortic aneurysm and aortobiiliac stent. Complex cystic mass left adrenal appears stable. Electronically Signed: Terrance Moore MD at 20:50 EDT Reading Location ID and State: [address] [place] [address] , Service support , KUB X-Ray 03/08/22 05:55 IMPRESSION: Moderate amount of fecal material is seen in the colon. Electronically Signed: Dario Barrientos MD at 9:46 EDT , Physical Exam Const alert, oriented x3 and no apparent distress HEENT head/scalp atraumatic, moist oral mucous membranes and oropharynx normal Head and Scalp: normocephalic Mouth: oral and palatal mucosa normal Eyes PERRL, EOMs intact bilaterally and conjunctivae normal Neck no lymphadenopathy and supple Resp normal respiratory effort, no retractions, no use of accessory muscles and clear to auscultation bilaterally Cardio regular rate, regular rhythm, S1 normal heart sound, S2 normal heart sound and no murmurs GI GI Narrative: abdomen mildly distended, nontender, normal bowel sounds, no organomegaly Extremity normal to inspection, full ROM and no clubbing, cyanosis or edema Neuro oriented x3, CN's II-XII intact bilaterally, moves all extremities and no focal motor deficits Sensorium / Orientation: awake and alert Coordination / Balance: [id number] test normal Motor Exam: strength 5/5 throughout Psych affect normal Assessment & Plan Assessment/Plan (1) SBO (small bowel obstruction): PLAN: Plan #Small bowel obstruction * resolving. Patient feels much better * had a bowel movement this morning and is passing gas. * KUB this morning showed moderate amount f fecal material in the colon * general surgery on board and thought it was more of ileus nad less likely small bowel obstruction. Started on clear liquid diet. * #History of metastatic lung cancer with carcinomatosis * on chemotherap; had systemic chemotherapy with carboplatin and immune therapy with atezolizumab, to which she had partial remission; started on maintenance atezolizumab in April 2021 * follow up with oncology on outpatient basis * #History of abdominal aortic aneurysm * s/p aortobiliary stent placement * stable * #DVT prophylaxis: lovenox Charges/Coding Visit Charges Inpatient E&M: 82855 Subs Hosp L2
--- NOTE | 2022-03-08 11:23 | NURSING ---
0945- fentayl patches 25mcg and 75mcg flushed down toilet w/ayde henderson rn/charge as witness
[2022-03-08 12:00] VITALS: BP 121/63; PULSE 54; RESP 14; TEMP 36.8; O2SAT 95
[2022-03-08] MEDS: Dext 5%-0.45% NS 1,000 ML 75 ML IV (12:23)
[2022-03-08 16:37] VITALS: BP 124/69; PULSE 55; RESP 16; TEMP 36.7; O2SAT 96
[2022-03-08 21:15] VITALS: BP 131/68; PULSE 57; RESP 16; TEMP 36.9; O2SAT 94
[2022-03-09 03:15] VITALS: BP 120/71; PULSE 68; RESP 16; TEMP 36.6; O2SAT 98
[2022-03-09] MEDS: Dext 5%-0.45% NS 1,000 ML 75 ML IV (03:15)
[2022-03-09] MEDS: HYDROmorphone 1 MG/ML Syringe IV (03:37)
[2022-03-09] MEDS: 0.9% Saline Lock 10 ML Syringe IV (03:37)
[2022-03-09 07:12] VITALS: O2SAT 96
[2022-03-09 07:13] LABS: Absolute Lymphocyte Count 1.79 X10^3/uL (0.83-4.51); Absolute Neutrophil Count 5.3 X10^3/uL (2.0-7.7); Basophil# 0.03 X10^3/uL; Basophil% 0.4 % (0-1); Eosinophil# 0.19 X10^3/uL; Eosinophils% 2.4 % (0-5); Hematocrit 35.9 % (37-47); Hemoglobin 11.5 g/dL (12.0-15.0); Lymphocyte # 1.79 X10^3/ul (0.83-4.51); Lymphocyte % 22.6 % (19-41); Mean Corpuscular Hgb 31.6 pg (27.0-32.0); Mean Corpuscular Volume 98.6 fL (81-99); Mean Platelet Vol. 8.9 fl (6.2-12.0); Monocyte# 0.61 X10^3/uL; Monocyte% 7.7 % (0-10); NRBC Flagged by Analyzer 0 % (0-5); Neutrophil # 5.26 X10^3/uL (2.7-7.7); Neutrophil % 66.5 % (47-70); Platelet Count 326 K/mm3 (150-450); RBC Distribution Width CV 13.2 % (11.6-14.6); RBC Distribution Width SD 47.1 fl (35.1-43.9); Red Blood Count 3.64 M/mm3 (4.2-5.4); White Blood Count 7.9 K/mm3 (4.4-11.0)
[2022-03-09 07:35] LABS: Anion Gap 4 (5-15); BUN 13 mg/dL (7-18); BUN/Creat Ratio 13.4 RATIO (10-20); Calcium,Total 9.4 mg/dL (8.5-10.1); Chloride 109 mmol/L (98-107); Creatinine, Serum 0.97 mg/dL (0.55-1.02); EST Glomerular Filtration Rate 60 mL/min (>60); Est Glom Filt Rate - Afr Amer 72 mL/min (>60); Estimated Creatinine Clearance 43.94 ml/min; Glucose 98 mg/dL (74-106); Sodium Level 142 mmol/L (136-145)
--- NOTE | 2022-03-09 07:58 | PN.SURG_ITS ---
Subjective Subjective Patient reports that she had a small bowel movement after fleets enema. She is passing flatus. She does not have any nausea. She tolerated clears. Objective Data Objective Data Vital Signs: Vital Signs Temp Pulse Resp BP Pulse Ox O2 Del Method 97.8 F 68 16 120/71 98 Room Air 03/09/22 03:15 03/09/22 03:15 03/09/22 03:15 03/09/22 03:15 03/09/22 03:15 03/09/22 05:00 Oxygen Delivery Method Room Air Weight: 168 lb 6.931 oz Body Mass Index (BMI) 28.9 Intake & Output: Intake and Output for Last 24 Hours 03/07/22 03/08/22 03/09/22 23:59 23:59 23:59 Intake Total 950 / 950 1000 / 1000 Balance 950 / 950 1000 / 1000 Lab / Micro Data Result Diagrams: 03/09/22 06:15 03/09/22 06:15 Labs: Laboratory Results - last 24 hr 03/09/22 06:15: WBC 7.9, RBC 3.64 L, Hgb 11.5 L, Hct 35.9 L, MCV 98.6, MCH 31.6, MCHC 32.0, RDW Std Deviation 47.1 H, RDW Coeff of Sean 13.2, Plt Count 326, MPV 8.9, Immature Gran % (Auto) 0.400, Neut % (Auto) 66.5, Lymph % (Auto) 22.6, [place] % (Auto) 7.7, Eos % (Auto) 2.4, Baso % (Auto) 0.4, Absolute Neuts (auto) 5.3, Absolute Lymphs (auto) 1.79, Nucleated RBC % 0 03/09/22 06:15: Sodium 142, Potassium 4.0, Chloride 109 H, Carbon Dioxide 29.0, Anion Gap 4 L, BUN 13, Creatinine 0.97, Estim Creat Clear Calc 43.94, Est GFR (MDRD) Af Amer 72, Est GFR (MDRD) Non-Af 60, BUN/Creatinine Ratio 13.4, Glucose 98, Calcium 9.4 Radiography Diagnostic Testing: Radiology Impression KUB X-Ray 03/08/22 05:55 IMPRESSION: Moderate amount of fecal material is seen in the colon. Electronically Signed: Dario Barrientos MD at 9:46 EDT , Physical Exam Const oriented x3 Resp normal respiratory effort GI soft to palpation Inspection: Negative for abdominal distention Assessment & Plan Assessment/Plan (1) SBO (small bowel obstruction): PLAN: Plan Patient tolerated clear liquids with no nausea. She had a small response to the fleets enema so we will try magnesium citrate today to try to relieve her constipation. If she tolerates diet and has a normal bowel movement she might be okay for discharge later today. Delmar Olguin MD Pager: [facility] [address] [place] [address], [address] [place] [address] Office:
[2022-03-09] MEDS: Enoxaparin 40 MG/0.4 ML Syringe SC (07:59)
[2022-03-09 08:39] VITALS: BP 141/64; PULSE 58; RESP 16; TEMP 36.7; O2SAT 99
[2022-03-09] MEDS: Magnesium Citrate 300 ML PO (10:14)
[2022-03-09 14:00] VITALS: BP 146/74; PULSE 60; RESP 15; TEMP 36.8; O2SAT 97
--- NOTE | 2022-03-09 14:45 | PN.HOSP_ITS ---
Subjective Subjective Patient seen and examined. She had no active complaints. Her granddaughter was by her bedside. She denied any fever, chills, cough, chest pain, palpitations, dizziness, nausea or vomiting. Review of systems is otherwise negative. Objective Data Objective Data Vital Signs: Vital Signs Temp Pulse Resp BP Pulse Ox O2 Del Method 98.3 F 60 15 146/74 H 97 Room Air 03/09/22 14:00 03/09/22 14:00 03/09/22 14:00 03/09/22 14:00 03/09/22 14:00 03/09/22 14:00 Oxygen Delivery Method Room Air Weight: 168 lb 6.931 oz Body Mass Index (BMI) 28.9 Intake & Output: Intake and Output for Last 24 Hours 03/07/22 03/08/22 03/09/22 23:59 23:59 23:59 Intake Total 950 / 950 1000 / 1000 Balance 950 / 950 1000 / 1000 Lab / Micro Data Result Diagrams: 03/09/22 06:15 03/09/22 06:15 Labs: Laboratory Results - last 24 hr 03/09/22 06:15: WBC 7.9, RBC 3.64 L, Hgb 11.5 L, Hct 35.9 L, MCV 98.6, MCH 31.6, MCHC 32.0, RDW Std Deviation 47.1 H, RDW Coeff of Sean 13.2, Plt Count 326, MPV 8.9, Immature Gran % (Auto) 0.400, Neut % (Auto) 66.5, Lymph % (Auto) 22.6, [place] % (Auto) 7.7, Eos % (Auto) 2.4, Baso % (Auto) 0.4, Absolute Neuts (auto) 5.3, Absolute Lymphs (auto) 1.79, Nucleated RBC % 0 03/09/22 06:15: Sodium 142, Potassium 4.0, Chloride 109 H, Carbon Dioxide 29.0, Anion Gap 4 L, BUN 13, Creatinine 0.97, Estim Creat Clear Calc 43.94, Est GFR (MDRD) Af Amer 72, Est GFR (MDRD) Non-Af 60, BUN/Creatinine Ratio 13.4, Glucose 98, Calcium 9.4 Physical Exam Const alert, oriented x3 and no apparent distress General Appearance: cooperative and well developed HEENT normocephalic, head/scalp atraumatic, moist oral mucous membranes and oropharynx normal Head and Scalp: normocephalic Mouth: oral and palatal mucosa normal Eyes PERRL, EOMs intact bilaterally and conjunctivae normal Neck no lymphadenopathy and supple Lymph Lymphatic: no lymphadenopathy noted Resp normal respiratory effort, no retractions, no use of accessory muscles and clear to auscultation bilaterally Cardio regular rate, regular rhythm, S1 normal heart sound, S2 normal heart sound and no murmurs GI GI Narrative: abdomen mildly distended, nontender, normal bowel sounds, no organomegaly Inspection: abdominal distention Palpation: tender Extremity normal to inspection, full ROM, normal capillary refill and no clubbing, cyanosis or edema Skin General Skin Exam: no breakdown Neuro oriented x3, CN's II-XII intact bilaterally, moves all extremities and no focal motor deficits Sensorium / Orientation: awake and alert Coordination / Balance: [id number] test normal Speech: speech normal Motor Exam: strength 5/5 throughout Psych thought process normal, cooperative and affect normal Assessment & Plan Assessment/Plan (1) SBO (small bowel obstruction): PLAN: Plan #Small bowel obstruction * resolving. Patient feels much better * general surgery on board and thought it was more of ileus and less likely small bowel obstruction. * tolerated clear liquid diet, and diet being advanced. * * #History of metastatic lung cancer with carcinomatosis * on chemotherapy; had systemic chemotherapy with carboplatin and immune therapy with atezolizumab, to which she had partial remission; started on maintenance atezolizumab in April 2021 * follow up with oncology on outpatient basis * #History of abdominal aortic aneurysm * s/p aortobiliary stent placement * stable * #DVT prophylaxis: lovenox Charges/Coding Visit Charges Inpatient E&M: 27799 Subs Hosp L2
--- NOTE | 2022-03-09 14:54 | DS.PCM_ITS ---
Providers Date of Admission: 03/07/22 Date of Discharge: 03/09/22 Primary Care Physician: Dr. Herbert Simpson, Consultations 03/07/22 23:22 Consult: General Surgery Routine Consulting Provider: Delmar Olguin Reason for Consult: sbo EMERGENT Consult: No MD Notified: Yes Date Notified: 03/07/22 Time Notified: 22:18 Method of Notification: Verbal Reason For Visit: SMALL BOWEL OBSTRUCTION Diagnosis Discharge Diagnosis (1) SBO (small bowel obstruction): Status: Acute Code(s): K56.609 - Unspecified intestinal obstruction, unspecified as to partial versus complete obstruction Plan #Small bowel obstruction * resolving. Patient feels much better * general surgery on board and thought it was more of ileus and less likely small bowel obstruction. * tolerated clear liquid diet, and diet being advanced. * * #History of metastatic lung cancer with carcinomatosis * on chemotherapy; had systemic chemotherapy with carboplatin and immune therapy with atezolizumab, to which she had partial remission; started on maintenance atezolizumab in April 2021 * follow up with oncology on outpatient basis * #History of abdominal aortic aneurysm * s/p aortobiliary stent placement * stable * #DVT prophylaxis: lovenox Medications at Discharge Home Medications omeprazole 40 mg capsule,delayed release 40 mg PO DAILY REFLUX 07/10/15 cilostazol 100 mg tablet 100 mg PO BID pad 10/25/18 atorvastatin 40 mg tablet 40 mg PO QHS cholesterol 04/23/19 apixaban 5 mg tablet (Eliquis) 5 mg PO BID blood thinner 12/11/20 hydrocodone-acetaminophen 5-325mg 5mg-325mg 1 tab PO Q8 PRN Pain, Severe 12/11/20 lidocaine-prilocaine 2.5 %-2.5 % topical cream 1 applic topical ONCE PRN port access 30 days #30 grams 12/31/20 fentanyl 50 mcg/hr transdermal patch 100 mcg transdermal Q72H pain 04/20/21 Hospital Course Operations None Procedures None Summary of Care Provided Minutes Spent on Discharge: 45 Hospital Course: Patient is a 72 y/o with a PMH as outlined who was admitted via the ED with a complaint of abdominal pain. She denied any nausea and vomiting and any fever or chills. CT of the abdomen done showed small bowel obstruction of the mid segment and moderate ascites. She was admitted and managed for small bowel obstruction. She was kept NPO and hydrated with IVF. General surgery was consulted and per their review thought her symptoms were more likely due to an ileus and not obstruction. She was given an enema which helped with having a bowel movement. She was started on clear liquid diet which she tolerated and was gradually advanced which she also tolerated. Patient improved and did well. She was discharged home on 03/09/2022. She is to follow up with her PCP and general surgery in 1-2 weeks. Patient seen and examined. She had no active complaints and felt well. She had an uneventful night. Review of systems is otherwise negative. Labs and vitals reviewed. Home meds reviewed and reconciled. Physical Exam Const alert, oriented x3 and no apparent distress General Appearance: cooperative, comfortable and well developed Orientation / Consciousness: awake Exam Limitations: no limitations HEENT normocephalic, head/scalp atraumatic, hearing grossly normal bilaterally, moist oral mucous membranes and oropharynx normal Eyes PERRL, EOMs intact bilaterally and conjunctivae normal Neck no lymphadenopathy and supple Lymph Lymphatic: no lymphadenopathy noted Resp normal respiratory effort, no retractions, no use of accessory muscles and clear to auscultation bilaterally Auscultation: wheezes expiratory wheezes Cardio regular rate, regular rhythm, S1 normal heart sound, S2 normal heart sound and no murmurs GI normal to inspection, nondistended, normoactive bowel sounds and soft to palpation Inspection: abdominal distention Auscultation: hypoactive bowel sounds Palpation: tender Extremity normal to inspection, full ROM, normal capillary refill and no clubbing, cyanosis or edema Skin no rashes or lesions noted General Skin Exam: no breakdown Neuro oriented x3, CN's II-XII intact bilaterally, moves all extremities and no focal motor deficits Sensorium / Orientation: awake and alert Coordination / Balance: [id number] test normal Speech: speech normal Motor Exam: strength 5/5 throughout Psych thought process normal, cooperative and affect normal Weight / BMI Weight Weight: 168 lb 6.931 oz Body Mass Index (BMI) 28.9 ABG / Lab / Microbiology Data Result Diagrams: 03/09/22 06:15 03/09/22 06:15 Laboratory: Laboratory Results - last 24 hr 03/09/22 06:15: WBC 7.9, RBC 3.64 L, Hgb 11.5 L, Hct 35.9 L, MCV 98.6, MCH 31.6, MCHC 32.0, RDW Std Deviation 47.1 H, RDW Coeff of Sean 13.2, Plt Count 326, MPV 8.9, Immature Gran % (Auto) 0.400, Neut % (Auto) 66.5, Lymph % (Auto) 22.6, [place] % (Auto) 7.7, Eos % (Auto) 2.4, Baso % (Auto) 0.4, Absolute Neuts (auto) 5.3, Absolute Lymphs (auto) 1.79, Nucleated RBC % 0 03/09/22 06:15: Sodium 142, Potassium 4.0, Chloride 109 H, Carbon Dioxide 29.0, Anion Gap 4 L, BUN 13, Creatinine 0.97, Estim Creat Clear Calc 43.94, Est GFR (MDRD) Af Amer 72, Est GFR (MDRD) Non-Af 60, BUN/Creatinine Ratio 13.4, Glucose 98, Calcium 9.4 D/C Instructions Discharge Diet: Low fat / Low cholesterol Discharge Activity: Return to Normal Activity Weight Bearing Status: Weight bearing as tolerated Call your doctor if you observe: Fever of 101 or Higher, Shortness of breath, Swelling in the ankles, Increased palpitations (irregular heartbeat) and Uncontrolled pain Meaningful Use Info Meaningful Use Diagnoses (Choose all that apply): None applicable Discharge Plan Admission Admit Date/Time: 03/07/22 22:13 Primary Reason for Your Visit: ileus Attending Provider: Stefani Way Primary Care Provider: Herbert Simpson Consulting Providers: Delmar Olguin ; Oscar Malagon Instructions Patient Instructions: Ileus Discharge Orders/Prescriptions Prescriptions: Continued atorvastatin 40 mg tablet 40 mg PO QHS lidocaine-prilocaine 2.5-2.5 % cream 1 applic topical ONCE PRN (Reason: port access) 30 Days Qty: 30 2RF fentanyl 50 mcg/hr patch 72 hour 100 mcg transdermal Q72H omeprazole 40 MG capsule 40 mg PO DAILY Label Comments: stomach cilostazol 100 MG tablet 100 mg PO BID hydrocodone-acetaminophen 5-325 mg tablet 1 tab PO Q8 PRN (Reason: Pain, Severe) Label Comments: take 1/2 to 1 tablet by mouth ONE TO TWO TIMES DAILY if needed pain Eliquis 5 mg tablet 5 mg PO BID Label Comments: take 1 tablet by mouth twice a day Referrals / Follow Up: Delmar Olguin MD [Med Staff - Active Staff] - Within 1 Week Herbert Simpson DO [Primary Care Provider] - Within 2 Weeks Disposition Disposition (needs filled in before D/C Order can be placed): Home, Self Care Charges/Coding Visit Charges Inpatient E&M: 91351 Disch Hosp
== END 2022-03-09 15:46 | disposition home or self-care (01) | DRG 389 ==
LOC: ED 22:47 → MS3 22:52
PROVIDERS: Admitting Provider Family Medicine; Emergency Provider Student in an Organized Health Care Education/Training Program; PCP Family Medicine; Visit Provider Student in an Organized Health Care Education/Training Program
DX: K56.609 Unspecified intestinal obstruction, unspecified as to partial versus complete obstruction (principal); C34.90 Malignant neoplasm of unspecified part of unspecified bronchus or lung; C79.89 Secondary malignant neoplasm of other specified sites; R18.8 Other ascites; K76.0 Fatty (change of) liver, not elsewhere classified; J44.9 Chronic obstructive pulmonary disease, unspecified; I71.4 Abdominal aortic aneurysm, without rupture; I70.213 Atherosclerosis of native arteries of extremities with intermittent claudication, bilateral legs; M19.90 Unspecified osteoarthritis, unspecified site; K21.9 Gastro-esophageal reflux disease without esophagitis; I10 Essential (primary) hypertension; E78.5 Hyperlipidemia, unspecified; G62.9 Polyneuropathy, unspecified; F17.210 Nicotine dependence, cigarettes, uncomplicated; Z79.899 Other long term (current) drug therapy; Z86.718 Personal history of other venous thrombosis and embolism; Z79.01 Long term (current) use of anticoagulants; E66.9 Obesity, unspecified; Z66 Do not resuscitate; Z68.30 Body mass index [BMI] 30.0-30.9, adult
CPT/HCPCS: 36415; 36591; 74018; 74177; 80048; 80053; 80076; 81001; 83690; 85025; 99283; 99406; Q9967; A4216; J2405; J7799

== ENCOUNTER 2022-03-11 10:19 | Inpatient (IN) | payer MEDICARE, SELFPAY ==
[2022-03-11] VITALS (7 sets, daily range): BP systolic 113–147; BP diastolic 67–106; PULSE 83–128; RESP 15–22; TEMP 36.6–37.2; O2SAT 92–100; BMI 29.2
--- NOTE | 2022-03-11 10:46 | CT_ITS ---
STUDY: CT ABDOMEN AND PELVIS WITH CONTRAST REASON FOR EXAM: Female, 72 years old. abdominal pain RADIATION DOSAGE (If Supplied By Facility): CTDIvol = ( 13.325 ) mGy, DLP = ( 959.91 ) mGycm TECHNIQUE: Transaxial images were obtained from the dome of the diaphragm to the symphysis pubis without oral contrast. IV 100mL Isovue-300 was administered. Sagittal and coronal images were reconstructed. Individualized dose optimization techniques were used for this CT. COMPARISON: 03/07/2022 FINDINGS: The visualized lung bases are unremarkable. The visualized portions of the heart are within normal limits. Moderate amount of ascites. Normal liver. Normal gallbladder and extrahepatic biliary system. Normal spleen. Normal pancreas. Normal bilateral adrenal glands. Calcifications over adjacent to the left adrenal gland likely related to prior trauma or infection. Normal right kidney. Normal left kidney. There is a small hiatal hernia. No change in the mild dilatation of multiple loops of jejunum with a transition point within the midline of the pelvis on image 81 consistent with a mild partial small bowel obstruction. No pneumatosis or portal venous gas to suggest ischemia. No pneumoperitoneum to suggest perforation. There are multiple colonic diverticula consistent with diverticulosis. There is non-visualization of the appendix. No change in the 4.5 cm abdominal aortic aneurysm treated with aortic stent graft which appears patent and without obvious endoleak. Normal inferior vena cava. Normal retroperitoneum. Normal urinary bladder. Normal abdominal wall. Status post transpedicular fixation of the lower lumbar spine. Status post right hip arthroplasty which produces streak artifact and obscures the pelvis. CT/Abdomen/Pelvis W IV Cont ONLY IMPRESSION: No change in mild partial small bowel obstruction with a moderate amount of ascites. Electronically Signed: Jack Banerjee MD at 12:21 EDT ,
--- NOTE | 2022-03-11 11:09 | EDS_ITS ---
HPI <DEEPIKA Peterson - Last Filed: 03/11/22 13:15> History of Present Illness Chief Complaint: Abd Pain Narrative Narrative: 72-year-old female with history of left-sided lung cancer, history of bowel obstruction with ileus who was admitted to the hospital and released on March 09, 2022 presents the emergency department for repeat of symptoms. Patient states for the last 24 hours she has had lower abdominal pain, belching, decreased stool, decreased passing of gas. She denies any fevers or chills. She was seen by Dr. Oh to from surgery, she was not a surgical candidate, concerning for increased metastasis causing bowel obstruction. Patie nt has had decreased appetite, nausea, increased pain and is here for reevaluation. She did call the surgery office who told her to come and be evaluated. Denies any fevers or chills, blood in stool or vomit. PFS <DEEPIKA Peterson - Last Filed: 03/11/22 13:15> [facility] Medical History AAA (abdominal aortic aneurysm) Abdominal pain Acute bronchitis, unspecified Acute deep vein thrombosis (DVT) of distal end of right lower extremity Adrenal mass Alcohol use Anemia Arthritis Atherosclerosis of [place] arteries of extremities with intermittent claudication, bilateral legs Back pain Cancer Cardiology follow-up encounter Carotid artery stenosis Chest pain Cognitive dysfunction, acquired Constipation COPD (chronic obstructive pulmonary disease) Deep vein thrombosis (DVT) of proximal vein of right lower extremity DVT (deep venous thrombosis) Encounter for immunotherapy Encounter for screening for COVID-19 Encounter for tobacco use cessation counseling Endometrial thickening on ultrasound Essential hypertension Fatty liver disease, nonalcoholic Forgetfulness Former smoker Gastric reflux GERD (gastroesophageal reflux disease) Headache History of back problems History of edema History of pain when walking History of stress test Hx of echocardiogram Hyperlipidemia Hypertension Imbalance Neck pain Neuropathy Omental metastasis Oral candidiasis Osteoarthritis 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 Peripheral arterial disease Peripheral vascular angioplasty status Peripheral vascular disease Peritoneal carcinomatosis Shortness of breath on exertion Shoulder pain Tobacco use disorder, continuous Umbilical hernia Uterine fibroid Ventral incisional hernia without obstruction or gangrene 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 Wears dentures Wears glasses Weight loss Home Medications omeprazole 40 mg capsule,delayed release 40 mg PO DAILY REFLUX 07/10/15 [History Last Taken 03/07/22] cilostazol 100 mg tablet 100 mg PO BID pad 10/25/18 [History Last Taken 03/07/22] atorvastatin 40 mg tablet 40 mg PO QHS cholesterol 04/23/19 [History Last Taken 03/06/22] apixaban 5 mg tablet (Eliquis) 5 mg PO BID blood thinner 12/11/20 [History Last Taken 03/07/22] hydrocodone-acetaminophen 5-325mg 5mg-325mg 1 tab PO Q8 PRN Pain, Severe 12/11/20 [History Last Taken 12/10/20 13:00] lidocaine-prilocaine 2.5 %-2.5 % topical cream 1 applic topical ONCE PRN port access 30 days #30 grams 12/31/20 [Rx Last Taken Unknown] fentanyl 50 mcg/hr transdermal patch 100 mcg transdermal Q72H pain 04/20/21 [History Last Taken 03/05/22] Allergy/AdvReac Type Severity Reaction Status Date / Time naproxen [From Naprosyn] Allergy Severe Shortness Verified 03/11/22 10:20 of breath Family History Brother Cancer throat and lung Mother CAD (coronary artery disease) Hypertension Father CAD (coronary artery disease) Surgical History H/O shoulder replacement History of AAA (abdominal aortic aneurysm) repair (09/26/17) History of amputation of left great toe History of bunionectomy of left great toe History of cardiac catheterization History of carpal tunnel release of both wrists History of left knee replacement (~06/08/11) History of right hip replacement History of rotator cuff surgery History of spinal surgery (~1999) Hx of spinal fusion Social History number of children: 5 Smoking Status: Current every day smoker tobacco type: cigarettes Tobacco: How many years used: 50 second hand exposure: No alcohol intake: current alcohol intake frequency: a few times a month Alcohol type: beer details: weekends substance use type: does not use caffeine: Yes Type: coffee Number of servings: 3 and other what type of physical activity do you participate in: none seatbelt use: always do you feel safe at home: Yes additional social history: [employer] are retired ROS <DEEPIKA Peterson - Last Filed: 03/11/22 13:15> ROS ED ROS Narrative Constitutional: Negative for fever, chills, weight loss, weakness Eyes: Negative for vision loss, vision change, double vision ENT: Negative for any sore throat, ear pain, congestion Cardiovascular: Negative for any chest pain, tightness, palpitations Respiratory: Negative for any cough, sputum production, hemoptysis, dyspnea, dyspnea on exertion, orthopnea Gastrointestinal: Negative for any vomiting, diarrhea, blood in stool, blood in vomit. Positive for abdominal pain, nausea, constipation : Negative for any urinary frequency, dysuria, retention, blood in urine Muscle skeletal: Negative for any muscle joint pain, stiffness, myalgias, arthralgias, neck pain, back pain Neurological: Negative for any headache, syncope, numbness or tingling, dizziness Skin: Negative for any rashes, lumps, itching, abrasions, lacerations Psychiatric: Negative for any depression, anxiety, stress, suicidal ideation, homicidal ideation Hematologic: Negative for any easy bruising, excessive bruising, easy bleeding Allergies: Negative for any eczema, hives, rash EXAM <DEEPIKA Peterson - Last Filed: 03/11/22 13:15> Physical Exam Narrative Exam Narrative: Vital signs reviewed. HEET: Head normocephalic atraumatic, TMs clear bilaterally. Posterior pharynx is clear, moist mucous membranes. Nares clear bilaterally. Neck: Supple with no lymphadenopathy or tenderness. No signs of meningismus, negative jolt sign. Cardiac: Regular rate and rhythm no murmurs gallops or rubs, equal peripheral pulses bilaterally. Respiratory: Lungs clear to auscultation bilaterally. No chest tenderness. Abdomen: Soft. No abdominal bruit or pulsatile masses. No hepatosplenomegaly. Patient did have some distention, decreased bowel sounds, patient did have some worsening discomfort to the lower abdomen. Pain was nonspecific and throughout the entire lower abdomen. Negative for any peritoneal signs. Extremities: No peripheral edema, no signs of gross trauma or deformity. Active full range of motion of all extremities. Neuro: Cranial nerves II through XII intact, no focal neurological deficits. Skin: Clean dry and intact with no rash, purpura, petechiae, vesicles or pustules. Backs/flank: No CVA tenderness, no midline spinal tenderness, no deformity. Psych: Normal mood and affect. No SI, HI or acute psychosis. Const Vital Signs: 03/11/22 10:20 03/11/22 12:04 Temperature 98.6 F 99 F Temperature Source Oral Temporal Pulse Rate 128 H 90 Respiratory Rate 22 H 18 Blood Pressure 147/106 H 117/80 Blood Pressure Mean 119 92 Pulse Ox 99 98 Oxygen Delivery Method Room Air Room Air <Dr. Jhonathan Healy MD - Last Filed: 03/11/22 11:52> Physical Exam Const Vital Signs: 03/11/22 10:20 03/11/22 12:04 Temperature 98.6 F 99 F Temperature Source Oral Temporal Pulse Rate 128 H 90 Respiratory Rate 22 H 18 Blood Pressure 147/106 H 117/80 Blood Pressure Mean 119 92 Pulse Ox 99 98 Oxygen Delivery Method Room Air Room Air MDM <DEEPIKA Peterson - Last Filed: 03/11/22 13:15> MDM Lab Data Labs: Laboratory Results - last 24 hr 03/11/22 03/11/22 03/11/22 11:00 11:00 11:00 WBC 12.3 H RBC 4.35 Hgb 13.5 Hct 42.4 MCV 97.5 MCH 31.0 MCHC 31.8 L RDW Std Deviation 47.9 H RDW Coeff of Sean 13.4 Plt Count 366 MPV 9.2 Immature Gran % (Auto) 0.300 Neut % (Auto) 83.3 H Lymph % (Auto) 10.4 L [place] % (Auto) 5.0 Eos % (Auto) 0.7 Baso % (Auto) 0.3 Absolute Neuts (auto) 10.2 H Absolute Lymphs (auto) 1.28 Nucleated RBC % 0 Sodium 140 Potassium 3.9 Chloride 109 H Carbon Dioxide 24.0 Anion Gap 7 BUN 14 Creatinine 1.02 Estim Creat Clear Calc 41.78 Est GFR (MDRD) Af Amer 68 Est GFR (MDRD) Non-Af 56 L BUN/Creatinine Ratio 13.7 Glucose 117 H Lactic Acid 1.6 Calcium 9.9 Total Bilirubin 0.50 AST 14 L ALT 19 Alkaline Phosphatase 107 Total Protein 7.0 Albumin 3.0 L Globulin 4.0 Albumin/Globulin Ratio 0.8 L Lipase 53 L Radiography Diagnostic Testing: Clinical Impression(s) from Imaging Studies Abdomen/Pelvis CT 03/11/22 10:46 IMPRESSION: No change in mild partial small bowel obstruction with a moderate amount of ascites. Electronically Signed: Jack Banerjee MD at 12:21 EDT , Treatment and Re-Evaluation Narrative: I have personally performed a face to face assessment of the patient and have reviewed the SHEKHAR Note. I performed a substantive portion of the visit including all aspects of the following. My paulson findings include: History: Patient Ananth presents with abdominal distention decreased bowel movements although passing gas, and some mild nausea. She is having reflux but not actually vomiting. She feels her abdomen is more distended and is starting to get sore. She was just admitted for this. She was diagnosed with obstruction/ileus. It was suspected that this might be due to metastatic disease from her known stage IV lung cancer. But she did improve in the hospital. She was eating a bit. She was moving her bowels. This is now changed back to where she was and may be even a little worse. She has not had any intra-abdominal surgery including no [employer] surgery per the patient. She was diagnosed with lung cancer about a year and a half ago went through chemotherapy and he is now on immunotherapy long-term. Since her symptoms improved so much, it was elected not to proceed with surgery. There is concern that this may be difficult case due to her potential metastasis. Exam: Patient is awake alert no acute distress. Oropharynx is clear. Lungs are clear. Heart rate has slowed down quite a bit from triage. Abdomen may showed just a hint of distention. She has some mild nonfocal tenderness. But no rebound or guarding. Patient does still have bowel sounds but they are quiet at this time. Medical Decison Making: Because of the patient's complex history and recent admission and diagnosis we will repeat her CAT scan today. Blood work is also pending. My suspicion is that she is going back and developing obstruction again. The studies are pending at this time. Patient arrives in mild distress secondary to abdominal pain, patient presents to the emergency department with worsening abdominal pain that has been ongoing for the last 2 days. Patient was recently here and discharged on March 09, 2022 which was 2 days ago for the same. Patient did receive some basic laboratory values well as a CT scan of the abdomen pelvis.Patient was given 1 dose of IV Dilaudid, patient states that this did not improve her pain, patient was given a second dose of IV Dilaudid. Patient states that the pain is still a 6-7 of severity. Patient's laboratory values show a leukocytosis white blood count of 12.3, this was similar when she came in and March 07 at 12.1. Patient's chemistries show a negative lactic acid, normal chemistry panel. Patient's CAT scan shows no change in the mild partial small bowel obstruction with a moderate amount of ascites. Due to the patient having continued abdominal pain, needing multiple doses of IV narcotics, continued nausea, difficulty eating and drinking, I do believe the patient should be admitted to the hospital. Patient be admitted under Dr. Way;s service. At this time, there is no indication of any pneumoperitoneum, ischemia. <Dr. Jhonathan Healy MD - Last Filed: 03/11/22 11:52> [facility] Lab Data Labs: Laboratory Results - last 24 hr 03/11/22 03/11/22 03/11/22 11:00 11:00 11:00 WBC 12.3 H RBC 4.35 Hgb 13.5 Hct 42.4 MCV 97.5 MCH 31.0 MCHC 31.8 L RDW Std Deviation 47.9 H RDW Coeff of Sean 13.4 Plt Count 366 MPV 9.2 Immature Gran % (Auto) 0.300 Neut % (Auto) 83.3 H Lymph % (Auto) 10.4 L [place] % (Auto) 5.0 Eos % (Auto) 0.7 Baso % (Auto) 0.3 Absolute Neuts (auto) 10.2 H Absolute Lymphs (auto) 1.28 Nucleated RBC % 0 Sodium 140 Potassium 3.9 Chloride 109 H Carbon Dioxide 24.0 Anion Gap 7 BUN 14 Creatinine 1.02 Estim Creat Clear Calc 41.78 Est GFR (MDRD) Af Amer 68 Est GFR (MDRD) Non-Af 56 L BUN/Creatinine Ratio 13.7 Glucose 117 H Lactic Acid 1.6 Calcium 9.9 Total Bilirubin 0.50 AST 14 L ALT 19 Alkaline Phosphatase 107 Total Protein 7.0 Albumin 3.0 L Globulin 4.0 Albumin/Globulin Ratio 0.8 L Lipase 53 L Radiography Diagnostic Testing: Clinical Impression(s) from Imaging Studies Abdomen/Pelvis CT 03/11/22 10:46 IMPRESSION: No change in mild partial small bowel obstruction with a moderate amount of ascites. Electronically Signed: Jack Banerjee MD at 12:21 EDT , Treatment and Re-Evaluation Narrative: I have personally performed a face to face assessment of the patient and have reviewed the SHEKHAR Note. I performed a substantive portion of the visit including all aspects of the following. My paulson findings include: History: Patient Ananth presents with abdominal distention decreased bowel movements although passing gas, and some mild nausea. She is having reflux but not actually vomiting. She feels her abdomen is more distended and is starting to get sore. She was just admitted for this. She was diagnosed with obstruction/ileus. It was suspected that this might be due to metastatic disease from her known stage IV lung cancer. But she did improve in the hospital. She was eating a bit. She was moving her bowels. This is now changed back to where she was and may be even a little worse. She has not had any intra-abdominal surgery including no [employer] surgery per the patient. She was diagnosed with lung cancer about a year and a half ago went through chemotherapy and he is now on immunotherapy long-term. Since her symptoms improved so much, it was elected not to proceed with surgery. There is concern that this may be difficult case due to her potential metastasis. Exam: Patient is awake alert no acute distress. Oropharynx is clear. Lungs are clear. Heart rate has slowed down quite a bit from triage. Abdomen may showed just a hint of distention. She has some mild nonfocal tenderness. But no rebound or guarding. Patient does still have bowel sounds but they are quiet at this time. Medical Decison Making: Because of the patient's complex history and recent admission and diagnosis we will repeat her CAT scan today. Blood work is also pending. My suspicion is that she is going back and developing obstruction again. The studies are pending at this time. Discharge Plan Triage Chief Complaint: Abd Pain ED Midlevel Provider: Oscar Jordan ED Provider: Jhonathan Healy Dx/Rx/DC Orders Clinical Impression: Partial obstruction of small intestine, Abdominal pain, Ascites, Stage IV squamous cell carcinoma of lung Prescriptions: No Action atorvastatin 40 mg tablet 40 mg PO QHS lidocaine-prilocaine 2.5-2.5 % cream 1 applic topical ONCE PRN (Reason: port access) 30 Days Qty: 30 2RF fentanyl 50 mcg/hr patch 72 hour 100 mcg transdermal Q72H omeprazole 40 MG capsule 40 mg PO DAILY Label Comments: stomach cilostazol 100 MG tablet 100 mg PO BID hydrocodone-acetaminophen 5-325 mg tablet 1 tab PO Q8 PRN (Reason: Pain, Severe) Label Comments: take 1/2 to 1 tablet by mouth ONE TO TWO TIMES DAILY if needed pain Eliquis 5 mg tablet 5 mg PO BID Label Comments: take 1 tablet by mouth twice a day Primary Care Provider: Herbert Simpson Referrals: Herbert Simpson DO [Primary Care Provider] - Disposition Disposition: Acute Care Hospital [facility]
[2022-03-11] MEDS: Ondansetron 4 MG/2 ML Vial IV (11:10)
[2022-03-11] MEDS: HYDROmorphone 1 MG/ML Syringe 0.5 MG IV (11:10)
[2022-03-11 11:22] LABS: Absolute Lymphocyte Count 1.28 X10^3/uL (0.83-4.51); Absolute Neutrophil Count 10.2 X10^3/uL (2.0-7.7); Basophil# 0.04 X10^3/uL; Basophil% 0.3 % (0-1); Eosinophil# 0.09 X10^3/uL; Eosinophils% 0.7 % (0-5); Hematocrit 42.4 % (37-47); Hemoglobin 13.5 g/dL (12.0-15.0); Lymphocyte # 1.28 X10^3/ul (0.83-4.51); Lymphocyte % 10.4 % (19-41); Mean Corp Hgb Conc 31.8 g/dL (32-36); Mean Corpuscular Volume 97.5 fL (81-99); Mean Platelet Vol. 9.2 fl (6.2-12.0); Monocyte# 0.61 X10^3/uL; NRBC Flagged by Analyzer 0 % (0-5); Neutrophil # 10.23 X10^3/uL (2.7-7.7); Neutrophil % 83.3 % (47-70); Platelet Count 366 K/mm3 (150-450); RBC Distribution Width CV 13.4 % (11.6-14.6); RBC Distribution Width SD 47.9 fl (35.1-43.9); Red Blood Count 4.35 M/mm3 (4.2-5.4); White Blood Count 12.3 K/mm3 (4.4-11.0)
[2022-03-11 11:41] LABS: ALB/GLOB Ratio 0.8 RATIO (0.9-2.4); AST(SGOT) 14 U/L (15-37); Alanine Aminotransfer ALT/SGPT 19 U/L (13-56); Alkaline Phosphatase 107 U/L (45-117); Anion Gap 7 (5-15); BUN 14 mg/dL (7-18); BUN/Creat Ratio 13.7 RATIO (10-20); Calcium,Total 9.9 mg/dL (8.5-10.1); Chloride 109 mmol/L (98-107); Creatinine, Serum 1.02 mg/dL (0.55-1.02); EST Glomerular Filtration Rate 56 mL/min (>60); Est Glom Filt Rate - Afr Amer 68 mL/min (>60); Estimated Creatinine Clearance 41.78 ml/min; Glucose 117 mg/dL (74-106); Lipase 53 U/L (73-393); Potassium 3.9 mmol/L (3.5-5.1); Sodium Level 140 mmol/L (136-145)
[2022-03-11 11:48] LABS: Lactic Acid 1.6 mmol/L (0.4-1.9)
[2022-03-11] MEDS: HYDROmorphone 0.5 MG/0.5 ML SYRINGE IV (12:35)
--- NOTE | 2022-03-11 12:55 | HP.PCM.HOS_ITS ---
HPI - General General Date of Admission: 03/11/22 Date of Service: 03/11/22 Chief Complaint: abdominal pain HPI Narrative ANDREW LOUIS, is a 72 F with a PMh as outlined who presents via the ED on 03/11/2022 with a complaint of abdominal pain. She was just discharged from the hospital just 2 days prior to this admission, after she presented with similar symptoms annd was found to have partial small bowel obstruction. General surgery evaluated her during that admission and was thought she had an ileus, but not obstruction. She passed stool and was passing gas and tolerating a diet, so she was discharged home. However, after she went home, she said she started having worsening abdominal pain, with decreased intake. Abdominal pain was worsening so she came back to the hospital. She says she is passing gas, but not having any bowel movement for the past few days. REview of systems was otherwise negative. Vitals in the ED were BP of 117/80, CT of 90, RR of 18 and temp of 99F, with her saturating at 98% on room air. CBC showed wnc of 12.3 but was otherwise unremarkable. Chemistry showed sodium of 140 and potassium of 3.9 as well as Cr of 1.02, but was otherwise unremarkable. CT of the abdomen and pelvis showed no change in mild partial small bowel obstruction with a moderate amount of ascites. She is being admitted to be managed for partial small bowel obstruction vs ileus. [facility] Medical History AAA (abdominal aortic aneurysm) Abdominal pain Acute bronchitis, unspecified Acute deep vein thrombosis (DVT) of distal end of right lower extremity Adrenal mass Alcohol use Anemia Arthritis Atherosclerosis of [place] arteries of extremities with intermittent claudication, bilateral legs Back pain Cancer Cardiology follow-up encounter Carotid artery stenosis Chest pain Cognitive dysfunction, acquired Constipation COPD (chronic obstructive pulmonary disease) Deep vein thrombosis (DVT) of proximal vein of right lower extremity DVT (deep venous thrombosis) Encounter for immunotherapy Encounter for screening for COVID-19 Encounter for tobacco use cessation counseling Endometrial thickening on ultrasound Essential hypertension Fatty liver disease, nonalcoholic Forgetfulness Former smoker Gastric reflux GERD (gastroesophageal reflux disease) Headache History of back problems History of edema History of pain when walking History of stress test Hx of echocardiogram Hyperlipidemia Hypertension Imbalance Neck pain Neuropathy Omental metastasis Oral candidiasis Osteoarthritis 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 Peripheral arterial disease Peripheral vascular angioplasty status Peripheral vascular disease Peritoneal carcinomatosis Shortness of breath on exertion Shoulder pain Tobacco use disorder, continuous Umbilical hernia Uterine fibroid Ventral incisional hernia without obstruction or gangrene 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 Wears dentures Wears glasses Weight loss Home Medications omeprazole 40 mg capsule,delayed release 40 mg PO DAILY REFLUX 07/10/15 [History Last Taken 03/11/22] cilostazol 100 mg tablet 100 mg PO BID pad 10/25/18 [History Last Taken 03/11/22] atorvastatin 40 mg tablet 40 mg PO QHS cholesterol 04/23/19 [History Last Taken 03/10/22] apixaban 5 mg tablet (Eliquis) 5 mg PO BID blood thinner 12/11/20 [History Last Taken 03/11/22] hydrocodone-acetaminophen 5-325mg 5mg-325mg 1 tab PO TID SEVERE PAIN 12/11/20 [History Last Taken 03/11/22] lidocaine-prilocaine 2.5 %-2.5 % topical cream 1 applic topical ONCE PRN port access 30 days #30 grams 12/31/20 [Rx Last Taken Unknown] fentanyl 50 mcg/hr transdermal patch 100 mcg transdermal Q72H pain 04/20/21 [History Last Taken 03/11/22] Allergy/AdvReac Type Severity Reaction Status Date / Time naproxen [From Naprosyn] Allergy Severe Shortness Verified 03/11/22 10:20 of breath Family History Brother Cancer throat and lung Mother CAD (coronary artery disease) Hypertension Father CAD (coronary artery disease) Surgical History H/O shoulder replacement History of AAA (abdominal aortic aneurysm) repair (09/26/17) History of amputation of left great toe History of bunionectomy of left great toe History of cardiac catheterization History of carpal tunnel release of both wrists History of left knee replacement (~06/08/11) History of right hip replacement History of rotator cuff surgery History of spinal surgery (~1999) Hx of spinal fusion Social History number of children: 5 Smoking Status: Current every day smoker tobacco type: cigarettes Tobacco: How many years used: 50 second hand exposure: No alcohol intake: current alcohol intake frequency: a few times a month Alcohol type: beer details: weekends substance use type: does not use caffeine: Yes Type: coffee Number of servings: 3 and other what type of physical activity do you participate in: none seatbelt use: always do you feel safe at home: Yes additional social history: Matt- Both are retired ROS Constitutional Constitutional: Denies anorexia, change in weight, chills, fatigue, fever(s), malaise or weakness Eyes Eyes: Denies change in vision ENT HEENT: Denies dysphagia, headache(s) or sore throat Cardiovascular Cardiovascular: Denies chest pain, dyspnea on exertion, edema, lightheadedness, orthopnea or palpitations Respiratory/Chest Respiratory/Chest: Denies cough, productive cough, shortness of breath at rest or shortness of breath with exertion Gastrointestinal Gastrointestinal: Reports abdominal pain and constipation; Denies diarrhea, dyspepsia, hematemesis, hematochezia, loose stools, melena, nausea or vomiting Genitourinary Genitourinary: Denies burning urination, dysuria or urinary frequency Neurologic Neurologic: Denies abnormal gait, confusion, focal weakness, headache(s), numbness or syncope Psychiatric Psychiatric: Denies anxiety Endocrine Endocrinology: Denies change in body appearance Hematologic/Lymphatic Hematologic/Lymphatic: Denies anemia Vital Signs Vital Signs Vital Signs: 03/11/22 10:20 03/11/22 12:04 Temperature 98.6 F 99 F Temperature Source Oral Temporal Pulse Rate 128 H 90 Respiratory Rate 22 H 18 Blood Pressure 147/106 H 117/80 Blood Pressure Mean 119 92 Pulse Ox 99 98 Oxygen Delivery Method Room Air Room Air Weight Weight: 170 lb 6.677 oz Body Mass Index (BMI) 29.2 Physical Exam Const alert, oriented x3 and no apparent distress General Appearance: cooperative HEENT normocephalic, head/scalp atraumatic, hearing grossly normal bilaterally and moist oral mucous membranes Mouth: oral and palatal mucosa normal Eyes PERRL and EOMs intact bilaterally Neck no lymphadenopathy, supple and no JVD Resp normal respiratory effort, no retractions, no use of accessory muscles and clear to auscultation bilaterally Cardio regular rate, regular rhythm, S1 normal heart sound, S2 normal heart sound and no murmurs GI normal to inspection, nondistended, normoactive bowel sounds, soft to palpation and non-tender Extremity normal to inspection, full ROM and no clubbing, cyanosis or edema Neuro oriented x3, CN's II-XII intact bilaterally, moves all extremities and no focal motor deficits Sensorium / Orientation: awake and alert Motor Exam: strength 5/5 throughout Psych affect normal Results Lab / Micro Data Result Diagrams: 03/11/22 11:00 03/11/22 11:00 Labs: Laboratory Results - last 24 hr 03/11/22 11:00: WBC 12.3 H, RBC 4.35, Hgb 13.5, Hct 42.4, MCV 97.5, MCH 31.0, MCHC 31.8 L, RDW Std Deviation 47.9 H, RDW Coeff of Sean 13.4, Plt Count 366, MPV 9.2, Immature Gran % (Auto) 0.300, Neut % (Auto) 83.3 H, Lymph % (Auto) 10.4 L, [place] % (Auto) 5.0, Eos % (Auto) 0.7, Baso % (Auto) 0.3, Absolute Neuts (auto) 10.2 H, Absolute Lymphs (auto) 1.28, Nucleated RBC % 0 03/11/22 11:00: Sodium 140, Potassium 3.9, Chloride 109 H, Carbon Dioxide 24.0, Anion Gap 7, BUN 14, Creatinine 1.02, Estim Creat Clear Calc 41.78, Est GFR (MDRD) Af Amer 68, Est GFR (MDRD) Non-Af 56 L, BUN/Creatinine Ratio 13.7, Glucose 117 H, Calcium 9.9, Total Bilirubin 0.50, AST 14 L, ALT 19, Alkaline Phosphatase 107, Total Protein 7.0, Albumin 3.0 L, Globulin 4.0, Albumin/Globulin Ratio 0.8 L, Lipase 53 L 03/11/22 11:00: Lactic Acid 1.6 Radiology Impression Abdomen/Pelvis CT 03/11/22 10:46 IMPRESSION: No change in mild partial small bowel obstruction with a moderate amount of ascites. Electronically Signed: Jack Banerjee MD at 12:21 EDT , Assessment & Plan Assessment/Plan (1) Partial obstruction of small intestine: PLAN: Plan #Abdominal pain due to small bowel obstruction vs ileus * I am more inclined to think that this is IBS as patient is passing gas. * Admit to PCU under observation * CT of the abdomen and pelvis showed evidence of small bowel obstruction which was unchanged from previous CT scan done a few days ago * Keep NPO. Insert NG tube per General surgery * Hydrate with IV fluids. IV Dilaudid as needed for pain * Consult general surgery. * #History of metastatic lung cancer with carcinomatosis * On chemotherapy.had systemic chemotherapy with carboplatin and immune therapy with atezolizumab, to which she had partial remission; started on maintenance atezolizumab in April 2021 * follow up with oncology on outpatient basis * #History of abdominal aortic aneurysm: S/p aorto biliary stent placement. Stable DVT prophylaxis: Lovenox CODE STATUS: Full code * Patient and counseled extensively about different types of CODE STATUS including full code, DNR CCA and DNR CCA. Patient elects to be full code. Total [id number] time 16 minutes. Charges/Coding Visit Charges OBSV E&M: 57919 Initial observation care L3 Procedures Hospitalists Procedures: 86796 Advncd Care Plan 30 Min
--- NOTE | 2022-03-11 13:21 | NURSING ---
MED SURG OBS [facility] PARTIAL SBO
[2022-03-11] MEDS: 0.9% Normal Saline 1,000 ML 125 ML IV ×2 (14:49→22:51)
[2022-03-11] MEDS: HYDROmorphone 1 MG/ML Syringe IV ×2 (14:49→22:51)
[2022-03-11] MEDS: 0.9% Saline Lock 10 ML Syringe IV (14:51)
[2022-03-11] MEDS: Oxymetazoline 0.05% 1 SPRAY SPRAY.BTL 2 SPRAY NASAL (16:40)
[2022-03-11] MEDS: Lidocaine 2% Jelly 1 APPLIC Tube TOPICAL (16:42)
--- NOTE | 2022-03-11 16:55 | RAD_ITS ---
STUDY: X-RAY - ABDOMEN/PELVIS REASON FOR EXAM: Female, 72 years old. NG placement -- KUB with both diaphragms for NG/OG Verification TECHNIQUE: Single AP view of the abdomen / pelvis. COMPARISON: None. FINDINGS: Nasogastric tube with the tip in the left upper quadrant likely in the fundus of the stomach. There is an unremarkable bowel gas pattern. The visualized liver, spleen and kidneys are grossly normal in size and morphology. Normal soft tissue structures. Normal visualized osseous structures. RAD/Abdomen Single View (Portable) IMPRESSION: Nasogastric tube with the tip in the left upper quadrant likely in the fundus of the stomach. Electronically Signed: Jack Banerjee MD at 17:10 EDT ,
--- NOTE | 2022-03-11 18:06 | CON.PCM.SX_ITS ---
Assessment & Plan Assessment/Plan (1) Partial obstruction of small intestine: PLAN: I have discussed with patient and her They did not know that patient had peritoneal carcinomatosis and its implications. I have explained that given malignant bowel obstruction, there is no surgical options. I have reviewed the CT scan - there is no single point of obstruction, the distribution of the cancer is throughout the abdomen. I have discussed hospice care for the patient. The patient and her are amenable to this. I have answered all their questions and they have no further questions. (2) Peritoneal carcinomatosis: PLAN: see above HPI Consult Data Date of Consult: 03/12/22 HPI Narrative Reason for Consultation: I was asked by Dr. Stefani Way to evaluate patient with abdominal pain HPI Narrative: ANDREW LOUIS, is a 72 F who presents who has known metastatic lung cancer and peritoneal carcinomatosis and ascites. She has been admitted on March 07 for partial small bowel obstruction and abdominal pain. She stayed in the hospital for two days and the above resolved with IV hydration, etc. She presents with continued generalized abdominal pain. She has some nausea but denies emesis. She states that she is passing flatus. [facility] Medical History AAA (abdominal aortic aneurysm) Abdominal pain Acute bronchitis, unspecified Acute deep vein thrombosis (DVT) of distal end of right lower extremity Adrenal mass Alcohol use Anemia Arthritis Atherosclerosis of [place] arteries of extremities with intermittent claudication, bilateral legs Back pain Cancer Cardiology follow-up encounter Carotid artery stenosis Chest pain Cognitive dysfunction, acquired Constipation COPD (chronic obstructive pulmonary disease) Deep vein thrombosis (DVT) of proximal vein of right lower extremity DVT (deep venous thrombosis) Encounter for immunotherapy Encounter for screening for COVID-19 Encounter for tobacco use cessation counseling Endometrial thickening on ultrasound Essential hypertension Fatty liver disease, nonalcoholic Forgetfulness Former smoker Gastric reflux GERD (gastroesophageal reflux disease) Headache History of back problems History of edema History of pain when walking History of stress test Hx of echocardiogram Hyperlipidemia Hypertension Imbalance Neck pain Neuropathy Omental metastasis Oral candidiasis Osteoarthritis 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 Peripheral arterial disease Peripheral vascular angioplasty status Peripheral vascular disease Peritoneal carcinomatosis Peritoneal carcinomatosis Shortness of breath on exertion Shoulder pain Tobacco use disorder, continuous Umbilical hernia Uterine fibroid Ventral incisional hernia without obstruction or gangrene 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 Wears dentures Wears glasses Weight loss Home Medications omeprazole 40 mg capsule,delayed release 40 mg PO DAILY REFLUX 07/10/15 [History Last Taken 03/11/22] cilostazol 100 mg tablet 100 mg PO BID pad 10/25/18 [History Last Taken 03/11/22] atorvastatin 40 mg tablet 40 mg PO QHS cholesterol 04/23/19 [History Last Taken 03/10/22] apixaban 5 mg tablet (Eliquis) 5 mg PO BID blood thinner 12/11/20 [History Last Taken 03/11/22] hydrocodone-acetaminophen 5-325mg 5mg-325mg 1 tab PO TID SEVERE PAIN 12/11/20 [History Last Taken 03/11/22] lidocaine-prilocaine 2.5 %-2.5 % topical cream 1 applic topical ONCE PRN port access 30 days #30 grams 12/31/20 [Rx Last Taken Unknown] fentanyl 50 mcg/hr transdermal patch 100 mcg transdermal Q72H pain 04/20/21 [ History Last Taken 03/11/22] Allergy/AdvReac Type Severity Reaction Status Date / Time naproxen [From Naprosyn] Allergy Severe Shortness Verified 03/11/22 10:20 of breath Family History Brother Cancer throat and lung Mother CAD (coronary artery disease) Hypertension Father CAD (coronary artery disease) Surgical History H/O shoulder replacement History of AAA (abdominal aortic aneurysm) repair (09/26/17) History of amputation of left great toe History of bunionectomy of left great toe History of cardiac catheterization History of carpal tunnel release of both wrists History of left knee replacement (~06/08/11) History of right hip replacement History of rotator cuff surgery History of spinal surgery (~1999) Hx of spinal fusion Social History number of children: 5 Smoking Status: Current every day smoker tobacco type: cigarettes Tobacco: How many years used: 50 second hand exposure: No alcohol intake: current alcohol intake frequency: a few times a month Alcohol type: beer details: weekends substance use type: does not use caffeine: Yes Type: coffee Number of servings: 3 and other what type of physical activity do you participate in: none seatbelt use: always do you feel safe at home: Yes additional social history: Matt- Both are retired ROS Constitutional Constitutional: Reports fatigue; Denies fever(s) Cardiovascular Cardiovascular: Denies chest pain at rest Respiratory/Chest Respiratory/Chest: Reports shortness of breath with exertion; Denies productive cough Gastrointestinal Gastrointestinal: Reports abdominal pain and bloating Genitourinary Genitourinary: Denies hematuria Musculoskeletal Musculoskeletal: Denies abnormal gait Integumentary Integumentary: Denies jaundice Neurologic Neurologic: Reports weakness; Denies loss of vision Physical Exam Const alert and oriented x3 General Appearance: cooperative HEENT normocephalic Neck supple Resp normal respiratory effort Effort and Inspection: able to speak in complete sentences Cardio Rate: regular rate GI GI Narrative: abdomen is soft but with generalized tenderness - no peritoneal signs Medical Records Data Attestation: I reviewed the patient's medical records Lab / Micro Data Attestation: I reviewed the patient's lab results. Result Diagrams: 03/11/22 11:00 03/11/22 11:00 Labs: Laboratory Results - last 24 hr 03/11/22 11:00: WBC 12.3 H, RBC 4.35, Hgb 13.5, Hct 42.4, MCV 97.5, MCH 31.0, MCHC 31.8 L, RDW Std Deviation 47.9 H, RDW Coeff of Sean 13.4, Plt Count 366, MPV 9.2, Immature Gran % (Auto) 0.300, Neut % (Auto) 83.3 H, Lymph % (Auto) 10.4 L, [place] % (Auto) 5.0, Eos % (Auto) 0.7, Baso % (Auto) 0.3, Absolute Neuts (auto) 10.2 H, Absolute Lymphs (auto) 1.28, Nucleated RBC % 0 03/11/22 11:00: Sodium 140, Potassium 3.9, Chloride 109 H, Carbon Dioxide 24.0, Anion Gap 7, BUN 14, Creatinine 1.02, Estim Creat Clear Calc 41.78, Est GFR (MDRD) Af Amer 68, Est GFR (MDRD) Non-Af 56 L, BUN/Creatinine Ratio 13.7, Glucose 117 H, Calcium 9.9, Total Bilirubin 0.50, AST 14 L, ALT 19, Alkaline Phosphatase 107, Total Protein 7.0, Albumin 3.0 L, Globulin 4.0, Albumin/Globulin Ratio 0.8 L, Lipase 53 L 03/11/22 11:00: Lactic Acid 1.6 Radiology Impression Abdomen/Pelvis CT 03/11/22 10:46 IMPRESSION: No change in mild partial small bowel obstruction with a moderate amount of ascites. Electronically Signed: Jack Banerjee MD at 12:21 EDT , KUB X-Ray 03/11/22 16:55 IMPRESSION: Nasogastric tube with the tip in the left upper quadrant likely in the fundus of the stomach. Electronically Signed: Jack Banerjee MD at 17:10 EDT ,
[2022-03-12] VITALS (10 sets, daily range): BP systolic 116–121; BP diastolic 60–72; PULSE 57–70; RESP 14–16; TEMP 36.6–36.9; O2SAT 95–99
[2022-03-12] MEDS: HYDROmorphone 1 MG/ML Syringe IV ×3 (02:54→19:44)
--- NOTE | 2022-03-12 10:28 | PN.HOSP_ITS ---
Subjective Subjective Patient seen and examined. Granddaughter was by her bedside. She still did complain of mild abdominal pain. Review of systems was otherwise negative. She is passing gas but has not had a bowel movement. Objective Data Objective Data Vital Signs: Vital Signs Temp Pulse Resp BP Pulse Ox O2 Del Method 98.1 F 64 16 121/72 H 95 Room Air 03/12/22 08:22 03/12/22 08:22 03/12/22 08:22 03/12/22 08:22 03/12/22 08:22 03/12/22 08:22 Oxygen Delivery Method Room Air Weight: 170 lb 9.6 oz Body Mass Index (BMI) 29.2 Intake & Output: Intake and Output for Last 24 Hours 03/10/22 03/11/22 03/12/22 23:59 23:59 23:59 Intake Total 1000 / 1100 1100 / 1100 Balance 1000 / 1100 1100 / 1100 Lab / Micro Data Result Diagrams: 03/11/22 11:00 03/11/22 11:00 Labs: Laboratory Results - last 24 hr 03/11/22 11:00: WBC 12.3 H, RBC 4.35, Hgb 13.5, Hct 42.4, MCV 97.5, MCH 31.0, MCHC 31.8 L, RDW Std Deviation 47.9 H, RDW Coeff of Sean 13.4, Plt Count 366, MPV 9.2, Immature Gran % (Auto) 0.300, Neut % (Auto) 83.3 H, Lymph % (Auto) 10.4 L, Gregory % (Auto) 5.0, Eos % (Auto) 0.7, Baso % (Auto) 0.3, Absolute Neuts (auto) 10.2 H, Absolute Lymphs (auto) 1.28, Nucleated RBC % 0 03/11/22 11:00: Sodium 140, Potassium 3.9, Chloride 109 H, Carbon Dioxide 24.0, Anion Gap 7, BUN 14, Creatinine 1.02, Estim Creat Clear Calc 41.78, Est GFR (MDRD) Af Amer 68, Est GFR (MDRD) Non-Af 56 L, BUN/Creatinine Ratio 13.7, Glucose 117 H, Calcium 9.9, Total Bilirubin 0.50, AST 14 L, ALT 19, Alkaline Phosphatase 107, Total Protein 7.0, Albumin 3.0 L, Globulin 4.0, Albumin/Gl obulin Ratio 0.8 L, Lipase 53 L 03/11/22 11:00: Lactic Acid 1.6 Radiography Diagnostic Testing: Radiology Impression Abdomen/Pelvis CT 03/11/22 10:46 IMPRESSION: No change in mild partial small bowel obstruction with a moderate amount of ascites. Electronically Signed: Jack Banerjee MD at 12:21 EDT Reading Location ID and State: [id number] [employer] Tel , Service support , KUB X-Ray 03/11/22 16:55 IMPRESSION: Nasogastric tube with the tip in the left upper quadrant likely in the fundus of the stomach. Electronically Signed: Jack Banerjee MD at 17:10 EDT Reading Location ID and State: [id number] [employer] Tel , Service support , Physical Exam Const alert, oriented x3 and no apparent distress General Appearance: cooperative HEENT normocephalic, head/scalp atraumatic, hearing grossly normal bilaterally and moist oral mucous membranes Eyes PERRL and EOMs intact bilaterally Neck no lymphadenopathy, supple and no JVD Resp normal respiratory effort, no retractions, no use of accessory muscles and clear to auscultation bilaterally Cardio regular rate, regular rhythm, S1 normal heart sound, S2 normal heart sound and no murmurs GI normal to inspection, nondistended, normoactive bowel sounds and soft to palpation GI Narrative: very mild generalised tenderness, Extremity normal to inspection, full ROM and no clubbing, cyanosis or edema Neuro oriented x3, CN's II-XII intact bilaterally, moves all extremities and no focal motor deficits Sensorium / Orientation: awake and alert Motor Exam: strength 5/5 throughout Psych affect normal Assessment & Plan Assessment/Plan (1) Partial obstruction of small intestine: PLAN: Plan #Abdominal pain due to small bowel obstruction vs ileus * CT of the abdomen and pelvis showed evidence of small bowel obstruction which was unchanged from previous CT scan done a few days ago * CT scan of the abdomen and pelvis showed no evidence of peritoneal carcinomatosis, but general surgery evaluated patient and thinks this is peritoneal carcinomatosis and recommends hospice * currently NPO * on IV dilaudid prn for pain * though it is documented in the patient's previous oncology notes that she has peritoneal carcinomatosis, patient says she has never been made aware of this. * will discuss with oncology, as it is not clear whether patient will be able to continue her current immunotherapy if she goes on to hospice * still NPO. Defer to general surgery about advancing diet or otherwise. * Hydrate with IV fluids. IV Dilaudid as needed for pain * discussed with her oncologist, Dr Fenton, who confirmed that patient did hav e peritoneal carcinomatosis from PET scan done in november 2020 which showed omental caking and soft tissue nodularity refills * #History of metastatic lung cancer with carcinomatosis * On chemotherapy.had systemic chemotherapy with carboplatin and immune therapy with atezolizumab, to which she had partial remission; started on maintenance atezolizumab in April 2021 * follow up with oncology on outpatient basis * #History of abdominal aortic aneurysm: S/p aorto biliary stent placement. Stable DVT prophylaxis: Lovenox CODE STATUS: Full code * Charges/Coding Visit Charges Inpatient E&M: 54210 Subs Hosp L2
--- NOTE | 2022-03-12 12:07 | CASEMGMT ---
Readmission note: Index admission: 03/07- 03/09 for Small bowel obstruction Readmission: Small bowel obstruction. Pt with hx of metastatic lung CA with carcinomatosis, AAA s/p stent. Pt was noted to be independent with ADLs on prior admission and discharged home with her spouse. Pt has a shower chair, raised toilet seat, cane and walker. She lives in a two story home and uses a chair lift to access the second floor. A discharge follow-up call was made to pt on 03/10 at which time pt reported to be tolerating a diet, having minimal pain and was without complaints. Pt was readmitted prior to attending her follow-up appointment. Pt states she contacted her provider prior to presenting and was instructed to return to the ED d/t increasing pain. Pt denies any current needs or needs at discharge. Will continue to follow and assist as needed. Karen Lawson RN CM
[2022-03-12] MEDS: Ondansetron 4 MG/2 ML Vial IV (19:43)
[2022-03-12] MEDS: 0.9% Saline Lock 10 ML Syringe IV (19:44)
[2022-03-13] MEDS: HYDROmorphone 1 MG/ML Syringe IV ×2 (02:54→09:39)
[2022-03-13] MEDS: 0.9% Saline Lock 10 ML Syringe IV (02:54)
[2022-03-13 03:01] VITALS: BP 110/63; PULSE 63; RESP 16; TEMP 36.9; O2SAT 95
[2022-03-13 03:57] VITALS: PULSE 57
[2022-03-13 08:47] VITALS: BP 109/64; PULSE 64; RESP 18; TEMP 36.4; O2SAT 96
[2022-03-13 09:05] VITALS: PULSE 66
[2022-03-13 14:00] VITALS: PULSE 65
--- NOTE | 2022-03-13 14:18 | DS.PCM_ITS ---
Providers Date of Admission: 03/11/22 Date of Discharge: 03/13/22 Primary Care Physician: Dr. Herbert Simpson, Consultations 03/11/22 14:28 Consult: General Surgery Routine Consulting Provider: Rebecca Bacon Reason for Consult: small bowel obstruction vs ileus EMERGENT Consult: No MD Notified: Yes Date Notified: 03/11/22 Time Notified: 14:29 Method of Notification: Verbal Reason For Visit: SMALL BOWEL OBSTRUCTION Diagnosis Discharge Diagnosis (1) Partial obstruction of small intestine: Status: Acute Code(s): K56.600 - Partial intestinal obstruction, unspecified as to cause Plan #Abdominal pain due to small bowel obstruction vs ileus * CT of the abdomen and pelvis showed evidence of small bowel obstruction which was unchanged from previous CT scan done a few days ago * CT scan of the abdomen and pelvis showed no evidence of peritoneal carcinomatosis, but general surgery evaluated patient and thinks this is peritoneal carcinomatosis and recommends hospice * currently NPO * on IV dilaudid prn for pain * though it is documented in the patient's previous oncology notes that she has peritoneal carcinomatosis, patient says she has never been made aware of this. * will discuss with oncology, as it is not clear whether patient will be able to continue her current immunotherapy if she goes on to hospice * still NPO. Defer to general surgery about advancing diet or otherwise. * Hydrate with IV fluids. IV Dilaudid as needed for pain * discussed with her oncologist, Dr Fenton, who confirmed that patient did have peritoneal carcinomatosis from PET scan done in november 2020 which showed omental caking and soft tissue nodularity refills * #History of metastatic lung cancer with carcinomatosis * On chemotherapy.had systemic chemotherapy with carboplatin and immune therapy with atezolizumab, to which she had partial remission; started on maintenance atezolizumab in April 2021 * follow up with oncology on outpatient basis * #History of abdominal aortic aneurysm: S/p aorto biliary stent placement. Stable DVT prophylaxis: Lovenox CODE STATUS: Full code * Medications at Discharge Home Medications omeprazole 40 mg capsule,delayed release 40 mg PO DAILY REFLUX 07/10/15 cilostazol 100 mg tablet 100 mg PO BID pad 10/25/18 atorvastatin 40 mg tablet 40 mg PO QHS cholesterol 04/23/19 apixaban 5 mg tablet (Eliquis) 5 mg PO BID blood thinner 12/11/20 hydrocodone-acetaminophen 5-325mg 5mg-325mg 1 tab PO TID SEVERE PAIN 12/11/20 lidocaine-prilocaine 2.5 %-2.5 % topical cream 1 applic topical ONCE PRN port access 30 days #30 grams 12/31/20 fentanyl 50 mcg/hr transdermal patch 100 mcg transdermal Q72H pain 04/20/21 ondansetron 8 mg disintegrating tablet 8 mg PO TID PRN Nausea 03/13/22 prochlorperazine maleate 10 mg tablet 10 mg PO Q6H PRN PRN Nausea 03/13/22 Hospital Course Operations None Procedures None Summary of Care Provided Minutes Spent on Discharge: 45 Hospital Course: ANDREW LOUIS, is a 72 F with a PMh as outlined who presents via the ED on 03/11/2022 with a complaint of abdominal pain. She was just discharged from the hospital just 2 days prior to this admission, after she presented with similar symptoms annd was found to have partial small bowel obstruction. General surgery evaluated her during that admission and was thought she had an ileus, but not obstruction. She passed stool and was passing gas and tolerating a diet, so she was discharged home. However, after she went home, she said she started having worsening abdominal pain, with decreased intake. Abdominal pain was worsening so she came back to the hospital. She says she is passing gas, but not having any bowel movement for the past few days. REview of systems was otherwise negative. Vitals in the ED were BP of 117/80, OR of 90, RR of 18 and temp of 99F, with her saturating at 98% on room air. CBC showed wnc of 12.3 but was otherwise unremarkable. Chemistry showed sodium of 140 and potassium of 3.9 as well as Cr of 1.02, but was otherwise unremarkable. CT of the abdomen and pelvis showed no change in mild partial small bowel obstruction with a moderate amount of ascites. She was admitted to be managed for partial small bowel obstruction vs ileus. General surgery was consulted. She was kept n.p.o. and hydrated with IV fluids. General surgery reviewed patient and her imaging and thought that her symptoms were likely due to peritoneal carcinomatosis and there was no surgical curative measure and recommended hospice. Patient stated that she had not been informed she had peritoneal carcinomatosis. Review of previous oncology notes showed that had been documentation of peritoneal carcinomatosis. I discussed this with her oncologist Dr. Schmidt who confirmed that patient did have peritoneal carcinomatosis and this was likely contributing to her symptoms. Patient's abdominal pain improved and her diet was advanced to full liquids to advance as tolerated. She was given a water enema and she had bowel movements. She was discharged home on 03/13/2022, and is to follow up with her oncologist to discuss goals of care and whether hospice is appropriate. Patient was seen and examined prior to discharge. She had no active complaints and had an uneventful night. Review of systems was otherwise negative. Labs and vitals reviewed. Home meds reviewed and reconciled. Physical Exam Const alert, oriented x3 and no apparent distress General Appearance: cooperative, comfortable and well kempt Orientation / Consciousness: awake Exam Limitations: no limitations HEENT normocephalic, head/scalp atraumatic, hearing grossly normal bilaterally and moist oral mucous membranes Mouth: oral and palatal mucosa normal Eyes PERRL and EOMs intact bilaterally Neck no lymphadenopathy, supple and no JVD Resp normal respiratory effort, no retractions, no use of accessory muscles and clear to auscultation bilaterally Cardio regular rate, regular rhythm, S1 normal heart sound, S2 normal heart sound and no murmurs GI normal to inspection, nondistended, normoactive bowel sounds, soft to palpation and non-tender GI Narrative: nontender Extremity normal to inspection, full ROM and no clubbing, cyanosis or edema Skin no rashes or lesions noted Neuro oriented x3, CN's II-XII intact bilaterally, moves all extremities and no focal motor deficits Sensorium / Orientation: awake and alert Motor Exam: strength 5/5 throughout Psych affect normal Weight / BMI Weight Weight: 170 lb 9.6 oz Body Mass Index (BMI) 29.2 ABG / Lab / Microbiology Data Result Diagrams: 03/11/22 11:00 03/11/22 11:00 D/C Instructions Discharge Diet: - (full liquid diet, to advance as tolerated) Discharge Activity: Return to Normal Activity Weight Bearing Status: Weight bearing as tolerated Call your doctor if you observe: Fever of 101 or Higher, Shortness of breath, Swelling in the ankles and Uncontrolled pain Meaningful Use Info Meaningful Use Diagnoses (Choose all that apply): None applicable Discharge Plan Admission Admit Date/Time: 03/11/22 15:18 Primary Reason for Your Visit: small bowel obstruction vs ileus, peritoneal carcinomatosis Attending Provider: Stefani Way Primary Care Provider: Herbert Simposn Consulting Providers: Rebecca Bacon Instructions Patient Instructions: Ileus Discharge Orders/Prescriptions Prescriptions: Continued atorvastatin 40 mg tablet 40 mg PO QHS lidocaine-prilocaine 2.5-2.5 % cream 1 applic topical ONCE PRN (Reason: port access) 30 Days Qty: 30 2RF fentanyl 50 mcg/hr patch 72 hour 100 mcg transdermal Q72H omeprazole 40 MG capsule 40 mg PO DAILY Label Comments: stomach cilostazol 100 MG tablet 100 mg PO BID hydrocodone-acetaminophen 5-325 mg tablet 1 tab PO TID Label Comments: take 1/2 to 1 tablet by mouth ONE TO TWO TIMES DAILY if needed pain Eliquis 5 mg tablet 5 mg PO BID Label Comments: take 1 tablet by mouth twice a day prochlorperazine maleate 10 mg tablet 10 mg PO Q6H PRN PRN (Reason: Nausea) Label Comments: take 1 tablet by mouth every 6 hours if needed for nausea and vomiting ondansetron 8 mg tablet,disintegrating 8 mg PO TID PRN (Reason: Nausea) Label Comments: dissolve 1 tablet ON TONGUE every 8 hours if needed for nausea and vomiting Referrals / Follow Up: Wilbert Fenton MD [Med Staff - Active Staff] - Within 1 Week Herbert Simpson DO [Primary Care Provider] - Within 1 Week Disposition Disposition (needs filled in before D/C Order can be placed): Home, Self Care Charges/Coding Visit Charges OBSV E&M: 78989 Observation care discharge
[2022-03-13 14:30] VITALS: BP 113/56; PULSE 66; RESP 16; TEMP 36.4; O2SAT 99
== END 2022-03-13 15:09 | disposition home or self-care (01) | DRG 375 ==
LOC: ED 13:42 → MS3 14:03
PROVIDERS: Nurse Practitioner; Admitting Provider Student in an Organized Health Care Education/Training Program; Emergency Provider Emergency Medicine; PCP Family Medicine; Visit Provider Student in an Organized Health Care Education/Training Program
DX: C78.6 Secondary malignant neoplasm of retroperitoneum and peritoneum (principal); K56.600 Partial intestinal obstruction, unspecified as to cause; R18.0 Malignant ascites; C34.92 Malignant neoplasm of unspecified part of left bronchus or lung; K76.0 Fatty (change of) liver, not elsewhere classified; J44.9 Chronic obstructive pulmonary disease, unspecified; I71.4 Abdominal aortic aneurysm, without rupture; I73.9 Peripheral vascular disease, unspecified; E78.5 Hyperlipidemia, unspecified; G62.9 Polyneuropathy, unspecified; I10 Essential (primary) hypertension; I25.10 Atherosclerotic heart disease of native coronary artery without angina pectoris; I65.29 Occlusion and stenosis of unspecified carotid artery; F17.210 Nicotine dependence, cigarettes, uncomplicated; Z86.718 Personal history of other venous thrombosis and embolism; Z87.891 Personal history of nicotine dependence; Z79.01 Long term (current) use of anticoagulants; Z79.899 Other long term (current) drug therapy; Z51.5 Encounter for palliative care
CPT/HCPCS: 36591; 74018; 74177; 80053; 83605; 83690; 85025; 99285; 99406; J7030; Q9967; A4216; J2405

== ENCOUNTER 2022-03-20 18:53 | Inpatient (IN) | payer MEDICARE, SELFPAY ==
[2022-03-20 18:56] VITALS: BP 153/100; PULSE 128; RESP 18; TEMP 36.1; O2SAT 99; BMI 29.2
[2022-03-20 18:58] VITALS: BP 153/100; PULSE 128; RESP 18; TEMP 36.1; O2SAT 99
--- NOTE | 2022-03-20 19:17 | CT_ITS ---
STUDY: CT Abdomen And Pelvis W/O Contrast Injection 03/20/2022 9:15 PM REASON FOR EXAM: Female, 72 years old. ABDOMINAL PAIN Pain Technologist Notes current treatment for lung ca, chemo on , recent small bowel obstruction, c/o abd pain, emesis, diarrhea, mets to peritoneum TECHNIQUE: Transaxial images were obtained without oral contrast, and without intravenous contrast. Individualized dose optimization techniques were used for this CT. COMPARISON: Mar 11 2022 11:53am FINDINGS: There are atherosclerotic calcifications of visualized coronary arteries. The visualized portions of the heart are within normal limits. Unremarkable liver. There are multiple gallstones. Unremarkable spleen. Unremarkable pancreas. Stable large cystic areas with peripheral calcifications along the left adrenal gland. Free fluid around the liver. Free fluid around the spleen. No acute findings of the right kidney. No acute findings of the left kidney. Unremarkable visualized stomach. There are dilated loops of the small intestine with a non-distended colon consistent with a small bowel obstruction. There are multiple colonic diverticula consistent with diverticulosis. There is non-visualization of the appendix. There are calcifications of the abdominal aorta. This is consistent for atherosclerotic disease. There is 42 mm infrarenal abdominal aortic aneurysm. Unremarkable inferior vena cava. Subcentimeter mesenteric lymph nodes. Aorto bi iliac stent graft. Unremarkable urinary bladder. There is metallic hardware noted in the right hip. Spinal fixation hardware noted. There is bilateral neural foraminal stenosis at L4-5 and L5-S1. There is an umbilical hernia containing fat. There are diffuse degenerative changes of the visualized lumbar spine. CT/Abdomen/Pelvis without Cont IMPRESSION: (NOT LISTED IN ORDER OF SIGNIFICANCE) Small bowel obstruction appears worse. There are multiple colonic diverticula consistent with diverticulosis. Ascites. There are multiple gallstones. Other findings as above. Electronically Signed: Bruno Fenton MD at 21:19 EDT ,
--- NOTE | 2022-03-20 19:18 | EDS_ITS ---
HPI History of Present Illness Chief Complaint: Nausea/Vomiting Detail of Chief Complaint: Vomiting and diarrhea Informant: patient Narrative Narrative: Patient presents with abdominal pain and vomiting and diarrhea x3 days. Patient had recent chemotherapy 4 days ago and was taken off of her immunotherapy. Patient has history of lung cancer that is spread to the peritoneum. Patient complaining of 8 out of 10 abdominal pain and frequent vomiting that is coffee- ground. Patient also frequent watery stools. Patient denies any fevers. Patient with history of COPD, hypertension, high cholesterol, and lung cancer. She is on Eliquis for history of DVT. Prior similar symptoms: No PFSH [facility] Medical History (Updated 03/20/22 @ 21:[address] Lyle Montgomery, DO) AAA (abdominal aortic aneurysm) Abdominal pain Acute bronchitis, unspecified Acute deep vein thrombosis (DVT) of distal end of right lower extremity Adrenal mass Alcohol use Anemia Arthritis Atherosclerosis of [place] arteries of extremities with intermittent claudication, bilateral legs Back pain Cancer Cancer Cardiology follow-up encounter Carotid artery stenosis Chest pain Cognitive dysfunction, acquired Constipation COPD (chronic obstructive pulmonary disease) Deep vein thrombosis (DVT) of proximal vein of right lower extremity DVT (deep venous thrombosis) Encounter for chemotherapy management Encounter for immunotherapy Encounter for screening for COVID-19 Encounter for tobacco use cessation counseling Endometrial thickening on ultrasound Essential hypertension Fatty liver disease, nonalcoholic Forgetfulness Former smoker Gastric reflux GERD (gastroesophageal reflux disease) Headache History of back problems History of edema History of pain when walking History of stress test Hx of echocardiogram Hyperlipidemia Hypertension Imbalance Lung cancer, primary, with metastasis from lung to other site Neck pain Neuropathy Omental metastasis Oral candidiasis Osteoarthritis 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 Peripheral arterial disease Peripheral vascular angioplasty status Peripheral vascular disease Peritoneal carcinomatosis Peritoneal carcinomatosis Shortness of breath on exertion Shoulder pain Tobacco use disorder, continuous Umbilical hernia Uterine fibroid Ventral incisional hernia without obstruction or gangrene 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 Wears dentures Wears glasses Weight loss Home Medications omeprazole 40 mg capsule,delayed release 40 mg PO DAILY REFLUX 07/10/15 [History Last Taken 03/11/22] cilostazol 100 mg tablet 100 mg PO BID pad 10/25/18 [History Last Taken 03/11/22] atorvastatin 40 mg tablet 40 mg PO QHS cholesterol 04/23/19 [History Last Taken 03/10/22] apixaban 5 mg tablet (Eliquis) 5 mg PO BID blood thinner 12/11/20 [History Last Taken 03/11/22] hydrocodone-acetaminophen 5-325mg 5mg-325mg 1 tab PO TID SEVERE PAIN 12/11/20 [History Last Taken 03/11/22] lidocaine-prilocaine 2.5 %-2.5 % topical cream 1 applic topical ONCE PRN port access 30 days #30 grams 12/31/20 [Rx Last Taken Unknown] fentanyl 50 mcg/hr transdermal patch 100 mcg transdermal Q72H pain 04/20/21 [History Last Taken 03/18/22 08:00] ondansetron 8 mg disintegrating tablet 8 mg PO TID PRN Nausea 03/13/22 [History Last Taken Unknown] prochlorperazine maleate 10 mg tablet 10 mg PO Q6H PRN PRN Nausea #30 tabs 03/18/22 [Rx Last Taken Unknown] Allergy/AdvReac Type Severity Reaction Status Date / Time naproxen [From Naprosyn] Allergy Severe Shortness Verified 03/17/22 09:00 of breath Family History Brother Cancer throat and lung Mother CAD (coronary artery disease) Hypertension Father CAD (coronary artery disease) Surgical History H/O shoulder replacement History of AAA (abdominal aortic aneurysm) repair (09/26/17) History of amputation of left great toe History of bunionectomy of left great toe History of cardiac catheterization History of carpal tunnel release of both wrists History of left knee replacement (~06/08/11) History of right hip replacement History of rotator cuff surgery History of spinal surgery (~1999) Hx of spinal fusion Social History number of children: 5 Smoking Status: Former smoker quit date: 12/21/20 Tobacco: How many years used: 50 second hand exposure: No alcohol intake: current alcohol intake frequency: a few times a month Alcohol type: beer details: weekends substance use type: does not use caffeine: Yes Type: coffee Number of servings: 3 and other what type of physical activity do you participate in: none seatbelt use: always do you feel safe at home: Yes additional social history: Matt- Both are retired ROS ROS ED Review of Systems ROS Unobtainable: other Constitutional Constitutional ED: Reports lethargy; Denies chills, fever(s), sweats or weight loss Eyes Eyes: Denies blurry vision, change in vision or diplopia ENT ENT ED: Denies rhinorrhea or sore throat Cardiovascular Cardiovascular: Reports racing heartbeat; Denies chest pain, orthopnea or palpitations Respiratory/Chest Respiratory/Chest: Denies cough, dyspnea, dyspnea on exertion, orthopnea or sputum Gastrointestinal Gastrointestinal: Reports abdominal pain, diarrhea, nausea and vomiting Genitourinary Genitourinary ED: Denies dysuria, hematuria or urinary frequency Musculoskeletal Musculoskeletal: Denies arthralgias, back pain, myalgias or neck pain Integumentary Denies abscess, Abrasions or rash Neurologic Neurologic: Denies headache(s) or weakness Psychiatric Psychiatric: Denies anxiety, depression or suicidal thoughts Endocrine Endocrinology: Denies polydipsia, polyphagia or polyuria Hematologic/Lymphatic Hematologic/Lymphatic: Denies easy bleeding, easy bruising or lymphadenopathy Allergic/Immunologic Allergic/Immunologic ED: Denies mouth swelling, tongue swelling or urticaria EXAM Physical Exam Const Vital Signs: 03/20/22 18:56 03/20/22 18:58 03/20/22 20:55 Temperature 96.9 F L 96.9 F L Temperature Source Temporal Temporal Pulse Rate 128 H 128 H 107 H Respiratory Rate 18 18 16 Blood Pressure 153/100 H 153/100 H 172/103 H Blood Pressure Mean 117 117 126 Pulse Ox 99 99 97 Oxygen Delivery Method Room Air Room Air Room Air Positive well nourished and well developed General Appearance ED: well developed and NAD HEENT Reports TM's clear and moist mucous membranes normocephalic and atraumatic; Negative for trauma or tenderness Tympanic Membrane ED: Yes TM's clear Eyes PERRL and EOMs intact bilaterally General Eye ED: Negative for pale conjunctiva or scleral icterus Neck no lymphadenopathy, supple and no JVD General: Negative for tenderness Chest Wall inspection of chest normal and palpation of chest normal Chest: Negative for tenderness Resp normal respiratory effort and clear to auscultation bilaterally Effort and Inspection: Negative for respiratory distress or pain with movement Auscultation: Negative for rhonchi, wheezes or diminished lung sounds Cardio regular rhythm, S1 normal heart sound, S2 normal heart sound and no murmurs Rate: tachycardic Peripheral Pulses: pulses 2+ throughout GI normal to inspection, nondistended, normoactive bowel sounds, soft to palpation, non-distended and no masses GI Narrative: Patient diffusely tender to palpation. There are some mild guarding. There is no rebound or rigidity. Back/Spine no CVA tenderness and no thoracic nor lumbar tenderness Extremity normal to inspection General Extremety ED: Negative for edema General Extremity: Negative for edema Neuro oriented x3, CN's II-XII intact bilaterally, no sensory deficits noted and gait normal Sensorium / Orientation: awake, alert, oriented to person, oriented to place and oriented to time Motor Exam: strength 5/5 throughout and strength abnormal Psych mental status grossly normal Skin no rashes or lesions noted and no wounds MDM MDM MDM Narrative Medical decision making narrative: The line established on arrival. Patient was given a liter mostly of fluid bolus. Patient was given Zofran 4 mg IV and 4 mg of morphine IV. She continued complaint of pain and was given a milligram of Dilaudid IV and 4 more milligrams of Zofran IV. Lab work-up was significant for leukopenia. WBC count was 3.7. Lactate was 3.1. Potassium was 2.9. BUN was [address] scan of the abdomen pelvis showed bowel obstruction. Patient case was discussed with general surgeon on-call Dr. Aubrey Lam. I will place an NG tube to low intermittent suction. Case will be discussed with hospitalist evaluate for admission. Lab Data Attestation: I reviewed the patient's lab results. Labs: Laboratory Results - last 24 hr 03/20/22 03/20/22 03/20/22 19:45 19:45 19:45 WBC 3.7 L RBC 4.56 Hgb 14.6 Hct 43.6 MCV 95.6 MCH 32.0 MCHC 33.5 RDW Std Deviation 49.3 H RDW Coeff of Sean 14.0 Plt Count 317 MPV 9.1 Immature Gran % (Auto) 1.400 H Neut % (Auto) 85.3 H Lymph % (Auto) 9.[address] [place] % (Auto) 3.8 Eos % (Auto) 0.0 Baso % (Auto) 0.0 Absolute Neuts (auto) 3.2 Absolute Lymphs (auto) 0.35 L Nucleated RBC % 0 Differential Comment SEE COMMENT Platelet Estimate ADEQUATE RBC Morphology N CHROM Anisocytosis RARE Macrocytosis RARE Sodium 140 Potassium 2.9 L Chloride 97 L Carbon Dioxide 32.0 Anion Gap 11 BUN 37 H Creatinine 1.71 H Estim Creat Clear Calc 24.92 Est GFR (MDRD) Af Amer 38 L Est GFR (MDRD) Non-Af 31 L BUN/Creatinine Ratio 21.6 H Glucose 187 H Lactic Acid 3.1 H* Calcium 10.4 H Total Bilirubin 0.60 AST 45 H ALT 208 H Alkaline Phosphatase 111 Total Protein 8.3 H Albumin 3.7 Globulin 4.6 H Albumin/Globulin Ratio 0.8 L Radiography Diagnostic Testing: Clinical Impression(s) from Imaging Studies Abdomen/Pelvis CT 03/20/22 19:17 IMPRESSION: (NOT LISTED IN ORDER OF SIGNIFICANCE) Small bowel obstruction appears worse. There are multiple colonic diverticula consistent with diverticulosis. Ascites. There are multiple gallstones. Other findings as above. Electronically Signed: Bruno Fenton MD at 21:19 EDT , Discharge Plan Triage Chief Complaint: Nausea/Vomiting ED Provider: Lyle Montogmery Dx/Rx/DC Orders Clinical Impression: SBO (small bowel obstruction), Abdominal pain, Acute kidney injury, Acute hypokalemia Prescriptions: No Action atorvastatin 40 mg tablet 40 mg PO QHS lidocaine-prilocaine 2.5-2.5 % cream 1 applic topical ONCE PRN (Reason: port access) 30 Days Qty: 30 2RF fentanyl 50 mcg/hr patch 72 hour 100 mcg transdermal Q72H omeprazole 40 MG capsule 40 mg PO DAILY Label Comments: stomach cilostazol 100 MG tablet 100 mg PO BID hydrocodone-acetaminophen 5-325 mg tablet 1 tab PO TID Label Comments: take 1/2 to 1 tablet by mouth ONE TO TWO TIMES DAILY if needed pain Eliquis 5 mg tablet 5 mg PO BID Label Comments: take 1 tablet by mouth twice a day ondansetron 8 mg tablet,disintegrating 8 mg PO TID PRN (Reason: Nausea) Label Comments: dissolve 1 tablet ON TONGUE every 8 hours if needed for nausea and vomiting prochlorperazine maleate 10 mg tablet 10 mg PO Q6H PRN PRN (Reason: Nausea) Qty: 30 2RF Primary Care Provider: Herbert Simpson Referrals: Herbert Simpson DO [Primary Care Provider] - Disposition Disposition: Acute Care Hospital [facility]
[2022-03-20] MEDS: Ondansetron 4 MG/2 ML Vial IV ×2 (19:47→21:51)
[2022-03-20] MEDS: Morphine 4 MG/ML Syringe IV (19:47)
[2022-03-20] MEDS: 0.9% Normal Saline 1,000 ML 1000 ML IV (19:47)
[2022-03-20 19:53] LABS: Absolute Lymphocyte Count 0.35 X10^3/uL (0.83-4.51); Absolute Neutrophil Count 3.2 X10^3/uL (2.0-7.7); Hematocrit 43.6 % (37-47); Hemoglobin 14.6 g/dL (12.0-15.0); Lymphocyte # 0.35 X10^3/ul (0.83-4.51); Lymphocyte % 9.5 % (19-41); Mean Corp Hgb Conc 33.5 g/dL (32-36); Mean Corpuscular Volume 95.6 fL (81-99); Mean Platelet Vol. 9.1 fl (6.2-12.0); Monocyte# 0.14 X10^3/uL; Monocyte% 3.8 % (0-10); NRBC Flagged by Analyzer 0 % (0-5); Neutrophil # 3.16 X10^3/uL (2.7-7.7); Neutrophil % 85.3 % (47-70); POSITIVE DIFFERENTIAL YES; POSITIVE MORPHOLOGY YES; Platelet Count 317 K/mm3 (150-450); RBC Distribution Width SD 49.3 fl (35.1-43.9); Red Blood Count 4.56 M/mm3 (4.2-5.4); White Blood Count 3.7 K/mm3 (4.4-11.0)
[2022-03-20 19:57] LABS: Differential Indicated SCAN CRITERIA MET
[2022-03-20 20:08] LABS: ALB/GLOB Ratio 0.8 RATIO (0.9-2.4); AST(SGOT) 45 U/L (15-37); Alanine Aminotransfer ALT/SGPT 208 U/L (13-56); Albumin, Serum 3.7 g/dL (3.2-5.0); Alkaline Phosphatase 111 U/L (45-117); Anion Gap 11 (5-15); BUN 37 mg/dL (7-18); BUN/Creat Ratio 21.6 RATIO (10-20); Calcium,Total 10.4 mg/dL (8.5-10.1); Chloride 97 mmol/L (98-107); Creatinine, Serum 1.71 mg/dL (0.55-1.02); EST Glomerular Filtration Rate 31 mL/min (>60); Est Glom Filt Rate - Afr Amer 38 mL/min (>60); Estimated Creatinine Clearance 24.92 ml/min; Globulin 4.6 g/dL (2.2-4.2); Glucose 187 mg/dL (74-106); Potassium 2.9 mmol/L (3.5-5.1); Protein, Total 8.3 g/dL (6.4-8.2); Sodium Level 140 mmol/L (136-145)
[2022-03-20 20:13] LABS: Anisocytosis RARE; Macrocytosis RARE; Platelet Estimate ADEQUATE (ADEQ); Red Cell Morphology N CHROM NORMAL (NORM C&C)
[2022-03-20 20:42] LABS: Lactic Acid 3.1 mmol/L (0.4-1.9)
[2022-03-20 20:55] VITALS: BP 172/103; PULSE 107; RESP 16; O2SAT 97
[2022-03-20] MEDS: Potassium Chloride 10mEq/100mL 10 MEQ/100 ML IV.SOLN. 100 MEQ IV BOLUS ×3 (21:00→23:26)
--- NOTE | 2022-03-20 21:49 | PCM.HP.STD ---
[facility] 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 Reportedly her vomitus is projectile and coffee-ground. Associated with her symptoms is abdominal pain that has no change. Also patient reports diarrhea with multiple loose stools. Of note patient was admitted to the hospital on 03/07/2022 to 03/09/2022; and also from 03/11/2022 to 03/13/2022 for small bowel obstruction. On previous admission General surgery recommended hospice. However oncology wanted a trial of different regimen for her cancer. Immunotherapy was stopped; and patient began chemotherapy on 03/17/22 as above. [facility] Medical History AAA (abdominal aortic aneurysm) Abdominal pain Acute bronchitis, unspecified Acute deep vein thrombosis (DVT) of distal end of right lower extremity Adrenal mass Alcohol use Anemia Arthritis Atherosclerosis of [place] arteries of extremities with intermittent claudication, bilateral legs Back pain Cancer Cancer Cardiology follow-up encounter Carotid artery stenosis Chest pain Cognitive dysfunction, acquired Constipation COPD (chronic obstructive pulmonary disease) Deep vein thrombosis (DVT) of proximal vein of right lower extremity DVT (deep venous thrombosis) Encounter for chemotherapy management Encounter for immunotherapy Encounter for screening for COVID-19 Encounter for tobacco use cessation counseling Endometrial thickening on ultrasound Essential hypertension Fatty liver disease, nonalcoholic Forgetfulness Former smoker Gastric reflux GERD (gastroesophageal reflux disease) Headache History of back problems History of edema History of pain when walking History of stress test Hx of echocardiogram Hyperlipidemia Hypertension Imbalance Lung cancer, primary, with metastasis from lung to other site Neck pain Neuropathy Omental metastasis Oral candidiasis Osteoarthritis 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 Peripheral arterial disease Peripheral vascular angioplasty status Peripheral vascular disease Peritoneal carcinomatosis Peritoneal carcinomatosis Shortness of breath on exertion Shoulder pain Tobacco use disorder, continuous Umbilical hernia Uterine fibroid Ventral incisional hernia without obstruction or gangrene 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 Wears dentures Wears glasses Weight loss Home Medications omeprazole 40 mg capsule,delayed release 40 mg PO DAILY REFLUX 07/10/15 [History Last Taken 03/18/22] cilostazol 100 mg tablet 100 mg PO BID pad 10/25/18 [History Last Taken 03/18/22] atorvastatin 40 mg tablet 40 mg PO QHS cholesterol 04/23/19 [History Last Taken 03/18/22] apixaban 5 mg tablet (Eliquis) 5 mg PO BID blood thinner 12/11/20 [History Last Taken 03/18/22] hydrocodone-acetaminophen 5-325mg 5mg-325mg 1 tab PO TID SEVERE PAIN 12/11/20 [History Last Taken 03/11/22] lidocaine-prilocaine 2.5 %-2.5 % topical cream 1 applic topical ONCE PRN port access 30 days #30 grams 12/31/20 [Rx Last Taken Unknown] fentanyl 50 mcg/hr transdermal patch 100 mcg transdermal Q72H pain 04/20/21 [History Last Taken 03/18/22 08:00] ondansetron 8 mg disintegrating tablet 8 mg PO TID PRN Nausea 03/13/22 [History Last Taken Unknown] prochlorperazine maleate 10 mg tablet 10 mg PO Q6H PRN PRN Nausea #30 tabs 03/18/22 [Rx Last Taken Unknown] Allergy/AdvReac Type Severity Reaction Status Date / Time naproxen [From Naprosyn] Allergy Severe Shortness Verified 03/17/22 09:00 of breath Family History Brother Cancer throat and lung Mother CAD (coronary artery disease) Hypertension Father CAD (coronary artery disease) Surgical History H/O shoulder replacement History of AAA (abdominal aortic aneurysm) repair (09/26/17) History of amputation of left great toe History of bunionectomy of left great toe History of cardiac catheterization History of carpal tunnel release of both wrists History of left knee replacement (~06/08/11) History of right hip replacement History of rotator cuff surgery History of spinal surgery (~1999) Hx of spinal fusion Social History number of children: 5 Smoking Status: Former smoker quit date: 12/21/20 Tobacco: How many years used: 50 second hand exposure: No alcohol intake: current alcohol intake frequency: a few times a month Alcohol type: beer details: weekends substance use type: does not use caffeine: Yes Type: coffee Number of servings: 3 and other what type of physical activity do you participate in: none seatbelt use: always do you feel safe at home: Yes additional social history: Matt- Both are retired ROS ROS Narrative Pertinent positives and pertinent negatives as noted in HPI. All other systems were reviewed and are negative Vital Signs Vital Signs Vital Signs: 03/20/22 18:56 03/20/22 18:58 03/20/22 20:55 Temperature 96.9 F L 96.9 F L Temperature Source Temporal Temporal Pulse Rate 128 H 128 H 107 H Respiratory Rate 18 18 16 Blood Pressure 153/100 H 153/100 H 172/103 H Blood Pressure Mean 117 117 126 Pulse Ox 99 99 97 Oxygen Delivery Method Room Air Room Air Room Air Weight Weight: 77.111 kg Body Mass Index (BMI) 29.2 Physical Exam Narrative Physical exam: General: Well-nourished, well-developed. Head: Normocephalic, atraumatic, no tenderness Eyes: Vision is grossly intact. EOMI ENT, no trauma, moist mucous membranes, no rhinorrhea Neck: Nontender, full range of motion, no spinal tenderness, deformities, step-off CVS: Regular rate and rhythm. S1-S2 present. No murmur, gallop or rub. Respiratory : clear to auscultation bilaterally, chest wall nontender, no wheezing Abdomen: Soft, tender, nondistended, normal bowel sounds. : Deferred Back: Nontender, no CVA tenderness. Extremities: Loss of big toe of left foot; Nontender . Skin: Normal color, no trauma, abrasions Neuro: Alert, oriented, cranial nerves II through XII grossly intact. Psychiatry: Normal mood. Normal affect. Not depressed. Not anxious. Results Lab / Micro Data Result Diagrams: 03/20/22 19:45 03/20/22 19:45 Labs: Laboratory Results - last 24 hr 03/20/22 19:45: WBC 3.7 L, RBC 4.56, Hgb 14.6, Hct 43.6, MCV 95.6, MCH 32.0, MCHC 33.5, RDW Std Deviation 49.3 H, RDW Coeff of Sean 14.0, Plt Count 317, MPV 9.1, Immature Gran % (Auto) 1.400 H, Neut % (Auto) 85.3 H, Lymph % (Auto) 9.5 L, [place] % (Auto) 3.8, Eos % (Auto) 0.0, Baso % (Auto) 0.0, Absolute Neuts (auto) 3.2, Absolute Lymphs (auto) 0.35 L, Nucleated RBC % 0, Differential Comment SEE COMMENT, Platelet Estimate ADEQUATE, RBC Morphology N CHROM, Anisocytosis RARE, Macrocytosis RARE 03/20/22 19:45: Sodium 140, Potassium 2.9 L, Chloride 97 L, Carbon Dioxide 32.0, Anion Gap 11, BUN 37 H, Creatinine 1.71 H, Estim Creat Clear Calc 24.92, Est GFR (MDRD) Af Amer 38 L, Est GFR (MDRD) Non-Af 31 L, BUN/Creatinine Ratio 21.6 H, Glucose 187 H, Calcium 10.4 H, Total Bilirubin 0.60, AST 45 H, ALT 208 H, Alkaline Phosphatase 111, Total Protein 8.3 H, Albumin 3.7, Globulin 4.6 H, Albumin/Globulin Ratio 0.8 L 03/20/22 19:45: Lactic Acid 3.1 H* Radiology Impression Abdomen/Pelvis CT 03/20/22 19:17 IMPRESSION: (NOT LISTED IN ORDER OF SIGNIFICANCE) Small bowel obstruction appears worse. There are multiple colonic diverticula consistent with diverticulosis. Ascites. There are multiple gallstones. Other findings as above. Electronically Signed: Bruno Fenton MD at 21:19 EDT Reading Location ID and State: [facility] / [place] , Service support , Assessment & Plan Assessment/Plan (1) SBO (small bowel obstruction): (2) Acute kidney injury: (3) Coffee ground emesis: PLAN: Plan Small bowel obstruction Abdomen soft/pelvis CT was visualized and independently interpreted. Also old abdomen/pelvis CT was reviewed. I agree with radiology interpretation of small bowel obstruction that appears worse. NG tube placed at the ED. Hooked to intermittent wall suction. Keep NPO. While n.p.o. normal saline with potassium supplementation ordered. Home fentanyl continued. As needed Dilaudid ordered. As needed Zofran and as needed Compazine ordered. General surgery consult Coffee-ground emesis Patient reports coffee-ground emesis. However at the emergency department NG suction showed bilious fluid. However gastric occult was positive. Given Protonix IV bolus at emergency department. Protonix 40 mg IV twice daily ordered. Acute kidney injury Creatinine of 1.71 on presentation. Baseline creatinine is less than 1. Trend CMP. Avoid nephrotoxics. Hypokalemia Potassium of 2.9 on presentation. Received IV potassium at the ED. NSS with potassium supplementation ordered. Trend CMP. Check Magnesium. Lactic acidosis Not septic. Trend. Small Cell Lung Cancer with peritoneal carcinomatosis Not improving Symptomatic management while in the Hospital. Pain control. Follow up with oncology after discharge. Elevated Liver enzymes Likely secondary to cancer. Trend BMP History of DVT Eliquis held. Heparin drip ordered. Charges/Coding Visit Charges Inpatient E&M: 62323 Init Hosp L3
[2022-03-20] MEDS: HYDROmorphone 1 MG/ML Syringe IV (21:51)
[2022-03-20 22:26] LABS: International Normalized Ratio 1.2; Partial Thromboplast Time 27.5 Seconds (24.1-36.2); Prothrombin Time (Protime)PT. 14.7 SECONDS (11.7-14.9)
[2022-03-20 22:28] VITALS: BP 159/92; BP 160/95; PULSE 107; PULSE 116; RESP 16; TEMP 36.6; O2SAT 97; O2SAT 98
--- NOTE | 2022-03-20 22:35 | RAD_ITS ---
STUDY: RADIOGRAPH- ABDOMEN/PELVIS REASON FOR EXAM: Female, 72 years old. NG Insertion TECHNIQUE: AP portable upright COMPARISON: CT abdomen pelvis 7:59 PM same date. FINDINGS: Enteric tube tip in the mid stomach directed inferiorly in the left upper abdomen. Small bowel obstruction remains present with dilated small bowel loops with air-fluid levels. No apparent free air. AAA stent graft and lumbar spine fusion hardware partially visible. RAD/Abdomen Single View (Portable) IMPRESSION: Enteric tube tip in the mid stomach. Electronically Signed: Germain Melchor MD at 23:54 EDT ,
[2022-03-20 23:12] VITALS: BMI 26.6
[2022-03-20 23:16] VITALS: BP 145/97; PULSE 114; RESP 18; TEMP 36.8; O2SAT 95
[2022-03-20] MEDS: KCL 20MEQ in 0.9% NS 20 MEQ/1,000 ML IV.SOLN. 75 MEQ IV (23:37)
[2022-03-20 23:49] LABS: Reflex Lactate? Y
[2022-03-21] MEDS: HEPARIN/D5w 25,000 UNITS 25,000 UNITS/250 ML IV.SOLN. 10 UNITS CONT INF (00:16)
[2022-03-21] MEDS: Potassium Chloride 10mEq/100mL 10 MEQ/100 ML IV.SOLN. 100 MEQ IV BOLUS (01:40)
[2022-03-21 05:10] VITALS: BP 135/89; PULSE 104; RESP 18; TEMP 36.4; O2SAT 95
[2022-03-21 05:12] LABS: Absolute Lymphocyte Count 0.55 X10^3/uL (0.83-4.51); Absolute Neutrophil Count 1.7 X10^3/uL (2.0-7.7); Eosinophil# 0.02 X10^3/uL; Eosinophils% 0.8 % (0-5); Hematocrit 39.8 % (37-47); Hemoglobin 13.5 g/dL (12.0-15.0); Lymphocyte # 0.55 X10^3/ul (0.83-4.51); Lymphocyte % 22.4 % (19-41); Mean Corp Hgb Conc 33.9 g/dL (32-36); Mean Corpuscular Hgb 32.3 pg (27.0-32.0); Mean Corpuscular Volume 95.2 fL (81-99); Mean Platelet Vol. 9.7 fl (6.2-12.0); Monocyte# 0.13 X10^3/uL; Monocyte% 5.3 % (0-10); NRBC Flagged by Analyzer 0 % (0-5); Neutrophil # 1.74 X10^3/uL (2.7-7.7); Neutrophil % 70.7 % (47-70); POSITIVE DIFFERENTIAL YES; POSITIVE MORPHOLOGY YES; Platelet Count 275 K/mm3 (150-450); RBC Distribution Width CV 14.2 % (11.6-14.6); RBC Distribution Width SD 49.2 fl (35.1-43.9); Red Blood Count 4.18 M/mm3 (4.2-5.4); White Blood Count 2.5 K/mm3 (4.4-11.0)
[2022-03-21 05:24] LABS: Differential Indicated SCAN CRITERIA MET
[2022-03-21 05:33] LABS: Magnesium 2.2 mg/dL (1.6-2.6)
[2022-03-21 05:34] LABS: ALB/GLOB Ratio 0.7 RATIO (0.9-2.4); AST(SGOT) 29 U/L (15-37); Alanine Aminotransfer ALT/SGPT 156 U/L (13-56); Albumin, Serum 3.2 g/dL (3.2-5.0); Alkaline Phosphatase 95 U/L (45-117); Anion Gap 9 (5-15); BUN 41 mg/dL (7-18); BUN/Creat Ratio 25.8 RATIO (10-20); Calcium,Total 9.3 mg/dL (8.5-10.1); Chloride 102 mmol/L (98-107); Creatinine, Serum 1.59 mg/dL (0.55-1.02); EST Glomerular Filtration Rate 34 mL/min (>60); Est Glom Filt Rate - Afr Amer 41 mL/min (>60); Estimated Creatinine Clearance 26.81 ml/min; Globulin 4.3 g/dL (2.2-4.2); Glucose 132 mg/dL (74-106); Potassium 3.5 mmol/L (3.5-5.1); Protein, Total 7.5 g/dL (6.4-8.2); Sodium Level 141 mmol/L (136-145)
[2022-03-21 06:29] LABS: Partial Thromboplast Time 59.8 Seconds (24.1-36.2)
--- NOTE | 2022-03-21 07:44 | PCM.PN.HOSP ---
Subjective Subjective Patient is a 72-year-old female admitted with abdominal pain with associated nausea and vomiting. Imaging studies demonstrated a small bowel obstruction Objective Data Objective Data Vital Signs: Vital Signs Temp Pulse Resp BP Pulse Ox O2 Del Method 97.5 F L 104 H 18 135/89 H 95 Room Air 03/21/22 05:10 03/21/22 05:10 03/21/22 05:10 03/21/22 05:10 03/21/22 05:10 03/21/22 05:10 Oxygen Delivery Method Room Air Weight: 70.4 kg Body Mass Index (BMI) 26.6 Intake & Output: Intake and Output for Last 24 Hours 03/19/22 03/20/22 03/21/22 23:59 23:59 23:59 Intake Total 1235 / 1235 200 / 200 Balance 1235 / 1235 200 / 200 Lab / Micro Data Result Diagrams: 03/21/22 04:15 03/21/22 04:15 Labs: Laboratory Results - last 24 hr 03/20/22 19:45: WBC 3.7 L, RBC 4.56, Hgb 14.6, Hct 43.6, MCV 95.6, MCH 32.0, MCHC 33.5, RDW Std Deviation 49.3 H, RDW Coeff of Sean 14.0, Plt Count 317, MPV 9.1, Immature Gran % (Auto) 1.400 H, Neut % (Auto) 85.3 H, Lymph % (Auto) 9.5 L, [place] % (Auto) 3.8, Eos % (Auto) 0.0, Baso % (Auto) 0.0, Absolute Neuts (auto) 3.2, Absolute Lymphs (auto) 0.35 L, Nucleated RBC % 0, Differential Comment SEE COMMENT, Platelet Estimate ADEQUATE, RBC Morphology N CHROM, Anisocytosis RARE, Macrocytosis RARE 03/20/22 19:45: Sodium 140, Potassium 2.9 L, Chloride 97 L, Carbon Dioxide 32.0, Anion Gap 11, BUN 37 H, Creatinine 1.71 H, Estim Creat Clear Calc 24.92, Est GFR (MDRD) Af Amer 38 L, Est GFR (MDRD) Non-Af 31 L, BUN/Creatinine Ratio 21.6 H, Glucose 187 H, Calcium 10.4 H, Total Bilirubin 0.60, AST 45 H, ALT 208 H, Alkaline Phosphatase 111, Total Protein 8.3 H, Albumin 3.7, Globulin 4.6 H, Albumin/Globulin Ratio 0.8 L 03/20/22 19:45: Lactic Acid 3.1 H* 03/20/22 22:03: PT 14.7, INR 1.2, APTT 27.5 03/20/22 23:59: Lactic Acid 2.0 03/21/22 04:15: WBC 2.5 L, RBC 4.18 L, Hgb 13.5, Hct 39.8, MCV 95.2, MCH 32.3 H, MCHC 33.9, RDW Std Deviation 49.2 H, RDW Coeff of Sean 14.2, Plt Count 275, MPV 9.7, Immature Gran % (Auto) 0.800, Neut % (Auto) 70.7 H, Lymph % (Auto) 22.4, [place] % (Auto) 5.3, Eos % (Auto) 0.8, Baso % (Auto) 0.0, Absolute Neuts (auto) 1.7 L, Absolute Lymphs (auto) 0.55 L, Nucleated RBC % 0, Diff Path Review November03/21/22 04:15: Sodium 141, Potassium 3.5, Chloride 102, Carbon Dioxide 30.0, Anion Gap 9, BUN 41 H, Creatinine 1.59 H, Estim Creat Clear Calc 26.81, Est GFR (MDRD) Af Amer 41 L, Est GFR (MDRD) Non-Af 34 L, BUN/Creatinine Ratio 25.8 H, Glucose 132 H, Calcium 9.3, Total Bilirubin 0.50, AST 29, ALT 156 H, Alkaline Phosphatase 95, Total Protein 7.5, Albumin 3.2, Globulin 4.3 H, Albumin/Globulin Ratio 0.7 L 03/21/22 04:15: APTT Cancelled 03/21/22 04:15: Magnesium 2.2 03/21/22 06:12: APTT 59.8 H Micro: Microbiology 03/20/22 22:40 Gastric Fluid/Contents Gastric Occult Blood - Final Occult Blood Positive Radiography Diagnostic Testing: Radiology Impression Abdomen/Pelvis CT 03/20/22 19:17 IMPRESSION: (NOT LISTED IN ORDER OF SIGNIFICANCE) Small bowel obstruction appears worse. There are multiple colonic diverticula consistent with diverticulosis. Ascites. There are multiple gallstones. Other findings as above. Electronically Signed: Bruno Fenton MD at 21:19 EDT , KUB X-Ray 03/20/22 22:35 IMPRESSION: Enteric tube tip in the mid stomach. Electronically Signed: Germain Melchor MD at 23:54 EDT , Physical Exam Narrative GENERAL: cooperative HEENT: Atraumatic; EYES; Anicteric, Normal Conjunctiva NECK; supple, normal thyroid, RESPIRATORY: Diminished to auscultation CARDIOVASCULAR: Regular S1 S2, GI: Slightly distended bowel sounds not appreciated : No Renal angle tenderness; EXTREMITIES: No edema, no clubbing, MUSCULOSKELETAL: no muscle wasting NEURO: Awake; no lateralizing signs. SKIN: No Rash PSYCH; Flat affect Assessment & Plan Assessment/Plan (1) SBO (small bowel obstruction): (2) Acute kidney injury: (3) Coffee ground emesis: PLAN: Plan Patient is a 72-year-old female admitted with abdominal pain with associated nausea and vomiting. Imaging studies demonstrated a small bowel obstruction 1. Small bowel obstruction ? Patient has been admitted to regular nursing floor where patient is currently being managed conservatively with bowel rest, IV fluids pain management as well as antinausea medications. Consult placed to general surgery ? Patient seen still has no return of bowel function we will continue with treatment as discussed above 2. Upper GI bleed ? Patient had coffee-ground emesis and gastric occult was positive patient has been started on Protonix 3.Acute kidney injury ? Baseline creatinine 1.1, creatinine on admission was 1.71 on IV fluid with subsequent monitoring of electrolytes ordered 4. Hypokalemia ? Secondary to GI losses corrected per protocol 5. Small cell lung CA with peritoneal carcinomatosis ? Patient is on chemotherapy as outpatient patient to follow-up with oncology on discharge pain management as well as patient is on admission 6. Dyslipidemia -Patient is on statin plan is to resume following discharge 9. History of AAA ? Status post repair 09/26/2017 8. History of previous DVT ? Patient is on Eliquis, held on admission started on heparin Charges/Coding Visit Charges Inpatient E&M: 05238 Subs Hosp L3
[2022-03-21 07:50] VITALS: O2SAT 95
[2022-03-21 08:09] VITALS: BP 150/88; PULSE 93; RESP 16; TEMP 36.3; O2SAT 95
--- NOTE | 2022-03-21 10:54 | EX.PCM.CON.S ---
Assessment & Plan Assessment/Plan (1) SBO (small bowel obstruction): PLAN: Patient states that she has had a bowel movement this morning and is passing flatus and her abdomen feels significantly better. I think at this point we probably can remove the NG tube and allow her to have clear liquids. 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 Reportedly her vomitus is projectile and coffee-ground. Associated with her symptoms is abdominal pain that has no change.? Also patient reports diarrhea with multiple loose stools. Of note patient was admitted to the hospital on 03/07/2022 to 03/09/2022; and also? from 03/11/2022 to 03/13/2022 for small bowel obstruction. On previous admission General surgery recommended hospice.? However oncology wanted a trial of different regimen for her cancer. Immunotherapy was stopped; and patient began chemotherapy on 03/17/22 as above. FORMERLY [facility] Medical History AAA (abdominal aortic aneurysm) Abdominal pain Acute bronchitis, unspecified Acute deep vein thrombosis (DVT) of distal end of right lower extremity Adrenal mass Alcohol use Anemia Arthritis Atherosclerosis of [place] arteries of extremities with intermittent claudication, bilateral legs Back pain Cancer Cancer Cardiology follow-up encounter Carotid artery stenosis Chest pain Cognitive dysfunction, acquired Constipation COPD (chronic obstructive pulmonary disease) Deep vein thrombosis (DVT) of proximal vein of right lower extremity DVT (deep venous thrombosis) Encounter for chemotherapy management Encounter for immunotherapy Encounter for screening for COVID-19 Encounter for tobacco use cessation counseling Endometrial thickening on ultrasound Essential hypertension Fatty liver disease, nonalcoholic Forgetfulness Former smoker Gastric reflux GERD (gastroesophageal reflux disease) Headache History of back problems History of edema History of pain when walking History of stress test Hx of echocardiogram Hyperlipidemia Hypertension Imbalance Lung cancer, primary, with metastasis from lung to other site Neck pain Neuropathy Omental metastasis Oral candidiasis Osteoarthritis 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 Peripheral arterial disease Peripheral vascular angioplasty status Peripheral vascular disease Peritoneal carcinomatosis Peritoneal carcinomatosis Shortness of breath on exertion Shoulder pain Tobacco use disorder, continuous Umbilical hernia Uterine fibroid Ventral incisional hernia without obstruction or gangrene 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 Wears dentures Wears glasses Weight loss Home Medications omeprazole 40 mg capsule,delayed release 40 mg PO DAILY REFLUX 07/10/15 [History Last Taken 03/18/22] cilostazol 100 mg tablet 100 mg PO BID pad 10/25/18 [History Last Taken 03/18/22] atorvastatin 40 mg tablet 40 mg PO QHS cholesterol 04/23/19 [History Last Taken 03/18/22] apixaban 5 mg tablet (Eliquis) 5 mg PO BID blood thinner 12/11/20 [History Last Taken 03/18/22] hydrocodone-acetaminophen 5-325mg 5mg-325mg 1 tab PO TID SEVERE PAIN 12/11/20 [History Last Taken 03/11/22] lidocaine-prilocaine 2.5 %-2.5 % topical cream 1 applic topical ONCE PRN port access 30 days #30 grams 12/31/20 [Rx Last Taken Unknown] fentanyl 50 mcg/hr transdermal patch 100 mcg transdermal Q72H pain 04/20/21 [History Last Taken 03/18/22 08:00] ondansetron 8 mg disintegrating tablet 8 mg PO TID PRN Nausea 03/13/22 [History Last Taken Unknown] prochlorperazine maleate 10 mg tablet 10 mg PO Q6H PRN PRN Nausea #30 tabs 03/18/22 [Rx Last Taken Unknown] Allergy/AdvReac Type Severity Reaction Status Date / Time naproxen [From Naprosyn] Allergy Severe Shortness Verified 03/17/22 09:00 of breath Family History Brother Cancer throat and lung Mother CAD (coronary artery disease) Hypertension Father CAD (coronary artery disease) Surgical History H/O shoulder replacement History of AAA (abdominal aortic aneurysm) repair (09/26/17) History of amputation of left great toe History of bunionectomy of left great toe History of cardiac catheterization History of carpal tunnel release of both wrists History of left knee replacement (~06/08/11) History of right hip replacement History of rotator cuff surgery History of spinal surgery (~1999) Hx of spinal fusion Social History number of children: 5 Smoking Status: Former smoker quit date: 12/21/20 Tobacco: How many years used: 50 second hand exposure: No alcohol intake: current alcohol intake frequency: a few times a month Alcohol type: beer details: weekends substance use type: does not use caffeine: Yes Type: coffee Number of servings: 3 and other what type of physical activity do you participate in: none seatbelt use: always do you feel safe at home: Yes additional social history: Matt- Both are retired Physical Exam Const alert, oriented x3 and no apparent distress HEENT Head and Scalp: normal to inspection and normocephalic Eyes PERRL and EOMs intact bilaterally Resp clear to auscultation bilaterally Cardio Rate: regular rate Rhythm: regular rhythm GI soft to palpation, non-tender and non-distended Medical Records Data Medical Nutrition Assessment Dietitian: Malnutrition Criteria Met Start: 03/21/22 10:49 Freq: Status: Active Protocol: Document 03/21/22 10:49 MANNY (Rec: 03/21/22 10:50 [facility] [id number]) Nutrition Malnutrition Evidence of Malnutrition Exists Yes Malnutrition (severe): Acute Illness/Injury Evidenced By Suboptimal Energy Intake ( Severe),Weight Loss (Severe) Clinical Problem Acute Disease or Injury Related Malnutrition Etiology (severe) related d/t GI dysfunction (SBO) and cancer treatment where pt having difficulty consuming adequate nutrition Signs/Symptoms as evidenced by po intake <75% of est nutritional needs and 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 Lab / Micro Data Result Diagrams: 03/21/22 04:15 03/21/22 04:15 Labs: Laboratory Results - last 24 hr 03/20/22 19:45: WBC 3.7 L, RBC 4.56, Hgb 14.6, Hct 43.6, MCV 95.6, MCH 32.0, MCHC 33.5, RDW Std Deviation 49.3 H, RDW Coeff of Sean 14.0, Plt Count 317, MPV 9.1, Immature Gran % (Auto) 1.400 H, Neut % (Auto) 85.3 H, Lymph % (Auto) 9.5 L, Dickey % (Auto) 3.8, Eos % (Auto) 0.0, Baso % (Auto) 0.0, Absolute Neuts (auto) 3.2, Absolute Lymphs (auto) 0.35 L, Nucleated RBC % 0, Differential Comment SEE COMMENT, Platelet Estimate ADEQUATE, RBC Morphology N CHROM, Anisocytosis RARE, Macrocytosis RARE 03/20/22 19:45: Sodium 140, Potassium 2.9 L, Chloride 97 L, Carbon Dioxide 32.0, Anion Gap 11, BUN 37 H, Creatinine 1.71 H, Estim Creat Clear Calc 24.92, Est GFR (MDRD) Af Amer 38 L, Est GFR (MDRD) Non-Af 31 L, BUN/Creatinine Ratio 21.6 H, Glucose 187 H, Calcium 10.4 H, Total Bilirubin 0.60, AST 45 H, ALT 208 H, Alkaline Phosphatase 111, Total Protein 8.3 H, Albumin 3.7, Globulin 4.6 H, Albumin/Globulin Ratio 0.8 L 03/20/22 19:45: Lactic Acid 3.1 H* 03/20/22 22:03: PT 14.7, INR 1.2, APTT 27.5 03/20/22 23:59: Lactic Acid 2.0 03/21/22 04:15: WBC 2.5 L, RBC 4.18 L, Hgb 13.5, Hct 39.8, MCV 95.2, MCH 32.3 H, MCHC 33.9, RDW Std Deviation 49.2 H, RDW Coeff of Sean 14.2, Plt Count 275, MPV 9.7, Immature Gran % (Auto) 0.800, Neut % (Auto) 70.7 H, Lymph % (Auto) 22.4, Dickey % (Auto) 5.3, Eos % (Auto) 0.8, Baso % (Auto) 0.0, Absolute Neuts (auto) 1.7 L, Absolute Lymphs (auto) 0.55 L, Nucleated RBC % 0, Diff Path Review May 03/21/22 04:15: Sodium 141, Potassium 3.5, Chloride 102, Carbon Dioxide 30.0, Anion Gap 9, BUN 41 H, Creatinine 1.59 H, Estim Creat Clear Calc 26.81, Est GFR (MDRD) Af Amer 41 L, Est GFR (MDRD) Non-Af 34 L, BUN/Creatinine Ratio 25.8 H, Glucose 132 H, Calcium 9.3, Total Bilirubin 0.50, AST 29, ALT 156 H, Alkaline Phosphatase 95, Total Protein 7.5, Albumin 3.2, Globulin 4.3 H, Albumin/Globulin Ratio 0.7 L 03/21/22 04:15: APTT Cancelled 03/21/22 04:15: Magnesium 2.2 03/21/22 06:12: APTT 59.8 H Micro: Microbiology 03/20/22 06:29 Stool Enteric Bacteriology - Final 03/20/22 06:29 Stool C. difficile DNA Amplification - Final 03/20/22 22:40 Gastric Fluid/Contents Gastric Occult Blood - Final Occult Blood Positive Radiology Impression Abdomen/Pelvis CT 03/20/22 19:17 IMPRESSION: (NOT LISTED IN ORDER OF SIGNIFICANCE) Small bowel obstruction appears worse. There are multiple colonic diverticula consistent with diverticulosis. Ascites. There are multiple gallstones. Other findings as above. Electronically Signed: Bruno Fenton MD at 21:19 EDT Reading Location ID and State: [facility] / [place] , Service support , KUB X-Ray 03/20/22 22:35 IMPRESSION: Enteric tube tip in the mid stomach. Electronically Signed: Germain Melchor MD at 23:54 EDT Reading Location ID and State: [facility] / [place] Tel , Service support ,
[2022-03-21 11:10] VITALS: BP 165/87; PULSE 96; RESP 16; TEMP 36.3; O2SAT 97
[2022-03-21] MEDS: Heparin Injection (Vial) 5,000 UNIT/ML VIAL IV (13:07)
[2022-03-21] MEDS: KCL 20MEQ in 0.9% NS 20 MEQ/1,000 ML IV.SOLN. 75 MEQ IV (13:14)
[2022-03-21 15:25] VITALS: BP 138/73; PULSE 96; RESP 16; TEMP 36.3; O2SAT 93
--- NOTE | 2022-03-21 16:03 | CASEMGMT ---
LW/POA forms both scanned into summary tab of echart. Tony Reddy is pt's Healthcare POA. SILVIA Santiago
[2022-03-21 19:36] LABS: Partial Thromboplast Time 71.3 Seconds (24.1-36.2)
[2022-03-21 21:45] VITALS: BP 144/87; PULSE 94; RESP 18; TEMP 37.3; O2SAT 93
[2022-03-21] MEDS: HEPARIN/D5w 25,000 UNITS 25,000 UNITS/250 ML IV.SOLN. 11 UNITS CONT INF (22:03)
--- NOTE | 2022-03-21 22:52 | NURSING ---
Pt's 1914 APTT came back at 71.3 so it required no changes to her heparin titration. IV Heparin remains at 1100 units per hr. Next APTT draw is @ 0115 per Heparin titration protocol.
[2022-03-22] VITALS (7 sets, daily range): BP systolic 148–167; BP diastolic 83–88; PULSE 67–108; RESP 18; TEMP 36.6–36.7; O2SAT 92–95
[2022-03-22] MEDS: proCHLORPERazine 10 MG/2 ML Vial 5 MG IV ×3 (00:54→13:02)
[2022-03-22 01:05] LABS: Partial Thromboplast Time 61.3 Seconds (24.1-36.2)
--- NOTE | 2022-03-22 01:20 | NURSING ---
Addendum entered by Gabino Pacheco 03/22/22 06:38: The IV heparin remained at 1100 units per hour not ml/hr. Original Note: Pt's 0045 APTT came back at 61.3 and was in the therapeutic range for two consecutive blood draws. This required no titration changes per IV Heparin titration protocol.The IV heparin remains running at 1100 ml/hr. I put in an order for a morning APTT blood draw with the other am labs.
[2022-03-22] MEDS: KCL 20MEQ in 0.9% NS 20 MEQ/1,000 ML IV.SOLN. 75 MEQ IV ×2 (02:43→13:02)
[2022-03-22] MEDS: HYDROmorphone 1 MG/ML Syringe IV ×2 (02:52→13:01)
[2022-03-22 05:47] LABS: Absolute Lymphocyte Count 0.53 X10^3/uL (0.83-4.51); Absolute Neutrophil Count 4.7 X10^3/uL (2.0-7.7); Eosinophil# 0.04 X10^3/uL; Eosinophils% 0.7 % (0-5); Hematocrit 41.1 % (37-47); Hemoglobin 12.9 g/dL (12.0-15.0); Lymphocyte # 0.53 X10^3/ul (0.83-4.51); Lymphocyte % 9.4 % (19-41); Mean Corp Hgb Conc 31.4 g/dL (32-36); Mean Corpuscular Hgb 30.9 pg (27.0-32.0); Mean Corpuscular Volume 98.6 fL (81-99); Monocyte# 0.26 X10^3/uL; Monocyte% 4.6 % (0-10); NRBC Flagged by Analyzer 0 % (0-5); Neutrophil # 4.74 X10^3/uL (2.7-7.7); Neutrophil % 84.6 % (47-70); POSITIVE DIFFERENTIAL YES; POSITIVE MORPHOLOGY YES; Platelet Count 216 K/mm3 (150-450); RBC Distribution Width CV 14.4 % (11.6-14.6); RBC Distribution Width SD 52.3 fl (35.1-43.9); Red Blood Count 4.17 M/mm3 (4.2-5.4); White Blood Count 5.6 K/mm3 (4.4-11.0)
[2022-03-22 05:54] LABS: Differential Indicated SCAN CRITERIA MET
[2022-03-22 05:59] LABS: Partial Thromboplast Time 47.1 Seconds (24.1-36.2)
[2022-03-22] MEDS: Heparin Injection (Vial) 5,000 UNIT/ML VIAL IV ×3 (06:29→13:25)
[2022-03-22] MEDS: Ondansetron 4 MG/2 ML Vial IV (06:30)
--- NOTE | 2022-03-22 06:35 | NURSING ---
Pts APTT came back this am at 47.1. Per IV heparin titration protocol I bolused pt with 1000 units of heparin and increased heparin drip to 1200 units per hour. I put in an order to check Pt's APTT again at 1230 on 03/22/22.
[2022-03-22 06:39] LABS: AST(SGOT) 15 U/L (15-37); Alanine Aminotransfer ALT/SGPT 102 U/L (13-56); Alkaline Phosphatase 96 U/L (45-117); Anion Gap 8 (5-15); BUN 37 mg/dL (7-18); BUN/Creat Ratio 27.4 RATIO (10-20); Bilirubin, Direct 0.13 mg/dL (0.00-0.30); Calcium,Total 9.2 mg/dL (8.5-10.1); Chloride 112 mmol/L (98-107); Creatinine, Serum 1.35 mg/dL (0.55-1.02); EST Glomerular Filtration Rate 41 mL/min (>60); Est Glom Filt Rate - Afr Amer 49 mL/min (>60); Estimated Creatinine Clearance 31.57 ml/min; Globulin 4.4 g/dL (2.2-4.2); Glucose 125 mg/dL (74-106); Magnesium 2.5 mg/dL (1.6-2.6); Phosphorus 2.2 mg/dL (2.5-4.9); Potassium 3.3 mmol/L (3.5-5.1); Protein, Total 7.4 g/dL (6.4-8.2); Sodium Level 141 mmol/L (136-145)
--- NOTE | 2022-03-22 07:24 | PN.HOSP_ITS ---
Subjective Subjective Patient NG tube was discontinued the day prior after she had a bowel movement. She however has significant nausea and vomiting this morning kept n.p.o. ordered repeat KUB. CAT scan obtained today prior demonstrated multiple gallstones ascites as well as diverticulosis Objective Data Objective Data Vital Signs: Vital Signs Temp Pulse Resp BP Pulse Ox O2 Del Method 97.8 F 85 18 167/83 H 92 Room Air 03/22/22 02:44 03/22/22 02:44 03/22/22 02:44 03/22/22 02:44 03/22/22 02:44 03/22/22 02:44 Oxygen Delivery Method Room Air Weight: 70.4 kg Body Mass Index (BMI) 26.6 Intake & Output: Intake and Output for Last 24 Hours 03/20/22 03/21/22 03/22/22 23:59 23:59 23:59 Intake Total 1235 / 1235 2064.25 / 2064.25 1500 / 1500 Output Total 600 / 600 200 / 200 Balance 1235 / 1235 1464.25 / 1464.25 1300 / 1300 Medical Nutrition Assessment Dietitian: Malnutrition Criteria Met Start: 03/21/22 10:49 Freq: Status: Active Protocol: Document 03/21/22 10:49 MANNY (Rec: 03/21/22 10:50 MANNY [id number]) Nutrition Malnutrition Evidence of Malnutrition Exists Yes Malnutrition (severe): Acute Illness/Injury Evidenced By Suboptimal Energy Intake ( Severe),Weight Loss (Severe) Clinical Problem Acute Disease or Injury Related Malnutrition Etiology (severe) related d/t GI dysfunction (SBO) and cancer treatment where pt having difficulty consuming adequate nutrition Signs/Symptoms as evidenced by po intake <75% of est nutritional needs and 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 Lab / Micro Data Result Diagrams: 03/22/22 04:50 03/22/22 04:50 Labs: Laboratory Results - last 24 hr 03/21/22 12:27: APTT 53.0 H 03/21/22 19:08: APTT 71.3 H 03/22/22 00:45: APTT 61.3 H 03/22/22 04:50: WBC 5.6, RBC 4.17 L, Hgb 12.9, Hct 41.1, MCV 98.6, MCH 30.9, MCHC 31.4 L D, RDW Std Deviation 52.3 H, RDW Coeff of Sean 14.4, Plt Count 216, MPV 10.0, Immature Gran % (Auto) 0.700, Neut % (Auto) 84.6 H, Lymph % (Auto) 9.4 L, Sawyer % (Auto) 4.6, Eos % (Auto) 0.7, Baso % (Auto) 0.0, Absolute Neuts (auto) 4.7, Absolute Lymphs (auto) 0.53 L, Nucleated RBC % 0 03/22/22 04:50: Sodium 141, Potassium 3.3 L, Chloride 112 H, Carbon Dioxide 21.0, Anion Gap 8, BUN 37 H, Creatinine 1.35 H, Estim Creat Clear Calc 31.57, Est GFR (MDRD) Af Amer 49 L, Est GFR (MDRD) Non-Af 41 L, BUN/Creatinine Ratio 27.4 H, Glucose 125 H, Calcium 9.2, Phosphorus 2.2 L, Magnesium 2.5, Total Bilirubin 0.40, Direct Bilirubin 0.13, AST 15, ALT 102 H, Alkaline Phosphatase 96, Total Protein 7.4, Albumin 3.0 L, Globulin 4.4 H 03/22/22 04:50: APTT 47.1 H Micro: Microbiology 03/20/22 06:29 Stool Enteric Bacteriology - Final 03/20/22 06:29 Stool C. difficile DNA Amplification - Final 03/20/22 22:40 Gastric Fluid/Contents Gastric Occult Blood - Final Occult Blood Positive Physical Exam Narrative GENERAL: cooperative HEENT: Atraumatic; EYES; Anicteric, Normal Conjunctiva NECK; supple, normal thyroid, RESPIRATORY: Diminished to auscultation CARDIOVASCULAR: Regular S1 S2, GI: Slightly distended bowel sounds not appreciated : No Renal angle tenderness; EXTREMITIES: No edema, no clubbing, MUSCULOSKELETAL: no muscle wasting NEURO: Awake; no lateralizing signs. SKIN: No Rash PSYCH; Flat affect Assessment & Plan Assessment/Plan (1) SBO (small bowel obstruction): (2) Acute kidney injury: (3) Coffee ground emesis: PLAN: Plan Patient is a 72-year-old female admitted with abdominal pain with associated nausea and vomiting. Imaging studies demonstrated a small bowel obstruction 1. Small bowel obstruction ? Patient has been admitted to regular nursing floor where patient is currently being managed conservatively with bowel rest, IV fluids pain management as well as antinausea medications. Consult placed to general surgery ? Patient seen still has no return of bowel function we will continue with treatment as discussed above -03/22/2022;Patient NG tube was discontinued the day prior after she had a bowel movement. She however has significant nausea and vomiting this morning kept n.p.o. ordered repeat KUB. CAT scan obtained today prior demonstrated multiple gallstones ascites as well as diverticulosis 2. Upper GI bleed ? Patient had coffee-ground emesis and gastric occult was positive patient has been started on Protonix 3.Acute kidney injury ? Baseline creatinine 1.1, creatinine on admission was 1.71 on IV fluid with subsequent monitoring of electrolytes ordered ? 03/22/2022; creatinine down to 1.35 4. Hypokalemia ? Secondary to GI losses corrected per protocol 5. Small cell lung CA with peritoneal carcinomatosis ? Patient is on chemotherapy as outpatient patient to follow-up with oncology on discharge pain management as well as patient is on admission 6. Dyslipidemia -Patient is on statin plan is to resume following discharge 9. History of AAA ? Status post repair 09/26/2017 8. History of previous DVT ? Patient is on Eliquis, held on admission started on heparin Charges/Coding Visit Charges Inpatient E&M: 49563 Subs Hosp L2
--- NOTE | 2022-03-22 08:11 | RAD_ITS ---
STUDY: X-RAY - ABDOMEN/PELVIS REASON FOR EXAM: Female, 72 years old. sbo TECHNIQUE: AP supine and decubitus views of the abdomen and pelvis. COMPARISON: Comparison is made with prior examination dated 03/20/2022. FINDINGS: Mild increased markings at the right lung base suggestive of atelectasis. Mildly dilated small bowel loops with multiple air-fluid levels. Small amount of gas is seen in the colon. This may represent an incomplete small bowel obstruction. Follow-up recommended. There is no demonstrated free abdominal air. The visualized liver, spleen and kidneys are grossly normal in size and morphology. Stable calcifications in the left upper quadrant which is known to be calcification of the left adrenal gland. Evidence of prior aortic stenting. There are diffuse degenerative changes of the visualized lumbar spine. Prior laminectomy and fusion at the L5-S1 level. RAD/Abd Inc Decub and/or Erect IMPRESSION: Mildly dilated small bowel loops with air-fluid levels. Some amount of gas is seen in the colon. This is suggestive of an incomplete small bowel obstruction. Follow-up recommended. Electronically Signed: Dario Barrientos MD at 12:47 EDT ,
[2022-03-22 09:14] LABS: Pathologist Review Reviewed
--- NOTE | 2022-03-22 09:54 | NURSING ---
@ 6535 pt to x ray per their request via bed
--- NOTE | 2022-03-22 10:17 | CASEMGMT ---
Addendum entered by Maddi Muñoz 03/22/22 12:58: 1045: JASMIN ESPINAL to room to talk w/pt. Introduced self and role. She states she has an appt scheduled w/Dr Simpson tomorrow that she or her will cancel. She saw Dr Fenton last and has an upcoming appt w/him this . She has been taking her medications as prescribed. She denies having any home-going or discharge needs. Original Note: JASMIN ESPINAL readmission note: Index admission 03/11/22-03/13/22 for SBO (Pt also had prior admission to that 03/07-03/09 for SBO) Readmission: SBO. Admitted 03/20/22. Pt w/hx of metastatic lung CA w/carcinomatosis to peritoneum. Pt lives w/her and is independent wADL's. She was discharged home w/her spouse after last admission. Pt started chemo 03/17/22 and was taken off of immunotherapy. She presented to ER 03/20 w/abd pain, vomiting of coffee-ground emesis, and frequent watery stools and found to have SBO again. Khoa SANCHEZN JASMIN ESPINAL
[2022-03-22 13:02] LABS: Partial Thromboplast Time 54.2 Seconds (24.1-36.2)
--- NOTE | 2022-03-22 15:09 | PN.SURG_ITS ---
Subjective Subjective Significant nausea and vomiting today. A complete change from yesterday. Complaining of diffuse abdominal distention and discomfort. Objective Data Objective Data Abdominal distention is identified hypoactive bowel sounds no rebound guarding or peritoneal signs identified Vital Signs: Vital Signs Temp Pulse Resp BP Pulse Ox O2 Del Method 97.8 F 67 18 156/86 H 93 Room Air 03/22/22 14:29 03/22/22 14:29 03/22/22 14:29 03/22/22 14:29 03/22/22 14:29 03/22/22 14:29 Oxygen Delivery Method Room Air Weight: 155 lb 3.287 oz Body Mass Index (BMI) 26.6 Intake & Output: Intake and Output for Last 24 Hours 03/20/22 03/21/22 03/22/22 23:59 23:59 23:59 Intake Total 1235 / 1235 2064.25 / 2064.25 3120.77 / 3120.77 Output Total 600 / 600 300 / 300 Balance 1235 / 1235 1464.25 / 1464.25 2820.77 / 2820.77 Medical Nutrition Assessment Dietitian: Malnutrition Criteria Met Start: 03/21/22 10:49 Freq: Status: Active Protocol: Document 03/21/22 10:49 MANNY (Rec: 03/21/22 10:50 MANNY [id number]) Nutrition Malnutrition Evidence of Malnutrition Exists Yes Malnutrition (severe): Acute Illness/Injury Evidenced By Suboptimal Energy Intake ( Severe),Weight Loss (Severe) Clinical Problem Acute Disease or Injury Related Malnutrition Etiology (severe) related d/t GI dysfunction (SBO) and cancer treatment where pt having difficulty consuming adequate nutrition Signs/Symptoms as evidenced by po intake <75% of est nutritional needs and 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 Lab / Micro Data Result Diagrams: 03/22/22 04:50 03/22/22 04:50 Labs: Laboratory Results - last 24 hr 03/21/22 04:15: Diff Path Review Reviewed 03/21/22 19:08: APTT 71.3 H 03/22/22 00:45: APTT 61.3 H 03/22/22 04:50: WBC 5.6, RBC 4.17 L, Hgb 12.9, Hct 41.1, MCV 98.6, MCH 30.9, MCHC 31.4 L D, RDW Std Deviation 52.3 H, RDW Coeff of Sean 14.4, Plt Count 216, MPV 10.0, Immature Gran % (Auto) 0.700, Neut % (Auto) 84.6 H, Lymph % (Auto) 9.4 L, Parker % (Auto) 4.6, Eos % (Auto) 0.7, Baso % (Auto) 0.0, Absolute Neuts (auto) 4.7, Absolute Lymphs (auto) 0.53 L, Nucleated RBC % 0 03/22/22 04:50: Sodium 141, Potassium 3.3 L, Chloride 112 H, Carbon Dioxide 21.0, Anion Gap 8, BUN 37 H, Creatinine 1.35 H, Estim Creat Clear Calc 31.57, Est GFR (MDRD) Af Amer 49 L, Est GFR (MDRD) Non-Af 41 L, BUN/Creatinine Ratio 27.4 H, Glucose 125 H, Calcium 9.2, Phosphorus 2.2 L, Magnesium 2.5, Total Bilirubin 0.40, Direct Bilirubin 0.13, AST 15, ALT 102 H, Alkaline Phosphatase 96, Total Protein 7.4, Albumin 3.0 L, Globulin 4.4 H 03/22/22 04:50: APTT 47.1 H 03/22/22 12:35: APTT 54.2 H Micro: Microbiology 03/20/22 06:29 Stool Enteric Bacteriology - Final 03/20/22 06:29 Stool C. difficile DNA Amplification - Final 03/20/22 22:40 Gastric Fluid/Contents Gastric Occult Blood - Final Occult Blood Positive Radiography Diagnostic Testing: Radiology Impression Abdomen X-Ray 03/22/22 08:11 IMPRESSION: Mildly dilated small bowel loops with air-fluid levels. Some amount of gas is seen in the colon. This is suggestive of an incomplete small bowel obstruction. Follow-up recommended. Electronically Signed: Dario Barrientos MD at 12:47 EDT , Assessment & Plan Assessment/Plan (1) SBO (small bowel obstruction): PLAN: Will replace NG tube. I do not believe her ascites is gallbladder related I do not think she has acute cholecystitis. I think she has diffuse carcinomatosis. And with the starting of her new chemotherapy is probably dev eloping partial small bowel obstruction through a combination of dehydration and that. No surgical intervention is planned at this time.
--- NOTE | 2022-03-22 16:25 | RAD_ITS ---
HISTORY: n/g placement verification. TECHNIQUE: XR Abdomen 1 View. COMPARISON: 09:53. FINDINGS: BOWEL GAS PATTERN: Nasogastric tube coiled in the region of the gastric fundus with tip at the level of the distal body. Dilated small bowel loops in the midabdomen again seen. FREE AIR: No subdiaphragmatic free air seen on upright view. CALCIFICATIONS: Calcified structure in the left upper quadrant again noted. BONES AND SOFT TISSUES: Abdominal aortic stent graft repair. Lumbar spinal fusion hardware. Left shoulder arthroplasty. Right chest wall port. RAD/Abdomen Single View (Portable) IMPRESSION: Satisfactory appearance of nasogastric tube with tip at the level of the distal stomach. Persistent small bowel obstruction. Electronically Signed: Flor Langford MD at 16:44 EDT ,
--- NOTE | 2022-03-22 16:42 | NURSING ---
WILLIE LYON FROM
--- NOTE | 2022-03-22 17:11 | CON.PCM.ON_ITS ---
Assessment & Plan Assessment/Plan (1) Primary cancer of left upper lobe of lung: Status: Chronic Code(s): C34.12 - Malignant neoplasm of upper lobe, left bronchus or lung Plan: 72-year-old female with extensive stage small cell lung cancer involving left upper lobe, peritoneal carcinomatosis, left adrenal and liver metastasis with recent progression. Began palliative chemotherapy with lurbinectedin on 03/17. Patient has required multiple hospitalizations February 2022 for management of small bowel obstruction, most recently this admission on 03/20/2022. She is being managed conservatively by primary team with NG, bowel rest and antiemetics as she is not a surgical candidate. We engaged in a lengthy conversation about her current clinical state. I clearly explained the recurrent small bowel obstruction is a direct result of her cancer involving peritoneum/abdomen. Patient and spouse previously were under the impression that the N/V was an adverse event r/t chemotherapy she received last week. Patient has only received 1 dose of lurbinectedin so far, which is not enough to determine disease response. I explained in the event this bowel obstruction resolves with conservative measures we can continue lurbinectedin. However if bowel obstruction does not resolve after slowing weaning gastric decompression and slowing resuming PO, then we would recommend palliative/hospice care. Patient and family verbally expressed understanding. Case discussed with patient's primary oncologist, Dr. Fenton who was in agreement with aforementioned plan. Will continue to follow this admission. Thank you (2) Peritoneal carcinomatosis: Status: Chronic Code(s): C78.6 - Secondary malignant neoplasm of retroperitoneum and peritoneum HPI Consult Data Date of Service:: 03/22/22 PCP / Referring Provider: Dr. Herbert Simpson DO Attending: Dr. Silvio Martel MD Chief Complaint Chief Complaint: small cell lung cancer History of Present Illness History of Present Illness: Ms. Verenice Reddy is a very pleasant 72 year old woman who presented September 2020 with abdominal symptoms and ill feeling and was found to have extensive stage IV small cell lung cancer with left upper lobe lung mass pathologically confirmed, peritoneal carcinomatosis, left adrenal metastases, liver/liver capsule metastases. December 2020 began systemic therapy with combination chemotherapy (carboplatin etoposide) and immune therapy (atezolizumab).?Her disease has responded to therapy with partial remission more noted in the chest by cycle #3 and stable disease by cycle 6. She started maintenance atezolizumab April 2021. She remained stable until February [address] showed evidence of progression in the chest and abdomen and was hospitalized twice in February 2022 with subacute small bowel obstruction due to peritoneal carcinomatosis managed conservatively, not surgical candidate. Began palliative chemotherapy with lurbinectedin on 03/17/22. Ms. Reddy presented to [facility] ED on 03/20/22 with c/o abd pain and coffee ground emesis and diarrhea. CT abd/pelvis without contrast reported worsening of SBO. She was subsequently admitted and managed conservatively with NG, bowel rest, IV fluids pain management and antiemetics. NG tube was removed 03/21/2022, patient developed recurrent vomiting and NG tube was replaced today. Interval History Interval History: Upon entering the room patient is sitting upright in bed conversing with spouse and adult granddaughter at the bedside. Patient states it was unclear to her the underlying cause of her vomiting and she associated nausea and vomiting with chemotherapy she received last . Now that NG has been replaced patient denies nausea and reports experiencing hunger. Abdominal pain rated 5 out of 10 which is approximately her baseline. Advanced Directives Power of Radiochemical Technician: Yes Living Will: Yes [facility] Medical History AAA (abdominal aortic aneurysm) Abdominal pain Acute bronchitis, unspecified Acute deep vein thrombosis (DVT) of distal end of right lower extremity Adrenal mass Alcohol use Anemia Arthritis Atherosclerosis of knik arteries of extremities with intermittent claudic ation, bilateral legs Back pain Cancer Cancer Cardiology follow-up encounter Carotid artery stenosis Chest pain Cognitive dysfunction, acquired Constipation COPD (chronic obstructive pulmonary disease) Deep vein thrombosis (DVT) of proximal vein of right lower extremity DVT (deep venous thrombosis) Encounter for chemotherapy management Encounter for immunotherapy Encounter for screening for COVID-19 Encounter for tobacco use cessation counseling Endometrial thickening on ultrasound Essential hypertension Fatty liver disease, nonalcoholic Forgetfulness Former smoker Gastric reflux GERD (gastroesophageal reflux disease) Headache History of back problems History of edema History of pain when walking History of stress test Hx of echocardiogram Hyperlipidemia Hypertension Imbalance Lung cancer, primary, with metastasis from lung to other site Neck pain Neuropathy Omental metastasis Oral candidiasis Osteoarthritis 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 Peripheral arterial disease Peripheral vascular angioplasty status Peripheral vascular disease Peritoneal carcinomatosis Peritoneal carcinomatosis Shortness of breath on exertion Shoulder pain Tobacco use disorder, continuous Umbilical hernia Uterine fibroid Ventral incisional hernia without obstruction or gangrene 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 Wears dentures Wears glasses Weight loss Home Medications omeprazole 40 mg capsule,delayed release 40 mg PO DAILY REFLUX 07/10/15 [History Last Taken 03/18/22] cilostazol 100 mg tablet 100 mg PO BID pad 10/25/18 [History Last Taken 03/18/22] atorvastatin 40 mg tablet 40 mg PO QHS cholesterol 04/23/19 [History Last Taken 03/18/22] apixaban 5 mg tablet (Eliquis) 5 mg PO BID blood thinner 12/11/20 [History Last Taken 03/18/22] hydrocodone-acetaminophen 5-325mg 5mg-325mg 1 tab PO TID SEVERE PAIN 12/11/20 [History Last Taken 03/11/22] lidocaine-prilocaine 2.5 %-2.5 % topical cream 1 applic topical ONCE PRN port access 30 days #30 grams 12/31/20 [Rx Last Taken Unknown] fentanyl 50 mcg/hr transdermal patch 100 mcg transdermal Q72H pain 04/20/21 [History Last Taken 03/18/22 08:00] ondansetron 8 mg disintegrating tablet 8 mg PO TID PRN Nausea 03/13/22 [History Last Taken Unknown] prochlorperazine maleate 10 mg tablet 10 mg PO Q6H PRN PRN Nausea #30 tabs 03/18/22 [Rx Last Taken Unknown] Allergy/AdvReac Type Severity Reaction Status Date / Time naproxen [From Naprosyn] Allergy Severe Shortness Verified 03/17/22 09:00 of breath Family History Brother Cancer throat and lung Mother CAD (coronary artery disease) Hypertension Father CAD (coronary artery disease) Surgical History H/O shoulder replacement History of AAA (abdominal aortic aneurysm) repair (09/26/17) History of amputation of left great toe History of bunionectomy of left great toe History of cardiac catheterization History of carpal tunnel release of both wrists History of left knee replacement (~11/09/11) History of right hip replacement History of rotator cuff surgery History of spinal surgery (~1999) Hx of spinal fusion Social History number of children: 5 Smoking Status: Former smoker quit date: 12/21/20 Tobacco: How many years used: 50 second hand exposure: No alcohol intake: current alcohol intake frequency: a few times a month Alcohol type: beer details: weekends substance use type: does not use caffeine: Yes Type: coffee Number of servings: 3 and other what type of physical activity do you participate in: none seatbelt use: always do you feel safe at home: Yes additional social history: Matt- Both are retired ROS ROS Narrative ECOG 2 Constitutional Constitutional: Denies difficulty sleeping, fever(s), frequent falls or headache(s) Cardiovascular Cardiovascular: Reports fatigue; Denies chest pain, dizziness, edema or palpitations Respiratory/Chest Respiratory/Chest: Reports dyspnea on exertion; Denies cough or hemoptysis Gastrointestinal Gastrointestinal: Reports abdominal pain, coffee ground emesis and diarrhea Genitourinary Genitourinary: Denies burning urination, urinary frequency, urinary incontinence or urinary urgency Integumentary Integumentary: Denies lesions or rash Neurologic Neurologic: Denies dizziness, focal weakness, headache(s), numbness or paresthesias Psychiatric Psychiatric: Denies anxiety or depression Hematologic/Lymphatic Hematologic/Lymphatic: Reports easy bruising; Denies easy bleeding Physical Exam Const alert, oriented x3 and no apparent distress HEENT Head and Scalp: normal to inspection and normocephalic Nose: other Other Details: NG in place Eyes conjunctivae normal and no scleral icterus Neck no lymphadenopathy and supple Resp clear to auscultation bilaterally Effort and Inspection: able to speak in complete sentences Auscultation: diminished lung sounds Cardio Rate: regular rate Rhythm: regular rhythm GI soft to palpation, non-tender and non-distended Auscultation: absent bowel sounds Extremity no clubbing, cyanosis or edema and no calf tenderness Psych Attitude: calm and engaged Mood & Affect: euthymic mood Thought Process: normal thought process Vital Signs Temperature 97.8 F 03/22/22 14:29 Temperature Source Temporal 03/22/22 14:29 Pulse Rate 67 03/22/22 14:29 Pulse Strength Normal (2+) 03/22/22 08:18 Respiratory Rate 18 03/22/22 14:29 Respiratory Effort Non-Labored 03/21/22 21:53 Respiratory Depth Normal 03/21/22 21:53 Respiratory Pattern Normal 03/21/22 21:53 Blood Pressure 156/86 H 03/22/22 14:29 Blood Pressure Mean 109 03/22/22 14:29 Blood Pressure Source Monitor 03/22/22 14:29 Blood Pressure Position Semi-Fowlers 03/22/22 14:29 Blood Pressure Location Left Arm 03/22/22 14:29 Pulse Ox 95 03/22/22 16:20 Oxygen Delivery Method Room Air 03/22/22 16:20 Laboratory Results - last 24 hr 03/21/22 04:15: Diff Path Review Reviewed 03/21/22 19:08: APTT 71.3 H 03/22/22 00:45: APTT 61.3 H 03/22/22 04:50: WBC 5.6, RBC 4.17 L, Hgb 12.9, Hct 41.1, MCV 98.6, MCH 30.9, MCHC 31.4 L D, RDW Std Deviation 52.3 H, RDW Coeff of Sean 14.4, Plt Count 216, MPV 10.0, Immature Gran % (Auto) 0.700, Neut % (Auto) 84.6 H, Lymph % (Auto) 9.4 L, [place] % (Auto) 4.6, Eos % (Auto) 0.7, Baso % (Auto) 0.0, Absolute Neuts (auto) 4.7, Absolute Lymphs (auto) 0.53 L, Nucleated RBC % 0 03/22/22 04:50: Sodium 141, Potassium 3.3 L, Chloride 112 H, Carbon Dioxide 21.0, Anion Gap 8, BUN 37 H, Creatinine 1.35 H, Estim Creat Clear Calc 31.57, Est GFR (MDRD) Af Amer 49 L, Est GFR (MDRD) Non-Af 41 L, BUN/Creatinine Ratio 27.4 H, Glucose 125 H, Calcium 9.2, Phosphorus 2.2 L, Magnesium 2.5, Total Bilirubin 0.40, Direct Bilirubin 0.13, AST 15, ALT 102 H, Alkaline Phosphatase 96, Total Protein 7.4, Albumin 3.0 L, Globulin 4.4 H 03/22/22 04:50: APTT 47.1 H 03/22/22 12:35: APTT 54.2 H Diagnostic Data Abdomen/Pelvis CT 03/20/22 19:17 IMPRESSION: (NOT LISTED IN ORDER OF SIGNIFICANCE) Small bowel obstruction appears worse. There are multiple colonic diverticula consistent with diverticulosis. Ascites. There are multiple gallstones. Other findings as above. Electronically Signed: Bruno Fenton MD at 21:19 EDT , Abdomen X-Ray 03/22/22 08:11 IMPRESSION: Mildly dilated small bowel loops with air-fluid levels. Some amount of gas is seen in the colon. This is suggestive of an incomplete small bowel obstruction. Follow-up recommended. Electronically Signed: Dario Barrientos MD at 12:47 EDT , KUB X-Ray 03/22/22 16:25 IMPRESSION: Satisfactory appearance of nasogastric tube with tip at the level of the distal stomach. Persistent small bowel obstruction. Electronically Signed: Flor Langford MD at 16:44 EDT ,
--- NOTE | 2022-03-22 19:01 | NURSING ---
n/g pulled back approx 4 cm and retaped-stat portable film ordered and x ray called
--- NOTE | 2022-03-22 19:15 | RAD_ITS ---
INDICATION: repositioning of N/G tube -- pulled back 4 cm EXAMINATION/TECHNIQUE: X-RAY - XR Abdomen 1 View COMPARISON: None FINDINGS: BOWEL GAS PATTERN: Non-obstructive. NG tube is present with tip in the stomach. FREE AIR: Not assessed on a single supine view. ORGANOMEGALY: Not seen. CALCIFICATIONS: No abnormal calcifications observed. LOWER CHEST: No acute pathology. BONES AND SOFT TISSUES: No acute pathology. RAD/Abdomen Single View (Portable) IMPRESSION: NG tube tip is in the stomach. Electronically Signed: Nestor Ricardo MD at 20:28 EDT ,
[2022-03-22 19:59] LABS: Partial Thromboplast Time 64.1 Seconds (24.1-36.2)
[2022-03-22] MEDS: HEPARIN/D5w 25,000 UNITS 25,000 UNITS/250 ML IV.SOLN. 12 UNITS CONT INF (21:02)
--- NOTE | 2022-03-22 22:25 | NURSING ---
Pt's 1924 APTT came back @ 64.1 per IV heparin titration protocol it fell under therapeutic and required no changes to the titration. per protocol I ordered her next APTT to be drawn @ 0125 03/23/22.
[2022-03-23 01:54] LABS: Partial Thromboplast Time 69.6 Seconds (24.1-36.2)
--- NOTE | 2022-03-23 02:29 | NURSING ---
Pt's APTT @ 0125 came back at 69.6 per heparin titration protocol this lab value was therapeutic and per protocol an 0555 on 03/23/22 APTT was ordered. The IV heparin continues to run at 1200 units per hour with no changes to administration.
[2022-03-23 02:33] VITALS: BP 152/79; PULSE 86; RESP 18; TEMP 36.7; O2SAT 94
[2022-03-23] MEDS: KCL 20MEQ in 0.9% NS 20 MEQ/1,000 ML IV.SOLN. 75 MEQ IV ×2 (02:55→15:45)
[2022-03-23 05:50] LABS: Absolute Lymphocyte Count 0.58 X10^3/uL (0.83-4.51); Eosinophil# 0.07 X10^3/uL; Eosinophils% 1.2 % (0-5); Hematocrit 39.3 % (37-47); Hemoglobin 12.5 g/dL (12.0-15.0); Lymphocyte # 0.58 X10^3/ul (0.83-4.51); Lymphocyte % 9.7 % (19-41); Mean Corp Hgb Conc 31.8 g/dL (32-36); Mean Corpuscular Hgb 31.3 pg (27.0-32.0); Mean Corpuscular Volume 98.3 fL (81-99); Mean Platelet Vol. 10.6 fl (6.2-12.0); NRBC Flagged by Analyzer 0 % (0-5); Neutrophil # 4.96 X10^3/uL (2.7-7.7); Neutrophil % 83.3 % (47-70); POSITIVE DIFFERENTIAL YES; POSITIVE MORPHOLOGY YES; Platelet Count 133 K/mm3 (150-450); RBC Distribution Width CV 14.5 % (11.6-14.6); RBC Distribution Width SD 52.4 fl (35.1-43.9)
[2022-03-23 05:55] LABS: Differential Indicated SCAN CRITERIA MET
[2022-03-23 06:08] LABS: Partial Thromboplast Time 59.9 Seconds (24.1-36.2)
[2022-03-23 06:15] LABS: Platelet Estimate SLT DEC (ADEQ)
[2022-03-23 06:16] LABS: Atypical Lymphocyte 1+ %
[2022-03-23 06:21] LABS: Anion Gap 4 (5-15); BUN 38 mg/dL (7-18); BUN/Creat Ratio 29.2 RATIO (10-20); Calcium,Total 8.9 mg/dL (8.5-10.1); Chloride 114 mmol/L (98-107); EST Glomerular Filtration Rate 43 mL/min (>60); Est Glom Filt Rate - Afr Amer 52 mL/min (>60); Estimated Creatinine Clearance 32.78 ml/min; Glucose 109 mg/dL (74-106); Potassium 3.4 mmol/L (3.5-5.1); Sodium Level 145 mmol/L (136-145)
[2022-03-23 08:30] VITALS: BP 142/88; PULSE 98; RESP 18; TEMP 36.7; O2SAT 96
[2022-03-23 10:21] VITALS: O2SAT 96
--- NOTE | 2022-03-23 15:43 | PCM.PN.SRG ---
Subjective Subjective Patient has had a significant amount coming out of her NG tube. She has had no flatus or bowel movements since it was placed yesterday. Objective Data Objective Data Abdomen remains slightly distended. No rebound guarding or peritoneal signs identified. Vital Signs: Vital Signs Temp Pulse Resp BP Pulse Ox O2 Del Method 98.0 F 98 18 142/88 H 96 Room Air 03/23/22 08:30 03/23/22 08:30 03/23/22 08:30 03/23/22 08:30 03/23/22 10:21 03/23/22 10:21 Oxygen Delivery Method Room Air Weight: 155 lb 3.287 oz Body Mass Index (BMI) 26.6 Intake & Output: Intake and Output for Last 24 Hours 03/21/22 03/22/22 03/23/22 23:59 23:59 23:59 Intake Total 2064.25 / 2064.25 4520.75 / 4520.75 1200 / 1200 Output Total 600 / 600 3300 / 3300 600 / 600 Balance 1464.25 / 1464.25 1220.75 / 1220.75 600 / 600 Medical Nutrition Assessment Dietitian: Malnutrition Criteria Met Start: 03/21/22 10:49 Freq: Status: Active Protocol: Document 03/21/22 10:49 MANNY (Rec: 03/21/22 10:50 MANNY [id number]) Nutrition Malnutrition Evidence of Malnutrition Exists Yes Malnutrition (severe): Acute Illness/Injury Evidenced By Suboptimal Energy Intake ( Severe),Weight Loss (Severe) Clinical Problem Acute Disease or Injury Related Malnutrition Etiology (severe) related d/t GI dysfunction (SBO) and cancer treatment where pt having difficulty consuming adequate nutrition Signs/Symptoms as evidenced by po intake <75% of est nutritional needs and 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 Lab / Micro Data Result Diagrams: 03/23/22 04:56 03/23/22 04:56 Labs: Laboratory Results - last 24 hr 03/22/22 19:25: APTT 64.1 H 03/23/22 01:13: APTT 69.6 H 03/23/22 04:56: WBC 6.0, RBC 4.00 L, Hgb 12.5, Hct 39.3, MCV 98.3, MCH 31.3, MCHC 31.8 L, RDW Std Deviation 52.4 H, RDW Coeff of Sean 14.5, Plt Count 133 L, MPV 10.6, Immature Gran % (Auto) 0.800, Neut % (Auto) 83.3 H, Lymph % (Auto) 9.7 L, [place] % (Auto) 5.0, Eos % (Auto) 1.2, Baso % (Auto) 0.0, Absolute Neuts (auto) 5.0, Absolute Lymphs (auto) 0.58 L, Nucleated RBC % 0, Atypical Lymphocytes 1+, Platelet Estimate SLT 03/23/22 04:56: Sodium 145, Potassium 3.4 L, Chloride 114 H, Carbon Dioxide 27.0, Anion Gap 4 L, BUN 38 H, Creatinine 1.30 H, Estim Creat Clear Calc 32.78, Est GFR (MDRD) Af Amer 52 L, Est GFR (MDRD) Non-Af 43 L, BUN/Creatinine Ratio 29.2 H, Glucose 109 H, Calcium 8.9 03/23/22 04:56: APTT 59.9 H Micro: Microbiology 03/20/22 06:29 Stool Enteric Bacteriology - Final 03/20/22 06:29 Stool C. difficile DNA Amplification - Final 03/20/22 22:40 Gastric Fluid/Contents Gastric Occult Blood - Final Occult Blood Positive Radiography Diagnostic Testing: Radiology Impression KUB X-Ray 03/22/22 16:25 IMPRESSION: Satisfactory appearance of nasogastric tube with tip at the level of the distal stomach. Persistent small bowel obstruction. Electronically Signed: Flor Langford MD at 16:44 EDT , KUB X-Ray 03/22/22 19:15 IMPRESSION: NG tube tip is in the stomach. Electronically Signed: Nestor Ricardo MD at 20:28 EDT , Assessment & Plan Assessment/Plan (1) Partial obstruction of small intestine: PLAN: Continue NG tube and conservative measures meant at this time. No surgical intervention is planned.
[2022-03-23 15:52] VITALS: BP 142/80; PULSE 90; RESP 18; TEMP 36.7; O2SAT 98
--- NOTE | 2022-03-23 18:33 | PCM.PN.HOSP ---
Subjective Subjective Patient was seen and examined today, she currently has an NG tube placed, general surgery is following her care. No surgical intervention is planned at this time according to general surgery notes. Patient has no complaints of any abdominal pain at this time, shortness of breath, fever, or chills. Objective Data Objective Data Vital Signs: Vital Signs Temp Pulse Resp BP Pulse Ox O2 Del Method 98.0 F 90 18 142/80 H 98 Room Air 03/23/22 15:52 03/23/22 15:52 03/23/22 15:52 03/23/22 15:52 03/23/22 15:52 03/23/22 15:52 Oxygen Delivery Method Room Air Weight: 70.4 kg Body Mass Index (BMI) 26.6 Intake & Output: Intake and Output for Last 24 Hours 03/21/22 03/22/22 03/23/22 23:59 23:59 23:59 Intake Total 2064.25 / 2064.25 4520.75 / 4520.75 2778.5 / 2778.5 Output Total 600 / 600 3300 / 3300 1100 / 1100 Balance 1464.25 / 1464.25 1220.75 / 1220.75 1678.5 / 1678.5 Medical Nutrition Assessment Dietitian: Malnutrition Criteria Met Start: 03/21/22 10:49 Freq: Status: Active Protocol: Document 03/21/22 10:49 MANNY (Rec: 03/21/22 10:50 MANNY [id number]) Nutrition Malnutrition Evidence of Malnutrition Exists Yes Malnutrition (severe): Acute Illness/Injury Evidenced By Suboptimal Energy Intake ( Severe),Weight Loss (Severe) Clinical Problem Acute Disease or Injury Related Malnutrition Etiology (severe) related d/t GI dysfunction (SBO) and cancer treatment where pt having difficulty consuming adequate nutrition Signs/Symptoms as evidenced by po intake <75% of est nutritional needs and wt loss of 8.8% in past 4-5 days 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 Lab / Micro Data Result Diagrams: 03/24/22 04:54 03/24/22 04:54 Labs: Laboratory Results - last 24 hr 03/22/22 19:25: APTT 64.1 H 03/23/22 01:13: APTT 69.6 H 03/23/22 04:56: WBC 6.0, RBC 4.00 L, Hgb 12.5, Hct 39.3, MCV 98.3, MCH 31.3, MCHC 31.8 L, RDW Std Deviation 52.4 H, RDW Coeff of Sean 14.5, Plt Count 133 L, MPV 10.6, Immature Gran % (Auto) 0.800, Neut % (Auto) 83.3 H, Lymph % (Auto) 9.7 L, [place] % (Auto) 5.0, Eos % (Auto) 1.2, Baso % (Auto) 0.0, Absolute Neuts (auto) 5.0, Absolute Lymphs (auto) 0.58 L, Nucleated RBC % 0, Atypical Lymphocytes 1+, Platelet Estimate SLT 03/23/22 04:56: Sodium 145, Potassium 3.4 L, Chloride 114 H, Carbon Dioxide 27.0, Anion Gap 4 L, BUN 38 H, Creatinine 1.30 H, Estim Creat Clear Calc 32.78, Est GFR (MDRD) Af Amer 52 L, Est GFR (MDRD) Non-Af 43 L, BUN/Creatinine Ratio 29.2 H, Glucose 109 H, Calcium 8.9 03/23/22 04:56: APTT 59.9 H Micro: Microbiology 03/20/22 06:29 Stool Enteric Bacteriology - Final 03/20/22 06:29 Stool C. difficile DNA Amplification - Final 03/20/22 22:40 Gastric Fluid/Contents Gastric Occult Blood - Final Occult Blood Positive Radiography Diagnostic Testing: Radiology Impression KUB X-Ray 03/22/22 19:15 IMPRESSION: NG tube tip is in the stomach. Electronically Signed: Nestor Ricardo MD at 20:28 EDT , Physical Exam Const alert, oriented x3 and no apparent distress General Appearance: cooperative, well kempt and well developed Orientation / Consciousness: awake, oriented to person, oriented to place and oriented to time HEENT normocephalic, head/scalp atraumatic and moist oral mucous membranes Eyes PERRL, EOMs intact bilaterally and conjunctivae normal Neck supple, no JVD, thyroid normal and no carotid bruits General: trachea midline Resp normal respiratory effort, no retractions, no use of accessory muscles and clear to auscultation bilaterally Auscultation: Negative for rales, rhonchi or wheezes Cardio regular rate, regular rhythm, S1 normal heart sound, S2 normal heart sound, no murmurs, no rub and no gallops GI GI Narrative: There are no bowel sounds noted on examination today, abdomen is mildly distended, it is soft to palpation. Extremity no clubbing, cyanosis or edema Skin no rashes or lesions noted General Skin Exam: no breakdown Neuro oriented x3, CN's II-XII intact bilaterally, moves all extremities, no focal motor deficits and no sensory deficits noted Sensorium / Orientation: awake and alert Speech: speech normal Psych affect normal Assessment & Plan Assessment/Plan (1) Partial obstruction of small intestine: PLAN: Plan 1. Partial small bowel obstruction-continue NG tube and conservative measures for general surgery #2 upper GI bleed-etiology unknown, patient is on Protonix #3 acute kidney injury-resolved at this time, continue IV fluid administration #4 small cell lung cancer with peritoneal carcinomatosis-oncology is participating in the patient's care, complicates care, management, recovery, and prognosis #5 severe protein and caloric malnutrition-as evidenced by p.o. intake less than 75% of estimated nutritional needs and weight loss of 8.8% in past 4 to 5 days-when medically stable, recommend Ensure clear with med Pass 4 times a day while on clear liquids then changed to Ensure Enlive when p.o. diet beyond clear liquids. Charges/Coding Visit Charges Inpatient E&M: 17899 Subs Hosp L2
[2022-03-23] MEDS: HEPARIN/D5w 25,000 UNITS 25,000 UNITS/250 ML IV.SOLN. 12 UNITS CONT INF (19:45)
[2022-03-23 19:49] VITALS: BP 158/86; PULSE 93; RESP 16; TEMP 36.6; O2SAT 93
[2022-03-23] MEDS: Menthol/Lanolin/Calamine/Znox 113 GM Tube 1 APPLIC TOPICAL (21:09)
[2022-03-24 02:00] VITALS: BP 158/73; PULSE 86; RESP 15; TEMP 36.7; O2SAT 93
[2022-03-24] MEDS: KCL 20MEQ in 0.9% NS 20 MEQ/1,000 ML IV.SOLN. 75 MEQ IV ×2 (04:29→17:51)
[2022-03-24 05:34] LABS: Absolute Lymphocyte Count 0.89 X10^3/uL (0.83-4.51); Absolute Neutrophil Count 5.4 X10^3/uL (2.0-7.7); Eosinophils% 1.5 % (0-5); Hematocrit 37.6 % (37-47); Hemoglobin 12.1 g/dL (12.0-15.0); Lymphocyte # 0.89 X10^3/ul (0.83-4.51); Lymphocyte % 13.2 % (19-41); Mean Corp Hgb Conc 32.2 g/dL (32-36); Mean Corpuscular Hgb 31.7 pg (27.0-32.0); Mean Corpuscular Volume 98.4 fL (81-99); Mean Platelet Vol. 10.9 fl (6.2-12.0); Monocyte# 0.34 X10^3/uL; NRBC Flagged by Analyzer 0 % (0-5); Neutrophil # 5.36 X10^3/uL (2.7-7.7); Neutrophil % 79.3 % (47-70); POSITIVE COUNT YES; POSITIVE MORPHOLOGY YES; Platelet Count 99 K/mm3 (150-450); RBC Distribution Width CV 14.7 % (11.6-14.6); RBC Distribution Width SD 53.1 fl (35.1-43.9); Red Blood Count 3.82 M/mm3 (4.2-5.4); White Blood Count 6.8 K/mm3 (4.4-11.0)
[2022-03-24 05:35] LABS: Differential Indicated SCAN CRITERIA MET
[2022-03-24 05:43] LABS: Partial Thromboplast Time 49.2 Seconds (24.1-36.2)
[2022-03-24 05:51] LABS: Anisocytosis 1+; Platelet Estimate MOD DEC (ADEQ)
[2022-03-24 05:53] LABS: Anion Gap 3 (5-15); BUN 32 mg/dL (7-18); BUN/Creat Ratio 26.2 RATIO (10-20); Calcium,Total 8.8 mg/dL (8.5-10.1); Chloride 122 mmol/L (98-107); Creatinine, Serum 1.22 mg/dL (0.55-1.02); EST Glomerular Filtration Rate 46 mL/min (>60); Est Glom Filt Rate - Afr Amer 55 mL/min (>60); Estimated Creatinine Clearance 34.93 ml/min; Glucose 86 mg/dL (74-106); Potassium 3.2 mmol/L (3.5-5.1); Sodium Level 150 mmol/L (136-145)
[2022-03-24] MEDS: Heparin Injection (Vial) 5,000 UNIT/ML VIAL IV (05:57)
--- NOTE | 2022-03-24 06:04 | PN.SURG_ITS ---
Subjective Subjective No flatus or bowel movements yet. Patient states that her abdomen feels significantly better. Objective Data Objective Data Abdomen is much softer today. No rebound guarding or peritoneal signs identified. Still significant amount out of the NG tube. Vital Signs: Vital Signs Temp Pulse Resp BP Pulse Ox O2 Del Method 98.0 F 86 15 158/73 H 93 Room Air 03/24/22 02:00 03/24/22 02:00 03/24/22 02:00 03/24/22 02:00 03/24/22 02:00 03/24/22 02:00 Oxygen Delivery Method Room Air Weight: 155 lb 3.287 oz Body Mass Index (BMI) 26.6 Intake & Output: Intake and Output for Last 24 Hours 03/22/22 03/23/22 03/24/22 23:59 23:59 23:59 Intake Total 4520.75 / 4520.75 3058.5 / 3058.5 1187.4 / 1187.4 Output Total 3300 / 3300 1100 / 1400 675 / 675 Balance 1220.75 / 1220.75 1958.5 / 1658.5 512.4 / 512.4 Medical Nutrition Assessment Dietitian: Malnutrition Criteria Met Start: 03/21/22 10:49 Freq: Status: Active Protocol: Document 03/21/22 10:49 MANNY (Rec: 03/21/22 10:50 MANNY [id number]) Nutrition Malnutrition Evidence of Malnutrition Exists Yes Malnutrition (severe): Acute Illness/Injury Evidenced By Suboptimal Energy Intake ( Severe),Weight Loss (Severe) Clinical Problem Acute Disease or Injury Related Malnutrition Etiology (severe) related d/t GI dysfunction (SBO) and cancer treatment where pt having difficulty consuming adequate nutrition Signs/Symptoms as evidenced by po intake <75% of est nutritional needs and 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 Lab / Micro Data Result Diagrams: 03/24/22 04:54 03/24/22 04:54 Labs: Laboratory Results - last 24 hr 03/23/22 04:56: Atypical Lymphocytes 1+, Platelet Estimate SLT DEC 03/23/22 04:56: Sodium 145, Potassium 3.4 L, Chloride 114 H, Carbon Dioxide 27 .0, Anion Gap 4 L, BUN 38 H, Creatinine 1.30 H, Estim Creat Clear Calc 32.78, Est GFR (MDRD) Af Amer 52 L, Est GFR (MDRD) Non-Af 43 L, BUN/Creatinine Ratio 29.2 H, Glucose 109 H, Calcium 8.9 03/23/22 04:56: APTT 59.9 H 03/24/22 04:54: WBC 6.8, RBC 3.82 L, Hgb 12.1, Hct 37.6, MCV 98.4, MCH 31.7, MCHC 32.2, RDW Std Deviation 53.1 H, RDW Coeff of Sean 14.7 H, Plt Count 99 L, MPV 10.9, Immature Gran % (Auto) 1.000 H, Neut % (Auto) 79.3 H, Lymph % (Auto) 13.2 L, Keith % (Auto) 5.0, Eos % (Auto) 1.5, Baso % (Auto) 0.0, Absolute Neuts (auto) 5.4, Absolute Lymphs (auto) 0.89, Nucleated RBC % 0, Platelet Estimate MOD DEC, Anisocytosis 1+ 03/24/22 04:54: Sodium 150 H, Potassium 3.2 L, Chloride 122 H, Carbon Dioxide 25.0, Anion Gap 3 L, BUN 32 H, Creatinine 1.22 H, Estim Creat Clear Calc 34.93, Est GFR (MDRD) Af Amer 55 L, Est GFR (MDRD) Non-Af 46 L, BUN/Creatinine Ratio 26.2 H, Glucose 86, Calcium 8.8 03/24/22 04:54: APTT 49.2 H Micro: Microbiology 03/20/22 06:29 Stool Enteric Bacteriology - Final 03/20/22 06:29 Stool C. difficile DNA Amplification - Final 03/20/22 22:40 Gastric Fluid/Contents Gastric Occult Blood - Final Occult Blood Positive Assessment & Plan Assessment/Plan (1) Partial obstruction of small intestine: PLAN: Still continue to wait for GI function. No emergent plans for surgery at this point.
[2022-03-24 08:28] VITALS: O2SAT 93
[2022-03-24 08:40] VITALS: BP 153/73; PULSE 88; RESP 18; TEMP 37; O2SAT 95
[2022-03-24 12:59] LABS: Partial Thromboplast Time 55.6 Seconds (24.1-36.2)
[2022-03-24 13:30] VITALS: BP 172/81; PULSE 100; RESP 18; TEMP 36.2; O2SAT 94
[2022-03-24] MEDS: Menthol/Lanolin/Calamine/Znox 113 GM Tube 1 APPLIC TOPICAL ×2 (16:30→21:05)
--- NOTE | 2022-03-24 17:04 | PN.HOSP_ITS ---
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 I discussed this with the patient's and the patient today kun oates my visit, oncology had told me earlier today that they had a conversation with the patient and her approximately 2 weeks ago and told them that there would be no surgery if she had a bowel obstruction and it did resolve with conservative methods. Objective Data Objective Data Vital Signs: Vital Signs Temp Pulse Resp BP Pulse Ox O2 Del Method 97.2 F L 100 18 172/81 H 94 Room Air 03/24/22 13:30 03/24/22 13:30 03/24/22 13:30 03/24/22 13:30 03/24/22 13:30 03/24/22 13:30 Oxygen Delivery Method Room Air Weight: 70.4 kg Body Mass Index (BMI) 26.6 Intake & Output: Intake and Output for Last 24 Hours 03/22/22 03/23/22 03/24/22 23:59 23:59 23:59 Intake Total 4520.75 / 4520.75 3058.5 / 3058.5 1357.4 / 1357.4 Output Total 3300 / 3300 1100 / 1400 1575 / 1575 Balance 1220.75 / 1220.75 1958.5 / 1658.5 -217.6 / -217.6 Medical Nutrition Assessment Dietitian: Malnutrition Criteria Met Start: 03/21/22 10:49 Freq: Status: Active Protocol: Document 03/21/22 10:49 MANNY (Rec: 03/21/22 10:50 MANNY [id number]) Nutrition Malnutrition Evidence of Malnutrition Exists Yes Malnutrition (severe): Acute Illness/Injury Evidenced By Suboptimal Energy Intake ( Severe),Weight Loss (Severe) Clinical Problem Acute Disease or Injury Related Malnutrition Etiology (severe) related d/t GI dysfunction (SBO) and cancer treatment where pt having difficulty consuming adequate nutrition Signs/Symptoms as evidenced by po intake <75% of est nutritional needs and 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 Lab / Micro Data Result Diagrams: 03/24/22 04:54 03/24/22 04:54 Labs: Laboratory Results - last 24 hr 03/24/22 04:54: WBC 6.8, RBC 3.82 L, Hgb 12.1, Hct 37.6, MCV 98.4, MCH 31.7, MCHC 32.2, RDW Std Deviation 53.1 H, RDW Coeff of Sean 14.7 H, Plt Count 99 L, MPV 10.9, Immature Gran % (Auto) 1.000 H, Neut % (Auto) 79.3 H, Lymph % (Auto) 13.2 L, Gordon % (Auto) 5.0, Eos % (Auto) 1.5, Baso % (Auto) 0.0, Absolute Neuts (auto) 5.4, Absolute Lymphs (auto) 0.89, Nucleated RBC % 0, Platelet Estimate MOD DEC, Anisocytosis 1+ 03/24/22 04:54: Sodium 150 H, Potassium 3.2 L, Chloride 122 H, Carbon Dioxide 25.0, Anion Gap 3 L, BUN 32 H, Creatinine 1.22 H, Estim Creat Clear Calc 34.93, Est GFR (MDRD) Af Amer 55 L, Est GFR (MDRD) Non-Af 46 L, BUN/Creatinine Ratio 26.2 H, Glucose 86, Calcium 8.8 03/24/22 04:54: APTT 49.2 H 03/24/22 12:20: APTT 55.6 H Micro: Microbiology 03/20/22 06:29 Stool Enteric Bacteriology - Final 03/20/22 06:29 Stool C. difficile DNA Amplification - Final 03/20/22 22:40 Gastric Fluid/Contents Gastric Occult Blood - Final Occult Blood Positive Physical Exam Narrative alert, oriented x3 and no apparent distress General Appearance: cooperative, well kempt and well developed Orientation / Consciousness: awake, oriented to person, oriented to place and oriented to time HEENT normocephalic, head/scalp atraumatic and moist oral mucous membranes Eyes PERRL, EOMs intact bilaterally and conjunctivae normal Neck supple, no JVD, thyroid normal and no carotid bruits General: trachea midline Resp normal respiratory effort, no retractions, no use of accessory muscles and clear to auscultation bilaterally Auscultation: Negative for rales, rhonchi or wheezes Cardio regular rate, regular rhythm, S1 normal heart sound, S2 normal heart sound, no murmurs, no rub and no gallops GI GI Narrative: There are no bowel sounds noted on examination today, abdomen is mildly distended, it is soft to palpation. Extremity no clubbing, cyanosis or edema Skin no rashes or lesions noted General Skin Exam: no breakdown Neuro oriented x3, CN's II-XII intact bilaterally, moves all extremities, no focal motor deficits and no sensory deficits noted Sensorium / Orientation: awake and alert Speech: speech normal Psych affect normal Assessment & Plan Assessment/Plan (1) SBO (small bowel obstruction): (2) Partial obstruction of small intestine: PLAN: Plan 1. Partial small bowel obstruction-continue NG tube and conservative measures by general surgery, there will be no surgical resolution for the patient's bowel obstruction due to the extent of her omental spread of her small cell cancer. Oncology advised to allow another 3 days to see if the bowel obstruction resolves on its own due to the recent chemotherapy she received from oncology. I relayed this to the patient and her , I told them that if it did not resolve by Monday she would have to see hospice and go home with hospice care. and the patient agreed to talk with hospice while she was in the hospital here if possible. 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 intake less than 75% of estimated nutritional needs and weight loss of 8.8% in past 4 to 5 days- when medically stable, recommend Ensure clear with med Pass 4 times a day while on clear liquids then changed to Ensure Enlive when p.o. diet beyond clear liquids. This is likely to worsen given the patient's n.p.o. status, if the patient ends up going hospice on Monday, this will not be an issue. Charges/Coding Visit Charges Inpatient E&M: 59324 Subs Hosp L2
[2022-03-24 17:28] VITALS: BP 157/81; PULSE 93; RESP 18; TEMP 36.9; O2SAT 92
--- NOTE | 2022-03-24 18:02 | ONC.PN.INPT ---
Subjective Subjective Events from the previous 24-48 hours reviewed. Upon entering the room, patient is sitting upright in bed conversing with spouse. States she feels about the same and voices frustration that she cannot eat. Rates abd pain 5-6/10, which is her baseline. Shares she did pass gas earlier this afternoon. Physical Exam Const alert, oriented x3 and no apparent distress HEENT Head and Scalp: normal to inspection and normocephalic Nose: other Other Details: NG in place Eyes conjunctivae normal and no scleral icterus Neck no lymphadenopathy and supple Resp clear to auscultation bilaterally Effort and Inspection: able to speak in complete sentences Auscultation: diminished lung sounds Cardio Rate: regular rate Rhythm: regular rhythm GI soft to palpation, non-tender and non-distended Auscultation: hypoactive bowel sounds Extremity no clubbing, cyanosis or edema and no calf tenderness Psych Attitude: calm and engaged Mood & Affect: euthymic mood Thought Process: normal thought process Vital Signs Temperature 98.4 F 03/24/22 17:28 Temperature Source Oral 03/24/22 17:28 Pulse Rate 93 03/24/22 17:28 Pulse Strength Normal (2+) 03/24/22 09:38 Respiratory Rate 18 03/24/22 17:28 Respiratory Effort Non-Labored 03/24/22 08:49 Respiratory Depth Normal 03/24/22 08:49 Respiratory Pattern Normal 03/24/22 08:49 Blood Pressure 157/81 H 03/24/22 17:28 Blood Pressure Mean 106 03/24/22 17:28 Blood Pressure Source Monitor 03/24/22 17:28 Blood Pressure Position Semi-Fowlers 03/24/22 17:28 Blood Pressure Location Left Arm 03/24/22 17:28 Pulse Ox 92 03/24/22 17:28 Oxygen Delivery Method Room Air 03/24/22 17:28 Laboratory Results - last 24 hr 03/24/22 04:54: WBC 6.8, RBC 3.82 L, Hgb 12.1, Hct 37.6, MCV 98.4, MCH 31.7, MCHC 32.2, RDW Std Deviation 53.1 H, RDW Coeff of Sean 14.7 H, Plt Count 99 L, MPV 10.9, Immature Gran % (Auto) 1.000 H, Neut % (Auto) 79.3 H, Lymph % (Auto) 13.2 L, [place] % (Auto) 5.0, Eos % (Auto) 1.5, Baso % (Auto) 0.0, Absolute Neuts (auto) 5.4, Absolute Lymphs (auto) 0.89, Nucleated RBC % 0, Platelet Estimate MOD DEC, Anisocytosis 1+ 03/24/22 04:54: Sodium 150 H, Potassium 3.2 L, Chloride 122 H, Carbon Dioxide 25.0, Anion Gap 3 L, BUN 32 H, Creatinine 1.22 H, Estim Creat Clear Calc 34.93, Est GFR (MDRD) Af Amer 55 L, Est GFR (MDRD) Non-Af 46 L, BUN/Creatinine Ratio 26.2 H, Glucose 86, Calcium 8.8 03/24/22 04:54: APTT 49.2 H 03/24/22 12:20: APTT 55.6 H Diagnostic Data Abdomen/Pelvis CT 03/20/22 19:17 IMPRESSION: (NOT LISTED IN ORDER OF SIGNIFICANCE) Small bowel obstruction appears worse. There are multiple colonic diverticula consistent with diverticulosis. Ascites. There are multiple gallstones. Other findings as above. Electronically Signed: Bruno Fenton MD at 21:19 EDT , Abdomen X-Ray 03/22/22 08:11 IMPRESSION: Mildly dilated small bowel loops with air-fluid levels. Some amount of gas is seen in the colon. This is suggestive of an incomplete small bowel obstruction. Follow-up recommended. Electronically Signed: Dario Barrientos MD at 12:47 EDT , KUB X-Ray 03/22/22 19:15 IMPRESSION: NG tube tip is in the stomach. Electronically Signed: Nestor Ricardo MD at 20:28 EDT , Assessment & Plan Assessment/Plan (1) Primary cancer of left upper lobe of lung: (2) Peritoneal carcinomatosis: PLAN: Plan 72-year-old female with extensive stage small cell lung cancer involving left upper lobe, peritoneal carcinomatosis, left adrenal and liver metastasis with recent progression.? Began palliative chemotherapy with lurbinectedin on 03/17/2022.? Patient has required multiple hospitalizations February 2022 for management of small bowel obstruction, most recently this admission on 03/20/2022.? She is still being managed conservatively by primary team with NG, bowel rest and antiemetics as she is not a surgical candidate. Patient has only received 1 dose of lurbinectedin so far, which is not enough to determine disease response.? I reviewed again with patient and spouse, if this bowel obstruction resolves with conservative measures we can continue lurbinectedin.?However if bowel obstruction does not resolve in the next 2-3 days, then ultimately a resolution is unlikely and her oncology team would recommend hospice care.? Patient and family verbally expressed understanding. Emotional support provided. Dr. Fenton to re evaluate on 03/28/22.
[2022-03-24] MEDS: HEPARIN/D5w 25,000 UNITS 25,000 UNITS/250 ML IV.SOLN. 13 UNITS CONT INF (19:33)
[2022-03-24 20:59] VITALS: BP 151/74; PULSE 92; RESP 16; TEMP 37.3; O2SAT 93
[2022-03-25 03:00] VITALS: BP 145/118; PULSE 86; RESP 16; TEMP 36.6; O2SAT 98
[2022-03-25] MEDS: KCL 20MEQ in 0.9% NS 20 MEQ/1,000 ML IV.SOLN. 75 MEQ IV ×2 (06:57→22:12)
[2022-03-25 07:24] LABS: Absolute Neutrophil Count 7.2 X10^3/uL (2.0-7.7); Basophil# 0.01 X10^3/uL; Basophil% 0.1 % (0-1); Eosinophil# 0.08 X10^3/uL; Eosinophils% 0.9 % (0-5); Hematocrit 39.3 % (37-47); Lymphocyte % 12.4 % (19-41); Mean Corp Hgb Conc 30.5 g/dL (32-36); Mean Corpuscular Hgb 30.8 pg (27.0-32.0); Mean Corpuscular Volume 100.8 fL (81-99); Mean Platelet Vol. 11.6 fl (6.2-12.0); Monocyte# 0.43 X10^3/uL; Monocyte% 4.8 % (0-10); NRBC Flagged by Analyzer 0 % (0-5); Neutrophil # 7.18 X10^3/uL (2.7-7.7); Neutrophil % 80.9 % (47-70); POSITIVE MORPHOLOGY YES; Platelet Count 108 K/mm3 (150-450); RBC Distribution Width CV 14.8 % (11.6-14.6); RBC Distribution Width SD 55.8 fl (35.1-43.9); White Blood Count 8.9 K/mm3 (4.4-11.0)
[2022-03-25 07:32] LABS: Partial Thromboplast Time 58.8 Seconds (24.1-36.2)
[2022-03-25 08:23] LABS: Differential Indicated SCAN CRITERIA MET
[2022-03-25 08:33] LABS: Differential Comment SCANNED; Toxic Granulation 2+
[2022-03-25 08:53] VITALS: O2SAT 99
--- NOTE | 2022-03-25 09:58 | CASEMGMT ---
Social Work SW in to meet with pt. SW introduced self and role at the hospital. Pt was sitting in the chair beside the bed. Pt in pleasant mood, stated happy to have a visitor. SW talked with pt about her family and discussed Hospice consult/referral that her is recommending. Pt stated agreeable to a meeting with Hospice. Pt oriented and alert, stated focusing on reality of situation and shared her granddaughter has been helpful in making medical decisions. Pt requested this SW make a referral and set a time for Hospice consult for tomorrow, 03/26 as son, Bayron Sue, wants to be present and will arrive in town then. Pt also discussed her choice to have one more chemo treatment to see if it helps decrease her medical issues. SW offered support and validated pt's feelings. SW reassured pt that this information would be relayed to Hospice for their referral. SW called [facility] to make the referral for pt. SW provided pt information to Hospice worker and relayed information that pt is considering one more chemo treatment before making her choice to sign Hospice agreements. The hospice worker stated pt may not need to end chemo, that some chemo treatments are acceptable while on Hospice and they would discuss this with pt and her family tomorrow. The worker also voiced understanding that pt requested an appointment for Monday so her family could be present. Sw back in to pt room to inform that a hospice referral had been made and her wishes relayed to Hospice. Sw informed pt that Hospice would be calling her specifically to set the appointment. Pt was on the phone with her granddaughter Brisa. SW spoke to Brisa and also relayed this information to her. Brisa provided a contact number. PLAN: Hospice appointment over the weekend, more details after. RUFUS Mcintosh
[2022-03-25 10:00] VITALS: BP 155/77; PULSE 85; RESP 18; TEMP 36.5; O2SAT 96
[2022-03-25 10:43] VITALS: O2SAT 99
[2022-03-25 13:30] VITALS: BP 153/93; PULSE 85; RESP 18; TEMP 36.7; O2SAT 92
[2022-03-25] MEDS: HEPARIN/D5w 25,000 UNITS 25,000 UNITS/250 ML IV.SOLN. 13 UNITS CONT INF (16:56)
--- NOTE | 2022-03-25 18:14 | PCM.PN.HOSP ---
Subjective Subjective Patient was seen and examined today, I talked with her briefly about her medical care, she still has not passed flatus, it is still necessary to leave the NG in. I talked briefly with surgery today about her care, I also talked with gastroenterology to see if she would be a candidate for insertion of a decompressive PEG tube so that if she goes home hospice, she will be more comfortable, gastroenterology (Dr. Carson) stated that he would talk with the family and the patient tomorrow about this. Patient and the patient's family is due to meet with hospice tomorrow at 1 PM. Patient does not appear to be uncomfortable today and her abdomen does not appear to be distended, it is also nontender. Objective Data Objective Data Vital Signs: Vital Signs Temp Pulse Resp BP Pulse Ox O2 Del Method 98.1 F 85 18 153/93 H 92 Room Air 03/25/22 13:30 03/25/22 13:30 03/25/22 13:30 03/25/22 13:30 03/25/22 13:30 03/25/22 13:30 Oxygen Delivery Method Room Air Weight: 70.4 kg Body Mass Index (BMI) 26.6 Intake & Output: Intake and Output for Last 24 Hours 03/23/22 03/24/22 03/25/22 23:59 23:59 23:59 Intake Total 3058.5 / 3058.5 2865.0 / 2865.0 1502.5 / 1502.5 Output Total 1100 / 1400 2275 / 2275 1400 / 1400 Balance 1958.5 / 1658.5 590.0 / 590.0 102.5 / 102.5 Medical Nutrition Assessment Dietitian: Malnutrition Criteria Met Start: 03/21/22 10:49 Freq: Status: Active Protocol: Document 03/21/22 10:49 MANNY (Rec: 03/21/22 10:50 MANNY [id number]) Nutrition Malnutrition Evidence of Malnutrition Exists Yes Malnutrition (severe): Acute Illness/Injury Evidenced By Suboptimal Energy Intake ( Severe),Weight Loss (Severe) Clinical Problem Acute Disease or Injury Related Malnutrition Etiology (severe) related d/t GI dysfunction (SBO) and cancer treatment where pt having difficulty consuming adequate nutrition Signs/Symptoms as evidenced by po intake <75% of est nutritional needs and 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 Lab / Micro Data Result Diagrams: 03/25/22 06:00 03/24/22 04:54 Labs: Laboratory Results - last 24 hr 03/24/22 18:15: APTT 55.0 H 03/25/22 06:00: WBC 8.9, RBC 3.90 L, Hgb 12.0, Hct 39.3, MCV 100.8 H, MCH 30.8, MCHC 30.5 L D, RDW Std Deviation 55.8 H, RDW Coeff of Sean 14.8 H, Plt Count 108 L, MPV 11.6, Immature Gran % (Auto) 0.900, Neut % (Auto) 80.9 H, Lymph % (Auto) 12.4 L, [place] % (Auto) 4.8, Eos % (Auto) 0.9, Baso % (Auto) 0.1, Absolute Neuts (auto) 7.2, Absolute Lymphs (auto) 1.10, Nucleated RBC % 0, Differential Comment SCANNED, Toxic Granulation 2+ 03/25/22 06:00: APTT 58.8 H Micro: Microbiology 03/20/22 06:29 Stool Enteric Bacteriology - Final 03/20/22 06:29 Stool C. difficile DNA Amplification - Final 03/20/22 22:40 Gastric Fluid/Contents Gastric Occult Blood - Final Occult Blood Positive Physical Exam Narrative alert, oriented x3 and no apparent distress General Appearance: cooperative, well kempt and well developed Orientation / Consciousness: awake, oriented to person, oriented to place and oriented to time HEENT normocephalic, head/scalp atraumatic and moist oral mucous membranes Eyes PERRL, EOMs intact bilaterally and conjunctivae normal Neck supple, no JVD, thyroid normal and no carotid bruits General: trachea midline Resp normal respiratory effort, no retractions, no use of accessory muscles and clear to auscultation bilaterally Auscultation: Negative for rales, rhonchi or wheezes Cardio regular rate, regular rhythm, S1 normal heart sound, S2 normal heart sound, no murmurs, no rub and no gallops GI GI Narrative: There are no bowel sounds noted on examination today, abdomen is mildly distended, it is soft to palpation. NG tube is in place Extremity no clubbing, cyanosis or edema Skin no rashes or lesions noted General Skin Exam: no breakdown Neuro oriented x3, CN's II-XII intact bilaterally, moves all extremities, no focal motor deficits and no sensory deficits noted Sensorium / Orientation: awake and alert Speech: speech normal Psych affect normal Const alert, oriented x3, no apparent distress and healthy appearing General Appearance: cooperative, well kempt and well developed Orientation / Consciousness: awake, oriented to person, oriented to place and oriented to time HEENT normocephalic, head/scalp atraumatic and moist oral mucous membranes Eyes PERRL, EOMs intact bilaterally and conjunctivae normal Neck supple, no JVD, thyroid normal and no carotid bruits General: trachea midline Resp normal respiratory effort, no retractions, no use of accessory muscles and clear to auscultation bilaterally Auscultation: Negative for rales, rhonchi or wheezes Cardio regular rate, regular rhythm, S1 normal heart sound, S2 normal heart sound, no murmurs, no rub and no gallops GI normal to inspection, nondistended, normoactive bowel sounds, soft to palpation, non-tender and non-distended GI Narrative: There are no bowel sounds noted on examination today, abdomen is mildly distended, it is soft to palpation. Extremity no clubbing, cyanosis or edema Skin no rashes or lesions noted General Skin Exam: no breakdown Neuro oriented x3, CN's II-XII intact bilaterally, moves all extremities, no focal motor deficits and no sensory deficits noted Sensorium / Orientation: awake and alert Speech: speech normal Psych affect normal Assessment & Plan Assessment/Plan (1) Peritoneal carcinomatosis: (2) SBO (small bowel obstruction): (3) Partial obstruction of small intestine: PLAN: Plan 1. Partial small bowel obstruction secondary to peritoneal carcinomatosis-continue NG tube and conservative measures by general surgery, there will be no surgical resolution for the patient's bowel obstruction due to the extent of her omental spread of her small cell cancer. Oncology advised to allow another 3 days to see if the bowel obstruction resolves on its own due to the recent chemotherapy she received from oncology. I relayed this to the patient and her , I told them that if it did not resolve by Monday, patient would be discharged with home hospice. I talked with gastroenterology today about a decompressive PEG tube, Dr. Carson is willing to come in and talk with the patient and her family about this option tomorrow, patient's family and the patient are meeting with hospice tomorrow at 1 PM. Patient's understands that by placing the decompressive PEG tube, it could be a portal for infection which would cause the patient's demise quicker-he understands this, he states he will talk to his about the procedure. I did not talk with the patient personally about this option today, I mentioned it to her yesterday. 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 There will be no more chemotherapy offered to the patient if she continues to have a bowel obstruction. #5 severe protein and caloric malnutrition-as evidenced by p.o. intake less than 75% of estimated nutritional needs and weight loss of 8.8% in past 4 to 5 days-when medically stable, recommend Ensure clear with med Pass 4 times a day while on clear liquids then changed to Ensure Enlive when p.o. diet beyond clear liquids. This is likely to worsen given the patient's n.p.o. status, if the patient ends up going hospice on Monday, this will not be an issue. Patient's outlook is extremely poor, I talked at length with the patient's grand daughter who works in the hospital here and also the patient's about the patient's medical care and prognosis today. Again, patient and her family are going to meet with hospice tomorrow. Dr. Carson will talk with the patient and her family tomorrow about a decompressive PEG tube placement if she does not have resolution of the small bowel obstruction. Charges/Coding Visit Charges Inpatient E&M: 51640 Subs Hosp L3
[2022-03-25 19:30] VITALS: BP 149/76; PULSE 86; RESP 16; TEMP 36.6; O2SAT 96
[2022-03-25] MEDS: Menthol/Lanolin/Calamine/Znox 113 GM Tube 1 APPLIC TOPICAL (21:37)
[2022-03-26 01:30] VITALS: BP 150/72; PULSE 84; RESP 16; TEMP 36.6; O2SAT 94
[2022-03-26 07:30] VITALS: BP 152/74; PULSE 78; RESP 18; TEMP 36; O2SAT 98
[2022-03-26 08:29] LABS: Partial Thromboplast Time 62.9 Seconds (24.1-36.2)
[2022-03-26] MEDS: Menthol/Lanolin/Calamine/Znox 113 GM Tube 1 APPLIC TOPICAL ×2 (09:32→21:44)
--- NOTE | 2022-03-26 10:51 | CON.PCM_ITS ---
Assessment & Plan Assessment/Plan (1) SBO (small bowel obstruction): PLAN: I think that she would benefit from a decompressive PEG tube. From review of the imaging most of the fluid in her abdomen is around her liver. She does look like she has a couple areas that are obstructed in her small bowel proximally and distally. I told her daughter over the phone that it is unlikely that those areas will open up bottom, but it is also is a possibility. Her and her family were explained alternatives, risk, benefits including not any b leeding,, sepsis, perforation, need for emergent turn to . She will have an ASA of 3. HPI Consult Data Date of Consult: 03/26/22 HPI Narrative Reason for Consultation: bowel obstruction HPI Narrative: ANDREW LOUIS, is a 72 F who presented with worsening abdominal pain. 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 Reportedly her vomitus is projectile and coffee-ground. Associated with her symptoms is abdominal pain that has no change.? Also patient reports diarrhea with multiple loose stools. Of note patient was admitted to the hospital on 03/07/2022 to 03/09/2022; and also? from 03/11/2022 to 03/13/2022 for small bowel obstruction. I was asked to see her in regarding PEG placement for palliation of a small bowel obstruction. [facility] Medical History AAA (abdominal aortic aneurysm) Abdominal pain Acute bronchitis, unspecified Acute deep vein thrombosis (DVT) of distal end of right lower extremity Adrenal mass Alcohol use Anemia Arthritis Atherosclerosis of [place] arteries of extremities with intermittent claudication, bilateral legs Back pain Cancer Cancer Cardiology follow-up encounter Carotid artery stenosis Chest pain Cognitive dysfunction, acquired Constipation COPD (chronic obstructive pulmonary disease) Deep vein thrombosis (DVT) of proximal vein of right lower extremity DVT (deep venous thrombosis) Encounter for chemotherapy management Encounter for immunotherapy Encounter for screening for COVID-19 Encounter for tobacco use cessation counseling Endometrial thickening on ultrasound Essential hypertension Fatty liver disease, nonalcoholic Forgetfulness Former smoker Gastric reflux GERD (gastroesophageal reflux disease) Headache History of back problems History of edema History of pain when walking History of stress test Hx of echocardiogram Hyperlipidemia Hypertension Imbalance Lung cancer, primary, with metastasis from lung to other site Neck pain Neuropathy Omental metastasis Oral candidiasis Osteoarthritis 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 Peripheral arterial disease Peripheral vascular angioplasty status Peripheral vascular disease Peritoneal carcinomatosis Peritoneal carcinomatosis Shortness of breath on exertion Shoulder pain Tobacco use disorder, continuous Umbilical hernia Uterine fibroid Ventral incisional hernia without obstruction or gangrene 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 Wears dentures Wears glasses Weight loss Home Medications omeprazole 40 mg capsule,delayed release 40 mg PO DAILY REFLUX 07/10/15 [History Last Taken 03/18/22] cilostazol 100 mg tablet 100 mg PO BID pad 10/25/18 [History Last Taken 03/18/22] atorvastatin 40 mg tablet 40 mg PO QHS cholesterol 04/23/19 [History Last Taken 03/18/22] apixaban 5 mg tablet (Eliquis) 5 mg PO BID blood thinner 12/11/20 [History Last Taken 03/18/22] hydrocodone-acetaminophen 5-325mg 5mg-325mg 1 tab PO TID SEVERE PAIN 12/11/20 [History Last Taken 03/11/22] lidocaine-prilocaine 2.5 %-2.5 % topical cream 1 applic topical ONCE PRN port access 30 days #30 grams 12/31/20 [Rx Last Taken Unknown] fentanyl 50 mcg/hr transdermal patch 100 mcg transdermal Q72H pain 04/20/21 [History Last Taken 03/18/22 08:00] ondansetron 8 mg disintegrating tablet 8 mg PO TID PRN Nausea 03/13/22 [History Last Taken Unknown] prochlorperazine maleate 10 mg tablet 10 mg PO Q6H PRN PRN Nausea #30 tabs 03/18/22 [Rx Last Taken Unknown] Allergy/AdvReac Type Severity Reaction Status Date / Time naproxen [From Naprosyn] Allergy Severe Shortness Verified 03/17/22 09:00 of breath Family History Brother Cancer throat and lung Mother CAD (coronary artery disease) Hypertension Father CAD (coronary artery disease) Surgical History H/O shoulder replacement History of AAA (abdominal aortic aneurysm) repair (09/26/17) History of amputation of left great toe History of bunionectomy of left great toe History of cardiac catheterization History of carpal tunnel release of both wrists History of left knee replacement (~06/08/11) History of right hip replacement History of rotator cuff surgery History of spinal surgery (~1999) Hx of spinal fusion Social History number of children: 5 Smoking Status: Former smoker quit date: 12/21/20 Tobacco: How many years used: 50 second hand exposure: No alcohol intake: current alcohol intake frequency: a few times a month Alcohol type: beer details: weekends substance use type: does not use caffeine: Yes Type: coffee Number of servings: 3 and other what type of physical activity do you participate in: none seatbelt use: always do you feel safe at home: Yes additional social history: Matt- Both are retired ROS ROS Narrative ECOG 2 Constitutional Constitutional: Denies difficulty sleeping, fever(s), frequent falls or headache (s) Cardiovascular Cardiovascular: Reports fatigue; Denies chest pain, dizziness, edema or palpitations Respiratory/Chest Respiratory/Chest: Reports dyspnea on exertion; Denies cough or hemoptysis Gastrointestinal Gastrointestinal: Reports abdominal pain, coffee ground emesis and diarrhea Genitourinary Genitourinary: Denies burning urination, urinary frequency, urinary incontinence or urinary urgency Integumentary Integumentary: Denies lesions or rash Neurologic Neurologic: Denies dizziness, focal weakness, headache(s), numbness or paresthesias Psychiatric Psychiatric: Denies anxiety or depression Hematologic/Lymphatic Hematologic/Lymphatic: Reports easy bruising; Denies easy bleeding Physical Exam Narrative alert, oriented x3 and no apparent distress General Appearance: cooperative, well kempt and well developed Orientation / Consciousness: awake, oriented to person, oriented to place and oriented to time HEENT normocephalic, head/scalp atraumatic and moist oral mucous membranes Eyes PERRL, EOMs intact bilaterally and conjunctivae normal Neck supple, no JVD, thyroid normal and no carotid bruits General: trachea midline Resp normal respiratory effort, no retractions, no use of accessory muscles and clear to auscultation bilaterally Auscultation: Negative for rales, rhonchi or wheezes Cardio regular rate, regular rhythm, S1 normal heart sound, S2 normal heart sound, no murmurs, no rub and no gallops GI GI Narrative: There are no bowel sounds noted on examination today, abdomen is mildly distended, it is soft to palpation. NG tube is in place Extremity no clubbing, cyanosis or edema Skin no rashes or lesions noted General Skin Exam: no breakdown Neuro oriented x3, CN's II-XII intact bilaterally, moves all extremities, no focal motor deficits and no sensory deficits noted Sensorium / Orientation: awake and alert Speech: speech normal Psych affect normal Const alert, oriented x3, no apparent distress and healthy appearing General Appearance: cooperative, well kempt and well developed Orientation / Consciousness: awake, oriented to person, oriented to place and oriented to time HEENT normocephalic, head/scalp atraumatic and moist oral mucous membranes Eyes PERRL, EOMs intact bilaterally and conjunctivae normal Neck supple, no JVD, thyroid normal and no carotid bruits General: trachea midline Resp normal respiratory effort, no retractions, no use of accessory muscles and clear to auscultation bilaterally Auscultation: Negative for rales, rhonchi or wheezes Cardio regular rate, regular rhythm, S1 normal heart sound, S2 normal heart sound, no murmurs, no rub and no gallops GI normal to inspection, nondistended, normoactive bowel sounds, soft to palpation, non-tender and non-distended GI Narrative: There are no bowel sounds noted on examination today, abdomen is mildly distended, it is soft to palpation. Extremity no clubbing, cyanosis or edema Skin no rashes or lesions noted General Skin Exam: no breakdown Neuro oriented x3, CN's II-XII intact bilaterally, moves all extremities, no focal motor deficits and no sensory deficits noted Sensorium / Orientation: awake and alert Speech: speech normal Psych affect normal Medical Records Data Medical Nutrition Assessment Dietitian: Malnutrition Criteria Met Start: 03/21/22 10:49 Freq: Status: Active Protocol: Document 03/21/22 10:49 MANNY (Rec: 03/21/22 10:50 MANNY [id number]) Nutrition Malnutrition Evidence of Malnutrition Exists Yes Malnutrition (severe): Acute Illness/Injury Evidenced By Suboptimal Energy Intake ( Severe),Weight Loss (Severe) Clinical Problem Acute Disease or Injury Related Malnutrition Etiology (severe) related d/t GI dysfunction (SBO) and cancer treatment where pt having difficulty consuming adequate nutrition Signs/Symptoms as evidenced by po intake <75% of est nutritional needs and 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 Lab / Micro Data Result Diagrams: 03/25/22 06:00 03/24/22 04:54 Labs: Laboratory Results - last 24 hr 03/26/22 06:45: APTT 62.9 H Charges/Coding Visit Charges Inpatient E&M: 36297 Subs Hosp L2
--- NOTE | 2022-03-26 11:03 | PN.HOSP_ITS ---
Subjective Subjective Patient seen and examined. She still complains of abdominal pain and bloating. She says she is barely passing any gas. She denies any fever, chills, cough, chest pain, nausea or vomiting. Review of systems is otherwise negative. She still has NG tube in place. REview of systems otherwise negative. Objective Data Objective Data Vital Signs: Vital Signs Temp Pulse Resp BP Pulse Ox O2 Del Method 96.8 F L 78 18 152/74 H 98 Room Air 03/26/22 07:30 03/26/22 07:30 03/26/22 07:30 03/26/22 07:30 03/26/22 07:30 03/26/22 07:30 Oxygen Delivery Method Room Air Weight: 155 lb 3.287 oz Body Mass Index (BMI) 26.6 Intake & Output: Intake and Output for Last 24 Hours 03/24/22 03/25/22 03/26/22 23:59 23:59 23:59 Intake Total 2865.0 / 2865.0 2642.5 / 2642.5 170 / 170 Output Total 2275 / 2275 1400 / 1400 275 / 275 Balance 590.0 / 590.0 1242.5 / 1242.5 -105 / -105 Medical Nutrition Assessment Dietitian: Malnutrition Criteria Met Start: 03/21/22 10:49 Freq: Status: Active Protocol: Document 03/21/22 10:49 MANNY (Rec: 03/21/22 10:50 MANNY [id number]) Nutrition Malnutrition Evidence of Malnutrition Exists Yes Malnutrition (severe): Acute Illness/Injury Evidenced By Suboptimal Energy Intake ( Severe),Weight Loss (Severe) Clinical Problem Acute Disease or Injury Related Malnutrition Etiology (severe) related d/t GI dysfunction (SBO) and cancer treatment where pt having difficulty consuming adequate nutrition Signs/Symptoms as evidenced by po intake <75% of est nutritional needs and 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 Lab / Micro Data Result Diagrams: 03/25/22 06:00 03/24/22 04:54 Labs: Laboratory Results - last 24 hr 03/26/22 06:45: APTT 62.9 H Micro: Microbiology 03/20/22 06:29 Stool Enteric Bacteriology - Final 03/20/22 06:29 Stool C. difficile DNA Amplification - Final 03/20/22 22:40 Gastric Fluid/Contents Gastric Occult Blood - Final Occult Blood Positive Physical Exam Const alert, oriented x3 and no apparent distress HEENT head/scalp atraumatic, moist oral mucous membranes and oropharynx normal Head and Scalp: normocephalic Mouth: oral and palatal mucosa normal Eyes PERRL, EOMs intact bilaterally and conjunctivae normal Neck no lymphadenopathy and supple Resp normal respiratory effort, no retractions, no use of accessory muscles and clear to auscultation bilaterally Cardio regular rate, regular rhythm, S1 normal heart sound, S2 normal heart sound and no murmurs GI GI Narrative: abdomen mildly distended, NG tube in place, hyperactive bowel sounds Extremity normal to inspection, full ROM and no clubbing, cyanosis or edema Neuro oriented x3, CN's II-XII intact bilaterally, moves all extremities and no focal motor deficits Sensorium / Orientation: awake and alert Coordination / Balance: [id number] test normal Motor Exam: strength 5/5 throughout Psych affect normal Assessment & Plan Assessment/Plan (1) SBO (small bowel obstruction): (2) Peritoneal carcinomatosis: PLAN: Plan #Partial Small bowel obstruction in setting of peritoneal carcinomatosis * still has NG tube in place * gastroenterology consulted for decompressive PEG tube insertion * patient also meeting with hospice today o/a of peritoneal carcinomatosis * #UGI bleed: etiology is unclear. 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 She has been in the hospital about 3 times over the last couple of weeks. * Hospice recommended by general surgery but oncology recommended a new chemotherapy. * Hospice consulted and meeting with family today. * #Severe protein calorie malnutrition * Nutrition on board. Ensure supplements when on clear liquids. She is currently n.p.o. with NG tube in place. * #History of abdominal aortic aneurysm: S/p aorto biliary stent placement. Stable. DVT prophylaxis: on heparin drip Charges/Coding Visit Charges Inpatient E&M: 06113 Subs Hosp L2
[2022-03-26] MEDS: KCL 20MEQ in 0.9% NS 20 MEQ/1,000 ML IV.SOLN. 75 MEQ IV (12:28)
--- NOTE | 2022-03-26 14:22 | NURSING ---
Hospice Liason nurse just done speaking with pt/family. Liason states that pt has signed with Hospice but services will start at time of discharge
[2022-03-26 14:38] VITALS: BP 111/69; PULSE 83; RESP 18; TEMP 36.4; O2SAT 100
[2022-03-26] MEDS: HEPARIN/D5w 25,000 UNITS 25,000 UNITS/250 ML IV.SOLN. 13 UNITS CONT INF (16:42)
[2022-03-26] MEDS: HYDROmorphone 1 MG/ML Syringe IV (17:37)
[2022-03-26] MEDS: 0.9% Saline Lock 10 ML Syringe IV (17:37)
[2022-03-26 21:49] VITALS: BP 133/64; PULSE 84; RESP 18; TEMP 37.2; O2SAT 98
[2022-03-27] VITALS (9 sets, daily range): BP systolic 135–160; BP diastolic 65–93; PULSE 78–103; RESP 16–18; TEMP 36.3–37.2; O2SAT 93–100; BMI 26.6
[2022-03-27] MEDS: KCL 20MEQ in 0.9% NS 20 MEQ/1,000 ML IV.SOLN. 75 MEQ IV ×2 (01:54→16:37)
[2022-03-27 06:09] LABS: Absolute Lymphocyte Count 0.84 X10^3/uL (0.83-4.51); Absolute Neutrophil Count 5.1 X10^3/uL (2.0-7.7); Basophil# 0.01 X10^3/uL; Basophil% 0.1 % (0-1); Eosinophil# 0.06 X10^3/uL; Eosinophils% 0.9 % (0-5); Hematocrit 36.7 % (37-47); Hemoglobin 11.2 g/dL (12.0-15.0); Lymphocyte # 0.84 X10^3/ul (0.83-4.51); Lymphocyte % 12.2 % (19-41); Mean Corp Hgb Conc 30.5 g/dL (32-36); Mean Corpuscular Hgb 30.7 pg (27.0-32.0); Mean Corpuscular Volume 100.5 fL (81-99); Mean Platelet Vol. 11.8 fl (6.2-12.0); Monocyte# 0.54 X10^3/uL; Monocyte% 7.9 % (0-10); NRBC Flagged by Analyzer 0 % (0-5); Neutrophil # 5.11 X10^3/uL (2.7-7.7); Neutrophil % 74.5 % (47-70); POSITIVE MORPHOLOGY YES; Platelet Count 103 K/mm3 (150-450); RBC Distribution Width SD 55.9 fl (35.1-43.9); Red Blood Count 3.65 M/mm3 (4.2-5.4); White Blood Count 6.9 K/mm3 (4.4-11.0)
[2022-03-27 06:20] LABS: Partial Thromboplast Time 68.3 Seconds (24.1-36.2)
[2022-03-27 06:28] LABS: Differential Indicated SCAN CRITERIA MET
[2022-03-27 07:14] LABS: Differential Comment SCANNED
--- NOTE | 2022-03-27 08:10 | NURSING ---
primary RN updated on conversation with Dr. Carson regarding possible Peg placement and order to stop heparin.
[2022-03-27] MEDS: Menthol/Lanolin/Calamine/Znox 113 GM Tube 1 APPLIC TOPICAL ×2 (09:54→22:08)
--- NOTE | 2022-03-27 10:05 | PN.HOSP_ITS ---
Subjective Subjective Patient seen and examined. She still complains of abdominal pain. NG tube is still in place. She signed on with hospice yesterday. GI is seeing if she can have decompressive PEG tube inserted. Objective Data Objective Data Vital Signs: Vital Signs Temp Pulse Resp BP Pulse Ox O2 Del Method 97.9 F 86 18 151/74 H 100 Room Air 03/27/22 08:13 03/27/22 08:13 03/27/22 08:13 03/27/22 08:13 03/27/22 08:13 03/27/22 08:13 Oxygen Delivery Method Room Air Weight: 155 lb 3.287 oz Body Mass Index (BMI) 26.6 Intake & Output: Intake and Output for Last 24 Hours 03/25/22 03/26/22 03/27/22 23:59 23:59 23:59 Intake Total 2642.5 / 2642.5 2345 / 2345 1237.8 / 1237.8 Output Total 1400 / 1400 1100 / 1100 400 / 400 Balance 1242.5 / 1242.5 1245 / 1245 837.8 / 837.8 Medical Nutrition Assessment Dietitian: Malnutrition Criteria Met Start: 03/21/22 10:49 Freq: Status: Active Protocol: Document 03/21/22 10:49 MANNY (Rec: 03/21/22 10:50 SLA [id number]) Nutrition Malnutrition Evidence of Malnutrition Exists Yes Malnutrition (severe): Acute Illness/Injury Evidenced By Suboptimal Energy Intake ( Severe),Weight Loss (Severe) Clinical Problem Acute Disease or Injury Related Malnutrition Etiology (severe) related d/t GI dysfunction (SBO) and cancer treatment where pt having difficulty consuming adequate nutrition Signs/Symptoms as evidenced by po intake <75% of est nutritional needs and 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 Lab / Micro Data Result Diagrams: 03/27/22 05:10 03/24/22 04:54 Labs: Laboratory Results - last 24 hr 03/27/22 05:10: WBC 6.9, RBC 3.65 L, Hgb 11.2 L, Hct 36.7 L, MCV 100.5 H, MCH 30.7, MCHC 30.5 L, RDW Std Deviation 55.9 H, RDW Coeff of Sean 15.0 H, Plt Count 103 L, MPV 11.8, Immature Gran % (Auto) 4.400 H, Neut % (Auto) 74.5 H, Lymph % (Auto) 12.2 L, Wetzel % (Auto) 7.9, Eos % (Auto) 0.9, Baso % (Auto) 0.1, Absolute Neuts (auto) 5.1, Absolute Lymphs (auto) 0.84, Nucleated RBC % 0, Differential Comment SCANNED 03/27/22 05:10: APTT 68.3 H Micro: Microbiology 03/20/22 06:29 Stool Enteric Bacteriology - Final 03/20/22 06:29 Stool C. difficile DNA Amplification - Final 03/20/22 22:40 Gastric Fluid/Contents Gastric Occult Blood - Final Occult Blood Positive Physical Exam Const alert, oriented x3, no apparent distress and healthy appearing General Appearance: cooperative, well kempt and well developed Orientation / Consciousness: awake, oriented to person, oriented to place and oriented to time HEENT normocephalic, head/scalp atraumatic, moist oral mucous membranes and oropharynx normal Head and Scalp: normocephalic Mouth: oral and palatal mucosa normal Eyes PERRL, EOMs intact bilaterally and conjunctivae normal Neck no lymphadenopathy, supple, no JVD, thyroid normal and no carotid bruits General: trachea midline Resp normal respiratory effort, no retractions, no use of accessory muscles and clear to auscultation bilaterally Auscultation: Negative for rales, rhonchi or wheezes Cardio regular rate, regular rhythm, S1 normal heart sound, S2 normal heart sound, no murmurs, no rub and no gallops GI normal to inspection, nondistended, normoactive bowel sounds, soft to palpation and non-tender GI Narrative: abdomen mildly distended, NG tube in place, hyperactive bowel sounds, mild generalised tenderness, no guarding Extremity normal to inspection, full ROM and no clubbing, cyanosis or edema Skin no rashes or lesions noted General Skin Exam: no breakdown Neuro oriented x3, CN's II-XII intact bilaterally, moves all extremities, no focal motor deficits and no sensory deficits noted Sensorium / Orientation: awake and alert Coordination / Balance: [id number] test normal Speech: speech normal Motor Exam: strength 5/5 throughout Psych affect normal Assessment & Plan Assessment/Plan (1) SBO (small bowel obstruction): (2) Peritoneal carcinomatosis: PLAN: Plan #Partial Small bowel obstruction in setting of peritoneal carcinomatosis * still has NG tube in place * gastroenterology consulted for decompressive PEG tube insertion; to likely have decompressive PEG tube inserted today * patient also meeting with hospice today o/a of peritoneal carcinomatosis * #UGI bleed: etiology is unclear. 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 She has been in the hospital about 3 times over the last couple of weeks. * Hospice recommended by general surgery but oncology recommended a new chemotherapy. * Hospice consulted and meeting with family today. * #Severe protein calorie malnutrition * Nutrition on board. Ensure supplements when on clear liquids. She is currently n.p.o. with NG tube in place. * #History of abdominal aortic aneurysm: S/p aorto biliary stent placement. Stable. DVT prophylaxis: on heparin drip Disposition: for dc home with hospice once decompressive PEG tube is inserted Charges/Coding Visit Charges Inpatient E&M: 34900 Subs Hosp L2
[2022-03-27] MEDS: Lactated Ringers 1,000 ML 15 ML IV (13:55)
[2022-03-27] MEDS: Metoclopramide 10 MG/2 ML Vial IV ×2 (15:43→22:48)
[2022-03-27] MEDS: 0.9% Saline Lock 10 ML Syringe IV ×3 (20:40→22:48)
[2022-03-27] MEDS: HYDROmorphone 1 MG/ML Syringe IV (20:40)
[2022-03-27] MEDS: HEPARIN/D5w 25,000 UNITS 25,000 UNITS/250 ML IV.SOLN. 13 UNITS CONT INF (22:01)
[2022-03-28 03:30] VITALS: BP 152/81; PULSE 100; RESP 16; TEMP 37.2; O2SAT 98
[2022-03-28] MEDS: KCL 20MEQ in 0.9% NS 20 MEQ/1,000 ML IV.SOLN. 75 MEQ IV (05:51)
[2022-03-28] MEDS: 0.9% Saline Lock 10 ML Syringe IV ×2 (05:53→14:14)
[2022-03-28] MEDS: Metoclopramide 10 MG/2 ML Vial IV ×2 (05:53→14:14)
--- NOTE | 2022-03-28 07:28 | PN.HOSP_ITS ---
Subjective Subjective Abdomen feels well. Objective Data Objective Data Vital Signs: Vital Signs Temp Pulse Resp BP Pulse Ox O2 Del Method 37.2 C 100 16 152/81 H 98 Room Air 03/28/22 03:30 03/28/22 03:30 03/28/22 03:30 03/28/22 03:30 03/28/22 03:30 03/28/22 03:30 Oxygen Delivery Method Room Air Weight: 70.4 kg Body Mass Index (BMI) 26.6 Intake & Output: Intake and Output for Last 24 Hours 03/26/22 03/27/22 03/28/22 23:59 23:59 23:59 Intake Total 2345 / 2345 2520.80 / 2520.80 646.25 / 646.25 Output Total 1100 / 1100 1150 / 1150 250 / 250 Balance 1245 / 1245 1370.80 / 1370.80 396.25 / 396.25 Medical Nutrition Assessment Dietitian: Malnutrition Criteria Met Start: 03/21/22 10:49 Freq: Status: Active Protocol: Document 03/21/22 10:49 SLA (Rec: 03/21/22 10:50 SLA [id number]) Nutrition Malnutrition Evidence of Malnutrition Exists Yes Malnutrition (severe): Acute Illness/Injury Evidenced By Suboptimal Energy Intake ( Severe),Weight Loss (Severe) Clinical Problem Acute Disease or Injury Related Malnutrition Etiology (severe) related d/t GI dysfunction (SBO) and cancer treatment where pt having difficulty consuming adequate nutrition Signs/Symptoms as evidenced by po intake <75% of est nutritional needs and 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 Lab / Micro Data Result Diagrams: 03/27/22 05:10 03/24/22 04:54 Labs: Laboratory Results - last 24 hr 03/28/22 04:02: APTT 69.0 H Micro: Microbiology 03/20/22 06:29 Stool Enteric Bacteriology - Final 03/20/22 06:29 Stool C. difficile DNA Amplification - Final 03/20/22 22:40 Gastric Fluid/Contents Gastric Occult Blood - Final Occult Blood Positive Physical Exam Const alert and no apparent distress Constitutional Narrative: up in chair. HEENT head/scalp atraumatic and moist oral mucous membranes Resp normal respiratory effort, no retractions, no use of accessory muscles and clear to auscultation bilaterally Cardio regular rate, regular rhythm, S1 normal heart sound and S2 normal heart sound GI GI Narrative: slightly distended. NT. Psych affect normal Assessment & Plan Assessment/Plan (1) SBO (small bowel obstruction): PLAN: Partial Small bowel obstruction in setting of peritoneal carcinomatosis * decompressive PEG placed 03/27. Attached to mosquera to gravity for decompression. * patient also meeting with hospice today o/a of peritoneal carcinomatosis (2) Peritoneal carcinomatosis: PLAN: #Non-small cell lung cancer with peritoneal carcinomatosis * Complicated by recurrent partial small bowel obstruction. She has been in the hospital about 3 times over the last couple of weeks. * Hospice recommended by general surgery but oncology recommended a new chemotherapy. * Hospice consulted and met with patient and family on the . Plan is for the patient to go home with hospice today. (3) GI bleed: QUALIFIERS: GI bleed type/associated pathology: unspecified gastrointestinal hemorrhage type Qualified Code(s): K92.2 - Gastrointestinal hemorrhage, unspecified PLAN: Secondary to esophagitis, gastritis or erythematous duodenopathy. PLAN: Plan #Severe protein calorie malnutrition * Given that she is hospice, will not aggressively treat. #History of abdominal aortic aneurysm: S/p aorto biliary stent placement. Stable. Disposition: for dc home with hospice Charges/Coding Visit Charges Inpatient E&M: 65729 Subs Hosp L2
[2022-03-28] MEDS: Ensure Clear 120 ML Liquid PO ×2 (08:24→14:15)
[2022-03-28 08:32] VITALS: BP 138/65; PULSE 92; RESP 18; TEMP 36.6; O2SAT 95
[2022-03-28 10:28] LABS: Partial Thromboplast Time 77.1 Seconds (24.1-36.2)
--- NOTE | 2022-03-28 11:44 | PCM.DC ---
Discharge Instructions Diet Discharge Diet: - (clear liquid diet. ) Dressing / Incision Call your doctor if you observe: - (worsening abdominal pain. ) Follow Up Care Test Results: Test results from this visit will be discussed in further detail at your follow-up appointment, if applicable. Discharge Plan Admission Admit Date/Time: 03/20/22 21:40 Primary Reason for Your Visit: small bowel obstruction. Attending Provider: Daniel Dotson Primary Care Provider: Herbert Simpson Consulting Providers: Aubrey Lam ; Brett Thomas ; Silvio Farfan ; Brett Thomason ; Wilbert Fenton ; Eugenio Goodman ; Chadd Morales ; Noé Garces ; Mateusz Tuttle ; Georgina Eckert NP ; Silvio Martel ; Aparna Aguero ; Silvio Gore ; Talya Mccloud ; Yisel Camargo ; Iveth Simpson CLINICAL ACCOUNT LIAISON ; Herbert Lr ; Ste[address]ani [address] Instructions Additional Instructions / Restrictions: Connect Trent catheter to PEG tube to gravity drainage. Discharge Orders/Prescriptions Prescriptions: New morphine 10 mg/5 mL solution 10 mg PO Q4H PRN (Reason: pain) 5 Days Qty: 100 0RF lorazepam [Lorazepam Intensol] 2 mg/mL concentrate 1 mg PO Q6H PRN (Reason: anxiety) Qty: 30 0RF Continued lidocaine-prilocaine 2.5-2.5 % cream 1 applic topical ONCE PRN (Reason: port access) 30 Days Qty: 30 2RF fentanyl 50 mcg/hr patch 72 hour 100 mcg transdermal Q72H prochlorperazine maleate 10 mg tablet 10 mg PO Q6H PRN PRN (Reason: Nausea) Qty: 30 2RF ondansetron 8 mg tablet,disintegrating 8 mg PO TID PRN (Reason: Nausea) Qty: 30 0RF Discontinued atorvastatin 40 mg tablet 40 mg PO QHS omeprazole 40 MG capsule 40 mg PO DAILY Label Comments: stomach cilostazol 100 MG tablet 100 mg PO BID hydrocodone-acetaminophen 5-325 mg tablet 1 tab PO TID Label Comments: take 1/2 to 1 tablet by mouth ONE TO TWO TIMES DAILY if needed pain Eliquis 5 mg tablet 5 mg PO BID Label Comments: take 1 tablet by mouth twice a day Referrals / Follow Up: Herbert Simpson DO [Primary Care Provider] - Disposition Disposition (needs filled in before D/C Order can be placed): Hospice in Home
--- NOTE | 2022-03-28 11:56 | DS.PCM_ITS ---
Providers Date of Admission: 03/20/22 Primary Care Physician: Dr. Herbert Simpson, Consultations 03/20/22 23:11 Consult: General Surgery Routine Consulting Provider: Aubrey Lam Reason for Consult: Small bowel obstruction EMERGENT Consult: No Notified: Yes Date Notified: 03/21/22 Time Notified: 06:18 Method of Notification: Text 03/22/22 15:56 Consult: Oncology/Hematology Routine Consulting Provider: *[facility]) Reason for Consult: pt known to you/mets EMERGENT Consult: No Notified: Yes Date Notified: 03/22/22 Time Notified: 15:57 Method of Notification: Verbal Method of Consult:: In-Person Comments:: mets to abd, SBO at this time 03/24/22 17:08 Consult: Hospice / Palliative Care Routine Consulting Provider: [facility] Reason for Consult: possible home hospice EMERGENT Consult: No Notified: Yes Date Notified: 03/24/22 Time Notified: 17:08 Method of Notification: Verbal 03/25/22 17:57 Consult: Gastroenterology Routine Consulting Provider: [facility] Reason for Consult: Need for decompressive peg tube EMERGENT Consult: No Notified: Yes Date Notified: 03/25/22 Time Notified: 17:57 Method of Notification: Verbal Reason For Visit: SBO Diagnosis Discharge Diagnosis (1) SBO (small bowel obstruction): Status: Acute Code(s): K56.609 - Unspecified intestinal obstruction, unspecified as to partial versus complete obstruction Plan: Partial Small bowel obstruction in setting of peritoneal carcinomatosis * decompressive PEG placed 03/27. Attached to mosquera to gravity for decompression. * patient also meeting with hospice today o/a of peritoneal carcinomatosis (2) Peritoneal carcinomatosis: Status: Chronic Code(s): C78.6 - Secondary malignant neoplasm of retroperitoneum and peritoneum Plan: #Non-small cell lung cancer with peritoneal carcinomatosis * Complicated by recurrent partial small bowel obstruction. She has been in the hospital about 3 times over the last couple of weeks. * Hospice recommended by general surgery but oncology recommended a new chemotherapy. * Hospice consulted and met with patient and family on the . Plan is for the patient to go home with hospice today. (3) GI bleed: Status: Acute Code(s): K92.2 - Gastrointestinal hemorrhage, unspecified Qualifiers: GI bleed type/associated pathology: unspecified gastrointestinal hemorrhage type Qualified Code(s): K92.2 - Gastrointestinal hemorrhage, unspecified Plan: Secondary to esophagitis, gastritis or erythematous duodenopathy. Plan #Severe protein calorie malnutrition * Given that she is hospice, will not aggressively treat. #History of abdominal aortic aneurysm: S/p aorto biliary stent placement. Stable. Disposition: for dc home with hospice Medications at Discharge Home Medications lidocaine-prilocaine 2.5 %-2.5 % topical cream 1 applic topical ONCE PRN port access 30 days #30 grams 12/31/20 fentanyl 50 mcg/hr transdermal patch 100 mcg transdermal Q72H pain 04/20/21 lorazepam 2 mg/mL oral concentrate (Lorazepam Intensol) 1 mg (0.5 mL) PO Q6H PRN anxiety #30 mL 03/28/22 morphine 10 mg/5 mL oral solution 10 mg (5 mL) PO Q4H PRN pain 5 days #100 mL 03/28/22 ondansetron 8 mg disintegrating tablet 8 mg PO TID PRN Nausea #30 tabs 03/28/22 prochlorperazine maleate 10 mg tablet 10 mg PO Q6H PRN PRN Nausea #30 tabs 03/28/22 Hospital Course Operations None Procedures EGD and Peg tube placement Summary of Care Provided Minutes Spent on Discharge: 35 Hospital Course: This is a 72-year-old female presents with abdominal pain and nausea and vomiting. Patient was found to have a small bowel obstruction and NG tube was placed. Small bowel obstruction was due to peritoneal carcinomatosis. Patient had a decompressive PEG tube placed on the . That is attached to a Mosquera catheter for gravity decompression. Patient has met with hospice and plan is for her to go home with hospice today. Medical Records Data Medical Nutrition Assessment Dietitian: Malnutrition Criteria Met Start: 03/21/22 10:49 Freq: Status: Active Protocol: Document 03/21/22 10:49 MANNY (Rec: 03/21/22 10:50 MANNY [id number]) Nutrition Malnutrition Evidence of Malnutrition Exists Yes Malnutrition (severe): Acute Illness/Injury Evidenced By Suboptimal Energy Intake ( Severe),Weight Loss (Severe) Clinical Problem Acute Disease or Injury Related Malnutrition Etiology (severe) related d/t GI dysfunction (SBO) and cancer treatment where pt having difficulty consuming adequate nutrition Signs/Symptoms as evidenced by po intake <75% of est nutritional needs and 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 Weight / BMI Weight Weight: 70.4 kg Body Mass Index (BMI) 26.6 ABG / Lab / Microbiology Data Result Diagrams: 03/27/22 05:10 03/24/22 04:54 Laboratory: Laboratory Results - last 24 hr 03/28/22 04:02: APTT 69.0 H 03/28/22 10:00: APTT 77.1 H Microbiology: Microbiology 03/28/22 03:55 Stool C. difficile GDH Antigen & Toxins - Final 03/28/22 03:55 Stool C. difficile DNA Amplification - Final 03/20/22 06:29 Stool Enteric Bacteriology - Final 03/20/22 06:29 Stool C. difficile DNA Amplification - Final 03/20/22 22:40 Gastric Fluid/Contents Gastric Occult Blood - Final Occult Blood Positive D/C Instructions Discharge Diet: - (clear liquid diet. ) Call your doctor if you observe: - (worsening abdominal pain. ) Meaningful Use Info Meaningful Use Diagnoses (Choose all that apply): None applicable Discharge Plan Admission Admit Date/Time: 03/20/22 21:40 Primary Reason for Your Visit: small bowel obstruction. Attending Provider: Daniel Dotson Primary Care Provider: Herbert Simpson Consulting Providers: Aubrey Lam ; Brett Thomas ; Silvio Farfan ; Brett Thomason ; Wilbert Fenton ; Eugenio Goodman ; Chadd Morales ; Noé Garces ; Mateusz Tuttle ; Georgina Eckert NP ; Silvio Martel ; Aparna Aguero ; Silvio Gore ; Talya Mccloud ; Yisel Camargo ; Iveth Simpson NP ; Herbert Lr ; Stefani [address] Instructions Additional Instructions / Restrictions: Connect Mosquera catheter to PEG tube to gravity drainage. Discharge Orders/Prescriptions Prescriptions: New morphine 10 mg/5 mL solution 10 mg PO Q4H PRN (Reason: pain) 5 Days Qty: 100 0RF lorazepam [Lorazepam Intensol] 2 mg/mL concentrate 1 mg PO Q6H PRN (Reason: anxiety) Qty: 30 0RF Continued lidocaine-prilocaine 2.5-2.5 % cream 1 applic topical ONCE PRN (Reason: port access) 30 Days Qty: 30 2RF fentanyl 50 mcg/hr patch 72 hour 100 mcg transdermal Q72H prochlorperazine maleate 10 mg tablet 10 mg PO Q6H PRN PRN (Reason: Nausea) Qty: 30 2RF ondansetron 8 mg tablet,disintegrating 8 mg PO TID PRN (Reason: Nausea) Qty: 30 0RF Discontinued atorvastatin 40 mg tablet 40 mg PO QHS omeprazole 40 MG capsule 40 mg PO DAILY Label Comments: stomach cilostazol 100 MG tablet 100 mg PO BID hydrocodone-acetaminophen 5-325 mg tablet 1 tab PO TID Label Comments: take 1/2 to 1 tablet by mouth ONE TO TWO TIMES DAILY if needed pain Eliquis 5 mg tablet 5 mg PO BID Label Comments: take 1 tablet by mouth twice a day Referrals / Follow Up: Herbert Simpson DO [Primary Care Provider] - Disposition Disposition (needs filled in before D/C Order can be placed): Hospice in Home Charges/Coding Visit Charges Inpatient E&M: 59584 Disch Hosp
--- NOTE | 2022-03-28 11:58 | PN_ITS ---
Subjective Subjective She was started on scheduled Reglan therapy as she has had a bowel movement. She says she has a little bit of abdominal pain around the PEG tube site but it is not unbearable. She denies any fevers or chills. She also denies any nausea or bleeding. Objective Data Objective Data Vital Signs: Vital Signs Temp Pulse Resp BP Pulse Ox O2 Del Method 97.9 F 92 18 138/65 H 95 Room Air 03/28/22 08:32 03/28/22 08:32 03/28/22 08:32 03/28/22 08:32 03/28/22 08:32 03/28/22 08:37 Oxygen Delivery Method Room Air Weight: 155 lb 3.287 oz Body Mass Index (BMI) 26.6 Intake & Output: Intake and Output for Last 24 Hours 03/26/22 03/27/22 03/28/22 23:59 23:59 23:59 Intake Total 2345 / 2345 2520.80 / 2520.80 756.25 / 756.25 Output Total 1100 / 1100 1150 / 1150 250 / 250 Balance 1245 / 1245 1370.80 / 1370.80 506.25 / 506.25 Medical Nutrition Assessment Dietitian: Malnutrition Criteria Met Start: 03/21/22 10:49 Freq: Status: Active Protocol: Document 03/21/22 10:49 MANNY (Rec: 03/21/22 10:50 MANNY [id number]) Nutrition Malnutrition Evidence of Malnutrition Exists Yes Malnutrition (severe): Acute Illness/Injury Evidenced By Suboptimal Energy Intake ( Severe),Weight Loss (Severe) Clinical Problem Acute Disease or Injury Related Malnutrition Etiology (severe) related d/t GI dysfunction (SBO) and cancer treatment where pt having difficulty consuming adequate nutrition Signs/Symptoms as evidenced by po intake <75% of est nutritional needs and 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 Lab / Micro Data Result Diagrams: 03/27/22 05:10 03/24/22 04:54 Labs: Laboratory Results - last 24 hr 03/28/22 04:02: APTT 69.0 H 03/28/22 10:00: APTT 77.1 H Micro: Microbiology 03/28/22 03:55 Stool C. difficile GDH Antigen & Toxins - Final 03/28/22 03:55 Stool C. difficile DNA Amplification - Final 03/20/22 06:29 Stool Enteric Bacteriology - Final 03/20/22 06:29 Stool C. difficile DNA Amplification - Final 03/20/22 22:40 Gastric Fluid/Contents Gastric Occult Blood - Final Occult Blood Positive Assessment & Plan Assessment/Plan (1) SBO (small bowel obstruction): PLAN: Malignant small bowel obstruction likely secondary to peritoneal carcinomatosis from lung cancer. NG tube was removed and she had a decompressive PEG tube placed yesterday. She has been tolerating a liquid diet. Would recommend to continue PPI twice daily, Reglan 10 mg every 8 hours and I would start an anti-inflammatory such as Decadron or prednisolone for the small bowel obstruction. Charges/Coding Visit Charges Inpatient E&M: 49839 Subs Hosp L2
[2022-03-28] MEDS: Menthol/Lanolin/Calamine/Znox 113 GM Tube 1 APPLIC TOPICAL (14:14)
[2022-03-28] MEDS: HYDROmorphone 1 MG/ML Syringe IV (14:15)
[2022-03-28 14:30] VITALS: BP 152/70; PULSE 87; RESP 18; TEMP 36; O2SAT 99
--- NOTE | 2022-03-28 14:38 | CASEMGMT ---
Addendum entered by Astrid Alan 03/28/22 15:56: JOSE faxed orders to Denise at [facility] and called to update of pt discharge time. Denise voiced understanding that pt will be transported from the hospital at 4:30 pm. Denise stated a nurse would be at pt home shortly after 5pm to admit her to Hospice. Addendum entered by Astrid Alan 03/28/22 15:30: JOSE spoke to pt granddaughter, Brisa, who stated pt's can pick pt up at anytime. SW set discharge time for 4:30 to give nurses time to prepare pt for discharge. Brisa was agreeable to this. Brisa stated pt would be at [facility] at 4:30 to pick pt up. SW update pt of discharge time and pt was grateful and excited to be going home. Original Note: Social Work SW received call from pt's granddaughter rBisa. Brisa asked if everyone was on the same page about pt discharge. SW asked Brisa to explain. Brisa shared Hospice is supposed to send a hospital bed to pt's home before discharge. JOSE discussed intent to call hospice to confirm this for pt. JOSE called [facility]. Discussed discharge and informed that pt is medically ready to leave. Hospice rep stated she was not sure if pt is leaving hospital on hospice and foregoing the the final Chemo treatment or if pt still wanted the final chemo treatment, which means she would not be able to leave [facility] with Hospice care. SW unaware of pt and family wishes on this matter. Hospice rep stated pt's granddaughter phone number on file and would call to confirm pt and family wishes. [facility] called SW back to discuss. Brisa from Hospice stated she discussed the situation with pt's granddaughter and that pt will go home with hospice today. Pt will have a hospital bed delivered to her home this evening. [facility] requested discharge orders and med list be faxed to them at the time of pt discharge. Plan: Discharge Home with Hospice RUFUS Mcintosh
== END 2022-03-28 16:43 | disposition hospice, home (50) | DRG 388 ==
LOC: ED 22:07 → MS3 22:19
PROVIDERS: Family Medicine; Internal Medicine; Internal Medicine Gastroenterology; Student in an Organized Health Care Education/Training Program; Admitting Provider Hospitalist; Emergency Provider Emergency Medicine; PCP Family Medicine
PROC: 0DJ08ZZ Inspection of Upper Intestinal Tract, Via Natural or Artificial Opening Endoscopic (ICD-10-PCS; CPT 43235; principal; 2022-03-27 14:00)
DX: K56.600 Partial intestinal obstruction, unspecified as to cause (principal); E43 Unspecified severe protein-calorie malnutrition; N17.9 Acute kidney failure, unspecified; C79.72 Secondary malignant neoplasm of left adrenal gland; C34.12 Malignant neoplasm of upper lobe, left bronchus or lung; C78.6 Secondary malignant neoplasm of retroperitoneum and peritoneum; C78.7 Secondary malignant neoplasm of liver and intrahepatic bile duct; K92.2 Gastrointestinal hemorrhage, unspecified; J44.9 Chronic obstructive pulmonary disease, unspecified; I71.4 Abdominal aortic aneurysm, without rupture; I73.9 Peripheral vascular disease, unspecified; K76.0 Fatty (change of) liver, not elsewhere classified; I25.10 Atherosclerotic heart disease of native coronary artery without angina pectoris; I10 Essential (primary) hypertension; K21.00 Gastro-esophageal reflux disease with esophagitis, without bleeding; G62.9 Polyneuropathy, unspecified; E78.5 Hyperlipidemia, unspecified; E87.6 Hypokalemia; K29.70 Gastritis, unspecified, without bleeding; Z86.718 Personal history of other venous thrombosis and embolism; Z79.899 Other long term (current) drug therapy; Z79.01 Long term (current) use of anticoagulants; Z87.891 Personal history of nicotine dependence; Z68.26 Body mass index [BMI] 26.0-26.9, adult; Z51.5 Encounter for palliative care
CPT/HCPCS: 36415; 36591; 74018; 74019; 74176; 80048; 80053; 80076; 82271; 83605; 83735; 84100; 85025; 85610; 85730; 87493; 87506; 97110; 97161; 97166; 97530; 97535; 97802; 99251; 99285; 99406; J7050; J7120; A4216; G0463; J2405; J2469; J3490; J9223; Q5108

== ENCOUNTER 2022-06-22 05:52 | Emergency (ER) | payer MEDICARE, SELFPAY ==
[2022-06-22 05:53] VITALS: BP 131/68; PULSE 95; RESP 18; TEMP 36.3; O2SAT 100; BMI 26.4
--- NOTE | 2022-06-22 06:40 | EDS_ITS ---
HPI History of Present Illness Chief Complaint: Wound Informant: patient and spouse/S.O. Onset/Context/Timing Onset: Days (3) Context: Gradual Onset Timing: Continuous Quality: Burning Location: Upper abdomen around PEG tube site Worsened by: Nothing Relieved by: Nothing Narrative Narrative: Patient presents with abdominal pain, nausea, and diarrhea that has been getting progressively worse over the past 3 days. states that they called the hospice nurse today who came out and evaluated her PEG tube site. He states that the hospice nurse felt that it was getting infected and that it should be checked. Patient states there is some burning around the tube site. Patient states nothing makes it worse and nothing makes it better. Patient denies any fevers or chills. Patient states she does have some pain radiating up into her chest. Patient denies any shortness of breath. Patient denies any fevers or chills. [facility] Medical History AAA (abdominal aortic aneurysm) Abdominal pain Acute bronchitis, unspecified Acute deep vein thrombosis (DVT) of distal end of right lower extremity Adrenal mass Alcohol use Anemia Arthritis Ascites Atherosclerosis of [place] arteries of extremities with intermittent claudication, bilateral legs Back pain Cancer Cancer Cardiology follow-up encounter Carotid artery stenosis Chest pain Cognitive dysfunction, acquired Constipation COPD (chronic obstructive pulmonary disease) Deep vein thrombosis (DVT) of proximal vein of right lower extremity DVT (deep venous thrombosis) Encounter for chemotherapy management Encounter for immunotherapy Encounter for screening for COVID-19 Encounter for tobacco use cessation counseling Endometrial thickening on ultrasound Essential hypertension Fatty liver disease, nonalcoholic Forgetfulness Former smoker Gastric reflux GERD (gastroesophageal reflux disease) Headache History of back problems History of edema History of pain when walking History of stress test Hx of echocardiogram Hyperlipidemia Hypertension Imbalance Lung cancer, primary, with metastasis from lung to other site Neck pain Neuropathy Omental metastasis Oral candidiasis Osteoarthritis 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 Partial obstruction of small intestine Peripheral arterial disease Peripheral vascular angioplasty status Peripheral vascular disease 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 SBO (small bowel obstruction) Shortness of breath on exertion Shoulder pain Tobacco use disorder, continuous Umbilical hernia Uterine fibroid Ventral incisional hernia without obstruction or gangrene 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 Wears dentures Wears glasses Weight loss Home Medications lidocaine-prilocaine 2.5 %-2.5 % topical cream 1 applic topical ONCE PRN port access 30 days #30 grams 12/31/20 [Rx Last Taken Unknown] fentanyl 50 mcg/hr transdermal patch 100 mcg transdermal Q72H pain 04/20/21 [History Last Taken 03/18/22 08:00] lorazepam 2 mg/mL oral concentrate (Lorazepam Intensol) 1 mg (0.5 mL) PO Q6H PRN anxiety #30 mL 03/28/22 [Rx Last Taken Unknown] ondansetron 8 mg disintegrating tablet 8 mg PO TID PRN Nausea #30 tabs 03/28/22 [Rx Last Taken Unknown] prochlorperazine maleate 10 mg tablet 10 mg PO Q6H PRN PRN Nausea #30 tabs 03/28/22 [Rx Last Taken Unknown] morphine 10 mg/5 mL oral solution 5 mg PO Q4H PRN pain 06/22/22 [History Last Taken Unknown] Allergy/AdvReac Type Severity Reaction Status Date / Time naproxen [From Naprosyn] Allergy Severe Shortness Verified 04/26/22 11:39 of breath Family History Brother Cancer throat and lung Mother CAD (coronary artery disease) Hypertension Father CAD (coronary artery disease) Surgical History H/O shoulder replacement History of AAA (abdominal aortic aneurysm) repair (09/26/17) History of amputation of left great toe History of bunionectomy of left great toe History of cardiac catheterization History of carpal tunnel release of both wrists History of left knee replacement (~06/08/11) History of right hip replacement History of rotator cuff surgery History of spinal surgery (~1999) Hx of spinal fusion Social History number of children: 5 Smoking Status: Current some day smoker tobacco type: cigarettes Tobacco: How many years used: 50 second hand exposure: No alcohol intake: current alcohol intake frequency: a few times a month Alcohol type: beer details: weekends substance use type: does not use caffeine: Yes Type: coffee Number of servings: 3 and other what type of physical activity do you participate in: none seatbelt use: always do you feel safe at home: Yes additional social history: Matt- Both are retired ROS ROS ED Constitutional Constitutional ED: Denies chills or fever(s) Eyes Eyes: Denies blurry vision or change in vision ENT ENT ED: Denies rhinorrhea or sore throat Cardiovascular Cardiovascular: Reports chest pain; Denies palpitations Respiratory/Chest Respiratory/Chest: Denies cough or dyspnea Gastrointestinal Gastrointestinal: Reports abdominal pain, diarrhea, nausea and vomiting Genitourinary Genitourinary ED: Denies dysuria or hematuria Musculoskeletal Musculoskeletal: Denies back pain or neck pain Integumentary Denies abscess or rash Neurologic Neurologic: Denies headache(s) or weakness Allergic/Immunologic Allergic/Immunologic ED: Denies mouth swelling or urticaria EXAM Physical Exam Const Vital Signs: 06/22/22 05:53 Temperature 97.3 F L Temperature Source Temporal Pulse Rate 95 Respiratory Rate 18 Blood Pressure 131/68 H Blood Pressure Mean 89 Pulse Ox 100 Oxygen Delivery Method Room Air Positive well nourished and well developed General Appearance ED: well developed and NAD HEENT Reports moist mucous membranes Neck supple and no JVD Resp normal respiratory effort and clear to auscultation bilaterally Cardio regular rate, regular rhythm and no murmurs GI Inspection: abdominal distention Auscultation: hypoactive bowel sounds Palpation: tender epigastric, LLQ, RLQ, LUQ, RUQ, periumbilical and suprapubic Extremity normal to inspection General Extremety ED: Negative for edema or tenderness General Extremity: Negative for edema Neuro oriented x3, CN's II-XII intact bilaterally and no sensory deficits noted Sensorium / Orientation: alert Motor Exam: strength 5/5 throughout Psych mental status grossly normal Skin no rashes or lesions noted MDM MDM MDM Narrative Medical decision making narrative: Patient was given IV fluids here. CBC shows a mild leukocytosis of 13.8. Compr ehensive metabolic profile shows a creatinine 1.19. Potassium was slightly low at 3.3. Lipase was normal at 81. Urinalysis was ordered and is pending. CT scan of the abdomen pelvis was ordered and is pending. Care of the patient will be turned over to the oncoming physician pending CT results and urinalysis results. Lab Data Labs: Laboratory Results - last 24 hr 06/22/22 06/22/22 07:20 07:20 WBC 13.8 H RBC 3.69 L Hgb 12.2 Hct 39.8 MCV 107.9 H MCH 33.1 H MCHC 30.7 L RDW Std Deviation 54.3 H RDW Coeff of Sean 13.5 Plt Count 286 MPV 9.1 Immature Gran % (Auto) 0.600 Neut % (Auto) 86.4 H Lymph % (Auto) 7.5 L [place] % (Auto) 5.1 Eos % (Auto) 0.1 Baso % (Auto) 0.3 Absolute Neuts (auto) 12.0 H Absolute Lymphs (auto) 1.04 Nucleated RBC % 0 Sodium 138 Potassium 3.3 L Chloride 99 Carbon Dioxide 27.0 Anion Gap 12 BUN 20 H Creatinine 1.19 H Estim Creat Clear Calc 35.82 Est GFR (MDRD) Af Amer 57 L Est GFR (MDRD) Non-Af 47 L BUN/Creatinine Ratio 16.8 Glucose 116 H Calcium 9.4 Total Bilirubin 0.30 AST 12 L ALT 11 L Alkaline Phosphatase 130 H Total Protein 6.5 Albumin 2.2 L Globulin 4.3 H Albumin/Globulin Ratio 0.5 L Lipase 81 Discharge Plan Triage Chief Complaint: Wound ED Provider: Daniel Velasco Dx/Rx/DC Orders Clinical Impression: Abdominal pain, Metastatic lung cancer (metastasis from lung to other site) Prescriptions: No Action lidocaine-prilocaine 2.5-2.5 % cream 1 applic topical ONCE PRN (Reason: port access) 30 Days Qty: 30 2RF fentanyl 50 mcg/hr patch 72 hour 100 mcg transdermal Q72H lorazepam [Lorazepam Intensol] 2 mg/mL concentrate 1 mg PO Q6H PRN (Reason: anxiety) Qty: 30 0RF prochlorperazine maleate 10 mg tablet 10 mg PO Q6H PRN PRN (Reason: Nausea) Qty: 30 2RF ondansetron 8 mg tablet,disintegrating 8 mg PO TID PRN (Reason: Nausea) Qty: 30 0RF morphine 10 mg/5 mL solution 5 mg PO Q4H PRN (Reason: pain) Primary Care Provider: Herbert Simpson Referrals: Herbert Simpson DO [Primary Care Provider] -
--- NOTE | 2022-06-22 06:49 | CT_ITS ---
STUDY: CT ABDOMEN AND PELVIS WITH CONTRAST REASON FOR EXAM: Female, 72 years old. Abdominal pain -- IV PO Contrast RADIATION DOSAGE (If Supplied By Facility): CTDIvol = ( 16.19 ) mGy, DLP = ( 876.38 ) mGycm TECHNIQUE: Transaxial images were obtained from the dome of the diaphragm to the symphysis pubis without oral contrast. Oral and amp;amp; IV Gastrografin and amp;amp; 100mL Isovue-300 was administered. Sagittal and coronal images were reconstructed. Individualized dose optimization techniques were used for this CT. COMPARISON: CT of abdomen and pelvis dated March 20, 2021 FINDINGS: There are chronic interstitial fibrotic changes of the lung bases. Mild residual patchy infiltrates are present in the right lower lobe with a small loculated pleural effusion. Unresolved small bowel obstruction with mild to moderate fluid field and dilated small bowel loops starting at the gastroduodenal junction and extending proximal jejunal ileal junction in the midline of the lower abdomen (see image 83/113 series 2 and 36/119 series 601. There is a zone of transition from dilated distended loop of bowel to collapsed bowel within the area of focal narrowing/stricturing most likely due to an extrinsic adhesion. The remaining mid to distal ileal loops are collapsed up to the ileocolic junction. Reidentification of a moderate amount of abdominal ascites. No free air is present. Stable PEG tube in the stomach. Mild gaseous distention of the stomach. The colonic loops are collapsed and unremarkable. Redemonstration of moderate diverticulosis of the descending and sigmoid colon. Unremarkable appendix. Normal liver. Normal gallbladder and extrahepatic biliary system. Normal spleen. Normal pancreas. Normal bilateral adrenal glands. There is mild cortical atrophy of the right kidney, consistent with chronic medical renal disease. No change in severe atrophy of the upper pole of the left kidney and chronic related changes. Stable aortoiliac endograft and distal abdominal aortic aneurysm and 4.58 cm.. Normal inferior vena cava. Normal retroperitoneum. Normal urinary bladder. Unremarkable uterus and adnexal regions. Normal abdominal wall. There are diffuse degenerative changes of the visualized lumbar spine. CT/Abdomen/Pelvis WITH Contrast IMPRESSION: Unresolved small bowel obstruction 1. Unresolved small bowel obstruction with mild to moderate fluid field and dilated small bowel loops starting at the gastroduodenal junction and extending proximal jejunal ileal junction in the midline of the lower abdomen (see image 83/113 series 2 and 36/119 series 601. There is a zone of transition from dilated distended loop of bowel to collapsed bowel within the area of focal narrowing/stricturing most likely due to an extrinsic adhesion. The remaining mid to distal ileal loops are collapsed up to the ileocolic junction. Electronically Signed: Skinny Zuniga MD at 10:18 EST ,
[2022-06-22] MEDS: 0.9% Normal Saline 1,000 ML 1000 ML IV (07:14)
[2022-06-22 07:26] LABS: Absolute Lymphocyte Count 1.04 X10^3/uL (0.83-4.51); Basophil# 0.04 X10^3/uL; Basophil% 0.3 % (0-1); Eosinophil# 0.01 X10^3/uL; Eosinophils% 0.1 % (0-5); Hematocrit 39.8 % (37-47); Hemoglobin 12.2 g/dL (12.0-15.0); Lymphocyte # 1.04 X10^3/ul (0.83-4.51); Lymphocyte % 7.5 % (19-41); Mean Corp Hgb Conc 30.7 g/dL (32-36); Mean Corpuscular Hgb 33.1 pg (27.0-32.0); Mean Corpuscular Volume 107.9 fL (81-99); Mean Platelet Vol. 9.1 fl (6.2-12.0); Monocyte% 5.1 % (0-10); NRBC Flagged by Analyzer 0 % (0-5); Neutrophil # 11.96 X10^3/uL (2.7-7.7); Neutrophil % 86.4 % (47-70); Platelet Count 286 K/mm3 (150-450); RBC Distribution Width CV 13.5 % (11.6-14.6); RBC Distribution Width SD 54.3 fl (35.1-43.9); Red Blood Count 3.69 M/mm3 (4.2-5.4); White Blood Count 13.8 K/mm3 (4.4-11.0)
[2022-06-22 07:44] LABS: ALB/GLOB Ratio 0.5 RATIO (0.9-2.4); AST(SGOT) 12 U/L (15-37); Alanine Aminotransfer ALT/SGPT 11 U/L (13-56); Albumin, Serum 2.2 g/dL (3.2-5.0); Alkaline Phosphatase 130 U/L (45-117); Anion Gap 12 (5-15); BUN 20 mg/dL (7-18); BUN/Creat Ratio 16.8 RATIO (10-20); Calcium,Total 9.4 mg/dL (8.5-10.1); Chloride 99 mmol/L (98-107); Creatinine, Serum 1.19 mg/dL (0.55-1.02); EST Glomerular Filtration Rate 47 mL/min (>60); Est Glom Filt Rate - Afr Amer 57 mL/min (>60); Estimated Creatinine Clearance 35.82 ml/min; Globulin 4.3 g/dL (2.2-4.2); Glucose 116 mg/dL (74-106); Lipase 81 U/L (73-393); Potassium 3.3 mmol/L (3.5-5.1); Protein, Total 6.5 g/dL (6.4-8.2); Sodium Level 138 mmol/L (136-145)
[2022-06-22 09:47] LABS: Mucous, Urine 0 SEEN /hpf (<or=2+)
[2022-06-22 09:49] LABS: Color, Urine Yellow (Yellow); Glucose, Dipstick Normal (Normal); Ketone-Dipstick 15 mg/dl (Negative); Leukocyte Esterase-Dipstick 500 /ul (Negative); Nitrite-Dipstick Negative (Negative); Occult Blood-Urine 10 /ul (Negative); Protein-Dipstick 30 mg/dl (Negative); Specific Gravity, Urine 1.025 (1.002-1.030); Urine Bilirubin Dipstick 1 mg/dL (Negative); Urine Clarity Sl. Cloudy (Clear); Urine Urobilinogen Normal (Normal)
[2022-06-22 10:00] LABS: Bacteria 2+ /hpf (None Seen); Red Blood Cells-Urine 0-5 SEEN /hpf (0-5); White Blood Cells 25-50 SEEN /hpf (0-5)
[2022-06-22 10:01] LABS: Squamous Epithelial Cells - UA 5-10 SEEN /hpf (5-10)
[2022-06-22 10:40] VITALS: BP 106/77; PULSE 84; RESP 18; TEMP 36.7; O2SAT 96
--- NOTE | 2022-06-22 15:24 | ED.RN ---
CALLED AND SPOKE WITH [facility] FOR PT UPDAT.E
== END 2022-06-22 13:01 | disposition home or self-care (01) ==
PROVIDERS: Emergency Provider Emergency Medicine; PCP Family Medicine; Visit Provider Emergency Medicine
DX: R10.9 Unspecified abdominal pain (principal); C78.00 Secondary malignant neoplasm of unspecified lung; C80.1 Malignant (primary) neoplasm, unspecified; I25.10 Atherosclerotic heart disease of native coronary artery without angina pectoris; K76.0 Fatty (change of) liver, not elsewhere classified; F17.210 Nicotine dependence, cigarettes, uncomplicated; Z86.718 Personal history of other venous thrombosis and embolism
CPT/HCPCS: 74177; 80053; 81001; 83690; 85025; 96360; 96361; 99285; J7030; Q9967